=== PATIENT | female | born 1955 | race Caucasian/White ===

== ENCOUNTER 2023-09-25 14:24 | Outpatient (CLI) | payer MEDICARE, SELFPAY ==
[2023-09-25 14:52] LABS: Basophils Absolute Auto 0.1 K/mm3 (0.0-0.1); Basophils Percent Auto 1.1 % (0.2-1.2); Eosinophils Absolute Auto 0.1 K/mm3 (0-0.3); Eosinophils Percent Auto 0.7 % (0-4.4); Hematocrit 28.1 % (37.0-47.0); Hemoglobin 8.3 g/dL (12.0-15.0); Immature Granulocyte Absolute 0.03 K/mm3 (0.00-0.031); Immature Granulocyte Percent A 0.3 % (0-0.5); Lymphocytes Absolute Auto 1.27 K/mm3 (0.9-3.2); Lymphocytes Percent Auto 13.1 % (18.3-44.2); Mean Corpuscular HGB Conc 29.5 g/dl (32-36); Mean Corpuscular Volume 84.6 fl (80-100); Mean Platelet Volume 10.5 fl (7.4-10.4); Monocytes Absolute Auto 0.7 K/mm3 (0.1-0.6); Monocytes Percent Auto 6.7 % (2.6-8.5); Neutrophils Absolute Auto 7.6 K/mm3 (1.3-6.7); Neutrophils Percent Auto 78.1 % (45.5-73.1); Platelet Count Result 337 k/mm3 (150-375); Red Blood Count 3.32 M/mm3 (4.2-5.4); Red Cell Distribution Width 14.6 % (11.5-14.5); White Blood Count 9.7 K/mm3 (4.5-10.0)
[2023-09-25 15:00] LABS: Hypochromasia 1+ (NORMAL); Platelet Estimate Adequate (Adequate); Schistocytes None Seen (NORMAL)
[2023-09-25 16:56] LABS: Iron 57 ug/dL (37-170)
[2023-09-25 17:07] LABS: Alanine Aminotransferase 13 U/L (6-35); Albumin Level 4.4 g/dL (3.5-5.1); Alkaline Phosphatase 72 U/L (38-126); Anion Gap 13 mmol/L (8-16); Aspartate Amino Transferase 25 U/L (14-36); Bilirubin,Total 0.9 mg/dL (0.2-1.3); Blood Urea Nitrogen 12 mg/dL (7-17); Calcium 9.9 mg/dL (8.4-10.2); Carbon Dioxide 23 mmol/L (22-30); Chloride 101 mmol/L (98-107); Estimated Glomerular Filt Rate 49; Glucose 130 mg/dL (65-110); Sodium 137 mmol/L (137-145)
[2023-09-25 17:09] LABS: Percent Iron Saturation 14 % (20-50)
[2023-09-25 18:26] LABS: Folic Acid > 20.0 ng/mL (2.76->20)
[2023-09-28 18:45] LABS: Methylmalonic Acid 163 nmol/L (87-318)
[2023-09-30 13:48] LABS: Soluble Transferrin Receptor 3.59 mg/L (0.76-1.76)
== END 2023-09-25 14:25 | disposition home or self-care (01) ==
LOC: ANHLAB 14:26
PROVIDERS: PCP Internal Medicine Infectious Disease; Visit Provider Internal Medicine Hematology & Oncology
DX: D64.9 Anemia, unspecified (principal)
CPT/HCPCS: 36415; 80053; 82607; 82728; 82746; 83540; 83550; 83921; 84238; 85025

== ENCOUNTER 2023-11-01 07:00 | Outpatient (NON) | payer MEDICARE, SELFPAY | END 2023-11-01 07:01 | disposition home or self-care (01) | PROVIDERS: PCP Internal Medicine Infectious Disease; Visit Provider Internal Medicine Gastroenterology | DX: K21.9 Gastro-esophageal reflux disease without esophagitis (principal); D12.4 Benign neoplasm of descending colon; K31.89 Other diseases of stomach and duodenum | CPT/HCPCS: 88305 ==

== ENCOUNTER 2023-11-01 08:59 | Day surgery (SDC) | payer MEDICARE, SELFPAY ==
[2023-10-20 13:41] VITALS: BMI 24.3
--- NOTE | 2023-10-24 08:08 | SUR.PREOP ---
During pre-op interview regarding upcoming EGD/Colonoscopy Pt stated lab work from 09/25/23 showed HGB of 8.3 and ferritin of 7.2. Pt states is getting iron infusion this week and has chronic anemia. Pt states has been experiencing fatigue and SOB on exertion. Pt states was having heart palpitations and had a loop recorder recently taken out and was put on flecainide. On Eliquis for A-fib. TIA history with no episodes of TIA in last 5 years. Case reviewed with Dr. Jarquin (anesthesiologist) who states Pt okay to have procedure done at [facility]. Fax sent to Dr. Araiza's office for Eliquis hold clearance. Pt aware needs to hold Eliquis for [address] Robles's orders pending clearance from Dr. Araiza.
[2023-11-01 10:05] VITALS: BP 151/74; PULSE 88; RESP 20; TEMP 36.5; O2SAT 100
--- NOTE | 2023-11-01 10:11 | WPDHPUPDATE1 ---
History and Physical Update Update Date/Time: 11/01/23 10:11 History and Physical has been reviewed, including an updated exam of the patient. There are NO changes in the patient's condition. Risks, benefits, and alternatives have been discussed and questions answered. Patient agrees to proceed with procedure.
--- NOTE | 2023-11-01 10:31 | WPDANESEPPF ---
Anes - Initial Pre Proc Eval Procedure: Operation Date: 11/01/23 11:00 Proposed Procedures p Esophagogastroduodenoscopy - Howard Robles MD s Diagnostic Colonoscopy - Howard Robles MD Date/Time: 11/01/23 10:31 Surgeon: Howard Robles MD Pre Op Diagnosis: Iron deficiency anemia, dysphagia Patient Data Age: 68 Gender: F Height: 1.52 m Weight: 53.7 kg Last Vital Signs Temp 36.5 C 11/01/23 10:05 Pulse 88 11/01/23 10:05 Resp 20 11/01/23 10:05 BP 151/74 H 11/01/23 10:05 Pulse Ox 100 11/01/23 10:05 O2 Del Method Room Air 11/01/23 10:05 Allergies Allergy/AdvReac Type Severity Reaction Status Date / Time rofecoxib [From Vioxx] Allergy Intermediate rash Verified 11/01/23 10:03 Sulfa (Sulfonamide Allergy Intermediate Swelling Verified 11/01/23 10:03 Antibiotics) Home Medications Medication Instructions Recorded Confirmed Type apixaban 5 mg tablet (Eliquis) 5 mg PO BID 07/11/22 11/01/23 History flecainide 50 mg tablet 50 mg PO DAILY 07/11/22 11/01/23 History folic acid 1 mg tablet 1 mg PO DAILY 07/11/22 10/25/23 History losartan 25 mg tablet 25 mg PO DAILY 07/11/22 11/01/23 History meclizine 25 mg tablet 25 mg PO TID PRN dizziness 07/11/22 10/25/23 History metformin 500 mg tablet,extended 1,000 mg PO BID 07/11/22 10/25/23 History release 24hr (osmotic) metoprolol succinate 25 mg 25 mg PO DAILY 07/11/22 11/01/23 History tablet,extended release 24 hr omeprazole 20 mg capsule,delayed 20 mg PO DAILY 07/11/22 10/25/23 History release sitagliptin phosphate 100 mg 100 mg PO DAILY 07/11/22 10/25/23 History tablet (Januvia) ascorbate calcium (vitamin C) 500 500 mg PO DAILY 10/19/23 10/25/23 History mg tablet ferrous sulfate 134 mg (27 mg 134 mg PO DAILY 10/19/23 10/25/23 History iron) tablet omeprazole 20 mg capsule,delayed 20 mg PO DAILY 10/19/23 10/25/23 History release mecobalamin (vitamin B12) 1 tab-cap PO DIRECTED 10/24/23 10/25/23 History Patient hx anesthesia problems: none Family hx anesthesia problems: none Results Review: All pre-operative results and documents have been reviewed as part of the pre-operative evaluation. [facility] Past Medical History Medical History Afib Dysphagia GERD (gastroesophageal reflux disease) HTN (hypertension) Surgical History Surgical History H/O hand surgery H/O hysterectomy for benign disease Hx laparoscopic cholecystectomy Social History Social History Social History: never smoker Smoking status: Never smoker Alcohol intake: never Substance use: never Substance use type: does not use Lack of Transportation: No Lack of Food: Never True Current Housing: I Have Housing Concerned About Future Housing: No Difficulty Paying Gas/Electric Bills: No Difficulty Paying for Meds: No Currently Unemployed: No Education: Associate Degree Difficulty w/ Childcare or Family Care: No Living arrangements: with family Occupation/Education: retired Spiritual care concerns: No Anes - Eval Final PreProcedure Day of Procedure 11/01/23 10:31 Patient weight: normal Heart: regular rate and rhythm Lungs: clear to auscultation Airway: Mallampati scale class II Neurological: alert and oriented Last oral intake: >/= 8 hours ASA classification: III Emergent: no Anesthetic plan: proceed Anesthesia type and monitoring: general GIVS and standard monitoring Results Review: All pre-operative results and documents have been reviewed as part of the pre-operative evaluation. Informed Consent: The patient's anesthetic plan and its attendant risks and benefits were discussed with the patient/family/POA. Questions were solicited and answers provided to the satisfaction of the patient/family/POA.
[2023-11-01] MEDS: LACTATED RINGERS 1,000 ML 150 ML IV CONT (10:32)
[2023-11-01 10:34] LABS: Glucose Point of Care 156 mg/dl (65-105)
[2023-11-01 11:08] VITALS: BP 121/72; PULSE 78; RESP 16; O2SAT 96
[2023-11-01 11:18] VITALS: BP 140/72; PULSE 70; RESP 15; O2SAT 100
--- NOTE | 2023-11-01 11:19 | WPDANESPN ---
Anes - Prog Note Post-Op Date/Time: 11/01/23 11:19 Cardiovascular status: normal Respiratory status: normal Airway patency: baseline Mental status: baseline Post-Op hydration status: normal Vital Signs: Last Vital Signs Temp 36.5 C 11/01/23 10:05 Pulse 78 11/01/23 11:08 Resp 16 11/01/23 11:08 BP 121/72 11/01/23 11:08 Pulse Ox 96 11/01/23 11:08 O2 Del Method Room Air 11/01/23 11:08 Pain Score (VAS): 0/10 I/O: Intake & Output 10/31/23 11/01/23 11/01/23 23:59 07:59 15:59 Intake Total 400 Balance 400 11/01/23 10:25 POC Capillary Glucose 156 H Patient Feedback: Patient satisfied with anesthetic care.
[2023-11-01 11:28] VITALS: BP 134/54; PULSE 67; RESP 15; O2SAT 100
== END 2023-11-01 12:04 | disposition home or self-care (01) ==
PROVIDERS: PCP Internal Medicine Infectious Disease; Visit Provider Internal Medicine Gastroenterology
PROC: 0DJ08ZZ Inspection of Upper Intestinal Tract, Via Natural or Artificial Opening Endoscopic (ICD-10-PCS; CPT 43235; principal; 2023-11-01 11:00)
PROC: 0DJD8ZZ Inspection of Lower Intestinal Tract, Via Natural or Artificial Opening Endoscopic (ICD-10-PCS; CPT 45378; 2023-11-01 11:00)
DX: D50.9 Iron deficiency anemia, unspecified (principal); D12.4 Benign neoplasm of descending colon; K57.30 Diverticulosis of large intestine without perforation or abscess without bleeding; K64.8 Other hemorrhoids; Q39.4 Esophageal web; R13.19 Other dysphagia; K44.9 Diaphragmatic hernia without obstruction or gangrene
CPT/HCPCS: 45385; 43450; 43239

== ENCOUNTER 2024-03-15 10:52 | Outpatient (CLI) | payer MEDICARE, SELFPAY ==
[2024-03-15 11:34] LABS: Basophils Absolute Auto 0.1 K/mm3 (0.0-0.1); Eosinophils Absolute Auto 0.1 K/mm3 (0-0.3); Eosinophils Percent Auto 0.6 % (0-4.4); Hematocrit 31.5 % (37.0-47.0); Immature Granulocyte Absolute 0.06 K/mm3 (0.00-0.031); Immature Granulocyte Percent A 0.7 % (0-0.5); Lymphocytes Absolute Auto 1.17 K/mm3 (0.9-3.2); Lymphocytes Percent Auto 12.9 % (18.3-44.2); Mean Corpuscular HGB Conc 31.7 g/dl (32-36); Mean Corpuscular Volume 94.6 fl (80-100); Monocytes Absolute Auto 0.6 K/mm3 (0.1-0.6); Monocytes Percent Auto 6.5 % (2.6-8.5); Neutrophils Absolute Auto 7.1 K/mm3 (1.3-6.7); Neutrophils Percent Auto 78.3 % (45.5-73.1); Platelet Count Result 300 k/mm3 (150-375); Red Blood Count 3.33 M/mm3 (4.2-5.4); Red Cell Distribution Width 12.9 % (11.5-14.5); White Blood Count 9.1 K/mm3 (4.5-10.0)
[2024-03-15 15:58] LABS: Anion Gap 10 mmol/L (4-12); Blood Urea Nitrogen 15 mg/dL (7-17); Calcium 8.3 mg/dL (8.4-10.2); Carbon Dioxide 26 mmol/L (22-30); Chloride 104 mmol/L (98-107); Estimated Glomerular Filt Rate 45; Glucose 191 mg/dL (65-110); Potassium 4.4 mmol/L (3.4-5.0); Sodium 140 mmol/L (137-145)
[2024-03-15 16:31] LABS: Iron 95 ug/dL (37-170)
[2024-03-15 16:37] LABS: NT Pro B Type Natriuretic Pept 1630 pg/mL (19.9-100)
[2024-03-15 16:44] LABS: Percent Iron Saturation 39 % (20-50)
[2024-03-18 13:43] LABS: Vitamin D 1,25 (OH)2 Total 32 pg/mL (18-72); Vitamin D2 1,25 (OH)2 <8 pg/mL; Vitamin D3 1,25 (OH)2 32 pg/mL
== END 2024-03-15 10:53 | disposition home or self-care (01) ==
PROVIDERS: Internal Medicine Cardiovascular Disease; Psychiatry & Neurology Neurology; PCP Internal Medicine Infectious Disease; Visit Provider Internal Medicine Hematology & Oncology
DX: E55.9 Vitamin D deficiency, unspecified (principal); D64.9 Anemia, unspecified; Z13.6 Encounter for screening for cardiovascular disorders; I77.9 Disorder of arteries and arterioles, unspecified; I48.0 Paroxysmal atrial fibrillation; I10 Essential (primary) hypertension; R53.83 Other fatigue; R55 Syncope and collapse; I47.10 Supraventricular tachycardia, unspecified; Z95.818 Presence of other cardiac implants and grafts; G45.9 Transient cerebral ischemic attack, unspecified; E78.5 Hyperlipidemia, unspecified; R42 Dizziness and giddiness; E11.9 Type 2 diabetes mellitus without complications; R00.2 Palpitations
CPT/HCPCS: 36415; 80048; 82652; 82728; 83540; 83550; 83880; 85025

== ENCOUNTER 2024-04-24 10:38 | Outpatient (CLI) | payer MEDICARE, SELFPAY ==
--- NOTE | ~2024-04-24 | MR_ITS ---
EXAMINATION: MR brain/brain stem wo/w con DATE: 04/24/2024 11:41 INDICATION: Multiple sclerosis. Dizziness. Transient ischemic attack. TECHNIQUE: Magnetic resonance imaging (MRI) of the brain and brainstem was performed without and with 10 mL MultiHance intravenous contrast. COMPARISON: None. FINDINGS: There are scattered areas of nonspecific increased T2-weighted signal intensity in the cere bral white matter. The distribution includes periventricular and juxtacortical lesions. No infratento rial lesions. None of the lesions enhance. There is no intracranial hemorrhage or acute ischemic infa rct. The ventricles are normal in size. The orbits are normal. There is mucosal thickening in the eth moid sinuses. The mastoid air cells are normal. IMPRESSION: 1. Extensive nonspecific cerebral white matter disease, which likely represents chronic small vessel ischemic disease and/or multiple sclerosis. Reviewed, dictated and finalized at location A.
== END 2024-04-24 10:39 | disposition home or self-care (01) ==
PROVIDERS: PCP Internal Medicine Infectious Disease; Visit Provider Psychiatry & Neurology Neurology
DX: G35 Multiple sclerosis (principal); R90.82 White matter disease, unspecified
CPT/HCPCS: 70553; A9577

== ENCOUNTER 2024-10-04 10:45 | Outpatient (CLI) | payer MEDICARE, SELFPAY ==
[2024-10-04 11:13] LABS: Basophils Absolute Auto 0.1 K/mm3 (0.0-0.1); Basophils Percent Auto 1.1 % (0.2-1.2); Eosinophils Absolute Auto 0.1 K/mm3 (0-0.3); Eosinophils Percent Auto 0.8 % (0-4.4); Hematocrit 32.8 % (37.0-47.0); Hemoglobin 10.4 g/dL (12.0-15.0); Immature Granulocyte Absolute 0.05 K/mm3 (0.00-0.031); Immature Granulocyte Percent A 0.6 % (0-0.5); Lymphocytes Absolute Auto 1.46 K/mm3 (0.9-3.2); Lymphocytes Percent Auto 16.1 % (18.3-44.2); Mean Corpuscular HGB Conc 31.7 g/dl (32-36); Mean Corpuscular Hemoglobin 29.5 pg (26-34); Mean Corpuscular Volume 93.2 fl (80-100); Mean Platelet Volume 9.8 fl (7.4-10.4); Monocytes Absolute Auto 0.5 K/mm3 (0.1-0.6); Monocytes Percent Auto 5.7 % (2.6-8.5); Neutrophils Absolute Auto 6.9 K/mm3 (1.3-6.7); Neutrophils Percent Auto 75.7 % (45.5-73.1); Platelet Count Result 293 k/mm3 (150-375); Red Blood Count 3.52 M/mm3 (4.2-5.4); Red Cell Distribution Width 12.7 % (11.5-14.5); White Blood Count 9.1 K/mm3 (4.5-10.0)
[2024-10-04 12:40] LABS: Alanine Aminotransferase 14 U/L (6-35); Alkaline Phosphatase 92 U/L (38-126); Anion Gap 8 mmol/L (4-12); Aspartate Amino Transferase 21 U/L (14-36); Bilirubin,Total 0.8 mg/dL (0.2-1.3); Blood Urea Nitrogen 22 mg/dL (7-17); Calcium 9.7 mg/dL (8.4-10.2); Carbon Dioxide 27 mmol/L (22-30); Chloride 101 mmol/L (98-107); Estimated Glomerular Filt Rate 42; Glucose 134 mg/dL (65-110); Potassium 5.2 mmol/L (3.4-5.0); Sodium 136 mmol/L (137-145); Uric Acid 7.1 mg/dL (2.5-7.5)
[2024-10-04 12:56] LABS: MALB Creatinine Ratio 10.1 mg/g (0-30); Microalbumin Urine Random 13.7 mg/L (0-16.7)
[2024-10-04 12:58] LABS: Parathyroid Intact 19.9 pg/mL (14.5-75.2)
[2024-10-04 13:03] LABS: Vitamin D 25 Hydroxy 59.2 ng/mL
[2024-10-04 13:09] LABS: Add Urine Microscopic? YES; Appearance Urine Cloudy (Clear); Bacteria Urine 1+ /hpf; Bilirubin Urine Negative (Negative); Blood Urine Negative (Negative); Budding Yeast Urine Present /hpf; Color Urine Yellow (Yellow); Glucose Urine UA Negative (Negative); Ketones Urine Negative (Negative); Leukocyte Esterase Ur 2+ LEU/UL (Negative); Need Manual Microscopic Reviewed; Nitrate Urine Negative (Negative); Protein Urine Negative (Negative); RBC Urine 0-2 /hpf (0-2); Specific Grav Ur 1.017 (1.001-1.035); Squamous Epithelial Cell Urine Moderate /hpf (Few); Urobilinogen Urine 0.2 mg/dL (<2.0); WBC Urine 21-50 /hpf (0-3)
[2024-10-04 13:15] LABS: Hemoglobin A1C 7.2 % (<5.7)
[2024-10-04 13:18] LABS: Erythrocyte Sedimentation Rate 38 mm/hr (0-20)
--- OUTSIDE RECORDS SUMMARY | 2024-10-10 06:33 | XMS_ITS | Data Portability ---
Author Organization [facility] Address [address] [place] [address] Care Team Providers Care [employer] Techn[employer] Name Role Phone [facility] - NEUROLOGY Neurologist Assessment Encounter Date Assessment Date Assessment LastModified by Organization Details LastModified Time 03/25/2024 03/25/2024 She is not due for Prevnar 20 until 5 years after her last Pneumovax 23, which was administered on 02/28/2023 oajao Not available 03/25/2024 19:15:00 Plan of Treatment Reminders Order Date Submit Date Provider Last Modified By Organization Details Last Modified Time Details Appointments ANY 15 2024 11:00A Kenia Soni MD Not available Not available Not available Lab CBC 2022 023 [facility], [address] [place], [address], 02/06/2023 13:51:39 BMP, serum or plasma 2022 024 [facility], [address] [place], [address], 03/25/2024 14:36:13 HbA1c (hemogl obin A1c), blood 2022 023 [facility], [address] [place], [address], 03/15/2023 11:21:45 lipid panel, serum 2022 023 [facility], [address] [place], [address], 06/06/2023 11:39:01 vitamin D, 25-hydr oxy, total, serum 2022 023 [facility], [address] [place], [address], 05/26/2023 13:54:05 hemoglo bin + hematoc rit, blood 2022 023 [facility] ([facility]), [address] [place], [address], 02/28/2023 15:28:45 CBC 2022 024 [facility], [address] [place], [address], 12/25/2023 09:35:37 BMP, serum or plasma 2022 024 [facility], [address] [place], [address], 03/25/2024 14:36:19 HbA1c (hemogl obin A1c), blood 2022 024 [facility] ([facility]), [address] [place], [address], 03/03/2024 23:57:06 lipid panel, serum 2022 024 [facility] ([facility]), [address] [place], [address], 03/04/2024 15:11:26 BMP, serum or plasma 2023 024 [facility], [address] [place], [address], 04/09/2024 16:07:59 albumin /creati nine, mass ratio, urine 2023 024 [facility], [address] [place], [address], 08/06/2024 09:31:14 Referral diabeti c ophthal mology referra l 2022 023 [facility], [address], [place], [address], 08/23/2023 15:41:29 gastroe nterolo gist referra l - Iron deficie ncy anemia, Hb 836, Hct 28.3 01/27/20 23 2022 023 pelonraddillerenuka Fernandes MD, [address], [address], [place], [address], 04/05/2024 13:46:12 gastroe nterolo gist referra l - Chronic anemia 2022 023 OSMANI Fernandes MD, [address], [address], [place], [address], 10/22/2023 21:26:13 endocri nology, diabete s & metabol ism special ist referra l - Osteope livier with previou s fractur es and DM 2022 023 [place], [address], [place], [address], 07/25/2024 11:43:55 nephrol ogist referra l - Elevate d creatin ine 2023 024 OSMANI Araiza MD (Nephrology, [address], [address], [place], [address], 05/01/2024 15:40:16 Procedures None recorde d. Surgeries None recorde d. Imaging DEXA 2022 023 [facility] ([facility]), [address] [place], [address], 02/28/2023 10:46:15 MAMMO, screeni ng, bilater al 2022 023 [facility] ([facility]), [address] [place], [address], 08/21/2023 14:53:00 DEXA 2022 023 [facility] ([facility]), [address] [place], [address], 07/24/2023 13:50:59 US, kidney - Elevate d creatin ine 2023 024 [facility] ([facility]), [address] [place], [address], 04/08/2024 14:38:57 MAMMO, screeni ng, digital , bilater al 2023 024 [facility] (Mammography) , [address], [place], [address], 09/17/2024 15:24:00 Medication Orders azithro mycin 250 [address] [facility] #[id number], [address], [place], [address], 11/28/2022 12:07:21 benzona kate 100 mg capsule 2022 023 [facility]acy #[id number], [address], [place], [address], 02/28/2023 10:01:38 Advair Diskus 250 mcg-50 mcg/dos e powder for inhalat ion 2022 023 [facility]/Pharmacy #[id number], [address], [place], [address], 02/28/2023 10:29:15 albuter ol sulfate HFA 90 mcg/act uation aerosol inhaler 2022 023 [facility][id number] 37 [facility] #[id number], [address], [place], [address], 03/01/2023 23:39:49 ferrous sulfate 325 mg (65 mg iron) tablet 2022 023 oajao [id number], [address], [place], [address], 09/04/2023 12:23:46 citalop armani 10 mg tablet 2023 024 OSMANI [facility][id number], [address], [place], [address], 03/29/2024 20:09:07 Patient TargetsNo targets recorded. Patient Instructions Encounter Date Encounter Id Patient Instructions Last Modified By Organization Details Last Modified Time 11/28/2022 [id number] type 2 diabetes: care instructions oajao Not available 11/28/2022 10:41:34 Azithromycin Mayo thomason CXR if there is no improvement DEXA scan Ophthalmology Bivalent COVID 19 booster ER with SOB or chest pain Labs in Jan, 2023 Follow up in 3 months and PRN oajao Not available 11/28/2022 10:59:19 02/28/2023 [id number] learning about breast cancer screening oajao Not available 02/28/2023 10:39:18 type 2 diabetes: care instructions oajao Not available 02/28/2023 11:22:55 GI Labs Ophthalmology as previously referred DEXA [facility] in April, Follow up in 6 months and PRN oajao Not available 02/28/2023 11:23:46 A hard copy of h er 01/26/2023 lab results were discussed oajao Not available 02/28/2023 11:25:51 09/04/2023 [id number] influenza (flu) vaccine: care instructions oajao Not available 09/04/2023 13:17:00 FeSo4 BID GI Endocrinology Labs in December, Follow up in 5 months and PRN oajao Not available 09/04/2023 12:25:09 03/25/2024 [id number] Most recent lab results from [facility]/Carotid US (Scheduled) Labs US Citalopram Nephrology Follow up in 4 months and PRN oacaino Not available 03/25/2024 15:51:21 07/16/2024 [id number] influenza (flu) vaccine: care instructions oacaino Not available 07/16/2024 12:41:12 Labs MMG in August, Follow up in 5 months and PRN oacaino Not available 07/16/2024 12:41:37 Reason for Referral Diabetic Ophthalmology Refer ral for Type 2 diabetes mellitus without complication Referring Physician: Adam Soni, Internal Medicine, Encounter Date: 11/28/2022 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 Chronic anemia Iron deficiency anemia, Hb 836, Hct 28.3 01/26/2023 Iron deficiency anemia, Hb 836, Hct 28.3 01/26/2023 Referring Physician: Adam Soni Internal Medicine, Encounter Date: 02/28/2023 Endocrinology, Diabetes & Me tabolism Specialist Referral for Type 2 diabetes mellitus without complication Osteopenia, DM Osteopenia with previous fractures and DM Referring Physician: Adam Soni Internal Medicine, Encounter Date: 09/04/2023 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 Chronic anemia Chronic anemia Chronic anemia Referring Physician: Adam Soni Internal Medicine, Encounter Date: 09/04/2023 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) [address] [facility] [address], [place], [address], 11/01/2023 06:19:23 10/27/19 24 10/28/2023 MICRO SCOPI C EXAMI NATIO N RBC NONE SEEN /hpf 0-2 Not Available [facility] ([facility]) [address] [facility] [address], [place], [address], 11/01/2023 06:19:23 10/27/19 24 10/28/2023 MICRO SCOPI C EXAMI NATIO N epithelial cells (non renal) 0-10 /hpf 0-10 Not Available [facility] ([facility]) [address] [facility] [address], [place], [address], 11/01/2023 06:19:23 10/27/19 24 10/28/2023 MICRO SCOPI C EXAMI NATIO N casts NONE SEEN /lpf nonese en Not Available [facility] ([facility]) [address] [facility] [address], [place], [address], 11/01/2023 06:19:23 10/27/19 24 10/28/2023 MICRO SCOPI C EXAMI NATIO N bacteria MANY nonese en/few abnormal Not Available [facility] ([facility]) [address] [facility] [address], [place], [address], 11/01/2023 06:19:23 10/27/19 24 10/28/2023 UA WITH CULTU RE REFLE X specific gravity 1.019 1.005- 1.030 Not Available [facility] ([facility]) [address] [facility] [address], [place], [address], 11/01/2023 06:19:23 10/27/19 24 10/28/2023 UA WITH CULTU RE REFLE X pH 5.5 5.0-7. 5 Not Available [facility] ([facility]) [address] [facility] [address], [place], [address], 11/01/2023 06:19:23 10/27/19 24 10/28/2023 UA WITH CULTU RE REFLE X urine-color YELLOW yellow Not Available [facility] ([facility]) [address] [facility] [address], [place], [address], 11/01/2023 06:19:23 10/27/19 24 10/28/2023 UA WITH CULTU RE REFLE X appearance CLOUDY clear abnormal Not Available [facility] ([facility]) [address] [facility] [address], [place], [address], 11/01/2023 06:19:23 10/27/19 24 10/28/2023 UA WITH CULTU RE REFLE X WBC esterase 3+ negati ve abnormal Not Available [facility] ([facility]) [address] [facility] [address], [place], [address], 11/01/2023 06:19:23 10/27/19 24 10/28/2023 UA WITH CULTU RE REFLE X protein 1+ negati ve/tra ce abnormal Not Available [facility] ([facility]) [address] [facility], [place], [address], 11/01/2023 06:19:23 10/27/19 24 10/28/2023 UA WITH CULTU RE REFLE X glucose NEGATI VE negati ve Not Available [facility] ([facility]) [address] [facility] [address], [place], [address], 11/01/2023 06:19:23 10/27/19 24 10/28/2023 UA WITH CULTU RE REFLE X ketones NEGATI VE negati ve Not Available [facility] ([facility]) [address] [facility] [address], [place], [address], 11/01/2023 06:19:23 10/27/19 24 10/28/2023 UA WITH CULTU RE REFLE X occult blood TRACE negati ve abnormal Not Available [facility] ([facility]) [address] [facility] [address], [place], [address], 11/01/2023 06:19:23 10/27/19 24 10/28/2023 UA WITH CULTU RE REFLE X bilirubin NEGATI VE negati ve Not Available [facility] ([facility]) [address] [facility] [address], [place], [address], 11/01/2023 06:19:23 10/27/19 24 10/28/2023 UA WITH CULTU RE REFLE X urobilinogen ,semi-qn 0.2 mg/dL 0.2-1. 0 Not Available [facility] ([facility]) [address] [place], [address], 11/01/2023 06:19:23 10/27/19 24 10/28/2023 UA WITH CULTU RE REFLE X nitrite, urine NEGATI VE negati ve Not Available [facility] ([facility]) [address] [place], [address], 11/01/2023 06:19:23 10/27/19 24 10/28/2023 UA WITH CULTU RE REFLE X microscopic examination SEE BELOW: Micro scopi c was indic ated and was perfo rmed. Not Available [facility] ([facility]) [address] [place], [address], 11/01/2023 06:19:23 10/27/19 24 10/28/2023 UA WITH CULTU RE REFLE X urinalysis reflex COMMEN T This speci men has refle xed to a Urine Cultu re. Not Available [facility] ([facility]) [address] [place], [address], 11/01/2023 06:19:23 10/27/19 24 11/01/2023 URINE CULTU RE, ROUTI NE urine culture, routine FINAL REPORT abnormal Not Available [facility] ([facility]) [address] [place], [address], 11/01/2023 06:19:24 10/27/19 24 11/01/2023 URINE CULTU RE, ROUTI NE result 1 KLEBSI RIP PNEUMO NIAE abnormal Great er than 100,0 00 colon y formi ng units per mL Cefaz chacha <=4 ug/mL Cefaz chacha with an AMIE <=16 predi cts susce ptibi lity to the oral agent s cefac moira, cefdi dev, cefpo doxim e, cefpr ozil, cefur oxime , cepha lexin , and lorac arbef when used for thera py of uncom plica carly urina ry tract infec tions due to E. coli, Klebs iella pneum oniae , and Prote us mirab ilis. Not Available [facility] ([facility]) [address] [facility] [address], [place], [address], 11/01/2023 06:19:24 10/27/1911/01/2023 URINE CULTU RE, ROUTI NE antimicrobia l susceptibili ty COMMEN T S = Susce ptibl e; I = Inter media te; R = Resis tant P = Posit preston; N = Negat preston MICS are expre ssed in micro grams per mL Antib iotic RSLT# 1 RSLT# 2 RSLT# 3 RSLT# 4 Amoxi cilli n/Cla vulan ic Acid S Ampic illin R Cefep ya S Ceftr iaxon e S Cefur oxime S Cipro floxa john S Ertap enem S Genta micin S Imipe nem S Levof loxac in S Merop enem S Nitro furan toin R Piper acill in/Ta zobac brewer S Tetra cycli ne S Tobra mycin S Trime thopr im/Pritchett lfa S Not Available [facility] ([facility]) [address] [facility] [address], [place], [address], 11/01/2023 06:19:24 12/06/1912/02/2022 XR, chest , 2 view No observ ation record ed. [facility] [address] [place], [address], 02/28/2023 10:16:48 12/07/19 23 12/02/2022 XR, chest , 2 view No observ ation record ed. [facility] [address] [place], [address], 02/28/2023 10:16:48 07/24/20 23 07/24/2023 DEXA No observ ation record ed. [facility] ([facility]) [address] [place], [address], 09/04/2023 12:01:04 08/21/20 23 08/21/2023 MAMMO , scree kelly, bilat eral No observ ation record ed. [facility] [address] [place], [address], 09/04/2023 12:01:03 04/08/20 24 04/08/2024 US, kidne y No observ ation record ed. [facility] [address] [place], [address], 07/16/2024 12:25:52 04/09/20 24 04/09/2024 US, duple x, carot id arter y No observ ation record ed. [facility] [address], [place], [address], 07/16/2024 12:25:52 04/09/20 24 04/09/2024 trans -thor acic echoc ardio gram (TTE) (PROC ) No observ ation record ed. [facility] [address], [place], [address], 07/16/2024 12:25:52 04/24/20 24 04/24/2024 MRI, brain + brain stem, w/o contr ast No observ ation record ed. [facility] [address], [place], [address], 07/16/2024 12:25:52 Result Notes None recorded. Problems Name Problem SNOMED Code Status Onset Date Resolution Date Notes Provider Name and Address Organization Details Recorded Time Multinod thiago goiter 519300393 Active 2017 Not Available [facility] 3 09:58:59 Multiple sclerosi s 54278412 Completed 201806/07/2019 Removal Reason: The neurolog ist disagree s Adam Soni MD Attn: Accounting ,[address] [facility], [place], [address] , [place] - [place] 9 11:45:02 Pure hypercho lesterol emia 742240133 Active Not Available [facility] 3 09:58:59 Abnormal liver function 38637906 Active Not Available [facility] 3 09:59:00 Diabetes mellitus 94079525 Completed 10/23/2018 Adam Soni MD Attn: Accounting ,[address] [facility], [place], [address] , [place] 9 17:45:54 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 49143743 Active 2018 Not Available [facility] 3 09:59:00 Gastroes ophageal reflux disease 256937462 Active 2018 Not Available [facility] 3 09:58:59 Adenomat ous polyp of colon 806712438 Active 2019 Not Available [facility] 3 09:59:00 Thyroid nodule 821695614 Active 2019 Not Available [facility] 3 09:58:59 Osteopen ia 472948715 Active 2021 Not Available [facility] 3 09:58:59 Spinal stenosis of lumbar region 72753864 Active 2021 Not Available [facility] 3 09:58:59 History of anemia vitamin B12 deficien t 959839291 Active 2021 Not Available [facility] 3 09:58:59 Chronic anemia 381794620 Active 2021 Not Available [facility] 3 09:58:59 SARS-CoV -2 mRNA vaccine declined 2276346381 Active 2022 Not Available [facility] 3 09:58:59 Fracture of surgical neck of humerus 427329689 Active Adam Soni MD Attn: Accounting ,[address] [facility], [place], [address] , [place] [facility] 4 12:22:40 Anti-nuc lear factor detected 982542279 Active 2023 Adam Soni MD Attn: OLIVER ALVARADO , [place], [address] , [place] [facility] 4 12:24:14 Generali zed anxiety disorder 13986804 Active Not Available [facility] 3 09:58:59 Acute upper respirat ory infectio n 41393856 Active Not Available [facility] 3 09:59:00 Impacted cerumen 47370459 Active Not Available [facility] 3 09:58:59 Candidia sis of vagina 30189716 Active Not Available [facility] 3 09:59:00 Disorder of urinary tract 04159201 Active Not Available [facility] 3 09:59:00 Urinary bladder pain 82453965 Active Not Available [facility] 3 09:58:59 Type 2 diabetes mellitus without complica tion 503906164 Active Not Available [facility] 3 09:58:59 Asthma 752357118 Active Not Available [facility] 3 09:58:59 Uncontro lled type 2 diabetes mellitus 943858093 Active Not Available [facility] 3 09:59:00 Non-alco holic fatty liver 501307447 Active Not Available [facility] 3 09:58:59 Low back pain 756039178 Active Not Available [facility] 3 09:58:59 Dizzines s 847567224 Active Not Available [facility] 3 09:58:59 Hiatal hernia 43159288 Active Not Available [facility] 3 09:59:00 Anemia 317430227 Active Not Available [facility] 3 09:58:59 Depressi ve disorder 85940783 Active Not Available [facility] 3 09:58:59 Low blood pressure 25659091 Active Not Available [facility] 3 09:59:00 Hyperlip idemia 95465427 Active Not Available [facility] 3 09:59:00 Chronic cerebral ischemia 044922280 Active 2016 Not Available [facility] 3 09:58:59 Notes:Some problems listed i n Document: #[id number] could not be added to this patient's chart. Please review this document and add these problems to the patient's chart manually as needed. Problem Notes None recorded. Procedures Surgical History Date Name Laterality Status Provider Name and Address Organization Details Recorded Time 2023 Diabetic Foot Exam completed Adam Soni MD Attn: Fany galdamez,[address] [facility], [place], [address], [place] [facility] 4 19:09:01 2023 esophagogastroduodenoscopy completed Molly Wilkins MD Attn: Fany galdamez,[address] [facility], [place], [address], [place] [facility] 4 09:21:24 2023 colonoscopy completed Adam Soni MD Attn: Fany galdamez,[address] [facility], [place], [address], [place] [facility] 4 09:22:43 2014 colonoscopy completed Adam Soni MD Attn: Fany galdamez,[address] [facility], [place], [address], [place] [facility] 0 09:41:25 1984 Total hysterectomy completed Adam Soni MD Attn: Fany galdamez,[address] [facility], [place], [address], [place] [facility] 7 10:14:36 Arthroscopic Surgery completed Alfonsoi dimple Wiggins [place] [facility] 4 14:52:01 Appendectomy completed December R[place]A [place] [facility] 4 14:52:01 Cholecystectomy completed December [place] [facility] 4 14:52:01 Hysterectomy completed December [place]A [place] [facility] 4 14:52:01 Imaging Results Imaging Date Name Status LastModified by Organization Details LastModified Time 12/02/2022 XR, chest, 2 view completed [facility] [address] [place], [address], 02/28/2023 10:16:48 12/02/2022 XR, chest, 2 view completed [facility] [address] [place], [address], 02/28/2023 10:16:48 07/24/2023 DEXA completed [facility] ([facility]) [address] [place], [address], 09/04/2023 12:01:04 08/21/2023 MAMMO, screening, bilateral completed [facility] [address] [place], [address], 09/04/2023 12:01:03 04/08/2024 US, kidney completed [facility] [address] [place], [address], 07/16/2024 12:25:52 04/09/2024 US, duplex, carotid artery completed [facility] [address], [place], [address], 07/16/2024 12:25:52 04/09/2024 trans-thoracic echocardiogram (TTE) (PROC) completed [facility] [address], [place], [address], 07/16/2024 12:25:52 04/24/2024 MRI, brain + brain stem, w/o contrast completed [address], [address], 07/16/2024 12:25:52 Procedure Notes None recorded. Medical Equipment None Reported. Allergies Allergen ID Allergen Name Allergen Category Reaction Reaction Severity Criticality Documentation Date Start Date Code Code System Note Provider Name and Address Organization Details Recorded Time [id number] [id number] Substance with sulfonami de structure and antibacte rial mechanism of action (substanc e) medicatio n Not available Not available Not available 09/04/2014 92123 8003 SNOMED Other react ions and sever ities : 'Adve rse react ion to subst ance' . Not Available Not Available Not Available [id number] Vioxx medicatio n hives mild Not available 09/04/2014 39031 9 RxNorm Not Available Not Available Not Available [id number] 29b50 Jardiance medicatio n other mild Not available 04/07/2017 68092 59 RxNorm Thrus h Not Available Not Available Not Available Medications Name Sig Start Date Stop Date Status Note LastModified by Organization Details LastModified Time Prescript ion - Renewal 09/01 completed Script for refill on Clonazep am. Not Available Not Available Not Available Prescript ion - New active Not Available Not Available No t Available Prescript ion - Prior Authoriza tion Request 02/28 completed Not Available Not Available Not Available losartan 50 mg tablet TAKE 1 TABLET BY MOUTH EVERY DAY active Not Available Not Available No t Available amoxicill in 500 mg capsule 02/16 completed Not Available Not Available Not Available fluconazo le 100 mg tablet Two po daily for 7 days 06/07 completed Not Available Not Available Not Available nystatin 100,000 unit/mL oral suspensio n 01/22 completed Not Available Not Available Not Available atorvasta tin 20 mg tablet TAKE 1 TABLET BY MOUTH EVERY DAY active Not Available Not Available No t Available atorvasta tin 10 mg tablet TAKE 1 TABLET BY MOUTH EVERY DAY 06/22 completed 20 mg Not Available Not Available Not Available azithromy john 250 mg tablet TAKE 2 TABLETS BY MOUTH TODAY, THEN TAKE 1 TABLET DAILY FOR 4 DAYS 2022 active Changed to Augmenti n, possible interact ion with Flecaini de Not Available Not Available Not Available fluconazo le 150 mg tablet Take 150 mg every day by oral route as needed. 02/16 completed Not Available Not Available Not Available benzonata te 200 mg capsule 02/16 completed Not Available Not Available Not Available citalopra m 10 mg tablet TAKE 1 TABLET BY MOUTH EVERY DAY DIRECTED FOR MOOD DISORDER active Not Available Not Available No t Available cephalexi n 250 mg capsule TAKE 1 CAPSULE BY MOUTH THREE TIMES A DAY 02/28 completed Not Available Not Available Not Available hydrocodo ne 5 mg-acetam inophen 325 mg tablet TAKE 1 TABLET BY MOUTH EVERY 6 HOURS NEEDED FOR PAIN 03/25 completed Not Available Not Available Not Available fluconazo le 200 mg tablet 08/20 completed Not Available Not Available Not Available Medrol (Abelardo) 4 mg tablets in a dose pack Take 1 dose pk by oral route as directed . 03/18 completed Not Available Not Available Not Available prednison e 20 mg tablet TAKE 2 TABLETS BY MOUTH EVERY DAY DIRECTED FOR 5 DAYS 02/28 completed Not Available Not Available Not Available clonazepa m 0.5 mg tablet TAKE 1 TABLET BY MOUTH EVERY DAY FOR 15 DAYS 05/24 completed Not Available Not Available Not Available methylpre dnisolone 4 mg tablet 06/07 completed Not Available Not Available Not Available Debrox 6.5 % ear drops Instill 5 drops twice a day by otic route for 4 days. 01/20 completed Not Available Not Available Not Available clindamyc in HCl 150 mg capsule 01/20 completed Not Available Not Available Not Available promethaz ine 6.25 mg-codein e 10 mg/5 mL syrup 02/16 completed Not Available Not Available Not Available acetamino phen 300 mg-codein e 30 mg tablet HS PRN 03/18 completed Not Available Not Available Not Available ciproflox acin 250 mg tablet TAKE 1 TABLET BY MOUTH TWICE A DAY FOR 10 DAYS 07/16 completed Not Available Not Available Not Available aspirin 81 mg tablet,de layed release Take 1 tablet every day by oral route. 01/19 completed Not Available Not Available Not Available tramadol 50 mg tablet TAKE 1 TABLET BY MOUTH EVERY 6 HOURS NEEDED FOR PAIN 03/25 completed Not Available Not Available Not Available amoxicill in 500 mg tablet Take 2 tablets every 8 hours by oral route as directed for 7 days. 06/07 completed Not Available Not Available Not Available glimepiri de 2 mg tablet Take 1 tablet(s ) twice a day by oral route with meals for 90 days. 12/21 completed 2mg AM, 1 or 2 mg PM Not Available Not Available Not Available glimepiri de 1 mg tablet TAKE 1 TABLET BY MOUTH TWICE A DAY WITH MEALS active Not Available Not Available No t Available oxycodone -acetamin ophen 5 mg-325 mg tablet TAKE 1 TABLET BY MOUTH THREE TIMES A DAY NEEDED FOR PAIN 02/28 completed Not Available Not Available Not Available magnesium oxide 400 mg (241.3 mg magnesium ) tablet TAKE 1 TABLET BY MOUTH TWICE A DAY 11/28 completed Not Available Not Available Not Available meclizine 25 mg tablet TAKE 1 TABLET BY MOUTH THREE TIMES A DAY NEEDED 2023 active Not Available Not Available Not Avai lable benzonata te 100 mg capsule TAKE 2 CAPSULES BY MOUTH 3 TIMES A DAY NEEDED FOR 5 DAYS 02/28 completed Not Available Not Available Not Available cephalexi n 500 mg capsule TAKE 1 CAPSULE BY MOUTH EVERY 6 HOURS DIRECTED FOR 7 DAYS 03/25 completed Not Available Not Available Not Available ferrous sulfate 325 mg (65 mg iron) tablet TAKE 1 TABLET BY MOUTH TWICE A DAY DIRECTED FOR 90 DAYS 2023 active Not Available Not Available Not Avai lable metformin 1,000 mg tablet one po bid 01/05 completed Usually misses her evening dose Not Available Not Available Not Available Cipro 500 mg tablet Take 1 tablet every 12 hours by oral route for 3 days. 08/20 completed Not Available Not Available Not Available nitrofura ntoin macrocrys neetu 100 mg capsule TAKE 1 CAPSULE BY MOUTH EVERY 6 HOURS X5 DAYS DIRECTED 03/25 completed Not Available Not Available Not Available nystatin 100,000 unit/gram topical cream APPLY TO AFFECTED AREA TWICE A DAY 05/24 completed Not Available Not Available Not Available clotrimaz ole-betam ethasone 1 %-0.05 % topical cream APPLY TO AFFECTED AREA TWICE A DAY FOR 1 WEEK active Not Available Not Available No t Available flecainid e 50 mg tablet TAKE 1 TABLET BY MOUTH TWICE A DAY active Not Available Not Available No t Available losartan 25 mg tablet TAKE 1 TABLET BY MOUTH EVERY DAY 07/16 completed Not Available Not Available Not Available omeprazol e 20 mg capsule,d elayed release TAKE 1 CAPSULE BY MOUTH EVERY DAY 2023 active Not Available Not Available Not Avai lable folic acid 1 mg tablet TAKE 1 TABLET BY MOUTH EVERY DAY active Not Available Not Available No t Available Accu-Chek Compact Test strips active Not Available Not Available Not Available lisinopri l 5 mg tablet take one tablet by mouth daily 04/07 completed Not Available Not Available Not Available metoprolo l succinate ER 25 mg tablet,ex tended release 24 hr TAKE 1 TABLET BY MOUTH EVERY DAY active Not Available Not Available No t Available ergocalci ferol (vitamin D2) 1,250 mcg (50,000 unit) capsule TAKE 1 CAPSULE BY MOUTH ONE TIME PER WEEK 07/16 completed Not Available Not Available Not Available Cheratuss in AC 10 mg-100 mg/5 mL oral liquid Take 10 mL every 4 hours by oral route as directed . 04/07 completed Not Available Not Available Not Available ibuprofen 600 mg tablet 01/20 completed Not Available Not Available Not Available albuterol sulfate HFA 90 mcg/actua tion aerosol inhaler INHALE 2 PUFFS BY MOUTH INTO THE LUNGS EVERY 4 HOURS NEEDED FOR 30 DAYS active Not Available Not Available No t Available metformin ER 500 mg tablet,ex tended release 24 hr TAKE 2 TABLETS BY MOUTH TWICE A DAY active Not Available Not Available No t Available calcitrio l 0.25 mcg capsule TAKE 1 CAPSULE BY MOUTH EVERY DAY FOR 90 DAYS active Not Available Not Available No t Available ipratropi um bromide 21 mcg (0.03 %) nasal spray Bruno 2 sprays twice a day by intranas al route. 08/20 completed Not Available Not Available Not Available loratadin e 10 mg tablet Take 1 tablet every day by oral route as directed for 30 days. 08/21 completed Not Available Not Available Not Available amoxicill in 875 mg-potass ium clavulana te 125 mg tablet TAKE 1 TABLET BY MOUTH TWICE A DAY 02/28 completed Not Available Not Available Not Available escitalop armani 10 mg tablet 0.5 po daily 02/16 completed Not Available Not Available Not Available metformin ER 1,000 mg tablet,ex tended release 24hr (osmotic) 01/05 completed Not Available Not Available Not Available NyQuil 02/28 completed Not Available Not Available Not Available metformin ER 500 mg 24 hr tablet,ex tended release (gastric retention ) Two PO JONY BID 06/22 completed Not Available Not Available Not Available Januvia 100 mg tablet TAKE 1 TABLET BY MOUTH EVERY DAY 07/16 completed Not Available Not Available Not Available metformin ER 1,000 mg 24 hr tablet,ex tended release (gastric reten.) Take 1 tablet(s ) twice a day by oral route as directed . 2020 active Not Available Not Available Not Avai labsherri OneTouch Delica Lancets 33 gauge active Not Available Not Available Not Available Suprep Bowel Prep Kit 17.5 gram-3.13 gram-1.6 gram oral solution 01/20 completed Not Available Not Available Not Available ergocalci ferol (vitamin D2) 50 mcg (2,000 unit) tablet Take 1 tablet by oral route as directed . 07/16 completed Not Available Not Available Not Available Vascepa 1 gram capsule TAKE 2 CAPSULES TWICE A DAY BY ORAL ROUTE WITH MEALS FOR 90 DAYS. 01/19 completed Not Available Not Available Not Available Eliquis 5 mg tablet TAKE 1 TABLET BY MOUTH TWICE A DAY active Not Available Not Available No t Available Jardiance 10 mg tablet Take 1 tablet every day by oral route for 42 days. 02/16 completed Not Available Not Available Not Available Jardiance 25 mg tablet TAKE 1 TABLET BY MOUTH EVERY DAY active Not Available Not Available No t Available Accu-Chek Guide test strips USE DIRECTED TO CHECK BLOOD GLUCOSE LEVELS UP TO 4 TIMES DAILY BEFORE MEALS active Not Available Not Available No t Available Wixela Inhub 250 mcg-50 mcg/dose powder for inhalatio n INHALE 1 PUFF BY MOUTH TWICE A DAY DIRECTED active Not Available Not Available No t Available FreeStyle Megan 2 Sensor kit USE DIRECTED . CHANGE SENSOR EVERY 14 DAYS active Not Available Not Available No t Available FreeStyle Megan 2 [place] USE DIRECTED . active Not Available Not Available No t Available Vitals Date Recorded Body height Provider Name an d Address Organization Details Last Updated DateTime 11/28/2022 152.4 cm Una Bocanegra [place] - [facility] 023 10:27:07 Date Recorded Body mass index (BMI) Body weight Provider Name and Address Organization Details Last Updated DateTime 11/28/2022 23.8 kg/m2 11239.27 g Una Bocanegra [place] [facility] 11/28/2022 10:30:53 Date Recorded Heart rate Provider Name an d Address Organization Details Last Updated DateTime 11/28/2022 80 /min [place] [facility] 0[facility] 10:31:49 Date Recorded Oxygen saturation Oxygen saturation in Arterial blood by Pulse oximetry Provider Name and Address Organization Details Last Updated DateTime 11/28/2022 98 % 98 % Una SahraRENUKA n[facility] 11/28/2022 10:31:53 Date Recorded Respiratory rate Provider Name a nd Address Organization Details Last Updated DateTime 11/28/2022 14 /min [place] [facility] 023 10:31:55 Date Recorded Body height Provider Name an d Address Organization Details Last Updated DateTime 02/28/2023 152.4 cm Una Bocanegra [place] [facility] 023 10:01:15 Date Recorded Body mass index (BMI) Body weight Provider Name and Address Organization Details Last Updated DateTime 02/28/2023 23.7 kg/m2 42887.11 g Una Bocanegra [place] [facility] 02/28/2023 10:01:23 Date Recorded Oxygen saturation Oxygen saturation in Arterial blood by Pulse oximetry Provider Name and Address Organization Details Last Updated DateTime 02/28/2023 97 % 97 % [place] [facility] 02/28/2023 10:03:21 Date Recorded Heart rate Provider Name an d Address Organization Details Last Updated DateTime 02/28/2023 68 /min Una Sahra, [facility] 023 10:03:23 Date Recorded Respiratory rate Provider Name a nd Address Organization Details Last Updated DateTime 02/28/2023 16 /min Una [place] [facility] [facility] 023 10:03:24 Date Recorded Body height Provider Name an d Address Organization Details Last Updated DateTime 09/04/2023 152.4 cm Una Bocanegra [place] [facility] 023 11:26:28 Date Recorded Body mass index (BMI) Body weight Provider Name and Address Organization Details Last Updated DateTime 09/04/2023 24 kg/m2 20461.86 g Una Bocanegra [place] [facility] 09/04/2023 11:26:44 Date Recorded Heart rate Provider Name an d Address Organization Details Last Updated DateTime 09/04/2023 80 /min Una [place] [facility] 023 11:28:26 Date Recorded Oxygen saturation Oxygen saturation in Arterial blood by Pulse oximetry Provider Name and Address Organization Details Last Updated DateTime 09/04/2023 99 % 99 % [place] [facility] 09/04/2023 11:28:30 Date Recorded Body height Provider Name an d Address Organization Details Last Updated DateTime 03/25/2024 152.4 cm Una Bocanegra [place] [facility] 15:12:54 Date Recorded Body mass index (BMI) Body weight Provider Name and Address Organization Details Last Updated DateTime 03/25/2024 23.4 kg/m2 49110.01 g Una Bocanegra [place] [facility] 03/25/2024 15:14:45 Date Recorded Heart rate Provider Name an d Address Organization Details Last Updated DateTime 03/25/2024 76 /min Una Bocanegra [place] [facility] 024 15:17:26 Date Recorded Oxygen saturation Oxygen saturation in Arterial blood by Pulse oximetry Provider Name and Address Organization Details Last Updated DateTime 03/25/2024 99 % 99 % RENUKA [facility] 03/25/2024 15:17:29 Date Recorded Body temperature Provider Name a nd Address Organization Details Last Updated DateTime 03/25/2024 97.7 [degF] Una Bocanegra [place] [facility] 2023 15:18:10 Date Recorded Body height Provider Name an d Address Organization Details Last Updated DateTime 07/16/2024 152.4 cm Una Boc[place]egra [place] [facility] 11:38:38 Date Recorded Body mass index (BMI) Body weight Provider Name and Address Organization Details Last Updated DateTime 07/16/2024 22.5 kg/m2 52204.56 g Una Bocanegra [place] [facility] 07/16/2024 11:47:09 Date Recorded Heart rate Provider Name an d Address Organization Details Last Updated DateTime 07/16/2024 70 /min Una Bocanegra [place] [facility] 11:49:47 Date Recorded Oxygen saturation Oxygen saturation in Arterial blood by Pulse oximetry Provider Name and Address Organization Details Last Updated DateTime 07/16/2024 97 % 97 % Una Bocanegra [place] [facility] 07/16/2024 11:49:50 Date Recorded Respiratory rate Provider Name a nd Address Organization Details Last Updated DateTime 07/16/2024 14 /min Una Bocanegra [place] [facility] 11:49:56 Date Recorded Systolic blood pressure Diastolic blood pressure Provider Name and Address Organization Details Last Updated DateTime 11/28/2022 136 mm[Hg] 80 mm[Hg] Una Bocanegra [place] [facility] 11/28/2022 10:31:48 Date Recorded Systolic blood pressure Diastolic blood pressure Provider Name and Address Organization Details Last Updated DateTime 02/28/2023 130 mm[Hg] 70 mm[Hg] Unaher Sahra [place] [facility] 02/28/2023 10:03:19 Date Recorded Systolic blood pressure Diastolic blood pressure Provider Name and Address Organization Details Last Updated DateTime 09/04/2023 140 mm[Hg] 76 mm[Hg] Unaher Sahra [place] [facility] 09/04/2023 11:28:25 Date Recorded Systolic blood pressure Diastolic blood pressure Provider Name and Address Organization Details Last Updated DateTime 03/25/2024 124 mm[Hg] 70 mm[Hg] Una RENUKA Bocanegra [facility] 03/25/2024 15:17:19 Date Recorded Systolic blood pressure Diastolic blood pressure Provider Name and Address Organization Details Last Updated DateTime 07/16/2024 146 mm[Hg] 70 mm[Hg] Una Bocanegra [place] [facility] 07/16/2024 11:49:45 Social History Question Answer Notes LastModified by Organizat ion Details LastModified Time Tobacco Smoking Status Never Smoker December RENUKA Wiggins [facility] 09/04/2014 14:52:00 Do You Have An Advance Directive? No Information not available 01/22/2015 What Is Your Level Of Alcohol Consumption? Occasional Information not available 01/22/2015 What Is Your Level Of Caffeine Consumption? Heavy Information not available 01/22/2015 How Much Tobacco Do You Chew? None Information not available 01/22/2015 Are You Currently Employed? Yes Information not available 01/22/2015 What Type Of Diet Are You Following? DIABETIC Information not available 01/22/2015 Do You Or Have You Ever Used E-cigarettes Or Vape? 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 No Information not available 01/22/2015 Hard Of Hearing Or Deaf In One Or Both Ears? No Information not available 01/22/2015 Legally Blind In One Or Both Eyes? No Information not available 01/22/2015 Live Alone Or With Others? With Others Information not available 01/22/2015 What Was The Date Of Your Most Recent Tobacco Screening? 07/16/2024 Information not available 07/16/2024 How Many Children Do You Have? 2 Information not available 01/22/2015 Performs Monthly Self-breast Exam? Yes Information not available 01/22/2015 Seat Belts Used Routinely Yes Information not available 01/22/2015 Are You Sexually Active? Yes Information not available 01/22/2015 Smoke Alarm In Home Yes Information not available 01/22/2015 Are You Passively Exposed To Smoke? No Information not available 01/22/2015 Do You Or Have You Ever Used Smokeless Tobacco? Never Used Smokeless Tobacco Information not available 08/20/2020 How Much Tobacco Do You Smoke? No Information not available 01/22/2015 General Stress Level Medium Information not available 01/22/2015 Do You Use Sunscreen Routinely? No Information not available 01/22/2015 On What Date Was Tobacco Cessation Counseling Provided? 08/20/2020 oajao Information not available 08/20/2020 How Many Years Have You Smoked Tobacco? 0 Information not available 01/05/2017 Sex: Unknown Functional Status Question Answer Note LastModified by Organization D etails LastModified Time Are you able to care for yourself? Yes Information n ot available 01/22/2015 What is your exercise level? None Information not available 01/22/2015 Mental Status None recorded. Family History Relationship Description Onset Age of this Age Resolved Age Notes LastModified by Organization Details LastModified Time Mother Cerebrovascu lar accident asavala Not available 17:34:53 Mother Coronary arterioscler osis asavala Not available 2013 17:34:53 Mother Dementia asavala Not available 09/04/2014 17:34:53 Mother Diabetes mellitus asavala Not available 2013 17:34:53 Mother Heart disease asavala Not available 2013 17:34:53 Mother Hypertensive disorder asavala Not available 2013 17:34:53 Mother Hypercholest erolemia asavala Not available 2013 17:34:53 Mother Osteoporosis asavala Not availa ble 09/04/2014 17:34:53 Father Coronary arterioscler osis asavala Not available 2013 17:34:53 Father Diabetes mellitus asavala Not available 2013 17:34:53 Father Heart disease asavala Not available 2013 17:34:53 Father Hypertensive disorder asavala Not available 2013 17:34:53 Sister Diabetes mellitus asavala Not available 2013 17:34:53 Sister Heart disease asavala Not available 2013 17:34:53 Sister Hypertensive disorder asavala Not available 2013 17:34:53 Sister Hypercholest erolemia asavala Not available 2013 17:34:53 Brother Diabetes mellitus asavala Not available 2013 17:34:53 Brother Heart disease asavala Not available 2013 17:34:53 Brother Hypertensive disorder asavala Not available 2013 17:34:53 Brother Hypercholest erolemia asavala Not available 2013 17:34:53 Medical History Condition Response Coronary Artery Disease N Other N Atrial Fibrillation N High Blood Pressure N Thyroid Problems N Kidney or Bladder Problems N GI Problems Y Depression N COPD N Blood Clots N Skin Problems N Anemia N Heart Attack ([place]) N Anxiety Disorder Y Diabetes Y Muscle, Joint, or Bone Problems N Seizures/Epilepsy N Acid Reflux (GERD) Y Cancer N Stroke N Asthma Y Allergies Y High Cholesterol N Hepatitis N Liver Disease N Headaches N Osteoporosis N Heart Failure N Gynecological HistoryNo gynecological history recorded. Obstetrics History GPAL:G 0 P 0 0 0 0 Immunizations Vaccine Type Date Status Note Provider Nam e and Address Organization Details Recorded Time Influenza, split virus, quadrivalent, preservative 4 completed Not Available [facility] 08/25/2023 09:59:00 Influenza, split virus, quadrivalent, preservative 0 completed Not Available [facility] 08/25/2023 09:59:00 Influenza, split virus, quadrivalent, preservative 0 completed Not Available [facility] 08/25/2023 09:59:00 COVID-19, mRNA, LNP-S, PF, 30 mcg/0.3 mL dose 1 completed Not Available [facility] 08/25/2023 09:59:01 COVID-19, mRNA, LNP-S, PF, 30 mcg/0.3 mL dose 0 completed Not Available [facility] 08/25/2023 09:59:01 Pneumococcal conjugate PCV 13 0 completed Not Available [facility] 08/25/2023 09:59:01 COVID-19, mRNA, LNP-S, PF, 30 mcg/0.3 mL dose 1 completed Not Available [facility] 08/25/2023 09:59:01 COVID-19, mRNA, LNP-S, PF, 100 mcg/0.5mL dose or 50 mcg/0.25mL dose 1 completed Not Available [facility] 08/25/2023 09:59:01 COVID-19, mRNA, LNP-S, PF, 30 mcg/0.3 mL dose 1 completed Not Available [facility] 08/25/2023 09:59:01 Tdap 5 completed Not Available [facility] 08/25/2023 09:59:01 Influenza, high-dose, trivalent, PF 5 completed Not Available [facility] 08/25/2023 09:59:01 Tdap 5 completed Not Available [facility] 08/25/2023 09:59:01 influenza, intradermal, quadrivalent, preservative free 6 completed Not Available [facility] 08/25/2023 09:59:00 Influenza, high-dose, quadrivalent, PF 2 completed Adam Soni MD Attn: Accounting,[address] [facility], [place], [place], [address] [place] [address], [place] - [facility] 07/19/2022 08:15:18 pneumococcal polysaccharide PPV23 3 completed Adam Soni MD Attn: Accounting,[address] [place], [place], [address] [place] [address], [place] [facility] 02/28/2023 11:16:05 Influenza, high-dose, quadrivalent, PF 3 completed Adam Soni MD Attn: Accounting,[address] [place], [place], [address] [place] [address], [place] [facility] 09/04/2023 13:45:04 pneumococcal polysaccharide PPV23 4 completed Not Available [facility] 10/05/2019 02:33:01 Influenza, high-dose, trivalent, PF 4 completed Adam Soni MD Attn: Accounting,[address] [place], [address] [place] [address], [place] [facility] 07/16/2024 13:27:32 Influenza, split virus, quadrivalent, preservative 7 completed Not Available [facility] 08/25/2023 09:59:00 Past Encounters Encounter ID Performer Location Encounter Start Date Encounter Closed Date Diagnosis/Indication Diagnosis SNOMED-CT Code Diagnosis ICD10 Code Diagnosis Note [id number] Kathryn (Adult Med) [address] [place] [address] 09/04/2014 14:21:29 09/04/2014 15:43:48 Asthma [id number] Pneumovax today, she received the Influenza vaccine this season. 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 Previous imaging of the brain revealed a polyp. Had previously seen a Dr. Barnes about 5 years. 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 She only takes antivert. She is not keen on being referred back at tis time. Transient episode while sitting up in the office this afternoon, with rapid recovery, no loc, no cp or confusion. Apparently this is chronic and occurs about once a month. Hiatal hernia [id number] Anemia 165812444 Stopped FeSO4 about a month ago [id number] December RENUKA Wiggins (Adult Med) [address] [place] [id number] 10/23/2014 15:45:33 10/23/2014 16:27:10 Pure hypercholesterolemia 358156669 She was off Lipitor when the labs were done, hopefully there should be improvemen t when this is repeated Abnormal l iver function 61924002 Most likely from her fatty liver. Diabetes mellitus [id number] Labs in three months [id number] MD Kathryn Jackson (Adult Med) [address] [place] [id number] 01/22/2015 15:50:19 01/22/2015 16:36:19 Uncontrolled type 2 diabetes mellitus 063622821 Uncontroll ed on Metformin 1000 mg po bid and Januvia 100mg po daily. Her diet is better and she gets steroid injections in her back every 4- 6months. Her FBS is high. I think she can restart Amaryl 1mg po daily [id number] Aleyda Peralta (Adult Med) [address] [place] [id number] 05/21/2015 16:19:19 05/21/2015 17:24:20 Uncontrolled type 2 diabetes mellitus [id number] Uncontroll ed on Metformin 1000 mg po bid and Januvia 100mg po daily. Her diet is much better, as she recently discontinu ed her soda, she gets epidural steroid injections in her back every 4- 6months. She is back on the Amaryl which she takes with each big meal, her last HBA1C was 7.5 in December and I am sure there should be improvemen t when her labs are drawn in a few weeks Generalize d anxiety disorder 00284534 On Citalopram 5mg of Citalopram and intermitte nt Clonazepam . She is overwhelme d with her 's illness, her finances and her responsibi lities at home and at work. Although as I discussed with her, I think she may have unrealisti c expectatio ns. She should follow up with her counselor, Chito Waggoner. Acute uppe r respiratory infection [id number] Allergy vs URI, I do not see a need for antibiotic s unless her throat culture comes back positive. Her rapid strep was negative She cannot tolerate Pseudophed rine, she can try Atrovent nasal spray Impacted cerumen [id number] Screening mammography [id number] She has an order sheet from Dr. Maynard, her last Pap smear was in July 2014 [id number] Adam Soni MD [facility] (Adult Med) [address] [place] [id number] 08/20/2015 16:21:38 08/20/2015 17:36:36 Anemia 959875709 D64.9 Chronic, she has had EGD and a colonoscop y in the recent past, I wonder if a capsule study is in order. Previously on iron. Urinary bladder pain [id number] 98925 R39.89 She describes intermitte nt bladder pressure, she does not really have frequency of urination or dysuria. She also feels that this may be from her back, as she neds epidurals. She has just completed a course of Ciprofloxa john for a recent UTI with chills and a positive UA. Type 2 evie betes mellitus without complication [id number] E11.9 Not badly controlled with an HBA1C of 7, she may benefit from Aspirin 81mg po daily for [facility] protection . We however have to be cautious in view of her anemia. [id number] MD Kathryn Jackson (Adult Med) [address] [place] [id number] 01/21/2016 15:57:30 01/21/2016 17:11:57 Depressive disorder 97232594 F32.9 F41.0 There are new issues with her son and her , she needs therapy and I will highly recommend that she remains on 10 mg of Lexapro and PRN Klonopin. Uncontroll ed type 2 diabetes mellitus 492526453 E11.65 Uncontroll ed on Metformin 1000 mg po bid, Januvia 100mg po daily, Amaryl 1mg PRN. She really should take her Amaryl daily. Low blood pressure 66975 003 I95.9 Transient hypotensio n after her last epidural injection at [place]. Anemia 109703510 D64.9 Chronic, she has had EGD and a colonoscop y in the recent past, I wonder if a capsule study is in order. [id number] MD Kathryn Jackson (Adult Med) [address] [place] [address] [phone] 0 04/28/2016 16:42:23 04/28/2016 17:41:54 Uncontrolled type 2 diabetes mellitus 238709793 E11.65 Uncontroll ed (HBA1C increased from 7 to 8) on Metformin 1000 mg po daily (She cannot tolerate the second dose due to loose stools), Januvia 100mg po daily and Amaryl 1mg. I will increase her Amaryl to 2mg po daily, side effects were discussed. She unfortunat ada still drinks 2 cans of Coke a day. Hyperlipidemia 49930219 E78.5 Generalize d anxiety disorder 24557335 F41.1 She has chosen to discontinu e her intermitte nt Clonazepam . Medication monitoring 39 1207072 Z51.81 [id number] MD Kathryn Jackson (Adult Med) [address] [place] [address] [phone] 0 09/01/2016 16:15:10 09/01/2016 17:12:04 Uncontrolled type 2 diabetes mellitus 022595089 E11.65 Uncontroll ed (HBA1C has increased from 7 to 8) on Metformin 1000 mg po daily, Januvia 100mg po daily and Amaryl 2mg. To avoid polypharma cy, our options are to try extended release Metformin. If this does not result in a desirable Hba1c, we should look into Pioglitazo ne/Victoza and taking her off the PRITCHETT due to the danger of hypoglycem ia which she has experience d around lunch time. Janet marcanon 8662721 6 H61.21 Diabetes mellitus 482371 09 E11.9 Anxiety 15320907 F41.9 She really should try and avoid using the Clonazepam , exercise and other methods to reduce her anxiety were discussed. She however has multiple family/wor k issues at this time. Anemia 926968851 D64.9 Chronic, she has had EGD and a colonoscop y in the recent past, I still wonder if a capsule study is in order. [id number] MD Kathryn Jackson (Adult Med) [address] [place] [address] [phone] 0 01/05/2017 16:24:03 01/05/2017 17:19:14 Uncontrolled type 2 diabetes mellitus 082696290 E11.65 Uncontroll edStop Glimepirid e due to hypoglycem ic eventsCont inue Januvia and MetforminS tart Jardiance, SE were discussedC all with log book readingsBM P in ~ 2 weeks Dizziness 431158959 R42 Chronic intermitte nt dizziness with an occipital headache, no loc but with spells. Previous imaging of the brain revealed a polyp, she was previously seen by a Dr. Barnes (ENT). 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 Intermitte nt palpitations 959379287 R00.2 [id number] MD Kathryn Jackson (Adult Med) [address] [place] [address] [phone] 0 02/16/2017 16:26:05 02/16/2017 17:58:51 Asthma 991720316 J45.909 Bronchitis 65813220 J40 Cough 48242450 R05 I suspect that her CRYSTAL- may be playing a role, she appears unconvince d but I have suggested a switch to an ARB Uncontroll ed type 2 diabetes mellitus 689146380 E11.65 Uncontroll edIncrease Glimepirid e to 3mg Disorder o f lipid metabolism 433427706 E78.9 Gastroesop hageal reflux disease 596645421 K21.9 Lacunar infarction 65956 8000 G46.7 Discussed, I do not see a role for an MRA [id number] MD Kathryn Jackson (Adult Med) [address] [place] [address] [phone] 0 04/07/2017 09:25:32 04/07/2017 16:28:26 Iron deficiency anemia 16448562 D50.9 Unexplaine d, she has had a colonoscop y and was started on oral iron, she needs an EGD +/- capsule study. Uncontroll ed type 2 diabetes mellitus 244605464 E11.65 Uncontroll ed on Metformin and Glimepirid e 3mg, she also has been having symptomati c episodes of hypoglycem ia. She will need another agent, I have recommende d Victoza and I will recommend that she cuts her Amaryl down to 2mg. Chronic ce rebral ischemia 703815832 I67.82 Memory impairment 400666 006 R41.3 [id number] MD Kathryn Jackson (Adult Med) [address] [place] [address] [phone] 05/19/2017 09:25:38 05/19/2017 10:14:27 Thyroid nodule 420389098 E04.1 She had a CTA of the neck, I have asked for a copy of the report. Although this and her CTA of the brain were both normal, there was an incidental thyroid nodule noted. Anemia 228961524 D64.9 Chronic, she has had a EGD and a colonoscop y in the recent past, I still think a capsule study is in order. She may need to see a hematologi st although she is not keen. Uncontroll ed type 2 diabetes mellitus 106568606 E11.65 Uncontroll ed on Metformin and Glimepirid e 3mg AM, she would like to add Amaryl 1mg HS, I have no objections although I would have preferred an injectable at this point. [id number] MD Kathryn Jackson (Adult Med) [address] [place] [address] [phone] 08/21/2017 09:37:32 08/21/2017 10:32:04 Multinodular goiter 738020314 E04.2 Repeat US needed in 6-12 months Anemia 050089657 D64.9 Chronic, she has had a EGD and a colonoscop y in the recent past, I still think a capsule study is in order. She did not go back to GI and she should reconsider seeing the hematologi st as her SPEP was abnormal. Essential hypertension 84722773 I10 Disorder o f lipid metabolism 769912042 E78.9 Decrease Lipitor as she feels that it causes MSK pain and she holds it every now and then. Type 2 evie blackwood mellitus without complication 139353781 E11.9 I still drink the soda, but not as much No more sodaEye exam completed 08/18/2017 Asthma 207293022 J45.90 9 [id number] MD Kathryn Jackson (Adult Med) [address] [place] [address] [phone] 0 12/20/2017 09:22:33 12/20/2017 10:09:09 Uncontrolled type 2 diabetes mellitus 148158059 E11.65 Discussed with Mrs. Brittany De Leonaine d weight loss 668247782 R63.4 Generalize d anxiety disorder 89021920 F41.1 RF MARTINE NavarretePMP last RF 10/06/2016 Multiple sclerosis 16606 007 G35 [id number] MD Kathryn Jacskon (Adult Med) [address] [place] [address] [phone] 0 05/31/2018 12:46:51 05/31/2018 13:48:41 Liver function tests outside reference range 181990687 R94.5 Meds? Hypercalcemia 51187048 E 83.52 Uncontroll ed type 2 diabetes mellitus 062068401 E11.65 Urinary tr act infectious disease 08224389 N39.0 For PRN use Candidiasis of mouth 797 88207 B37.0 PRN use Generalize d anxiety disorder 90811959 F41.1 RF MARTINE NavarretePMChrystal last RF 12/23/2017 [id number] MD Kathryn Jackson (Adult Med) [address] [place] [address] [phone] 0 06/07/2019 10:18:58 06/07/2019 11:36:12 Degeneration of cervical intervertebral disc 94156617 M50.30 Screening for malignant neoplasm of breast 989881524 Z12.31 Asthma 117032625 J45.90 9 Degenerati ve joint disease of ankle AND/OR foot 53520947 M19.079 Chronic ce rebral ischemia 347839534 I67.82 Gastroesop hageal reflux disease 907511994 K21.9 Medication monitoring 39 5627021 Z51.81 Type 2 evie betes mellitus without complication 037868684 E11.9 [id number] MD Kathryn Jackson (Adult Med) [address] [place] [address] [phone] 0 03/18/2020 09:27:17 03/23/2020 15:25:49 Adenomatous polyp of colon 998762301 D12.6 09/09/2015 Q 5 years Thyroid nodule 712899075 E04.1 She had a CTA of the neck and a CT of the chest that both confirmed thyroid nodules.Th e US done 07/2017 confirms a MNG.Repeat US 02/13/2020 now suggests a moderately suspicious nodule, FNA vs repeat the US in 1 year. She will be seeing her endocrinol ogist on 03/19/2020. Administra tion of pneumococcal vaccine 60948945 Z23 Screening for malignant neoplasm of breast 363603493 Z12.31 Asthma 432084530 J45.90 9 Active or passive immunization 803106446 Z23 [id number] Adam Soni MD [facility] (Adult Med) [address] [place] [address] [phone] 0 08/20/2020 08:48:32 08/21/2020 08:28:22 Thyroid nodule 598130438 E04.1 She had a CTA of the neck and a CT of the chest that both confirmed thyroid nodules.Th e US done 07/2017 confirms a MNG.Repeat US 02/13/2020 now suggests a moderately suspicious nodule, FNA vs repeat the US in 1 year. She will be seeing her endocrinol ogist on 03/19/2020.T he US done 06/03/2020 is still abnormal and a FNA is still not recommende d. Immunization due 6427642 08 Z28.3 Pneumovax is due Uncontroll ed type 2 diabetes mellitus 420835948 E11.65 Recurrent urinary tract infection 606476277 N39.0 [id number] MD Kathryn Jackson (Adult Med) [address] [place] [address] [phone] 12/21/2020 09:24:56 12/22/2020 10:48:42 Type 2 diabetes mellitus without complication 429445260 E11.9 Neuropathy 058430484 G62 .9 Neurontin was discussed, she declined [id number] MD Kathryn Jackson (Adult Med) [address] [place] [address] [phone] 0 06/22/2021 09:25:00 06/23/2021 12:32:55 Screening mammography of bilateral breasts 9974348968 44656 Z12.31 Feeling stressed 8519852 06 Z73.3 Renewal of prescription 368548848 Z76.0 Needs infl uenza immunization 796119190 Z28.3 [id number] MD Kathryn Jackson (Adult Med) [address] [place] [address] 03101-041 0 01/19/2022 13:46:16 01/20/2022 07:04:04 Stricture of esophagus 40988047 K22.2 Screening for malignant neoplasm of colon 683042183 Z12.11 Osteopenia 373502570 M85 .80 Chronic low back pain 27 2296779 M54.50 Cervical radiculopathy 84758553 M54.12 Inactive tuberculosis 11 813296 Z22.7 CXR negativeAs ymptomatic She has declined treatmentP t education on latent TB Screening for malignant neoplasm of breast 429806408 Z12.31 Chronic anemia 837632104 D64.9 Chronic, she has had a EGD and a colonoscop y in the recent past.GI [id number] MD Kathryn Jackson (Adult Med) [address] [place] [address] [phone] 0 05/24/2022 15:09:28 05/25/2022 11:18:27 Chronic anemia 391319899 D64.9 Chronic, she has had an EGD in ? and a colonoscop y 08/2015 .GI as referredPr eviously referred to the hematologi st on 09/10/2017 Dizziness 328362817 R42 Worsening of her chronic intermitte nt dizziness with a headache, nausea, vomiting but no loc. Previous imaging of the brain revealed a polyp, she was previously seen by a Dr. Barnes (ENT). 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N eurology follow upENT follow up?MRI of the brain History of anemia vitamin B12 deficient 592553362 Z86.2 [id number] MD Kathryn Jackson (Adult Med) [address] [place] [address] [phone] 0 07/18/2022 15:31:47 07/19/2022 09:23:49 Administration of influenza vaccine 93692986 Z23 Dizziness 090041425 R42 Worsening of her chronic intermitte nt dizziness with a headache, nausea, vomiting but no LOC Previous imaging of the brain revealed a polyp, she was previously seen by a Dr. Barnes (ENT). 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 A repeat US has been recommende d and ordered. Type 2 evie betes mellitus without complication 526896978 E11.9 Chronic anemia 514458671 D64.9 Chronic, she has had an EGD in ? and a colonoscop y 08/2015 .GI as referred on 01/19/2022r eviously referred to the hematologi st on 09/10/2017 AddendumLa bs Medication monitoring 39 2220766 Z51.81 [id number] MD Kathryn Jackson (Adult Med) [address] [place] [address] [phone] 0 11/28/2022 10:23:49 11/29/2022 15:46:22 Persistent cough 390412069 R05.3 Body mass index 20-24 - normal 543279936 Z68.24 Type 2 evie betes mellitus without complication 113985590 E11.9 Medication monitoring 39 1983259 Z51.81 Postmenopausal state 764 32600 Z78.0 Immunization advised 310 706654 Z71.9 [id number] MD Kathryn Jackson (Adult Med) [address] [place], [place] [phone] 0 02/28/2023 09:54:31 03/01/2023 16:16:56 Administration of pneumococcal vaccine 36516115 Z23 Chronic anemia 035150723 D64.9 Labs 01/26/2023 Hb 8.6, Hct 28.3, Ferritin 8Labs 12/02/2022; CBC 1033, CMP (GLU 121)GI as previously referred on 01/19/2022 finesse is on Eliquis for her chronic AFIB OV 07/18/2022 Chronic, she has had an EGD in ? and a colonoscop y 08/2015 .GI as referred on 01/19/2022r eviously referred to the hematologi st on 09/10/2017 AddendumLa bs Asthma 568493558 J45.90 9 Body mass index 20-24 - normal 184131452 Z68.24 Caregiver role strain 12 9462239 Z73.3 SARS-CoV-2 mRNA vaccine declined 8716210174 Z28.21 Screening for malignant neoplasm of breast 199787657 Z12.31 Postmenopausal state 764 79195 Z78.0 Type 2 evie betes mellitus without complication 342485707 E11.9 HBA1C 7% History of atrial fibrillation 233824818 Z86.79 [id number] Adam Soni MD [facility] (Adult Med) [address] [place] [address] 0 09/04/2023 11:21:20 09/04/2023 12:36:19 Administration of influenza vaccine 01202699 Z23 Chronic anemia 269122189 D64.9 GI (Scheduled )She has declined iron infusionsI ncrease Iron to BIDLabs 06/18/2023 Hb 8, Hct 26Labs 05/26/2023 Hb 8, HCT 26 OV 02/28/2023L abs 01/26/2023 Hb 8.6, Hct 28.3, Ferritin 8Labs 12/02/2022; CBC 1033, CMP (GLU 121)GI as previously referred on 01/19/2022 finesse is on Eliquis for her chronic AFIB OV 07/18/2022 Chronic, she has had an EGD in ? and a colonoscop y 08/2015 .GI as referred on 01/19/2022r eviously referred to the hematologi st on 09/10/2017 AddendumLa bs Type 2 eive blackwood mellitus without complication 245703291 E11.9 HBA1C 6.6% (05/26/2023) , previously 7% Osteopenia 806792522 M85 .80 Discussed Medication monitoring 39 8015502 Z51.81 [id number] MD Kathryn Jackson (Adult Med) [address] [place] [address] [phone] 0 03/25/2024 14:33:46 03/26/2024 12:43:23 Anxiety 26991564 F41.9 She has failed Lexapro in the pastStart Citalopram , side effects were discussed in detail.I would not recommend a sedative in light of her elevated BNP. Serum crea tinine above reference range 188203550 R79.89 Chronic anemia 461141790 D64.9 Labs 03/15/2024 Hb 10, Hct 31StableS/ P EGD and colonoscop yFollowed by GI and hematology OV 09/04/2023 Se[address] the cardiologi st, Dr Araiza on 09/06/2023 , who also recommends iron infusions. Discussed with Ms Soto, she is now willing to be seen by Dr Nettles. OV 09/04/2023 GI (Scheduled )She has declined iron infusionsI ncrease Iron to BIDLabs 06/18/2023 Hb 8, Hct 26Labs 05/26/2023 Hb 8, HCT 26 OV 02/28/2023L abs 01/26/2023 Hb 8.6, Hct 28.3, Ferritin 8Labs 12/02/2022; CBC , CMP (GLU 121)GI as previously referred on 01/19/2022h e is on Eliquis for her chronic AFIB OV 07/18/2022 Chronic, she has had an EGD in ? and a colonoscop y 08/2015 .GI as referred on 01/19/2022r eviously referred to the hematologi st on 09/10/2017 AddendumLa bs [id number] MD Kathryn Jackson (Adult Med) [address] [place] [address] [phone] 0 07/16/2024 11:35:26 07/17/2024 11:02:23 Anti-nuclear factor detected 668580603 R76.8 No She declines further testing or a referral Diabetes mellitus 246608 09 E11.9 Screening mammography 24 779220 Z12.31 Administra tion of influenza vaccine 57930992 Z23 Health Concerns Section Related Observation LastModified by Organization Detai ls LastModified Time None Recorded Concern Status LastModified by Organization Details LastModified Time None Recorded Advance Directives Directive N: Payers Encounter Date Sequence Insurance Name Policy Number Policy Lopez Covered Member ID Lopez Member ID Guarantor Name 11/28/2022 1 [employer] (MEDICARE REPLACEMENT/A DVANTAGE - HMO) [id number] Suyapa Marquezk [id number] Suyapa Diak 02/28/2023 1 [employer] (MEDICARE REPLACEMENT/A DVANTAGE - HMO) [id number] Suyapa Diak [id number] Suyapa Diak 09/04/2023 1 [employer] (MEDICARE REPLACEMENT/A DVANTAGE - HMO) [id number] Suyapa Diak [id number] Suyapa Diak 03/25/2024 1 [employer] (MEDICARE REPLACEMENT/A DVANTAGE - HMO) [id number] Suyapa Diak [id number] Suyapa Diak 07/16/2024 1 [employer] (MEDICARE REPLACEMENT/A DVANTAGE - HMO) [id number] Suyapa Diak [id number] Suyapa Marquezk Notes Date Note Type Note Provider Name and Address Organization Details Recorded Time 3 text/html CoughReported bypatient.Quality:harsh Severity:worsening; severe Duration:constant Timing:worse Context:non-smoker Modifying Factors:OTC medication Associated Symptoms:no fever; no chills; no chest pain; no heartburn; no nausea; no vomiting; no edema; no agitation; no wheezing; no post nasal dripDiabetes F/UReported bypatient.Labs:last A1C result: 6.7 Still coughing Ms Soto returns, she has completed the course of steroids but she still has a cough with clear, thick sputum and coughing spasms. Adam Soni MD Attn: Accounting,[address] [place], [address], [place] [facility] 11/28/2022 13:33:05 3 text/html Diabetes F/UReported bypatient.Labs:last A1C result: 7 Context:normal range of home blood sugars (in the low 100s); seeing eye doctor regularly; checking feet regularly Associated Symptoms:no weight gain; no weight loss; no dizziness; no sweats; no headaches; no confusion; no increased thirst; no increased appetite; no increased urination; no blurred vision; no numbness of feet; no calluses on feet My check up time Ms Soto returns, she is overwhelmed taking care of her and son. In the interim, she had a severe URI in November and in the interim, she has followed up with the freezer machine operator, neurologist and customer advocate. Adam Soni MD Attn: Accounting,[address] [facility], [place], [address], [facility] 02/28/2023 11:26:06 3 text/html Diabetes F/UReported bypatient.Labs:last A1C result: 6.6 Context:taking aspirin daily; not missing doses of medications; no side effects from medications Associated Symptoms:no weight gain; no weight loss; no dizziness; no sweats; no headaches; no confusion; no increased thirst; no increased appetite; no increased urination; no blurred vision; no numbness of feet; no calluses on feetMedicare Annual Wellness VisitReported bypatient.Diet and Nutrition:healthy diet Fracture Risk:no recent explained fracture; no sudden unexplained fractures; no previous musculoskeletal injuries;history of fractures Physical Activity:discussed weightbearing activities; discussed exercise habits Depression Risk:never feels sad, empty, or tearful; no loss of interest in activities; no significant changes in weight; no sleep disturbances or insomnia; no agitation; no loss of energy; no feelings of worthlessness or guilt; no thoughts of suicide; no history of depression; no history of mood disorders Orientation:no disorientation to time; no disorientation to date; no disorientation to place Concentration and Memory:no decreased concentrating ability; no memory lapses or loss; does not forget words Speech/Motor difficulties:no speech difficulties; no difficulty expressing formulated concepts; no difficulty with fine manipulative tasks; no difficulty writing/copying; no slowed reaction time; does not knock things over when trying to pick them up Hearing:no loss of hearing Vision:no vision problems Activities of Daily Living:able to bathe with limited or no assistance; able to contol urination and bowels; able to dress with limited or no assistance; able to feed self with limited or no assistance; able to get out of chair or bed with limited or no assistance; able to groom with limited or no assistance; able to toilet with limited or no assistance Instrumental Activities of Daily Living:able to do house work with limited or no assistance; able to grocery shop with limited or no assistance; able to manage medications with limited or no assistance; able to manage money with limited or no assistance; able to prepare meals with limited or no assistance; able to use the phone with limited or no assistance Falls Risk Assessment:no frequent falls while walking; no fall since last visit; no dizziness/vertigo; fall(s) in the past year 1 Home Safety:no unsafe janusz hazzards; no unsafe stairs; no unsafe gas appliances; working smoke/CO detectors; wears protective head gear for biking/high velocity; use of seatbelts; practicing 'safer sex'; no vision or hearing loss while driving; no fire arms; has hand bars in the bathroom/shower; good lighting in the home The colonoscopy and endoscopy, I had to cancel it Do you know of another customer advocate since Dr Flores left? Ms Soto is coping, but she has her hand full as she has to take care for her and her son. Adam Soni MD Attn: Accounting,[address] [place], [address], [place] [facility] 09/04/2023 13:48:06 4 text/html Anxiety/DepressionReporte d bypatient.Quality:symptom s worse in the evening;symptoms worse during the day Severity:denies suicidal ideations; able to maintain relationships; does not interfere with activities of daily living Duration:symptoms lasting over 2 weeks Onset/Timing:still present Context:major life stressors;family problems Associated Symptoms:denies homicidal ideations; no significant weight gain; no significant weight loss; no visual/auditory hallucinations; no delusions; no shortness of breath; mood good; no crying spells; no panic; no isolation; appetite good; energy good; no apathy; maintaining functionality;anxiety;sle ep disturbancesDiabetes F/UReported bypatient.Labs:last A1C result: 6.7 Context:taking aspirin daily; not missing doses of medications; no side effects from medications Associated Symptoms:no weight gain; no weight loss; no dizziness; no sweats; no headaches; no confusion; no increased thirst; no increased appetite; no increased urination; no blurred vision; no numbness of feet; no calluses on feetMedicare Annual Wellness VisitReported bypatient.Diet and Nutrition:healthy diet; discussed vitamin and supplement use Fracture Risk:no recent explained fracture; no sudden unexplained fractures; no previous musculoskeletal injuries;history of fractures Physical Activity:exercises on a regular basis;decreased physical activity Depression Risk:no loss of interest in activities; no significant changes in weight; no sleep disturbances or insomnia; no agitation; no feelings of worthlessness or guilt; no thoughts of suicide; no history of depression;feels sad, empty, or tearful;loss of energy;history of mood disorders Orientation:no disorientation to time; no disorientation to date; no disorientation to place Concentration and Memory:no decreased concentrating ability; no memory lapses or loss; does not forget words Speech/Motor difficulties:no speech difficulties; no difficulty expressing formulated concepts; no difficulty with fine manipulative tasks; no difficulty writing/copying; no slowed reaction time; does not knock things over when trying to pick them up Hearing:no loss of hearing Vision:no vision problems Activities of Daily Living:able to bathe with limited or no assistance; able to contol urination and bowels; able to dress with limited or no assistance; able to feed self with limited or no assistance; able to get out of chair or bed with limited or no assistance; able to groom with limited or no assistance; able to toilet with limited or no assistance Instrumental Activities of Daily Living:able to do house work with limited or no assistance; able to grocery shop with limited or no assistance; able to manage medications with limited or no assistance; able to manage money with limited or no assistance; able to prepare meals with limited or no assistance; able to use the phone with limited or no assistance Falls Risk Assessment:fall(s) in the past year Yes; fall(s) since last visit4 Home Safety:no unsafe janusz hazzards; no unsafe stairs; no unsafe gas appliances; working smoke/CO detectors; wears protective head gear for biking/high velocity; use of seatbelts; no vision or hearing loss while driving; no fire arms; has hand bars in the bathroom/shower; good lighting in the home He felt that it could be renal If I could go ...Celexa, to keep my mood up Taking care of the , taking care of the household Ms Brittany alexander, she is overwhelmed and anxious, mostly due to her role providing care for her . She had tried Lexapro in the past and did not like it, a family member had recommended Celexa. She would also like a mild sedative. The [facility] nurse discussed Prevnar 20 with her and she was seen by her twister in today who apparently felt that her elevated Creatinine of 1.20 on 03/15/2024 may explain some of her pro-BNP elevation. Since her last visit, she has also followed up with cardiology, hematology and GI and she has had an EGD and colonoscopy. Adam Soni MD Attn: Accounting, [place], [address], [facility] 03/25/2024 19:15:26 4 text/html Diabetes F/UReported bypatient.Labs:last A1C result: 6.5% Context:taking aspirin daily; not missing doses of medications; no side effects from medications Associated Symptoms:no weight gain; no dizziness; no sweats; no headaches; no confusion; no increased thirst; no increased appetite; no increased urination; no blurred vision; no numbness of feet; no calluses on feet;weight loss (4 lbs) Just a check up Bryanna thought I had some autoimmune disease Ms Brittany alexander, she has been following up with her freezer machine operator, director report and twister in. She had a positive ROXANNA of 1:160, Nuclear pattern ordered by her director report. She remembers a concern about MS or an autoimmune process about 10 years ago after a LP done by her neurologist, Dr Gould. At that time she was seen by her seen by the Rheumatology team at [place] and she was not felt to have an autoimmune disease. Adam Soni MD Attn: Accounting, [place], [address], [facility] 07/16/2024 13:32:36 OBGyn Episode No OBEpisode recorded.
== END 2024-10-04 10:46 | disposition home or self-care (01) ==
LOC: ANHLAB 10:46
PROVIDERS: PCP Internal Medicine Infectious Disease; Visit Provider Specialist
DX: I12.9 Hypertensive chronic kidney disease with stage 1 through stage 4 chronic kidney disease, or unspecified chronic kidney disease (principal); N18.9 Chronic kidney disease, unspecified; E55.9 Vitamin D deficiency, unspecified; R35.0 Frequency of micturition; E78.41 Elevated Lipoprotein(a); E21.3 Hyperparathyroidism, unspecified; R94.6 Abnormal results of thyroid function studies
CPT/HCPCS: 36415; 80053; 81001; 82043; 82306; 83036; 83970; 84443; 84550; 85025; 85652; 87086

== ENCOUNTER 2024-11-21 09:13 | Outpatient (CLI) | payer MEDICARE, SELFPAY ==
--- OUTSIDE RECORDS SUMMARY | 2024-11-21 10:01 | XMS_ITS | Clinical Summary ---
Author Organization [facility] Address [address] [facility] [place] [address] Care Team Providers Care Swat Team Member Name Role Phone Adam Soni MD Primary Care Provider Source Comments [facility],non-owned Affiliates and Associated Physician Practices is amultiple site organization consisting of ambulatory clinics and hospital sitesin [place], [place], [place] and [place]. This disclosure is being madepursuant to the Care Everywhere program and may not contain all information available regarding this patient. Last updated 18.[facility] Allergies Active Allergy Reactions Criticality Noted Date Comments Empagliflozin Other Low 05/10/2023 Rofecoxib Rash High 01/24/2017 hives Other reaction(s): hives hives Other reaction(s): hives Sulfa Drugs Swelling High 04/13/2023 Other reaction(s): respiratory distress Sulfacetamide Swelling High 01/24/2017 Sulfa allergy Medications * Be aware that medications may not be up to date on this document. Alwaysverify current medications with the patient. Medication Sig Dispensed Refills Start Date End Date Status Eliquis 5 MG tablet Take 1 (one) tablet by mouth 2 times daily 03/29/2023 Active flecainide (Tambocor) 50 MG tablet Take 1 (one) tablet by mouth 2 times daily 02/26/2023 Active folic acid (Folvite) 1 MG tablet Take 1 (one) tablet by mouth once daily 10/25/2021 Active Januvia 100 MG tablet Take 1 (one) tablet by mouth every morning 03/30/2023 Active losartan (Cozaar) 25 MG tablet Take 1 (one) tablet by mouth once daily 11/18/2022 Active metFORMIN ER 24hr (Glucophage XR) 500 MG tablet Take 1 (one) tablet by mouth 2 times daily with morning and evening meal 03/29/2023 Active metoprolol succinate XL 24hr (Toprol XL) 25 MG tablet Take 1 (one) tablet by mouth once daily 02/26/2023 Active omeprazole (PriLOSEC) 20 MG capsule Take 1 (one) capsule by mouth once daily 12/15/2022 Active meclizine (Antivert) 25 MG tablet Take 1 (one) tablet by mouth 3 times daily as needed Active albuterol HFA (Proventil; Ventolin; Proair) 108 (90 Base) MCG/ACT inhaler Inhale 2 (two) puffs by mouth every 4 hours as needed for Shortness of Breath, Wheezing or Cough 02/28/2023 Active atorvastatin (Lipitor) 20 MG tablet Take 1 (one) tablet by mouth once daily 03/04/2023 Active clotrimazole-betameth asone (Lotrisone) 1-0.05 % cream Apply to affected area 2 times daily 03/29/2023 Active Wixela Inhub 250-50 MCG/ACT inhaler Inhale 1 (one) puff by mouth 2 times daily 02/28/2023 Active ferrous sulfate 325 (65 FE) MG tablet Take 1 (one) tablet by mouth once daily as directed. 10/06/2022 Active glimepiride (Amaryl) 1 MG tablet Take 1 (one) tablet by mouth 2 times daily with morning and evening meal 05/22/2022 Active HYDROcodone-acetamino phen ([place]) 5-325 MG tablet Take 1 (one) tablet by mouth every 6 hours as needed for Pain 09/05/2023 Active vitamin D, ergocalciferol, (Drisdol) 1.25 MG (45270 UT) capsule Take 1 (one) capsule by mouth every 7 days 04/08/2024 Active Active Problems Problem Noted Date Diagnosed Date Encounter for screening for cardiovascular disor ders 03/05/2024 Carotid arterial disease 09/05/2023 Bladder pain 05/10/2023 05/10/2023 Abnormal liver function 05/10/2023 05/10/20 Asthma 05/10/2023 05/10/2023 Candidiasis of vagina 05/10/2023 05/10/2023 Depressive disorder 05/10/2023 05/10/2023 Disorder of urinary tract 05/10/20232022 Family history of coronary artery disease 202205/10/2023 Generalized anxiety disorder 05/10/2023 Family history of stroke 05/10/2023 023 Hiatal hernia 05/10/2023 05/10/2023 Low back pain 05/10/2023 05/10/2023 Low blood pressure 05/10/2023 05/10/2023 Nonalcoholic fatty liver 05/10/2023 023 Pure hypercholesterolemia 05/10/20232022 Type 2 diabetes mellitus without complication 05/10/2023 Uncontrolled type 2 diabetes mellitus 05/10/2023 05/10/2023 Severe acute respiratory syn drome coronavirus 2 (SARS-CoV-2) mRNA vaccination declined 02/28/2023 05/10/2023 Fatigue 11/08/2022 05/10/2023 Chronic anemia 07/18/2022 05/10/2023 History of anemia due to vitamin B12 deficiency 05/24/2022 05/10/2023 Spinal stenosis of lumbar region 01/26/2022 05/10/2023 Osteopenia 01/19/2022 05/10/2023 Atrial fibrillation 10/15/2021 05/10/2023 Paroxysmal atrial fibrillation 10/15/2021 Syncope 10/27/2020 05/10/2023 Supraventricular tachycardia 09/25/2020 Adenomatous polyp of colon 03/18/202005/10 Thyroid nodule 03/18/2020 05/10/2023 Presence of other cardiac implants and grafts 05/10/2023 Gastroesophageal reflux disease 06/07/2019 05/10/2023 Osteoarthritis of ankle or foot 06/07/2019 05/10/2023 Transient ischemic attack 04/23/20192022 Multiple sclerosis 10/22/2018 05/10/2023 Overview (05/10/2023): Removal Reason: The neurologist disagrees Multinodular goiter 01/25/2018 05/10/2023 Chronic cerebral ischemia 04/07/20172022 Diabetes mellitus 01/24/2017 05/10/2023 Anemia 01/24/2017 05/10/2023 Dizziness 01/24/2017 05/10/2023 Hyperlipidemia 01/24/2017 05/10/2023 Primary hypertension 01/24/2017 05/10/2023 Palpitations 01/24/2017 05/10/2023 Resolved Problems Problem Noted Date Diagnosed Date Resolved Date Acute upper respiratory infection 05/10/2023 023 05/24/2023 Impacted cerumen 05/10/2023 05/10/2023 05/24/2023 Immunizations Name Administration Dates Next Due Covid Moderna primary monova lent 12+ yr 0.5mL 10/04/2020 Covid Pfizer primary monoval ent 12+ yr 0.3mL Purple cap 07/08/2021,06/24/2021 FLU VACCINE QUAD IIV4 PF ID 06/21/2016 FLU VACCINE QUAD IIV4 SPLIT 0.25 ML IM 07/07/2020,09/18/2019,06/19/2017,2013 INFLUENZA VACCINE 09/04/2023,07/18/2022,07/18/20 22 INFLUENZA VACCINE, HIGH-DOSE , QUADR. (FLUZONE HIGH-DOSE QUADRIVALENT; 65Y+), 0.7 ML (HD-IIV4) 07/19/2015 PNEUMOCOCCAL PPSV23 02/28/2023,09/04/2014 Pneumococcal Pcv13 Conj 03/18/2020 TDAP (7yrs+) 06/17/2015,09/18/2004 Social History Tobacco Use Types Packs/Day Years Used Date Smoking Tobacco: Never Smokeless Tobacco: Never Tobacco Cessation:Counseling Given: Not Answered Alcohol Use Standard Drinks/Week Comments Never 0 (1 standard drink = 0.6 oz pur e alcohol) Sex and Gender Information Value Date Recorded Sex Assigned at Not on file Gender Identity Not on file Sexual Orientation Not on file Last Filed Vital Signs Vital Sign Reading Time Taken Comments Blood Pressure - - Pulse - - Temperature - - Respiratory Rate - - Oxygen Saturation - - Inhaled Oxygen Concentration - - Weight 55.8 kg (123 lb) 04/12/2023 10:31 AM CDT Height 152.4 cm (5') 04/12/2023 10:31 AM CDT Body Mass Index 24.02 04/12/2023 10:31 AM CDT Plan of Treatment Upcoming Encounters Date Type Department Care Team (Late st Contact Info) Description 04/09/2025 10:30 AM CDT Office Visit [facility] - Orthopedics [address] [place] [address], [place] [address] Damien Villalta MD [address] [place] [address] OF [place]THOPEDIC [place] [address] Health Maintenance Due Date Last Done Comments BONE DENSITY TESTING 1955 COLOGUARD (AGES 45-75) - COLON CA SCREENING 1955 COLON MONITORING 1955 COLONOSCOPY - COLON CA SCREENING 1955 CT COLONOGRAPHY - COLON CA SCREENING 1955 Colorectal Cancer Screening 1955 FIT - COLON CA SCREENING 1955 FLEX SIG - COLON CA SCREENING 1955 MAMMOGRAM 1955 HEPATITIS C SCREENING 06/24/1972 DIABETES-SERUM CREATININE 1972 ZOSTER VACCINE (1 of 2) 2004 Respiratory Syncytial Virus (RSV) Vaccine Pt: or over 60 yrs (1 - Risk 60-74 years 1-dose series) 2014 DIABETES RETINOPATHY SCREENING 05/10/2023 DIABETES-FOOT EXAM WITH MONOFILAMENT 05/10/2023 DIABETES-HGB A1C 05/10/2023 COVID-19 VACCINE ( season) 2024 07/08/2021, 06/24/2021, 10/04/2020, Additional history exists INFLUENZA VACCINE (#1) 2024 , 07/18/2022, 07/18/2022, Additional history exists DEPRESSION SCREENING 09/18/2024 DIABETES - URINE PROTEIN SCREENING 09/18/2024 MEDICARE AWV CALENDAR YEAR 2024 DTAP/TDAP/TD VACCINES (3 - Td or Tdap) 06/17/2025 06/17/2015, 09/18/2004 PNEUMOCOCCAL VACCINE 50+ Completed 023, 03/18/2020, 09/04/2014 HEPATITIS B VACCINE Aged Out No longe r eligible based on patient's age to complete this topic HIB VACCINE Aged Out No longer eligi ble based on patient's age to complete this topic HPV VACCINE Aged Out No longer eligi ble based on patient's age to complete this topic MENINGOCOCCAL (Group B) VACCINE Aged Out No longer eligible based on patient's age to complete this topic MENINGOCOCCAL VACCINE Aged Out No erick zahraa eligible based on patient's age to complete this topic Care Teams Swat Team Member Relationship Specialty Start Date End Date Adam Soni MD [address] [place] [phone] PCP - General Internal Medicine 04/12/23
--- OUTSIDE RECORDS SUMMARY | 2024-11-21 10:01 | XMS_ITS ---
Author Organization [facility] Address [address] [facility] [address] [facility] [address] [place] [address] Care Team Providers Care Icu Nurse Name Role Phone Navneet Araiza Unavailable [phone] MEDICATIONS Medication SIG (Take, Route, Frequency, Duration) Notes Start Date End Date Status Cefuroxime Axetil 500 MG 1 tablet Orally every 12 hrs for 5 day(s) 08/02/2024 08/07/2024 Active SOCIAL HISTORY Sex Assigned At : Social History Observation Description Sex Assigned At Female Encounters Encounter Location Date Provider Diagnosis [place] [facility] [address] [facility] [address] [place] [address] 08/02/2024 Navneet Araiza PLAN OF TREATMENT Medication Medication Name Sig Start Date Stop Date Notes Cefuroxime Axetil 500 MG 1 tablet Orally every 12 hrs for 5 day(s) 08/02/2024 08/07/2024 Next Appt Details Provider Name:Navneet Araiza , 11/27/2024 02:00:00 PM, [address] [facility] [address], [place], [address], Progress Notes * Suyapa SOTODOB:1955 ([age] yo F)Acc No.[id number]:08/02/2024 Patient: Suyapa SOTO :1955 Age:69 Y Sex:Female Address:[address] [place] [address] * Refills Start Cefuroxime Axetil Tablet, 500 MG, Orally, 10, 1 tablet, every 12 hrs, 5 day(s) * * Date:
--- OUTSIDE RECORDS SUMMARY | 2024-11-21 10:01 | XMS_ITS | Encounter Summary ---
Author Organization [facility] Address [address] [place] [address] Care Team Providers Care Manager Business Name Role Phone Adam Soni MD Primary Care Provider [phone] Encounter Details Date Type Department Care Team (Late st Contact Info) Description 08/01/2000 Outpatient Historical [place] [address] [facility] [address] [place] [address] Sensorineural hearing loss, bilateral (Primary Dx) Social History Tobacco Use Types Packs/Day Years Used Date Smoking Tobacco: Never Assessed Comments Unknown Sex and Gender Information Value Date Recorded Sex Assigned at Not on file Legal Sex 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 Gender Identity Not on file Sexual Orientation Not on file documented as of this encounter Plan of Treatment Upcoming Encounters Date Type Department Care Team (Late st Contact Info) Description 05/14/2025 11:00 AM CDT Office Visit [facility] Oncology and Hematology - [place] [address] [facility] [address] [place] [address] Jordi Elizondo MD [address] [facility] [address] [place] [address] documented as of this encounter Visit Diagnoses Diagnosis Sensorineural hearing loss, bilateral- Primary documented in this encounter Care Teams Manager Business Relationship Specialty [place] [address] [place] [phone] PCP - General Internal Medicine 09/25/23 documented as of this encounter
--- OUTSIDE RECORDS SUMMARY | 2024-11-21 10:02 | XMS_ITS | Patient Health Record ---
Author Organization [facility] Address [address] [place] [address] Care Team Providers Care Plate Former Name Role Phone Navneet Araiza Unavailable [phone] REASON FOR REFERRAL No Information MEDICATIONS Medication SIG (Take, Route, Frequency, Duration) Notes Start Date End Date Status Losartan Potassium 50 MG 1 tablet Orally Once a day for 90 05/22/2024 Active Vitamin D (Ergocalciferol) 87858 UNIT 1 capsule Orally once a week for 90 days 05/22/2024 02/16/2025 Active Calcitriol 0.25 MCG 1 capsule Orally Onc e a day for 90 day(s) 05/22/2024 02/16/2025 Active SOCIAL HISTORY Sex Assigned At : Social History Observation Description Sex Assigned At Female PROBLEMS Problem Type ICD Code Onset Dates Problem Status W/U Status Risk SNOMED Code Notes Problem Type 2 diabetes mellitus with hyperglycemia (E11.65) Active confirmed Hyperglycemia d ue to type 2 diabetes mellitus (450787323588748) Problem Vitamin D deficiency, unspecified (E55.9) Active confirmed Vitamin D deficiency (52611556) Problem Essential hypertension (I10) Active confirmed Essential hypertension (15416242) Problem Gastro-esophagea l reflux disease with esophagitis, without bleeding (K21.00) Active confirmed Gastroesophagea l reflux disease with esophagitis (disorder) (529463591) Problem Chronic kidney disease, stage 3 unspecified (N18.30) Active confirmed Chronic kidney disease stage 3 (disorder) (644476608) Encounters Encounter Location Date Provider Diagnosis [place] [facility] [address] [place] [address] 04/26/2024 Navneet Araiza Chronic kidney disease, stage 3 unspecified N18.30 ; Essential hypertension I10 ; Type 2 diabetes mellitus with hyperglycemia E11.65 and Gastro-esophageal reflux disease with esophagitis, without bleeding K21.00 [place] [facility] [address] [place] [address] 05/22/2024 Navneet Araiza Chronic kidney disease, stage 3 unspecified N18.30 ; Essential hypertension I10 ; Type 2 diabetes mellitus with hyperglycemia E11.65 and Gastro-esophageal reflux disease with esophagitis, without bleeding K21.00 [place] [facility] [address] [address] 07/31/2024 Navneet Araiza Chronic kidney disease, stage 3 unspecified N18.30 ; Essential hypertension I10 ; Type 2 diabetes mellitus with hyperglycemia E11.65 and Gastro-esophageal reflux disease with esophagitis, without bleeding K21.00 [place] [address] [place] [address] 10/09/2024 Navneet Araiza Chronic kidney disease, stage 3 unspecified N18.30 ; Type 2 diabetes mellitus with hyperglycemia E11.65 ; Vitamin D deficiency, unspecified E55.9 ; Glycosuria R81 and Proteinuria, unspecified R80.9 [place] [facility] [address] [place] [address] 08/01/2024 Navneet Araiza [place] [facility] [address] [place] [address] 08/02/2024 Navneet Araiza [facility] [address] [place] [address] 05/22/2024 Navneet Araiza [place] [facility] [address] [place] [address] 08/01/2024 Navneet Araiza ASSESSMENTS Encounter Date Diagnosis Assessment Notes Treatment Notes Treatment Clinical Notes Section Notes 04/26/2024 Essential hypertension (ICD-10 - I10) 04/26/2024 Chronic kidney disease, stage 3 unspecified (ICD-10 - N18.30) 05/22/2024 Essential hypertension (ICD-10 - I10) 05/22/2024 Chronic kidney disease, stage 3 unspecified (ICD-10 - N18.30) 07/31/2024 Chronic kidney disease, stage 3 unspecified (ICD-10 - N18.30) 10/09/2024 Type 2 diabetes mellitus with hyperglycemia (ICD-10 - E11.65) 10/09/2024 Chronic kidney disease, stage 3 unspecified (ICD-10 - N18.30) 10/09/2024 Vitamin D deficiency, unspecified (ICD-10 - E55.9) 07/31/2024 Essential hypertension (ICD-10 - I10) 04/26/2024 Type 2 diabetes mellitus with hyperglycemia (ICD-10 - E11.65) 05/22/2024 Type 2 diabetes mellitus with hyperglycemia (ICD-10 - E11.65) 04/26/2024 Gastro-esophageal reflux disease with esophagitis, without bleeding (ICD-10 - K21.00) 07/31/2024 Type 2 diabetes mellitus with hyperglycemia (ICD-10 - E11.65) 05/22/2024 Gastro-esophageal reflux disease with esophagitis, without bleeding (ICD-10 - K21.00) 10/09/2024 Glycosuria (ICD-10 - R81) 07/31/2024 Gastro-esophageal reflux disease with esophagitis, without bleeding (ICD-10 - K21.00) 10/09/2024 Proteinuria, unspecified (ICD-10 - R80.9) PLAN OF TREATMENT Next Appt Details Provider Name:Navneet Araiza , 11/27/2024 02:00:00 PM, [address], [facility] [address], [address],
--- OUTSIDE RECORDS SUMMARY | 2024-11-21 10:02 | XMS_ITS ---
Author Organization [facility] Address [address] [facility] [address] [facility] [address] [place] [address] Care Team Providers Care Database Admin Name Role Phone Jose G Navneet Unavailable [phone] MEDICATIONS Medication SIG (Take, Route, Fr equency, Duration) Notes Start Date End Date Status Cipro 500 MG 1 tablet Orally ever y 12 hrs for 10 days 08/01/2024 08/11/2024 Active SOCIAL HISTORY Sex Assigned At : Social History Observation Description Sex Assigned At Female Encounters Encounter Location Date Provider Diagnosis [place] [facility] [address] [facility] 15 [place] [address] 08/01/2024 Navneet Araiza PLAN OF TREATMENT Medication Medication Name Sig Start Date Stop Date Notes Cipro 500 MG 1 tablet Orally every 12 hrs for 10 days 07/1908/11/2024 Next Appt Details Provider Name:Navneet Araiza , 11/27/2024 02:00:00 PM, [address] [facility], [facility] 15, [place], [address], Progress Notes * Suyapa BARAJASDOB:1955 ([age] yo F)Acc No.[id number]:08/01/2024 Patient: Suyapa BARAJAS :1955 Age:69 Y Sex:Female Address:[address] [place] [address] * Refills Start Cipro Tablet, 500 MG, Orally, 20, 1 tablet, every 12 hrs, 10 days * true * Date:
--- OUTSIDE RECORDS SUMMARY | 2024-11-21 10:02 | XMS_ITS | Referral Summary ---
Author Organization [facility] Address [address] [facility] [place] [address] Care Team Providers Care Dive Master Name Role Phone Adam Soni MD Primary Care Provider Source Comments [facility],non-owned Affiliates and Associated Physician Practices is amultiple site organization consisting of ambulatory clinics and hospital sitesin [place], [place], [place] and [place]. This disclosure is being madepursuant to the Care Everywhere program and may not contain all information available regarding this patient. Last updated 18.[facility] Allergies Active Allergy Reactions Criticality Noted Date [...] and evening meal 05/22/2022 Active HYDROcodone-acetamino phen ([place]) 5-325 MG tablet Take 1 (one) tablet by mouth every 6 hours as needed for Pain 09/05/2023 Active vitamin D, ergocalciferol, (Drisdol) 1.25 MG (16889 UT) capsule Take 1 (one) capsule by [...] Office Visit [facility] - Orthopedics [address] [place] [address], [place] [address] Damien Villalta MD [address] [address] [place] [address] Care Teams Dive Master Relationship Specialty Start Date End Date Adam Soni MD [address] [place], [place] [id number] PCP - General Internal Medicine 04/12/23
--- OUTSIDE RECORDS SUMMARY | 2024-11-21 10:02 | XMS_ITS ---
Author Organization [facility] Address [address] [place] [address] Care Team Providers Care Maintenance Worker House Trailer Name Role Phone Navneet Araiza Unavailable [phone] MEDICATIONS Medication SIG (Take, Route, Frequency, Duration) Notes Start Date End Date Status Losartan Potassium 50 MG 1 tablet Orally Once a day for 90 05/22/2024 Active Vitamin D (Ergocalciferol) 90137 UNIT 1 capsule Orally once a week for 90 days 05/22/2024 02/16/2025 Active Calcitriol 0.25 MCG 1 capsule Orally Onc e a day for 90 day(s) 05/22/2024 02/16/2025 Active SOCIAL HISTORY Sex Assigned At : Social History Observation Description Sex Assigned At Female PROBLEMS Problem Type ICD Code Onset Dates Problem Status W/U Status Risk SNOMED Code Notes Problem Vitamin D deficiency, unspecified (E55.9) Active confirmed Vitamin D deficiency (11695319) Encounters Encounter Location Date Provider Diagnosis [place] [facility] [address] [facility] 15 [place] [address] 10/09/2024 Navneet Araiza Chronic kidney disease, stage 3 unspecified N18.30 ; Type 2 diabetes mellitus with hyperglycemia E11.65 ; Vitamin D deficiency, unspecified E55.9 ; Glycosuria R81 and Proteinuria, unspecified R80.9 ASSESSMENTS Encounter Date Diagnosis Assessment Notes Treatment Notes Treatment Clinical Notes Section Notes 10/09/2024 Chronic kidney disease, stage 3 unspecified (ICD-10 - N18.30) 10/09/2024 Type 2 diabetes mellitus with hyperglycemia (ICD-10 - E11.65) 10/09/2024 Vitamin D deficiency, unspecified (ICD-10 - E55.9) 10/09/2024 Glycosuria (ICD-10 - R81) 10/09/2024 Proteinuria, unspecified (ICD-10 - R80.9) PLAN OF TREATMENT Next Appt Details Provider Name:Navneet Araiza 11/27/2024 02:00:00 PM, [address] [facility], [facility] [address], [place], [address], Progress Notes * Suyapa SOTODOB:1955 (6 0 yo F)Acc No.[id number]:10/09/2024 Progress Notes Patient: Suyapa SOTO Provider: MD SCOUT, Zaira.Juanita.C.P, F.A.S.N. :1955 Age:69 Y Sex:Female Date:10/09/2024 Address:[address] [place] [address] Subjective: * Chief Complaints: * * Medical History: * Medications: Taking Losartan Potassium 50 MG Tablet 1 tablet Orally Once a day , Taking Vitamin D (Ergocalciferol) 03448 UNIT Capsule 1 capsule Orally once a week , stop date 02/16/2025, Taking Calcitriol 0.25 MCG Capsule 1 capsule Orally Once a day , stop date 02/16/2025 Objective: Assessment: * Assessment: 1. Chronic kidney disease, stage 3 unspecified - N18.30 (Primary) 2. Type 2 diabetes mellitus with hyperglycemia - E11.65 3. Vitamin D deficiency, unspecified - E55.9 4. Glycosuria - R81 5. Proteinuria, unspecified - R80.9 Plan: * Treatment: * Billing Information: * Visit Code: 98237 Office Visit, Est Pt., Level 4. * Procedure Codes: * TH INSPECTOR Sign off status: Pending * Provider: MD SCOUT, Zaira.Juanita.C.P, F.A.S.N. Date: 10/09/2024
--- OUTSIDE RECORDS SUMMARY | 2024-11-21 10:02 | XMS_ITS | Patient Health Summary ---
Author Organization [facility] Address [address] [place] [address] Care Team Providers Care Box Sorter Name Role Phone Adam Soni MD Primary Care Provider Note from [facility],non-owned Affiliates and Associated Physician Practices is amultiple site organization consisting of ambulatory clinics and hospital sitesin [place], [place], [place] and [place]. This disclosure is being madepursuant to the Care Everywhere program and may not contain all information available regarding this patient. Last updated 18.[facility] Allergies * Empagliflozin(Other) -Low Criticality * Rofecoxib(Rash) -High Criticality * Sulfa Drugs(Swelling) -High Criticality * Sulfacetamide(Swelling) -High Criticality Medications * Be aware that medications may not be up to date on this document. Alwaysverify current medications with the patient. * Eliquis 5 MG tablet(Started 03/29/2023) Take 1 (one) tablet by mouth 2 times daily * flecainide (Tambocor) 50 MG tablet(Started 02/26/2023) Take 1 (one) tablet by mouth 2 times daily * folic acid (Folvite) 1 MG tablet(Started 10/25/2021) Take 1 (one) tablet by mouth once daily * Januvia 100 MG tablet(Started 03/30/2023) Take 1 (one) tablet by mouth every morning * losartan (Cozaar) 25 MG tablet(Started 11/18/2022) Take 1 (one) tablet by mouth once daily * metFORMIN ER 24hr (Glucophage XR) 500 MG tablet(Started 03/29/2023) Take 1 (one) tablet by mouth 2 times daily with morning and evening meal * metoprolol succinate XL 24hr (Toprol XL) 25 MG tablet(Started 02/26/2023) Take 1 (one) tablet by mouth once daily * omeprazole (PriLOSEC) 20 MG capsule(Started 12/15/2022) Take 1 (one) capsule by mouth once daily * meclizine (Antivert) 25 MG tablet Take 1 (one) tablet by mouth 3 times daily as needed * albuterol HFA (Proventil; Ventolin; Proair) 108 (90 Base) MCG/ACT inhaler (Started 02/28/2023) Inhale 2 (two) puffs by mouth every 4 hours as needed for Shortness of Breath, Wheezing or Cough * atorvastatin (Lipitor) 20 MG tablet(Started 03/04/2023) Take 1 (one) tablet by mouth once daily * clotrimazole-betamethasone (Lotrisone) 1-0.05 % cream(Started 03/29/2023) Apply to affected area 2 times daily * Wixela Inhub 250-50 MCG/ACT inhaler(Started 02/28/2023) Inhale 1 (one) puff by mouth 2 times daily * ferrous sulfate 325 (65 FE) MG tablet(Started 10/06/2022) Take 1 (one) tablet by mouth once daily as directed. * glimepiride (Amaryl) 1 MG tablet(Started 05/22/2022) Take 1 (one) tablet by mouth 2 times daily with morning and evening meal * HYDROcodone-acetaminophen (Triplett) 5-325 MG tablet(Started 09/05/2023) Take 1 (one) tablet by mouth every 6 hours as needed for Pain * vitamin D, ergocalciferol, (Drisdol) 1.25 MG (69315 UT) capsule(Started 04/08/2024) Take 1 (one) capsule by mouth every 7 days Active Problems Problem Noted Date Diagnosed Date [...] ischemic attack 04/23/20192022 Multiple sclerosis 10/22/2018 05/10/2023 Multinodular goiter 01/25/2018 05/10/2023 Chronic cerebral ischemia 04/07/20172022 Diabetes mellitus 01/24/2017 05/10/2023 Anemia 01/24/2017 05/10/2023 Dizziness 01/24/2017 05/10/2023 Hyperlipidemia 01/24/2017 05/10/2023 Primary hypertension 01/24/2017 05/10/2023 Palpitations 01/24/2017 05/10/2023 Resolved Problems Problem Noted Date Diagnosed Date Resolved Date Acute upper respiratory infection 05/10/2023 023 05/24/2023 Impacted cerumen 05/10/2023 05/10/2023 05/24/2023 Immunizations * Covid Moderna primary monovalent 12+ yr 0.5mL(Given 10/04/2020) * Covid Pfizer primary monovalent 12+ yr 0.3mL Purple cap(Given 07/08/2021, 06/24/2021) * FLU VACCINE QUAD IIV4 PF ID(Given 06/21/2016) * FLU VACCINE QUAD IIV4 SPLIT 0.25 ML IM(Given 07/07/2020, 09/18/2019, 06/19/2017, 06/18/2014) * INFLUENZA VACCINE(Given 09/04/2023, 07/18/2022, 07/18/2022) * INFLUENZA VACCINE, HIGH-DOSE, QUADR. (FLUZONE HIGH-DOSE QUADRIVALENT; 65Y+), 0.7 ML (HD-IIV4)(Given 07/19/2015) * PNEUMOCOCCAL PPSV23(Given 02/28/2023, 09/04/2014) * Pneumococcal Pcv13 Conj(Given 03/18/2020) * TDAP (7yrs+)(Given 06/17/2015, 09/18/2004) Social History Tobacco Use Types Packs/Day Years [...] Mass Index 24.02 04/12/2023 10:31 AM CDT Procedures * XR SHOULDER RIGHT 2VW OR MORE(Performed 09/20/2023) Performed for Closed fracture of proximal end of right humerus with routine healing, unspecified fracture morphology, subsequent encounter * XR SHOULDER RIGHT 2VW OR MORE(Performed 07/19/2023) Performed for Closed fracture of proximal end of right humerus with routine healing, unspecified fracture morphology, subsequent encounter * XR SHOULDER RIGHT 2VW OR MORE(Performed 06/07/2023) Performed for Closed fracture of proximal end of right humerus with routine healing, unspecified fracture morphology, subsequent encounter * XR SHOULDER RIGHT 2VW OR MORE(Performed 05/10/2023) Performed for Closed fracture of proximal end of right humerus with routine healing, unspecified fracture morphology, subsequent encounter Results * XR SHOULDER RIGHT 2VW OR MORE (09/20/2023 12:15 PM DRAPERY EXAMINER) Only the most recent of4 resultswithin the time period is included. Anatomical Region Laterality Modality Upper Extremity Radiographic Michell ging 09/20/2023 12:2 3 PM DRAPERY EXAMINER Impressions 09/20/2023 12:24 PM DRAPERY EXAMINER IMPRESSION: Humeral head and neck fracture, unchanged in alignment and healing. > Interpreting Provider: Alexander Elena MD on 09/20/2023 12:24 PM Narrative 09/20/2023 12:24 PM DRAPERY EXAMINER PROCEDURE: XR SHOULDER RIGHT 2VW OR MORE DATE/TIME OF EXAM: 09/20/2023 12:15 PM CLINICAL INFORMATION: None relevant/not provided if blank. Indication: S42.201D: Closed fracture of proximal end of right humerus with routine healing, unspecified fracture morphology, subsequent encounter Additional History: COMPARISON: 07/19/2023. FINDINGS: A humeral head and neck fracture is unchanged in alignment and healing with progression of callus. There is moderate acromioclavicular and glenohumeral osteoarthritis. Procedure Note Alexander Elena MD - 09/20/2023 PROCEDURE: XR SHOULDER RIGHT 2VW OR MORE DATE/TIME OF EXAM: 09/20/2023 12:15 PM CLINICAL INFORMATION: None relevant/not provided if blank. Indication: S42.201D: Closed fracture of proximal end of right humeruswith routine healing, unspecified fracture morphology, subsequent encounter Additional History: COMPARISON: 07/19/2023. FINDINGS: A humeral head and neck fracture is unchanged in alignment and healingwith progression of callus. There is moderate acromioclavicular andglenohumeral osteoarthritis. IMPRESSION: Humeral head and neck fracture, unchanged in alignment and healing. > Interpreting Provider: Alexander Elena MD on 09/20/2023 12:24 PM Damien Villalta MD DIAGNOSTIC IMAGING O [facility] Care Teams Box Sorter Relationship Specialty Start Date End Date Adam Soni MD [address], [place] [phone] PCP - General Internal Medicine 04/12/23
--- OUTSIDE RECORDS SUMMARY | 2024-11-21 10:02 | XMS_ITS | Clinical Summary ---
Author Organization [facility] Address [address] [place] [address] Care Team Providers Care Snow Removal Supervisor Name Role Phone Adam Soni MD Primary Care Provider [phone] Allergies Active Allergy Reactions Criticality Noted Date Comments Empagliflozin Other (See Comments) Low 05/10/2023 Rofecoxib Rash High 01/24/2017 hives Other reaction(s): hives Sulfacetamide Swelling High 01/24/2017 Sulfa allergy Medications apixaban (Eliquis) 5 mg tablet Take 5 mg by mouth 2 times daily. 03/29/2023 Active ferrous sulfate 325 mg (65 mg iron) tablet Take 325 mg by mouth daily. 10/06/2022 Active flecainide (TAMBOCOR) 50 mg Tablet Take 50 mg by mouth 2 times daily. 02/26/2023 Active folic acid (FOLVITE) 1 mg tablet Take 1 mg by mouth daily. 10/25/2021 Active losartan (COZAAR) 25 mg tablet Take 50 mg by mouth daily. 11/18/2022 Active metFORMIN (GLUCOPHAGE XR) 500 mg Extended Release 24 hour tablet Take 500 mg by mouth. 03/29/2023 Active metoprolol succinate (TOPROL XL) 25 mg Extended Release 24 hour tablet Take 25 mg by mouth daily. 02/26/2023 Active omeprazole (PriLOSEC) 20 mg Capsule, Delayed Release(E.C.) Take 20 mg by mouth daily. 12/15/2022 Active SITagliptin phosphate (Januvia) 100 mg Tablet Take 100 mg by mouth. 03/30/2023 Active Jardiance 25 mg tablet Take 1 Tablet by mouth daily. 06/17/2024 Active meclizine (ANTIVERT) 25 mg tablet Take 25 mg by mouth 3 times daily as needed. Active ascorbic acid (VITAMIN C) 500 mg Tablet, Chewable Take 500 mg by mouth. Active calcitRIOL (ROCALTROL) 0.25 mcg capsule Take 0.25 mcg by mouth daily. 05/22/2024 Active amoxicillin-clav ulanate (AUGMENTIN) 875-125 mg tablet Take 1 Tablet by mouth 2 times daily. 11/04/2024 Active Active Problems No known active problems Encounters Date Type Department Care Team Description 11/20/2024 External Device Data ST[facility] ABSTRACTION Provider, Abstract 11/13/2024 11:00 AM MANAGER TALENT ACQUISITION Office Visit [facility] Oncology and Hematology - [place] [address] [place] [address] Jordi Elizondo MD Chronic anemia (Primary Dx) 11/12/2024 Orders Only [facility] Oncology and Hematology - [place] [address] [place] [address] Jordi Elizondo MD 11/12/2024 Abstract [facility] Oncology and Hematology - [place] [address] [place] [address] Jordi Elizondo MD 11/05/2024 External Device Data ST[facility] ABSTRACTION Provider, Abstract 10/09/2024 External Device Data ST[facility] ABSTRACTION Provider, Abstract 10/09/2024 External Device Data ST[facility] ABSTRACTION Provider, Abstract from Last 3 Months Family History Medical History Relation Name Comments Cancer Father Cancer Mother Relation Name Status Comments Brother Daughter Alive Father Mother Sister Son Alive Social History Tobacco Use Types Packs/Day Years Used Date Smoking Tobacco: Never Smokeless Tobacco: Never Tobacco Cessation:Counseling Given: Not Answered Alcohol Use Standard Drinks/Week Comments Never 0 (1 standard drink = 0.6 oz pur e alcohol) Comments Unknown Sex and Gender Information Value Date Recorded Sex Assigned at Not on file Legal Sex 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 MANAGER TALENT ACQUISITION Gender Identity Not on file Sexual Orientation Not on file Last Filed Vital Signs Vital Sign Reading Time Taken Comments Blood Pressure 130/65 11/13/2024 10:45 AM MANAGER TALENT ACQUISITION Pulse 65 11/13/2024 10:45 AM MANAGER TALENT ACQUISITION Temperature 35.9 C (96.7 F) 11/13/2024 10:45 AM MANAGER TALENT ACQUISITION Respiratory Rate 15 11/13/2024 10:4 5 AM MANAGER TALENT ACQUISITION Oxygen Saturation 90% 11/13/2024 10: 45 AM MANAGER TALENT ACQUISITION Inhaled Oxygen Concentration - - Weight 51.2 kg (112 lb 12.8 oz) 025 10:45 AM MANAGER TALENT ACQUISITION Height 152.4 cm (5') 09/25/2023 1:26 PM MANAGER TALENT ACQUISITION Body Mass Index 22.03 09/25/2023 1:26 PM MANAGER TALENT ACQUISITION Plan of Treatment Upcoming Encounters Date Type Department Care Team (Late st Contact Info) Description 05/14/2025 11:00 AM CDT Office Visit [facility] Oncology and Hematology - [place] [address] [facility] [address] [place] [address] Jordi Elizondo MD [address] [facility] [address] [place] [address] Health Maintenance Due Date Last Done Comments DIABETES ANNUAL FOOT EXAM 1972 DIABETES ANNUAL RETINAL EXAM 1972 DIABETES HBA1C Q 6 MONTHS 1972 DIABETES MICROALBUMIN ANNUAL SCREEN 1972 LDL CHOLESTEROL ANNUAL 1972 BREAST CANCER SCREENING 1994 FIT-DNA Q 3 years 1999 FIT/FOBT Q 1 year 1999 Flex Sig/CT Colonography Q 5 years 1999 ZOSTER VACCINE (1 of 2) 2004 RSV VACCINE (60+ or ) (1 - Risk 60-74 years 1-dose series) 2014 OSTEOPOROSIS SCREENING 2019 INFLUENZA VACCINE (#1) 2024 3, 07/18/2022, 07/07/2020, Additional history exists COVID-19 Vaccine ( - 2023-2 5 season) 2024 07/08/2021, 06/24/2021, 10/04/2020, Additional history exists [place] Preventative Visit/Annual Wellness Visit 09/18/2024 DTAP/TDAP/TD VACCINES (3 - T d or Tdap) 06/17/2025 06/17/2015, 09/18/2004 COLORECTAL SCREENING 10/31/2033 10/31/2023, 09/08/20 15 Colorectal Cancer Screening 10/31/2033 PNEUMOCOCCAL VACCINE 50+ YEARS Completed 0 02/28/2023, 03/18/2020, 09/04/2014 Procedures Procedure Name Priority Date/Time Associated Diagnosis Comments BASIC METABOLIC PANEL Routine 11/08/2024 4:17 PM MANAGER TALENT ACQUISITION from Last 3 Months Results * BASIC METABOLIC PANEL (11/08/2024 4:17 PM MANAGER TALENT ACQUISITION) Blood us Jordi Elizondo MD CHEMISTRY ORDERABLES Final Resu lt from Last 3 Months Insurance [facility] [place] [id number] Care Teams Snow Removal Supervisor Relationship Specialty Start Date End Date Adam Soni MD [address] [place] [phone] PCP - General Internal Medicine 09/25/23
--- OUTSIDE RECORDS SUMMARY | 2024-11-21 10:02 | XMS_ITS | Encounter Summary ---
Author Organization [facility] Address [address] [place] [address] Care Team Providers Care Journeyman Plumber Name Role Phone Adam Soni MD Primary Care Provider [phone] Encounter Details Date Type Department Care Team (Late st Contact Info) Description 11/20/2024 External Device Data [facility] ABSTRACTION Provider, Abstract NO ADDRESS ON FILE Social History Tobacco Use Types Packs/Day Years Used Date Smoking Tobacco: Never Smokeless Tobacco: Never Alcohol Use Standard Drinks/Week Comments Never 0 (1 standard drink = 0.6 oz pur e alcohol) Comments Unknown Sex and Gender Information Value Date Recorded Sex Assigned at Not on file Legal Sex 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 AVIATION METALSMITH Gender Identity Not on file Sexual Orientation Not on file documented as of this encounter Plan of Treatment Upcoming Encounters Date Type Department Care Team (Late st Contact Info) Description 05/14/2025 11:00 AM CDT Office Visit [facility] Oncology and Hematology - [place] [address] [facility] [address] [place] [address] Jordi Elizondo MD [address] [facility] [address] [facility] [address] [place] [address] documented as of this encounter Visit Diagnoses Not on filedocumented in this encounter Care Teams Journeyman Plumber Relationship Specialty [place] [address] [place] [phone] PCP - General Internal Medicine 09/25/23 documented as of this encounter
--- OUTSIDE RECORDS SUMMARY | 2024-11-21 10:02 | XMS_ITS | Data Portability ---
Author Organization [facility] Address [address] [place] [address] Care Team Providers Care Medical Collections Representative Name Role Phone [facility] - NEUROLOGY Neurologist Assessment Encounter Date Assessment [...] Not available Not available Not available Lab albumin /creati nine, mass ratio, urine 2023 024 [facility], [address] [place], [address], 08/06/2024 09:31:14 BMP, serum or plasma [facility] [address] [place], [address], 04/09/2024 16:07:59 CBC 2022 024 [facility], [address] [place], [address], 12/25/2023 09:35:37 BMP, serum or plasma 2022 024 [facility], [address] [place], [address], 03/25/2024 14:36:19 HbA1c (hemogl obin A1c), blood 2022 024 [facility] ([facility]), [address] [place], [address], 03/03/2024 23:57:06 lipid panel, serum 2022 024 [facility] ([facility]), [address] [place], [address], 03/04/2024 15:11:26 hemoglo bin + hematoc rit, blood 2022 023 [facility] ([facility]), [address] [place], [address], 02/28/2023 15:28:45 CBC 2022 023 [facility], [address] [place], [address], 02/06/2023 13:51:39 BMP, serum or plasma 2022 024 [facility], [address] [place], [address], 03/25/2024 14:36:13 HbA1c (hemogl obin A1c), blood 2022 023 [facility], [address] [place], [address], 03/15/2023 11:21:45 lipid panel, serum [facility]23 [facility] [address] [place], [address], 06/06/2023 11:39:01 vitamin D, 25-hydr oxy, total, serum 2022 023 [facility], [address], [place], [address], 05/26/2023 13:54:05 Referral nephrol ogist referra l - Elevate d creatin ine 2023 024 OSMANI Araiza MD (Nephrology, [address], [address], [place], [address], 05/01/2024 15:40:16 gastroe nterolo gist referra l - Chronic anemia 2022 023 OSMANI Fernandes MD, [address], [address], [place], [address], 10/22/2023 21:26:13 endocri nology, diabete s & metabol ism special ist referra l - Osteope livier with previou s fractur es and DM 2022 023 [place], [address], [place], [address], 07/25/2024 11:43:55 gastroe nterolo gist referra l - Iron deficie ncy anemia, Hb 836, Hct 28.3 01/27/20 23 2022 023 cbradhelen Fernandes MD, [address], [address], [place], [address], 04/05/2024 13:46:12 diabeti c ophthal mology referra l 2022 023 [facility], [address], [place], [address], 08/23/2023 15:41:29 Procedures None recorde d. Surgeries None recorde d. Imaging MAMMO, screeni ng, digital , bilater al 2023 024 [facility] (Mammography) , [address], [place], [address], 10/30/2024 16:19:31 US, kidney - Elevate d creatin ine 2023 024 [facility] ([facility]), [address] [place], [address], 04/08/2024 14:38:57 MAMMO, screeni ng, bilater al 2022 023 [facility] ([facility]), [address] [place], [address], 08/21/2023 14:53:00 DEXA 2022 023 [facility] ([facility]), [address] [place], [address], 07/24/2023 13:50:59 DEXA 2022 023 [facility] ([facility] Sched[facility]), [address] [place], [address], 02/28/2023 10:46:15 Medication Orders citalop armani 10 mg tablet 2023 024 [facility]armacy #[id number], [address], [place], [address], 03/29/2024 20:09:07 ferrous sulfate 325 mg (65 mg iron) tablet 2022 023 oagurjit [facility]/Pharmacy #[id number], [address] [place], [address], 09/04/2023 12:23:46 Advair Diskus 250 mcg-50 mcg/dos e powder for inhalat ion 2022 023 [facility]/Pharmacy #[id number], [address], [place], [address], 02/28/2023 10:29:15 albuter ol sulfate HFA 90 mcg/act uation aerosol inhaler 2022 023 [facility], [id number] [facility] #[id number], [address], [place], [address], 03/01/2023 23:39:49 azithro mycin 250 mg tablet 2022 023 oajao [facility] #[id number], [address], [place], [address], 11/28/2022 12:07:21 benzona kate 100 mg capsule 2022 023 hdoverma [id number], [address], [place], [address], 02/28/2023 10:01:38 Patient TargetsNo targets recorded. Patient Instructions Encounter Date Encounter Id Patient Instructions Last Modified By Organization Details Last Modified Time 11/28/2022 [id number] type 2 diabetes: care instructions oajao Not available 11/28/2022 10:41:34 Azithromycin Virgilioon katelin CXR if there is no improvement DEXA scan Ophthalmology Bivalent COVID 19 booster ER with SOB or chest pain Labs in Jan, 2023 Follow up in 3 months and PRN oajao Not available 11/28/2022 10:59:19 02/28/2023 [id number] learning about breast cancer screening oajao Not available 02/28/2023 10:39:18 type 2 diabetes: care instructions oajao Not available 02/28/2023 11:22:55 GI Labs Ophthalmology as previously referred DEXA [facility] in April, Follow up in 6 months and PRN oajao Not available 02/28/2023 11:23:46 A hard copy of h er 01/26/2023 lab results were discussed oajao Not available 02/28/2023 11:25:51 09/04/2023 [id number] influenza (flu) vaccine: care instructions oajao Not available 09/04/2023 13:17:00 FeSo4 BID GI Endocrinology Labs in December, Follow up in 5 months and PRN oajao Not available 09/04/2023 12:25:09 03/25/2024 [id number] Most recent lab results from TTE/Carotid US (Scheduled) Labs US Citalopram Nephrology Follow up in 4 months and PRN oacaino Not available 03/25/2024 15:51:21 07/16/2024 [id number] influenza (flu) vaccine: care instructions oacaino Not available 07/16/2024 12:41:12 Labs MMG in August, Follow up in 5 months and PRN oacaino Not available 07/16/2024 12:41:37 Reason for Referral Diabetic Ophthalmology Refer ral for Type 2 diabetes mellitus without complication Referring Physician: Adam Soni, Internal Medicine, Encounter Date: 11/28/2022 Butadiene Converter Helper Referral for Chronic anemia Iron deficiency anemia, Hb 836, Hct 28.3 01/26/2023 Iron deficiency anemia, Hb 836, Hct 28.3 01/26/2023 Referring Physician: Adam Soni Internal Medicine, Encounter Date: 02/28/2023 Endocrinology, Diabetes & Me tabolism Specialist Referral for Type 2 diabetes mellitus without complication Osteopenia, DM Osteopenia with previous fractures and DM Referring Physician: Adam Soni Internal Medicine, Encounter Date: 09/04/2023 Butadiene Converter Helper Referral for Chronic anemia Chronic anemia Chronic anemia Referring Physician: Adam Soni Internal Medicine, Encounter Date: 09/04/2023 Tier In Referral for Se rum creatinine above reference range Elevated creatinine Elevated creatinine Referring Physician: Adam Soni Internal Medicine, Encounter Date: 03/25/2024 Results Created Date Observation Date Name Description Value Unit Range Abnormal Flag Note LastModifiedBy Organization Detail LastModifiedTime 10/27/19 24 10/28/2023 MICRO SCOPI C EXAMI NATIO N WBC >30 /hpf 0-5 abnormal Not Available [facility] ([facility]) [address] [facility], [place], [address], 11/01/2023 06:19:23 10/27/19 24 10/28/2023 MICRO SCOPI C EXAMI NATIO N RBC NONE SEEN /hpf 0-2 Not Available [facility] ([facility]) [address] [facility], [place], [address], 11/01/2023 06:19:23 10/27/19 24 10/28/2023 MICRO SCOPI C EXAMI NATIO N epithelial cells (non renal) 0-10 /hpf 0-10 Not Available [facility] ([facility]) [address] [facility], [place], [address], 11/01/2023 06:19:23 10/27/19 24 10/28/2023 MICRO SCOPI C EXAMI NATIO N casts NONE SEEN /lpf nonese en Not Available [facility] ([facility]) [address] [facility], [place], [address], 11/01/2023 06:19:23 10/27/19 24 10/28/2023 MICRO SCOPI C EXAMI NATIO N bacteria MANY nonese en/few abnormal Not Available [facility] ([facility]) [address] [facility], [place], [address], 11/01/2023 06:19:23 10/27/19 24 10/28/2023 UA WITH CULTU RE REFLE X specific gravity 1.019 1.005- 1.030 Not Available [facility] ([facility]) [address] [facility], [place], [address], 11/01/2023 06:19:23 10/27/19 24 10/28/2023 UA WITH CULTU RE REFLE X pH 5.5 5.0-7. 5 Not Available [facility] ([facility]) [address] [facility], [place], [address], 11/01/2023 06:19:23 10/27/19 24 10/28/2023 UA WITH CULTU RE REFLE X urine-color YELLOW yellow Not Available [facility] ([facility]) [address] [facility], [place], [address], 11/01/2023 06:19:23 10/27/19 24 10/28/2023 UA WITH CULTU RE REFLE X appearance CLOUDY clear abnormal Not Available [facility] ([facility]) [address] [facility], [place], [address], 11/01/2023 06:19:23 10/27/19 24 10/28/2023 UA WITH CULTU RE REFLE X WBC esterase 3+ negati ve abnormal Not Available [facility] ([facility]) [address] [facility], [place], [address], 11/01/2023 06:19:23 10/27/19 24 10/28/2023 UA WITH CULTU RE REFLE X protein 1+ negati ve/tra ce abnormal Not Available [facility] ([facility]) [address] [facility], [place], [address], 11/01/2023 06:19:23 10/27/19 24 10/28/2023 UA WITH CULTU RE REFLE X glucose NEGATI VE negati ve Not Available [facility] ([facility]) [address] [facility], [place], [address], 11/01/2023 06:19:23 10/27/19 24 10/28/2023 UA WITH CULTU RE REFLE X ketones NEGATI VE negati ve Not Available [facility] ([facility]) [address] [facility], [place], [address], 11/01/2023 06:19:23 10/27/19 24 10/28/2023 UA WITH CULTU RE REFLE X occult blood TRACE negati ve abnormal Not Available [facility] ([facility]) [address] [facility], [place], [address], 11/01/2023 06:19:23 10/27/19 24 10/28/2023 UA WITH CULTU RE REFLE X bilirubin NEGATI VE negati ve Not Available [facility] ([facility]) [address] [place], [address], 11/01/2023 06:19:23 10/27/19 24 10/28/2023 UA WITH CULTU RE REFLE X urobilinogen ,semi-qn 0.2 mg/dL 0.2-1. 0 Not Available [facility] ([facility]) [address] [place], [address], 11/01/2023 06:19:23 10/27/19 24 10/28/2023 UA WITH CULTU RE REFLE X nitrite, urine NEGATI VE negati ve Not Available [facility] ([facility]) [address] [place], [address], 11/01/2023 06:19:23 10/27/19 24 10/28/2023 UA WITH CULTU RE REFLE X microscopic examination SEE BELOW: Micro scopi c was indic ated and was perfo rmed. Not Available [facility] ([facility]) [address] [facility], [place], [address], 11/01/2023 06:19:23 10/27/19 24 10/28/2023 UA WITH CULTU RE REFLE X urinalysis reflex COMMEN T This speci men has refle xed to a Urine Cultu re. Not Available [facility] ([facility]) [address] [facility], [place], [address], 11/01/2023 06:19:23 10/27/19 24 11/01/2023 URINE CULTU RE, ROUTI NE urine culture, routine FINAL REPORT abnormal Not Available [facility] ([facility]) [address] [facility], [place], [address], 11/01/2023 06:19:24 10/27/19 24 11/01/2023 URINE CULTU RE, ROUTI NE result 1 KLEBSI RIP PNEUMO NIAE abnormal Great er than 100,0 00 colon y formi ng units per mL Cefaz chacha <=4 ug/mL Cefaz chacha with an AMEI <=16 predi cts susce ptibi lity to the oral agent s cefac moira, cefdi dev, cefpo doxim e, cefpr ozil, cefur oxime , cepha lexin , and lorac arbef when used for thera py of uncom plica carly urina ry tract infec tions due to E. coli, Klebs iella pneum oniae , and Prote us mirab ilis. Not Available [facility] ([facility]) [address] [facility], [place], [address], 11/01/2023 06:19:24 10/27/19 24 11/01/2023 URINE CULTU RE, ROUTI NE antimicrobia l [...] thopr im/Pritchett lfa S Not Available [facility] ([facility]) [address] [facility], [place], [address], 11/01/2023 06:19:24 12/06/1912/02/2022 XR, chest , 2 view No observ ation record ed. [facility] [address] [place], [address], 02/28/2023 10:16:48 12/07/19 23 12/02/2022 XR, chest , 2 view No observ ation record ed. [facility] [address] [place], [address], 02/28/2023 10:16:48 07/24/20 23 07/24/2023 DEXA No observ ation record ed. [facility] ([facility]) [address] [place], [address], 09/04/2023 12:01:04 08/21/20 23 08/21/2023 MAMMO , scree kelly, bilat eral No observ ation record ed. [facility] [address] [place], [address], 09/04/2023 12:01:03 04/08/20 24 04/08/2024 US, kidne y No observ ation record ed. [facility] [address] [place], [address], 07/16/2024 12:25:52 04/09/20 24 04/09/2024 US, duple x, carot id arter y No observ ation record ed. [facility] [address], [place], [address], 07/16/2024 12:25:52 04/09/20 24 04/09/2024 trans -thor acic echoc ardio gram (TTE) (PROC ) No observ ation record ed. [facility] [address], [place], [address], 07/16/2024 12:25:52 04/24/20 24 04/24/2024 MRI, brain + brain stem, w/o contr ast No observ ation record ed. [facility] [address], [place], [address], 07/16/2024 12:25:52 Result Notes None recorded. Problems Name Problem SNOMED Code Status Onset Date Resolution Date Notes Provider Name and Address Organization Details Recorded Time Multinod ular goiter 028892392 Active 2017 Not Available [facility] 3 09:58:59 Multiple sclerosi s 61777147 Completed 201806/07/2019 Removal Reason: The neurolog ist disagree s Adam Soni MD Attn: Accounting ,[address] [facility], [place], [address] , [place] 9 11:45:02 Pure hypercho lesterol emia 019663401 Active Not Available [facility] 3 09:58:59 Abnormal liver function 16638513 Active Not Available [facility] 3 09:59:00 Diabetes mellitus 95011563 Completed 10/23/2018 Adam Soni MD Attn: Accounting ,[address] [facility], [place], [address] , [place] 9 17:45:54 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 14827307 Active 2018 Not Available [facility] 3 09:59:00 Gastroes ophageal reflux disease 416782759 Active 2018 Not Available [facility] 3 09:58:59 Adenomat ous polyp of colon 996960515 Active 2019 Not Available [facility] 3 09:59:00 Thyroid nodule 258555805 Active 2019 Not Available [facility] 3 09:58:59 Osteopen ia 928706873 Active 2021 Not Available [facility] 3 09:58:59 Spinal stenosis of lumbar region 96624197 Active 2021 Not Available [facility] 3 09:58:59 History of anemia vitamin B12 deficien t 776495847 Active 2021 Not Available [facility] 3 09:58:59 Chronic anemia 966508116 Active 2021 Not Available [facility] 3 09:58:59 SARS-CoV -2 mRNA vaccine declined 4058589252 Active 2022 Not Available [facility] 3 09:58:59 Fracture of surgical neck of humerus 644357609 Active Adam Soni MD Attn: Accounting ,[address] [facility], [place], [address] , [place] [facility] 4 12:22:40 Anti-nuc lear factor detected 951405901 Active 2023 Adam Soni MD Attn: [facility], [place], [address] , [place] [facility] 4 12:24:14 Generali zed anxiety disorder 71682622 Active Not Available [facility] 3 09:58:59 Acute upper respirat ory infectio n 00536221 Active Not Available [facility] 3 09:59:00 Impacted cerumen 64460101 Active Not Available [facility] 3 09:58:59 Candidia sis of vagina 42109357 Active Not Available [facility] 3 09:59:00 Disorder of urinary tract 82570623 Active Not Available [facility] 3 09:59:00 Urinary bladder pain 57584095 Active Not Available [facility] 3 09:58:59 Type 2 diabetes mellitus without complica tion 793491612 Active Not Available [facility] 3 09:58:59 Asthma 099337108 Active Not Available [facility] 3 09:58:59 Uncontro lled type 2 diabetes mellitus 602908739 Active Not Available [facility] 3 09:59:00 Non-alco holic fatty liver 730522437 Active Not Available [facility] 3 09:58:59 Low back pain 888399195 Active Not Available [facility] 3 09:58:59 Dizzines s 415275734 Active Not Available [facility] 3 09:58:59 Hiatal hernia 57429387 Active Not Available [facility] 3 09:59:00 Anemia 797011971 Active Not Available [facility] 3 09:58:59 Depressi ve disorder 14230799 Active Not Available [facility] 3 09:58:59 Low blood pressure 90776416 Active Not Available [facility] 3 09:59:00 Hyperlip idemia 26092445 Active Not Available [facility] 3 09:59:00 Chronic cerebral ischemia 563638063 Active 2016 Not Available [facility] 3 09:58:59 Notes:Some problems listed i n Document: #[id number] could not be added to this patient's chart. Please review this document and add these problems to the patient's chart manually as needed. Problem Notes None recorded. Procedures Surgical History Date Name Laterality Status Provider Name and Address Organization Details Recorded Time 2023 Diabetic Foot Exam completed Adam Soni MD Attn: Fany galdamez,[address] [facility], [place], [address], [place] [facility] 4 19:09:01 2023 esophagogastroduodenoscopy completed Molly Wilkins MD Attn: Fany galdamez,[address] [facility], [place], [address], [place] [facility] 4 09:21:24 2023 colonoscopy completed Adam Soni MD Attn: Fany galdamez,[address] [facility], [place], [address], [place] [facility] 4 09:22:43 2014 colonoscopy completed Adam Soni MD Attn: Fany galdamez,[address] [facility], [place], [address], [place] [facility] 0 09:41:25 1984 Total hysterectomy completed Adam Soni MD Attn: Fany galdamez,[address] [facility], [place], [address], [place] [facility] 7 10:14:36 Arthroscopic Surgery completed Alfonsoi dimple [place] [facility] 4 14:52:01 Appendectomy completed December [place] [facility] 4 14:52:01 Cholecystectomy completed December [place] [facility] 4 14:52:01 Hysterectomy completed December [place] [facility] 4 14:52:01 Imaging Results Imaging Date Name Status LastModified by Organization Details LastModified Time 12/02/2022 XR, chest, 2 view completed [facility] [address] [place], [address], 02/28/2023 10:16:48 12/02/2022 XR, chest, 2 view completed [facility] [address] [place], [address], 02/28/2023 10:16:48 07/24/2023 DEXA completed [facility] ([facility]) [address] [place], [address], 09/04/2023 12:01:04 08/21/2023 MAMMO, screening, bilateral completed [facility] [address] [place], [address], 09/04/2023 12:01:03 04/08/2024 US, kidney completed [facility] [address] [place], [address], 07/16/2024 12:25:52 04/09/2024 US, duplex, carotid artery completed [facility] [address], [place], [address], 07/16/2024 12:25:52 04/09/2024 trans-thoracic echocardiogram (TTE) (PROC) completed [facility] [address], [place], [address], 07/16/2024 12:25:52 04/24/2024 MRI, brain + brain stem, w/o contrast completed [place] [address], [address], 07/16/2024 12:25:52 Procedure Notes None recorded. Medical Equipment None Reported. Allergies Allergen ID Allergen Name Allergen Category Reaction Reaction Severity Criticality Documentation Date Start Date Code Code System Note Provider Name and Address Organization Details Recorded Time 65526 Substance with sulfonami de structure and antibacte rial mechanism of action (substanc e) medicatio n Not available Not available Not available 09/04/2014 43680 8003 SNOMED Other react ions and sever ities : 'Adve rse react ion to subst ance' . Not Available Not Available Not Available 80339 Vioxx medicatio n hives mild Not available 09/04/2014 91549 9 RxNorm Not Available Not Available Not Available 23464 Jardiance medicatio n other mild Not available 04/07/2017 31860 59 RxNorm Thrus h Not Available Not [...] Not Available fluconazo le 150 mg tablet TAKE 1 TABLET BY MOUTH ONCE FOR 1 DOSE active Not Available Not Available No t Available benzonata te 200 mg capsule 02/16 [...] Available Not Available Not Available ciproflox acin 500 mg tablet TAKE 1 TABLET BY MOUTH EVERY 12 HOURS FOR 10 DAYS active Not Available Not Available No t Available aspirin 81 mg tablet,de layed release [...] BY MOUTH THREE TIMES A DAY NEEDED active Not Available Not Available No t Available benzonata te 100 mg capsule TAKE 2 [...] TABLET BY MOUTH TWICE A DAY DIRECTED active Not Available Not Available No t Available metformin 1,000 mg tablet one po bid 01/05 completed Usually misses her evening dose Not Available Not Available Not Available nitrofura ntoin macrocrys neetu 100 mg capsule TAKE 1 CAPSULE BY MOUTH EVERY 6 HOURS X5 DAYS DIRECTED 03/25 completed Not Available Not Available Not Available nystatin 100,000 unit/gram topical cream APPLY TO AFFECTED AREA TWICE A DAY 05/24 completed Not Available Not Available Not Available clotrimaz ole-betam ethasone 1 %-0.05 % topical cream APPLY 1 APPLICAT ION ONTO THE AFFECTED AREA(S) ON THE SKIN TWICE DAILY X2 WEEKS active Not Available Not Available No t Available flecainid e 50 mg tablet TAKE 1 TABLET BY MOUTH TWICE A DAY active Not Available Not Available No t Available losartan 25 mg tablet TAKE 1 TABLET BY MOUTH EVERY DAY 07/16 completed Not Available Not Available Not Available omeprazol e 20 mg capsule,d elayed release TAKE 1 CAPSULE BY MOUTH EVERY DAY active Not Available Not Available No t Available folic acid 1 mg tablet TAKE 1 [...] unit) capsule TAKE 1 CAPSULE BY MOUTH ONCE A WEEK FOR 90 DAYS active Not Available Not Available No t Available Cheratuss in AC 10 mg-100 mg/5 [...] tended release 24 hr TAKE 2 TABLETS TWICE A DAY BY ORAL ROUTE DIRECTED FOR 90 DAYS, FOR DIABETES active Not Available Not Available No t Available calcitrio l 0.25 mcg capsule TAKE 1 CAPSULE BY MOUTH EVERY DAY FOR 90 DAYS active Not Available Not Available No t Available ipratropi um bromide 21 mcg (0.03 %) nasal spray Capac 2 sprays twice a day by intranas al route. 08/20 completed Not Available Not Available Not Available loratadin e 10 mg tablet Take 1 tablet every day by oral route as directed for 30 days. 08/21 completed Not Available Not Available Not Available amoxicill in 875 mg-potass ium clavulana te 125 mg tablet TAKE 1 TABLET BY MOUTH TWICE A DAY UNTIL FINISHED active Not Available Not Available No t Available escitalop armani 10 mg tablet 0.5 [...] 2020 active Not Available Not Available Not Remberto Shultzuch Delica Lancets 33 gauge active Not Available [...] Available No t Available FreeStyle Megan 2 Ruffin USE DIRECTED . active Not Available Not Available No t Available Vitals Date Recorded Body height Body mass index (BMI) Body weight Heart rate Oxygen saturation Oxygen saturation in Arterial blood by Pulse oximetry Respiratory rate Systolic blood pressure Diastolic blood pressure Provider Name and Address Organization Details Last Updated DateTime 3 152.4 cm 23.8 kg/m2 29960.2 7 g 80 /min 98 % 98 % 14 /min 136 mm[Hg] 80 mm[Hg] Una Boc[place]eg[place] [facility] 3 10:31:48 Date Recorded Body height Body mass index (BMI) Body weight Oxygen saturation Oxygen saturation in Arterial blood by Pulse oximetry Heart rate Respiratory rate Systolic blood pressure Diastolic blood pressure Provider Name and Address Organization Details Last Updated DateTime 3 152.4 cm 23.7 kg/m2 33340.1 1 g 97 % 97 % 68 /min 16 /min 130 mm[Hg] 70 mm[Hg] Una Bocanegra [place] [facility] 3 10:03:19 Date Recorded Body height Body mass index (BMI) Body weight Heart rate Oxygen saturation Oxygen saturation in Arterial blood by Pulse oximetry Systolic blood pressure Diastolic blood pressure Provider Name and Address Organization Details Last Updated DateTime 3 152.4 cm 24 kg/m2 78790.8 6 g 80 /min 99 % 99 % 140 mm[Hg] 76 mm[Hg] Una Bocanegra [place] [facility] [facility]ALTHCARE 3 11:28:25 Date Recorded Body height Body mass index (BMI) Body weight Heart rate Oxygen saturation Oxygen saturation in Arterial blood by Pulse oximetry Body temperature Systolic blood pressure Diastolic blood pressure Provider Name and Address Organization Details Last Updated DateTime 4 152.4 cm 23.4 kg/m2 81222.0 1 g 76 /min 99 % 99 % 97.7 [degF] 124 mm[Hg] 70 mm[Hg] Una Bocanegra [facility] 4 15:17:19 Date Recorded Body height Body mass index (BMI) Body weight Heart rate Oxygen saturation Oxygen saturation in Arterial blood by Pulse oximetry Respiratory rate Systolic blood pressure Diastolic blood pressure Provider Name and Address Organization Details Last Updated DateTime 4 152.4 cm 22.5 kg/m2 38368.5 6 g 70 /min 97 % 97 % 14 /min 146 mm[Hg] 70 mm[Hg] Una Bocanegra [facility] 4 11:49:45 Social History Question Answer Notes LastModified by Organizat ion Details LastModified Time Tobacco Smoking Status Never Smoker December CHANDLER Wiggins [facility] 09/04/2014 14:52:00 Do You Have An Advance [...] Response Coronary Artery Disease N Other N High Blood Pressure N Atrial Fibrillation N Kidney or Bladder Problems N Thyroid Problems N GI Problems Y Depression N COPD N Blood Clots N Skin Problems N Anemia N Heart Attack (OR) N Anxiety Disorder Y Diabetes Y Muscle, Joint, or Bone Problems N Seizures/Epilepsy N Acid Reflux (GERD) Y Cancer N Stroke N Asthma Y Allergies Y High Cholesterol N Hepatitis N Liver Disease N Headaches N Heart Failure N Osteoporosis N Gynecological HistoryNo gynecological history recorded. Obstetrics History GPAL:G 0 P 0 0 0 0 Immunizations Vaccine Type Date Status Note Provider Nam e and Address Organization Details Recorded Time Influenza, split virus, quadrivalent, preservative 4 completed Not Available [facility] 08/25/2023 09:59:00 Influenza, split virus, quadrivalent, preservative 0 completed Not Available [facility] 08/25/2023 09:59:00 Influenza, split virus, quadrivalent, preservative 0 completed Not Available [facility] 08/25/2023 09:59:00 COVID-19, mRNA, LNP-S, PF, 30 mcg/0.3 mL dose 1 completed Not Available [facility] 08/25/2023 09:59:01 COVID-19, mRNA, LNP-S, PF, 30 mcg/0.3 mL dose 0 completed Not Available [facility] 08/25/2023 09:59:01 Pneumococcal conjugate PCV 13 0 completed Not Available [facility] 08/25/2023 09:59:01 COVID-19, mRNA, LNP-S, PF, 30 mcg/0.3 mL dose 1 completed Not Available [facility] 08/25/2023 09:59:01 COVID-19, mRNA, LNP-S, PF, 100 mcg/0.5mL dose or 50 mcg/0.25mL dose 1 completed Not Available [facility] 08/25/2023 09:59:01 COVID-19, mRNA, LNP-S, PF, 30 mcg/0.3 mL dose 1 completed Not Available [facility] 08/25/2023 09:59:01 Tdap 5 completed Not Available [facility] 08/25/2023 09:59:01 Influenza, high-dose, trivalent, PF 5 completed Not Available [facility] 08/25/2023 09:59:01 Tdap 5 completed Not Available [facility] 08/25/2023 09:59:01 influenza, intradermal, quadrivalent, preservative free 6 completed Not Available [facility] 08/25/2023 09:59:00 Influenza, high-dose, quadrivalent, PF 2 completed Adam Soni MD Attn: Accounting[address] [facility], [place], [address], [place] [facility] 07/19/2022 08:15:18 pneumococcal polysaccharide PPV23 3 completed Adam Soni MD Attn: Accounting[address] [facility], [place], [address], [place] [facility] 02/28/2023 11:16:05 Influenza, high-dose, quadrivalent, PF 3 completed Adam Soni MD Attn: Accounting[address] [facility], [place], [place], [address] [place] [address], [place] [facility] 09/04/2023 13:45:04 pneumococcal polysaccharide PPV23 4 completed Not Available [facility] 10/05/2019 02:33:01 Influenza, high-dose, trivalent, PF 4 completed Adam Soni MD Attn: Accounting[address] [facility], [place], [address], [place] [facility] 07/16/2024 13:27:32 Influenza, split virus, quadrivalent, preservative 7 completed Not Available [facility] 08/25/2023 09:59:00 Past Encounters Encounter ID Performer Location Encounter Start Date Encounter Closed Date Diagnosis/Indication Diagnosis SNOMED-CT Code Diagnosis ICD10 Code Diagnosis Note [id number] Kathryn (Adult Med) [address] [place] [address] 09/04/2014 14:21:29 09/04/2014 15:43:48 Asthma [id number] Pneumovax today, she received the Influenza vaccine this season. 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 Hiatal hernia 05816534 Anemia 742458759 Stopped FeSO4 about a month ago [id number] CHANDLER Wiggins (Adult Med) [address] [place] [phone] 10/23/2014 15:45:33 10/23/2014 16:27:10 Pure hypercholesterolemia 302277415 She was off Lipitor when the labs were done, hopefully there should be improvemen t when this is repeated Abnormal l iver function 39065867 Most likely from her fatty liver. Diabetes mellitus 76010229 Labs in three months [id number] MD Kathryn Jackson (Adult Med) [address] [place] [phone] 01/22/2015 15:50:19 01/22/2015 16:36:19 Uncontrolled type 2 diabetes mellitus 835515031 Uncontroll ed on Metformin 1000 mg po bid and Januvia 100mg po daily. Her diet is better and she gets steroid injections in her back every 4- 6months. Her FBS is high. I think she can restart Amaryl 1mg po daily [id number] Aleyda Peralta (Adult Med) [address] [place] [address] [id number] 0 05/21/2015 16:19:19 05/21/2015 17:24:20 Uncontrolled type 2 diabetes mellitus 713477630 Uncontroll ed on Metformin 1000 mg po [...] a few weeks Generalize d anxiety disorder 62151557 On Citalopram 5mg of Citalopram and intermitte nt Clonazepam . She is overwhelme d with her 's illness, her finances and her responsibi lities at home and at work. Although as I discussed with her, I think she may have unrealisti c expectatio ns. She should follow up with her counselor, Chito Waggoner. Acute uppe r respiratory infection 45661197 Allergy vs URI, I do not see a need for antibiotic s unless her throat culture comes back positive. Her rapid strep was negative She cannot tolerate Pseudophed rine, she can try Atrovent nasal spray Impacted cerumen 64991670 Screening mammography 39593551 She has an order sheet from Dr. Maynard, her last Pap smear was in July 2014 [id number] MD Kathryn Jackson (Adult Med) [address] [place] [phone] 0 08/20/2015 16:21:38 08/20/2015 17:36:36 Anemia 368449965 D64.9 Chronic, she has had EGD and a colonoscop y in the recent past, I wonder if a capsule study is in order. Previously on iron. Urinary bladder pain 158 94000 R39.89 She describes intermitte nt bladder pressure, she does not really have frequency of urination or dysuria. She also feels that this may be from her back, as she neds epidurals. She has just completed a course of Ciprofloxa john for a recent UTI with chills and a positive UA. Type 2 evie betes mellitus without complication 721912072 E11.9 Not badly controlled with an HBA1C of 7, she may benefit from Aspirin 81mg po daily for [facility] protection . We however have to be cautious in view of her anemia. [id number] MD Kathryn Jackson (Adult Med) [address] [place] [address] [phone] 0 01/21/2016 15:57:30 01/21/2016 17:11:57 Depressive disorder 62445702 F32.9 F41.0 There are new issues with her son and her , she needs therapy and I will highly recommend that she remains on 10 mg of Lexapro and PRN Klonopin. Uncontroll ed type 2 diabetes mellitus 750087581 E11.65 Uncontroll ed on Metformin 1000 mg po bid, Januvia 100mg po daily, Amaryl 1mg PRN. She really should take her Amaryl daily. Low blood pressure 35207 003 I95.9 Transient hypotensio n after her last epidural injection at [facility]. Anemia 956779253 D64.9 Chronic, she has had EGD and a colonoscop y in the recent past, I wonder if a capsule study is in order. [id number] MD Kathryn Jackson (Adult Med) [address] [place] [address] [phone] 0 04/28/2016 16:42:23 04/28/2016 17:41:54 Uncontrolled type 2 diabetes mellitus 393598487 E11.65 Uncontroll ed (HBA1C increased from 7 to 8) on Metformin 1000 mg po daily (She cannot tolerate the second dose due to loose stools), Januvia 100mg po daily and Amaryl 1mg. I will increase her Amaryl to 2mg po daily, side effects were discussed. She unfortunat ada still drinks 2 cans of Coke a day. Hyperlipidemia 62418104 E78.5 Generalize d anxiety disorder 45912271 F41.1 She has chosen to discontinu e her intermitte nt Clonazepam . Medication monitoring 39 3993645 Z51.81 [id number] MD Kathryn Jackson (Adult Med) [address] [place] [address] 88960-139 0 09/01/2016 16:15:10 09/01/2016 17:12:04 Uncontrolled type 2 diabetes mellitus 891010730 E11.65 Uncontroll ed (HBA1C has increased from [...] she has experience d around lunch time. Impacted cerumen 8384051 6 H61.21 Diabetes mellitus 376200 09 E11.9 Anxiety 90634078 F41.9 She really should try and avoid using the Clonazepam , exercise and other methods to reduce her anxiety were discussed. She however has multiple family/wor k issues at this time. Anemia 594251557 D64.9 Chronic, she has had EGD and a colonoscop y in the recent past, I still wonder if a capsule study is in order. [id number] MD Kathryn Jackson (Adult Med) [address] [place] [address] [phone] 0 01/05/2017 16:24:03 01/05/2017 17:19:14 Uncontrolled type 2 diabetes mellitus 461279291 E11.65 Uncontroll edStop Glimepirid e due to hypoglycem ic eventsCont inue Januvia and MetforminS tart Jardiance, SE were discussedC all with log book readingsBM P in ~ 2 weeks Dizziness 988192620 R42 Chronic intermitte nt dizziness with an occipital headache, no loc but with spells. Previous imaging of the brain revealed a polyp, she was previously seen by a Dr. Barnes (ENT). 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 Intermitte nt palpitations 186909135 R00.2 [id number] MD Kathryn Jackson (Adult Med) [address] [place] [phone] 0 02/16/2017 16:26:05 02/16/2017 17:58:51 Asthma 839695920 J45.909 Bronchitis 94489384 J40 Cough 21710632 R05 I suspect that her CRYSTAL- may be playing a role, she appears unconvince d but I have suggested a switch to an ARB Uncontroll ed type 2 diabetes mellitus 982189276 E11.65 Uncontroll edIncrease Glimepirid e to 3mg Disorder o f lipid metabolism 036089850 E78.9 Gastroesop hageal reflux disease 990133359 K21.9 Lacunar infarction 93344 8000 G46.7 Discussed, I do not see a role for an MRA [id number] MD Kathryn Jackson (Adult Med) [address] [place] [address] [phone] 0 04/07/2017 09:25:32 04/07/2017 16:28:26 Iron deficiency anemia 27201609 D50.9 Unexplaine d, she has had a colonoscop y and was started on oral iron, she needs an EGD +/- capsule study. Uncontroll ed type 2 diabetes mellitus 988322334 E11.65 Uncontroll ed on Metformin and Glimepirid e 3mg, she also has been having symptomati c episodes of hypoglycem ia. She will need another agent, I have recommende d Victoza and I will recommend that she cuts her Amaryl down to 2mg. Chronic ce rebral ischemia 485734906 I67.82 Memory impairment 717858 006 R41.3 [id number] MD Kathryn Jackson (Adult Med) [address] [place] [address] [phone] 0 05/19/2017 09:25:38 05/19/2017 10:14:27 Thyroid nodule 973401530 E04.1 She had a CTA of the neck, I have asked for a copy of the report. Although this and her CTA of the brain were both normal, there was an incidental thyroid nodule noted. Anemia 986199339 D64.9 Chronic, she has had a EGD and a colonoscop y in the recent past, I still think a capsule study is in order. She may need to see a hematologi st although she is not keen. Uncontroll ed type 2 diabetes mellitus 686805052 E11.65 Uncontroll ed on Metformin and Glimepirid e 3mg AM, she would like to add Amaryl 1mg HS, I have no objections although I would have preferred an injectable at this point. [id number] MD Kathryn Jackson (Adult Med) [address] [place] [address] [phone] 0 08/21/2017 09:37:32 08/21/2017 10:32:04 Multinodular goiter 951164340 E04.2 Repeat US needed in 6-12 months Anemia 176706375 D64.9 Chronic, she has had a EGD and a colonoscop y in the recent past, I still think a capsule study is in order. She did not go back to GI and she should reconsider seeing the hematologi st as her SPEP was abnormal. Essential hypertension 85770354 I10 Disorder o f lipid metabolism 736859119 E78.9 Decrease Lipitor as she feels that it causes MSK pain and she holds it every now and then. Type 2 evie betes mellitus without complication 034097041 E11.9 I still drink the soda, but not as much No more sodaEye exam completed 08/18/2017 Asthma 834407844 J45.90 [id number] MD Kathryn Jackson (Adult Med) [address] [place] [address] [phone] 0 12/20/2017 09:22:33 12/20/2017 10:09:09 Uncontrolled type 2 diabetes mellitus 489427333 E11.65 Discussed with Mrs. Brittany De Leonaine d weight loss 642777244 R63.4 Generalize d anxiety disorder 84142113 F41.1 RF ARASH Navarrete last RF 10/06/2016 Multiple sclerosis 63862 007 G35 [id number] MD Kathryn Jackson (Adult Med) [address] [place] [address] [phone] 0 05/31/2018 12:46:51 05/31/2018 13:48:41 Liver function tests outside reference range 651798861 R94.5 Meds? Hypercalcemia 88332063 E 83.52 Uncontroll ed type 2 diabetes mellitus 028034476 E11.65 Urinary tr act infectious disease 09974815 N39.0 For PRN use Candidiasis of mouth 797 98166 B37.0 PRN use Generalize d anxiety disorder 88879125 F41.1 RF ARASH Navarrete last RF 12/23/2017 [id number] MD Kathryn Jackson (Adult Med) [address] [place] [address] 88650-261 0 06/07/2019 10:18:58 06/07/2019 11:36:12 Degeneration of cervical intervertebral disc 32562336 M50.30 Screening for malignant neoplasm of breast 241881056 Z12.31 Asthma 957258991 J45.90 9 Degenerati ve joint disease of ankle AND/OR foot 36699208 M19.079 Chronic ce rebral ischemia 556530180 I67.82 Gastroesop hageal reflux disease 205010746 K21.9 Medication monitoring 39 8727699 Z51.81 Type 2 evie betes mellitus without complication 273297820 E11.9 [id number] MD Kathryn Jackson (Adult Med) [address] [place] [address] [phone] 0 03/18/2020 09:27:17 03/23/2020 15:25:49 Adenomatous polyp of colon 770946082 D12.6 09/09/2015 Q 5 years Thyroid nodule 958466185 E04.1 She had a CTA of the neck and a CT of the chest that both confirmed thyroid nodules.Th e US done 07/2017 confirms a MNG.Repeat US 02/13/2020 now suggests a moderately suspicious nodule, FNA vs repeat the US in 1 year. She will be seeing her endocrinol ogist on 03/19/2020. Administra tion of pneumococcal vaccine 70868424 Z23 Screening for malignant neoplasm of breast 674935688 Z12.31 Asthma 445966511 J45.90 9 Active or passive immunization 760586539 Z23 [id number] MD Kathryn Jackson (Adult Med) [address] [place] [address] 73472-798 0 08/20/2020 08:48:32 08/21/2020 08:28:22 Thyroid nodule 077975187 E04.1 She had a CTA of the neck and a CT of the chest that both confirmed thyroid nodules. e US done 07/2017 confirms a MNG.Repeat US 02/13/2020 now suggests a moderately suspicious nodule, FNA vs repeat the US in 1 year. She will be seeing her endocrinol ogist on 03/19/2020.T he US done 06/03/2020 is still abnormal and a FNA is still not recommende d. Immunization due 6549499 08 Z28.3 Pneumovax is due Uncontroll ed type 2 diabetes mellitus 888609203 E11.65 Recurrent urinary tract infection 863131213 N39.0 [id number] MD Kathryn aJckson (Adult Med) [address] [place] [address] [phone] 0 12/21/2020 09:24:56 12/22/2020 10:48:42 Type 2 diabetes mellitus without complication 544588195 E11.9 Neuropathy 434126650 G62 .9 Neurontin was discussed, she declined [id number] MD Kathryn Jackson (Adult Med) [address] [place] [address] [phone] 0 06/22/2021 09:25:00 06/23/2021 12:32:55 Screening mammography of bilateral breasts 1201589786 40134 Z12.31 Feeling stressed 4229630 06 Z73.3 Renewal of prescription 041824023 Z76.0 Needs infl uenza immunization 307071094 Z28.3 [id number] Adam Soni MD [facility] (Adult Med) [address] [place] [address] 78495-070 0 01/19/2022 13:46:16 01/20/2022 07:04:04 Stricture of esophagus 21700889 K22.2 Screening for malignant neoplasm of colon 918888015 Z12.11 Osteopenia 859513140 M85 .80 Chronic low back pain 27 8887919 M54.50 Cervical radiculopathy 13857086 M54.12 Inactive tuberculosis 11 455062 Z22.7 CXR negativeAs ymptomatic She has declined treatmentP t education on latent TB Screening for malignant neoplasm of breast 076212340 Z12.31 Chronic anemia 552294080 D64.9 Chronic, she has had a EGD and a colonoscop y in the recent past.GI [id number] Adam Soni MD [facility] (Adult Med) [address] [place] [address] [phone] 0 05/24/2022 15:09:28 05/25/2022 11:18:27 Chronic anemia 245491407 D64.9 Chronic, she has had an EGD in ? and a colonoscop y 08/2015 .GI as referredPr eviously referred to the hematologi st on 09/10/2017 Dizziness 118594317 R42 Worsening of her chronic intermitte nt [...] brain History of anemia vitamin B12 deficient 707096953 Z86.2 [id number] MD Kathryn Jackson (Adult Med) [address] [place] [address] [phone] 0 07/18/2022 15:31:47 07/19/2022 09:23:49 Administration of influenza vaccine 21808372 Z23 Dizziness 680064228 R42 Worsening of her chronic intermitte nt [...] disease.Re peat carotid US Immunization advised 310 459649 Z71.9 Mammography abnormal 168 509791 R92.8 New 5 mm nodule RUO on the MMG done on 07/01/2022 , the repeat US suggests a hematoma. A repeat US has been recommende d and ordered. Type 2 evie betes mellitus without complication 896905121 E11.9 Chronic anemia 874216040 D64.9 Chronic, she has had an EGD in ? and a colonoscop y 08/2015 .GI as referred on 01/19/2022r eviously referred to the hematologi st on 09/10/2017 AddendumLa Medication monitoring 39 8637736 Z51.81 [id number] MD Kathryn Jackson (Adult Med) [address] [place] [address] [phone] 0 11/28/2022 10:23:49 11/29/2022 15:46:22 Persistent cough 585441848 R05.3 Body mass index 20-24 - normal 052506784 Z68.24 Type 2 evie betes mellitus without complication 194747904 E11.9 Medication monitoring 39 6549709 Z51.81 Postmenopausal state 764 56178 Z78.0 Immunization advised 310 020719 Z71.9 [id number] MD Kathryn Jackson (Adult Med) [address] [place] [address] [phone] 0 02/28/2023 09:54:31 03/01/2023 16:16:56 Administration of pneumococcal vaccine 50791001 Z23 Chronic anemia 300092961 D64.9 Labs 01/26/2023 Hb 8.6, Hct 28.3, Ferritin 8Labs 12/02/2022; CBC 10, CMP (GLU 121)GI as previously referred on 01/19/2022 finesse is on Eliquis for her chronic AFIB OV 07/18/2022 Chronic, she has had an EGD in ? and a colonoscop y 08/2015 .GI as referred on 01/19/2022r eviously referred to the hematologi st on 09/10/2017 AddendumLa bs Asthma 364689622 J45.90 9 Body mass index 20-24 - normal 694190017 Z68.24 Caregiver role strain 12 5886429 Z73.3 SARS-CoV-2 mRNA vaccine declined 8088234038 Z28.21 Screening for malignant neoplasm of breast 090994245 Z12.31 Postmenopausal state 764 24920 Z78.0 Type 2 evie betes mellitus without complication 712029466 E11.9 HBA1C 7% History of atrial fibrillation 770145573 Z86.79 [id number] Adam Soni MD [facility] (Adult Med) [address] [place] [address] [phone] 0 09/04/2023 11:21:20 09/04/2023 12:36:19 Administration of influenza vaccine 99530395 Z23 Chronic anemia 321026170 D64.9 GI (Scheduled )She has declined iron [...] colonoscop y 08/2015 .GI as referred on 01/19/2022 eviously referred to the hematologi st on 09/10/2017 AddendumLa bs Type 2 evie betes mellitus without complication 020473689 E11.9 HBA1C 6.6% (05/26/2023) , previously 7% Osteopenia 209814717 M85 .80 Discussed Medication monitoring 39 2939747 Z51.81 [id number] MD Kathryn Jackson (Adult Med) [address] [place] [address] [phone] 0 03/25/2024 14:33:46 03/26/2024 12:43:23 Anxiety 93373020 F41.9 She has failed Lexapro in the pastStart Citalopram , side effects were discussed in detail.I would not recommend a sedative in light of her elevated BNP. Serum crea tinine above reference range 034860781 R79.89 Chronic anemia 512002292 D64.9 Labs 03/15/2024 Hb 10, Hct 31StableS/ [...] the hematologi st on 09/10/2017 AddendumLa bs [id number] MD Kathryn Jackson (Adult Med) [address] [place] [address] [phone] 0 07/16/2024 11:35:26 07/17/2024 11:02:23 Anti-nuclear factor detected 948423589 R76.8 No She declines further testing or a referral Diabetes mellitus 341690 09 E11.9 Screening mammography 24 621896 Z12.31 Administra tion of influenza vaccine 48828951 Z23 Health Concerns Section Related Observation LastModified by Organization Detai ls LastModified Time None Recorded Concern Status LastModified by Organization Details LastModified Time None Recorded Advance Directives Directive N: Payers Encounter Date Sequence Insurance Name Policy Number Policy Lopez Covered Member ID Lopez Member ID Guarantor Name 11/28/2022 1 [employer] (MEDICARE REPLACEMENT/A DVANTAGE - HMO) [id number] Suyapa Diak [id number] Suyapa Diak 02/28/2023 1 [employer] (MEDICARE REPLACEMENT/A DVANTAGE - HMO) [id number] Suyapa Diak [id number] Suyapa Diak 09/04/2023 1 [employer] (MEDICARE REPLACEMENT/A DVANTAGE - HMO) [id number] Suyapa Diak [id number] Suyapa Diak 03/25/2024 1 [employer] (MEDICARE REPLACEMENT/A DVANTAGE - HMO) [id number] Suyapa Diak [id number] Suyapa Diak 07/16/2024 1 [employer] (MEDICARE REPLACEMENT/A DVANTAGE - HMO) [id number] Suyapa Diak [id number] Suyapa Diak Notes Date Note Type Note Provider Name [...] spasms. Adam Soni MD Attn: Accounting,[address] [place], [address], [facility] 11/28/2022 13:33:05 3 text/html Diabetes F/UReported bypatient.Labs:last [...] interim, she has followed up with the wheelchair van driver, neurologist and associate attorney. Aadm Soni MD Attn: Accounting,[address] [place], [address], [facility] 02/28/2023 11:26:06 3 text/html Diabetes F/UReported bypatient.Labs:last [...] cancel it Do you know of another associate attorney since Dr Flores left? Ms Soto is coping, but she has her hand full as she has to take care for her and her son. Adam Soni MD Attn: Accounting[address] [place], [address], [facility] 09/04/2023 13:48:06 4 text/html Anxiety/DepressionReporte d bypatient.Quality:symptom [...] would also like a mild sedative. The [facility] nurse discussed Prevnar 20 with her and she was seen by her grinding wheel dresser today who apparently felt that her elevated Creatinine of 1.20 on 03/15/2024 may explain some of her pro-BNP elevation. Since her last visit, she has also followed up with cardiology, hematology and GI and she has had an EGD and colonoscopy. Adma Soni MD Attn: Accounting, [place], [address], [facility] 03/25/2024 19:15:26 4 text/html Diabetes F/UReported bypatient.Labs:last [...] she has been following up with her wheelchair van driver, indirect sales exec and grinding wheel dresser. She had a positive ROXANNA of 1:160, Nuclear pattern ordered by her indirect sales exec. She remembers a concern about MS or an autoimmune process about 10 years ago after a LP done by her neurologist, Dr Gould. At that time she was seen by her seen by the Rheumatology team at [facility] and she was not felt to have an autoimmune disease. Adam Soni MD Attn: Accounting, [place], [address], [facility] 07/16/2024 13:32:36 OBGyn Episode No OBEpisode recorded.
[2024-11-21 10:03] LABS: Basophils Absolute Auto 0.1 K/mm3 (0.0-0.1); Eosinophils Absolute Auto 0.1 K/mm3 (0-0.3); Eosinophils Percent Auto 1.2 % (0-4.4); Hemoglobin 9.8 g/dL (12.0-15.0); Immature Granulocyte Absolute 0.06 K/mm3 (0.00-0.031); Immature Granulocyte Percent A 0.7 % (0-0.5); Lymphocytes Absolute Auto 1.49 K/mm3 (0.9-3.2); Lymphocytes Percent Auto 17.7 % (18.3-44.2); Mean Corpuscular HGB Conc 31.6 g/dl (32-36); Mean Corpuscular Hemoglobin 29.3 pg (26-34); Mean Corpuscular Volume 92.5 fl (80-100); Mean Platelet Volume 10.1 fl (7.4-10.4); Monocytes Absolute Auto 0.6 K/mm3 (0.1-0.6); Monocytes Percent Auto 6.7 % (2.6-8.5); Neutrophils Absolute Auto 6.1 K/mm3 (1.3-6.7); Neutrophils Percent Auto 72.7 % (45.5-73.1); Platelet Count Result 233 k/mm3 (150-375); Red Blood Count 3.35 M/mm3 (4.2-5.4); Red Cell Distribution Width 13.2 % (11.5-14.5); White Blood Count 8.4 K/mm3 (4.5-10.0)
--- OUTSIDE RECORDS SUMMARY | 2024-11-21 10:03 | XMS_ITS | CONTINUITY OF CARE DOCUMENT ---
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 Name Role Phone Jose G MOSNALVE, Gilles Unavailable [phone] ADY AGUILAR MD Unavailable ADY AGUILAR MD Unavailable PROBLEMS Condition Status Date Provider Notes CKD stage 3 active Scooby Veloz Mitral regurgitation, moderate active Scooby Vivaszai Palpitations active Gilles Araiza MD Diabetes mellitus active Gilles Araiza MD HTN essential--echo ef nl, m od MR, 03/2024 active Scooby Veloz Dizziness active Gilles Araiza MD Hyperlipidemia active Gilles Araiza MD Anemia active Gilles Araiza MD TIA active Scooby Rondoni Atrial fibrillation completed - Gilles Araiza MD Presence of implantable loop recorder--LILLIANA reached, explanted active Scooby Rondoni SVT active Cabrera Moise Syncope active Ko Merino Atrial fib paroxysmal - on eliquis active Scooby Veloz Fatigue active Gilles Araiza MD Carotid arterial disease--carotids <50% bilat, 03/2024 active Scooby Veloz Family History of CVA or Stroke: completed - T chery Araiza MD Family History Coronary Hear t Disease male < 55: completed - Gilles Araiza MD ENCOUNTERS Date Type Provider Location Encounter Diag nosis - In-person encounter Office Visit Gilles Araiza MD [place] - In-person encounter Office Visit Gilles Araiza MD [facility] Atrial fib paroxysmal - on eliquis - In-person encounter Office Visit Gilles Araiza MD [facility] AnemiaCarotid arterial disease--carotids <50% bilat, 03/2024 - In-person encounter Office Visit Gilles Araiza MD [facility] - In-person encounter Office Visit Parth Gallagher MD [facility] - In-person encounter Office Visit Parth Gallagher MD [facility] Presence of implantable loop recorder--LILLIANA reached, explanted - In-person encounter Office Visit Gilles Araiza MD [facility] Presence of implantable loop recorder--LILLIANA reached, explantedFatigue - In-person encounter Office Visit Gilles Araiza MD [place] - In-person encounter Office Visit Gilles Araiza MD [facility] - In-person encounter Office Visit Gilles Araiza MD [facility] - In-person encounter Office Visit Gilles Araiza MD [facility] - In-person encounter Office Visit Gilles Araiza MD [facility] Syncope - In-person encounter Office Visit Parth Gallagher MD [facility] SVT - In-person encounter Office Visit Gilles Araiza MD [facility] - In-person encounter Office Visit Gilles Araiza MD [facility] Atrial fibrillation - In-person encounter Office Visit Gilles Araiza MD [facility] Family History Coronary Heart Disease male < 55:Family History of CVA or Stroke: - In-person encounter Office Visit Parth Gallagher MD [facility] - In-person encounter Office Visit Parth Gallagher MD [facility] - In-person encounter Office Visit Parth Gallagher MD [facility] Presence of implantable loop recorder--LILLIANA reached, explanted - In-person encounter Office Visit Parth Gallagher MD [facility] - In-person encounter Office Visit Gilles Araiza MD [facility] TIA - In-person encounter Office Visit Gilles Araiza MD [facility] PalpitationsDiabetes mellitusHTN essential--echo ef nl, mod MR, 4DizzinessHyperlipid emiaAnemia VITAL SIGNS Date Observation Value Provider Body Mass Index (Ratio) 22.65 kg/m2 Carmine Araiza MD blood pressure, diastolic 77 mm[Hg] Debbie Moffett blood pressure, systolic 158 mm[Hg] Nika Moffett oxygen saturation, oximetry 98 % Adrianne Moffett pulse rate 68 /min Adrianne Moffett respiratory rate E&M 12 /min Adrianne Moffett weight E&M 116 [lb_av] Adrianne Moffett height E&M 60 [in_i] Adrianne Moffett blood pressure, cuff size regular Debbie Moffett Body Mass Index (Ratio) 23.20 kg/m2 Carmine Araiza MD pulse rate 75 /min Raquel [place] blood pressure, cuff size regular Ta yair [place] blood pressure, diastolic 84 mm[Hg] Ta pradeepha [place] blood pressure, systolic 120 mm[Hg] Tab magdi [place] oxygen saturation, oximetry 99 % Raquel [place] weight E&M 118.8 [lb_av] Raquel [place] height E&M 60 [in_i] Raquel [place] respiratory rate E&M 12 /min Raquel [place] Body Mass Index (Ratio) 24.02 kg/m2 Carmine Araiza MD blood pressure, cuff size regular Adrien [facility] blood pressure, diastolic 89 mm[Hg] Adrien [facility] blood pressure, systolic 153 mm[Hg] [facility], oxim[facility] 100 % [facility] respiratory rate E&M 16 /min Sandra Weems [facility] pulse rate 77 /min [facility] weight E&M 123 [lb_av] [facility] height E&M 60 [in_i] [facility] Body Mass Index (Ratio) 23.75 kg/m2 Carmine Araiza MD blood pressure, diastolic 85 mm[Hg] [facility] blood pressure, systolic 151 mm[Hg] [facility] oxygen saturation, oximetry 100 % [facility] pulse rate 72 /min [facility] weight E&M 121.6 [lb_av] [facility] blood pressure, cuff size regular [facility] height E&M 60 [in_i] Reena Fay Body Mass Index (Ratio) 24.61 kg/m2 Carmine Araiza MD blood pressure, diastolic 107 mm[Hg] Julissa Krueger blood pressure, systolic 170 mm[Hg] Denise Beckogsay blood pressure, diastolic 107 mm[Hg] [facility] [place] blood pressure, systolic 170 mm[Hg] Boris smith [place] oxygen saturation, oximetry 100 % Kristyn [place] pulse rate 80 /min Kristyn [facility] weight E&M 126 [lb_av] Kristyn [facility] respiratory rate E&M 16 /min Ortiz aviles [place] blood pressure, cuff size large [facility] [place] height E&M 60 [in_i] Kristyn [facility] Body Mass Index (Ratio) 24.80 kg/m2 Carmine Araiza MD blood pressure, diastolic 76 mm[Hg] Ke rri Leightonuenenfeld blood pressure, systolic 141 mm[Hg] Ker ri Reubennenfmichele blood pressure, cuff size regular [facility] saturation, oximetry 99 % Areli Batool respiratory rate E&M 14 /min Areli [facility] pulse rate 71 /min Areli Leo [facility] weight E&M 127 [lb_av] Areli Leo [facility] height E&M 60 [in_i] Areli Leightonuenenfe [facility] blood pressure, diastolic, supine 70 mm[H g] Gilles Araiza MD Body Mass Index (Ratio) 25.00 kg/m2 Carimne Araiza MD blood pressure, systolic, supine E&M 112 mm[Hg] Gilles Araiza MD pulse rate, standing 78 /min Gilles Araiza MD oxygen saturation, oximetry 96 % Gilles Araiza MD weight E&M 128 [lb_av] Gilles Araiza MD height E&M 60 [in_i] Gilles Araiza MD respiratory rate E&M 18 /min Yesy Si ms blood pressure, diastolic 75 mm[Hg] Sa ra Nuno blood pressure, systolic 116 mm[Hg] Hemal a Nuno oxygen saturation, oximetry 97 % Yesy Nuno pulse rate 79 /min Yesy Nuno blood pressure, cuff size regular Sa ra Nuno height E&M 60 [in_i] Yesy Nuno Body Mass Index (Ratio) 24.80 kg/m2 Carmine Araiza MD blood pressure, cuff size regular Cy shorty Rodriguez blood pressure, diastolic 70 mm[Hg] Cy shorty Rodriguez blood pressure, systolic 128 mm[Hg] Caroline isiah Rodriguez pulse rate 75 /min Loraisiah Padilla l oxygen saturation, oximetry 98 % Lora Rodriguez respiratory rate E&M 16 /min Lora Rodriguez weight E&M 127 [lb_av] Lora Randy l height E&M 60 [in_i] Lora Campbel l Body Mass Index (Ratio) 24.80 kg/m2 Carmine Araiza MD respiratory rate E&M 16 /min Areli stout blood pressure, cuff size regular Ke rri Batool blood pressure, diastolic 80 mm[Hg] Ke rri Gruenenfeldramírez blood pressure, systolic 142 mm[Hg] Valentin Renae weight E&M 127 [lb_av] Areli Leo lder height E&M 60 [in_i] Areli Reubennezo lder Body Mass Index (Ratio) 24.61 kg/m2 Taew on Moise blood pressure, cuff size regular Ke rri Gruenenfelder blood pressure, diastolic 80 mm[Hg] Ke rri Gruenenfelder blood pressure, systolic 122 mm[Hg] Valentin ri Reubennenfelder oxygen saturation, oximetry 98 % Areli Grkathynenfelder respiratory rate E&M 16 /min Areli G ruenenfelder pulse rate 72 /min Areli Grkathynenfe lder weight E&M 126 [lb_av] Areli Gruenenfe lder height E&M 60 [in_i] Areli Reubennenfe lder Body Mass Index (Ratio) 25.00 kg/m2 Carmine Araiza MD blood pressure, diastolic 80 mm[Hg] Stephane shashi 'Manuel blood pressure, systolic 134 mm[Hg] Elizabeth mijares Manuel oxygen saturation, oximetry 97 % [facility]'Manuel respiratory rate E&M 16 /min [facility] O'Manuel pulse rate 71 /min [facility] weight E&M 128 [lb_av] [facility]uel height E&M 60 [in_i] [facility]'Manuel Body Mass Index (Ratio) 25.00 kg/m2 Carmine Araiza MD blood pressure, diastolic 67 mm[Hg] Cy shorty Rodriguez blood pressure, systolic 134 mm[Hg] Caroline isiah Rodriguez blood pressure, cuff size regular Cy shorty Rodriguez oxygen saturation, oximetry 96 % Lora Rodriguez respiratory rate E&M 16 /min Lora Rodriguez weight E&M 128 [lb_av] Lora Randy l height E&M 60 [in_i] Tonsha Womack temperature site temporal Mery Tank sley temperature E&M 97.1 [degF] Mery Tanks jaun Body Mass Index (Ratio) 25.19 kg/m2 Carmine Araiza MD respiratory rate E&M 16 /min [facility] blood pressure, diastolic 82 mm[Hg] [facility], systolic 157 mm[Hg] Jayce mijares Womack pulse rate 63 /min [facility] oxygen saturation, oximetry 94 % [facility] weight E&M 129 [lb_av] [facility] height E&M 60 [in_i] [facility] Body Mass Index (Ratio) 24.92 kg/m2 Cosme Bang blood pressure, diastolic 69 mm[Hg] Stephane Olvera blood pressure, systolic 146 mm[Hg] Elizabeth Loweenson oxygen saturation, oximetry 96 % Surya Olvera respiratory rate E&M 18 /min Aj Olvera pulse rate 81 /min Surya aktz weight E&M 127.6 [lb_av] Surya ryanon height E&M 60 [in_i] Surya Garcia giannajayesh Body Mass Index (Ratio) 24.80 kg/m2 Cosme Bang pulse rate 87 /min Lora Randy l oxygen saturation, oximetry 99 % Lora Rodriguez respiratory rate E&M 16 /min Loraisiah Rodriguez blood pressure, cuff size regular Cy shorty Rodriguez blood pressure, diastolic 80 mm[Hg] Cy nthia Michael blood pressure, systolic 136 mm[Hg] Caroline isiah Rodriguez weight E&M 127 [lb_av] Lora Jose Luisbel l height E&M 60 [in_i] Lora Campbel l Body Mass Index (Ratio) 24.41 kg/m2 Jord en Merritt blood pressure, cuff size regular Cy shorty Rodriguez blood pressure, diastolic 80 mm[Hg] Cy shorty Rodriguez blood pressure, systolic 140 mm[Hg] Caroline isiah Rodriguez oxygen saturation, oximetry 100 % Lora Rodriguez respiratory rate E&M 16 /min Lora Rodriguez pulse rate 84 /min Lora musa weight E&M 125 [lb_av] Lora Padilla l height E&M 60 [in_i] Lora musa Body Mass Index (Ratio) 24.80 kg/m2 Damion Bess blood pressure, resting Yes Chandan fitzgerald Janes blood pressure, diastolic 80 mm[Hg] Ramírez gamboa Janes blood pressure, systolic 140 mm[Hg] Lilliana efe Marrero oxygen saturation, oximetry 98 % Maria Del Carmen StephensonShilpiFranklin pulse rate 87 /min Maria Del Carmen StephensonShilpi [place] weight E&M 127 [lb_av] Maria Del Carmen StephensonShilpi [place] height E&M 60 [in_i] Maria Del Carmen Nava [place] Body Mass Index (Ratio) 24.41 kg/m2 Carmine Araiza MD blood pressure, diastolic 80 mm[Hg] Gerald Shi blood pressure, systolic 138 mm[Hg] Ratna Lambam oxygen saturation, oximetry 98 % Pierre Shi respiratory rate E&M 16 /min [place] Shi pulse rate 97 /min Pierre Shi weight E&M 125 [lb_av] Pierre Shi height E&M 60 [in_i] Pierre Shi Body Mass Index (Ratio) 26.95 kg/m2 Carmine Araiza MD blood pressure, diastolic 80 mm[Hg] Beck Christine blood pressure, systolic 126 mm[Hg] Dac ia Emmett oxygen saturation, oximetry 98 % Aura Emmett respiratory rate E&M 16 /min Aura V oss pulse rate 90 /min Aura Emmett weight E&M 138 [lb_av] Aura Emmett height E&M 60 [in_i] Aura Emmett ALLERGIES Allergy Name Onset Date Reaction Criticality Status SULFA High Criticality active VIOXX High Criticality active HISTORY OF MEDICATION USE Medication Status Instructions Dates Provider Indications Com ments atorvastatin 20 mg tablet active Take 1 tablet by mouth once a day Areli Renae calcitriol 0.25 mcg capsule active Scooby Vivaszamagdalena metformin (Glucophage XR) 500 mg tablet extended release 24 hr active Scooby Vivaszai losartan 50 mg tablet active TAKE 1 TABLET BY MOUTH EVERY DAY Adrianne Moffett Jardiance 25 mg tablet active TAKE 1 TABLET BY MOUTH EVERY DAY Scooby Ahmedzai cephalexin 500 mg capsule completed - Scooby Mancusomedzai hydrocodone-aceta minophen 5-325 mg tablet active Scooby Mancusomedzai cephalexin 250 mg capsule completed Take 1 capsule by mouth three times a day - Scooby Ahmedzai cephalexin 250 mg capsule completed - Parth Gallagher MD Percocet 5-325 mg tablet completed Take 1 tablet by mouth three times a day as needed for pain - Scooby Ahmedzai Eliquis 5 mg tablet active TAKE 1 TABLET BY MOUTH TWICE A DAY Carmen Montano Eliquis 5 mg tablet completed Take one tablet BID - Hannah Hernadez metoprolol succinate 25 mg tablet extended release 24 hr active TAKE 1 TABLET BY MOUTH EVERY DAY Scooby Mancusomedzai folic acid 1 mg tablet active TAKE 1 TABLET BY MOUTH EVERY DAY Ginny Shah Eliquis 5 mg tablet completed TAKE 1 TABLET BY MOUTH TWICE A DAY - Wayne Ace RN magnesium oxide 400 mg (241.3 mg magnesium) tablet completed 1 tablet twice a day - Scooby Veloz flecainide 50 mg tablet active Take 1 tablet by mouth twice a day Parth Gallagher MD metoprolol succinate 25 mg tablet extended release 24 hr completed Take 1 tablet by mouth once a day - Scooby Veloz PERCOCET 5-325 MG ORAL TABLET completed Take one tablet every 8 hours as needed for pain - Surya Olvera KEFLEX 500 MG ORAL CAPSULE completed Take one capsule 3 times daily for 10 days - Surya Olvera aspirin 81 mg tablet,delayed release (/EC) completed Take 1 tablet once a day - Gilles Araiza MD meclizine 25 mg tablet active Take 1 tablet as needed Gilles Araiza MD folic acid 1 mg tablet completed Take 1 tablet by mouth once a day - Surya Olvera ferrous sulfate 325 mg (65 mg iron) tablet active 1 tablet twice a day Scooby Veloz ergocalciferol (vitamin D2) 50 mcg (2,000 unit) tablet completed Take 1 tablet once a day - Scooby Veloz LISINOPRIL 5 MG ORAL TABLET completed TAKE ONE TABLET DAILY - Pierre Shi atorvastatin 20 mg tablet completed 1 tablet once a day - Areli Renae NEXIUM 40 MG ORAL CAPSULE DELAYED RELEASE completed TAKE ONE TABLET DAILY - Pierre Shi Amaryl 2 mg tablet active sliding scale per sugars Areli Renae Januvia 100 mg tablet completed Take 1 tablet once a day - Scooby Veloz GLUCOPHAGE 1000 MG ORAL TABLET completed Take 1 tablet twice a day - Scooby Veloz SOCIAL HISTORY Date Observation Value Provider alcohol use no Scooby Veloz smoking status Never smoker Scooby Veloz alcohol use no Scooby Veloz smoking status Never smoker Scooby Veloz alcohol use no Scooby Veloz smoking status Never smoker Scooby Veloz social history E&M S moking History: Chrystal paz has never smoked. [facility] Mihaela Banner social history reviewed E&M revi ewed - no changes required [facility] E&M S moking History: Chrystal paz has never smoked. [facility] smoking status Never smoker [facility] social history reviewed E&M revi ewed - no changes required [facility] E&M Smoking Histo ry: Chrystal paz has never smoked. Scooby Veloz social history reviewed E&M revi ewed - no changes required Scooby Veloz social history E&M S moking History: Chrystal paz has never smoked. Scooby Rondonmagdalena smoking status Never smoker Kristyn adams social history reviewed E&M revi ewed - no changes required Scooby Veloz social history E&M S moking History: Chrystal paz has never smoked. Scooby Veloz smoking status Never smoker Areli martinez social history reviewed E&M revi ewed - no changes required Gilles Araiza MD social history reviewed E&M revi ewed - no changes required Gilles Araiza MD social history reviewed E&M revi ewed - no changes required Gilles Araiza MD social history E&M S moking History: Chrystal paz has never smoked. Alisa Osorio social history reviewed E&M revi ewed - no changes required Alisa Jo smoking status Never smoker Lora Adrian he social history E&M S moking History: Chrystal paz has never smoked. Ko Merino social history reviewed E&M revi ewed - no changes required Ko Merino smoking status Never smoker Areli martinez social history E&M S moking History: Chrystal paz has never smoked. Cabrera Phipps social history reviewed E&M revi ewed - no changes required Cabrera Phipps smoking status Never smoker Areli martinez social history E&M S moking History: Chrystal paz has never smoked. Ko Merino social history reviewed E&M revi ewed - no changes required Ko Merino smoking status Never smoker Daisy Oliver social history E&M S moking History: Chrystal paz has never smoked. Gilles Araiza MD social history reviewed E&M revi ewed - no changes required Gilles Araiza MD smoking status Never smoker Lora Adrian he social history E&M S moking History: Chrystal paz has never smoked. Gilles Araiza MD social history reviewed E&M revi ewed - no changes required Gilles Araiza MD smoking status Never smoker Arnoldo Womack social history reviewed E&M revi ewed - no changes required Juliano Bang smoking status Never smoker Surya Marcelo social history reviewed E&M revi ewed - no changes required Juliano Merritt smoking status Never smoker Lora Adrian he social history reviewed E&M revi ewed - no changes required Juliano Bang smoking status Never smoker Tom ferrera social history E&M S moking History: Chrystal paz has never smoked. Tom Bess number of grandchildren Parth Bess social history reviewed E&M revi ewed - no changes required Maria Del Carmen Marrero social history reviewed E&M revi ewed - no changes required Gilles Araiza MD social history E&M S moking History: Chrystal paz has never smoked. Gilles Araiza MD number of grandchildren Gilles Shi smoking status Never smoker [place] Laverne weems alcohol use no Aura Emmett smoking status Never smoker Aura Christine FAMILY HISTORY Family Member Condition Father PR male <55 Mother Family History of CV A or Stroke: Father Family History Coron ann Heart Disease male < 55: INSURANCE PROVIDERS Payer name Policy type / Coverage type [place] [employer] party ID AARP [facility] ADVANTAGE PLAN 2 (HMO-POS) Medicare [id number] ADVANCE DIRECTIVES Name Date DISCUSSED - NO DECISION MADE TREATMENT PLAN Date Name Performer [id number],C, H er updated medication list for this problem includes: Amaryl 2 Mg Tablet (Glimepiride) ..... Sliding scale per sugars Losartan 25 Mg Tablet (Losartan) ..... Take 1 once a day Januvia 100 Mg Tablet (Sitagliptin) ..... Take 1 tablet once a day Parth Gallagher MD [id number],C, Parth sue MD [id number],C, Parth sue MD [id number],SScooby i [id number],SScooby i [id number],SScooby i [id number],BScooby i [id number],S, Scooby Ahmedza i [id number],S, Scooby Ahmedza i [id number],S, Scooby Ahmedza i [id number],S, Scooby Ahmedza i [id number],S, Scooby Ahmedza i [id number],S, Scooby Ahmedza i [id number],S, Scooby Ahmedza i [id number],S, Scooby Ahmedza i [id number],S, Scooby Ahmedza i [id number],S, Scooby medza i [id number],S, Scooby medza i [id number],S, Scooby Ahmedza i [id number],S, Scooby Ahmedza i [id number],S, Scooby Ahmedza i [id number],B, Scooby Ahmedza i [id number],S, Scooby Ahmedza i [id number],S, Scooby Ahmedza i [id number],S, Scooby Ahmedza i [id number],S, Eleanor Allen [id number],S, Eleanor Allen [id number],S, Eleanor Allen [id number],S, Eleanor Allen [id number],S, Gilles Araiza MD [id number],B, Gilles Araiza MD [id number],B, Gilles Araiza MD [id number],B, Gilles Araiza MD [id number],B, Gilles Araiza MD [id number],B, Gilles Araiza MD Cardiology:This visi t has been a part of the consistent, comprehensive, and ongoing management of the chronic medical condition(s) listed above for the patient. Her updated medication list for this problem includes: Losartan 50 Mg Tablet (Losartan) ..... Take 1 tablet by mouth every day Metoprolol Succinate 25 Mg Tablet Extended Release 24 Hr (Metoprolol succinate) ..... Take 1 tablet by mouth every day BP today: 158/77 P rior BP: 120/84 (03/05/2024) Orders: R PM (remote patient monitoring) ([id number]) Gilles Araiza MD Cardiology: H er updated medication list for this problem includes: Flecainide 50 Mg Tablet (Flecainide) ..... Take 1 tablet by mouth twice a day Metoprolol Succinate 25 Mg Tablet Extended Release 24 Hr (Metoprolol succinate) ..... Take 1 tablet by mouth every day Scooby Veloz Cardiology: H er updated medication list for this problem includes: Metformin (glucophage Xr) 500 Mg Tablet Extended Release 24 Hr (Metformin (glucophage xr)) Losartan 50 Mg Tablet (Losartan) ..... Take 1 tablet by mouth every day Jardiance 25 Mg Tablet (Empagliflozin) ..... Take 1 tablet by mouth every day Amaryl 2 Mg Tablet (Glimepiride) ..... Sliding scale per sugars Scooby Veloz Cardiology: H er updated medication list for this problem includes: Atorvastatin 20 Mg Tablet (Atorvastatin) ..... 1 tablet once a day Scooby Veloz Cardiology Scooby Veloz Cardiology: H er updated medication list for this problem includes: Losartan 50 Mg Tablet (Losartan) ..... Take 1 tablet by mouth every day Metoprolol Succinate 25 Mg Tablet Extended Release 24 Hr (Metoprolol succinate) ..... Take 1 tablet by mouth every day BP today: 158/77 P rior BP: 120/84 (03/05/2024) Orders: R PM (remote patient monitoring) ([id number]) [facility] H er updated medication list for this problem includes: Flecainide 50 Mg Tablet (Flecainide) ..... Take 1 tablet by mouth twice a day Metoprolol Succinate 25 Mg Tablet Extended Release 24 Hr (Metoprolol succinate) ..... Take 1 tablet by mouth every day [facility] Telehealth [facility] Telehealth: H er updated medication list for this problem includes: Metoprolol Succinate 25 Mg Tablet Extended Release 24 Hr (Metoprolol succinate) ..... Take 1 tablet by mouth every day Losartan 25 Mg Tablet (Losartan) ..... Take 1 once a day [facility] Telehealth [facility] Telehealth [facility] Telehealth [facility] Telehealth: H er updated medication list for this problem includes: Flecainide 50 Mg Tablet (Flecainide) ..... Take 1 tablet by mouth twice a day Metoprolol Succinate 25 Mg Tablet Extended Release 24 Hr (Metoprolol succinate) ..... Take 1 tablet by mouth every day [facility] Telehealth: T he following medications were removed from the medication list: Januvia 100 Mg Tablet (Sitagliptin phosphate) ..... Take 1 tablet once a day Her updated medication list for this problem includes: Jardiance 25 Mg Tablet (Empagliflozin) ..... Take 1 tablet by mouth every day Amaryl 2 Mg Tablet (Glimepiride) ..... Sliding scale per sugars Losartan 25 Mg Tablet (Losartan) ..... Take 1 once a day Scooby Ahmedzai Telehealth [facility]: O rders: P ROBNP, N TERMINAL ([id number]) C arotid Duplex Bilateral ([id number]) [facility]: O rders: C omplete Echo ([id number]) P ROBNP, N TERMINAL ([id number]) [facility]: H er updated medication list for this problem includes: Amaryl 2 Mg Tablet (Glimepiride) ..... Sliding scale per sugars Losartan 25 Mg Tablet (Losartan) ..... Take 1 once a day Januvia 100 Mg Tablet (Sitagliptin) ..... Take 1 tablet once a day Orders: P ROBNP, N TERMINAL ([id number]) [facility]: O rders: P ROBNP, N TERMINAL ([id number]) [facility] O rders: C omplete Echo ([id number]) P ROBNP, N TERMINAL ([id number]) [facility]: O rders: C omplete Echo ([id number]) P ROBNP, N TERMINAL ([id number]) [facility] Elect[facility]iology: H er updated medication list for this problem includes: Amaryl 2 Mg Tablet (Glimepiride) ..... Sliding scale per sugars Losartan 25 Mg Tablet (Losartan) ..... Take 1 once a day Januvia 100 Mg Tablet (Sitagliptin) ..... Take 1 tablet once a day Parth Gallagher MD Electrophysiology Parth lewis MD Electrophysiology Parth lewis MD Electrophysiology [facility] follow up Gilles martinez MD Cardiology follow up Gilles martinez MD Cardiology follow up Gilles martinez MD Cardiology follow up Gilles martinez MD Cardiology follow up Gilles martinez MD Cardiology follow up Gilles martinez MD Cardiology Follow up [place] [facility] Follow up [place] Follow up [place] [facility] Follow up [place] [facility] Follow up [place] [facility] Follow up [place] Electrophysiology Fo llow up:no significant recording on EKG or ILR. . does note occasional palpitations. plan to add magnesium 400mg bid. H er updated medication list for this problem includes: Aspirin Adult Low Dose 81 Mg Oral Tablet Delayed Release (Aspirin) ..... Take 1 tab once daily Flecainide Acetate 50 Mg Oral Tablet (Flecainide acetate) ..... One tablet twoce daily Metoprolol Succ Er 25 Mg Tab (Metoprolol succinate) ..... Take 1 tablet by mouth every day [facility] Electrophysiology Fo llow up:s/p ILR 06/2019. H er updated medication list for this problem includes: Aspirin Adult Low Dose 81 Mg Oral Tablet Delayed Release (Aspirin) ..... Take 1 tab once daily [facility] Electrophysiology Fo llow up:per PCP H er updated medication list for this problem includes: Aspirin Adult Low Dose 81 Mg Oral Tablet Delayed Release (Aspirin) ..... Take 1 tab once daily Losartan Potassium 25 Mg Oral Tablet (Losartan potassium) ..... Take one pill a day Amaryl 2 Mg Oral Tablet (Glimepiride) ..... Sliding scale per sugars Januvia 100 Mg Oral Tablet (Sitagliptin phosphate) ..... Take one tablet daily Glucophage 1000 Mg Oral Tablet (Metformin hcl) ..... [facility] one tablet twice [facility] Fo llow up: B P today: 122/80 P rior BP: 134/80 (05/06/2020) Her updated medication list for this problem includes: Aspirin Adult Low Dose 81 Mg Oral Tablet Delayed Release (Aspirin) ..... Take 1 tab once daily Metoprolol Succ Er 25 Mg Tab (Metoprolol succinate) ..... Take 1 tablet by mouth every day Losartan Potassium 25 Mg Oral Tablet (Losartan potassium) ..... Take one pill a day [facility] Electrophysiology Fo llow up: H er updated medication list for this problem includes: Lipitor 10 Mg Oral Tablet (Atorvastatin calcium) ..... Take 1 tab once daily last LDL 62. Goal is to keep <70. [facility] Card[facility] [place] [place] [facility] Gilles Araiza MD Cardiology Gilles Araiza MD Cardiology Gilles Araiza MD Cardiology Gilles Araiza MD Cardiology Gilles rAaiza MD Cardiology Gilles Araiza MD Cardiology Gilles Araiza MD Cardiology Gilles Araiza MD Cardiology Gilles Araiza MD Cardiology Gilles Araiza MD Cardiology Gilles Araiza MD Electrophysiology:La st ILR check shows: 35 HVR episodes reported, (longest duration 1 min 20 sec ? fastest mean ventricular rate 187 bpm) S VT. T here is no indication for ablation at this time. W ill start pt on flecainide 50mg one tablet twice daily Her updated medication list for this problem includes: Metoprolol Succinate Er 25 Mg Oral Tablet Extended Release 24 Hour (Metoprolol succinate) ..... One tab. daily Aspirin Adult Low Dose 81 Mg Oral Tablet Delayed Release (Aspirin) ..... Take 1 tab once daily Juliano Bang Electrophysiology: B P today: 146/69 P rior BP: 136/80 (08/02/2019) Juliano Merritt Electrophysiology [facility] Electrophysiology: H er updated medication list for this problem includes: Metoprolol Succinate Er 25 Mg Oral Tablet Extended Release 24 Hour (Metoprolol succinate) ..... One tab. daily Aspirin Adult Low Dose 81 Mg Oral Tablet Delayed Release (Aspirin) ..... Take 1 tab once daily Juliano Bang Electrophysiology ho spital follow up:If she has any longer episodes of afib may consider putting her on anticoargulation agent. Juliano Merritt Electrophysiology ho spital follow up:normal device function w ell healing scar L ast device check shows: 3 HVR episodes reported, (longest duration 36 sec ? max mean ventricular rate 186 bpm), SVT vs S inus Tach. Juliano Merritt Electrophysiology ho spital followup :Normal device function. Well healing scar. Juliano Bang Electrophysiology:Pt does not want to take medication if she does not need to, but has multutiple risk factors for CVA including prior TIA. I recommend to proceed with ILR implant. I f Afib is documented on ILR I recommend antiarrhythmic medication treatment and roasterman anticoagulation. Tom Bess Electrophysiology:Hx of. Lul[facility] Bess Cardiology Gilles Araiza MD Cardiology Gilles Araiza MD Cardiology Gilles Araiza MD Cardiology Gilles Araiza MD Cardiology Gilles Araiza MD Cardiology NEW PT Gilles Wilson Cardiology NEW PT Gilles Wilson Cardiology NEW PT Gilles Wilson Cardiology NEW PT Gilles Wilson Cardiology NEW PT Gilles Wilson Date Name RPM (remote patient monitoring) Carotid Duplex Bilat eral PROBNP, N TERMINAL Complete Echo Stress Regadenoson Loop Rec Implant - S LHV Complete Echo Mobile Cardiac Tele HISTORY OF PROCEDURES Procedure Date Procedure Name Provider Procedure Notes S tatus Complex e/m visit add on Gilles Araiza MD completed Complex e/m visit add on Gilles Araiza MD completed EKG Gilles Araiza MD completed EKG Gilles Araiza MD completed EKG Gilles Araiza MD completed EKG Parth delarosa MD completed Regadenoson, 4 units Gilles Araiza MD completed Cardiolite, 2 units Gilles Araiza MD completed SPECT Images Gilles Araiza MD complet ed Stress EKG Gilles Araiza MD completed EKG Parth delarosa MD completed EKG Parth delarosa MD completed EKG Parth delarosa MD completed Schedule Followup Parth lewis MD f/u in 1 month completed EKG Parth delarosa MD completed Event Monitor Gilles Araiza MD comple carly EKG Gilles Araiza MD completed ZIO Holter Hookup Gilles Araiza MD co mpleted SNOMED-CT: [id number] Physical Exam, Performed: Pulse Exam of Foot Gilles Araiza MD completed EKG Gilles Araiza MD completed SNOMED-CT: [id number] Current Medications Documented Gilles Araiza MD completed
[2024-11-21 12:08] LABS: Add Urine Microscopic? YES; Appearance Urine Cloudy (Clear); Bacteria Urine None Seen /hpf; Bilirubin Urine Negative (Negative); Blood Urine Trace (Negative); Budding Yeast Urine Present /hpf; Color Urine Yellow (Yellow); Glucose Urine UA 3+ mg/dL (Negative); Ketones Urine Negative (Negative); Leukocyte Esterase Ur 2+ LEU/UL (Negative); Need Manual Microscopic Reviewed; Nitrate Urine Negative (Negative); Non Pathogenic Casts 0-2; Protein Urine Negative (Negative); RBC Urine 0-2 /hpf (0-2); Specific Grav Ur 1.017 (1.001-1.035); Squamous Epithelial Cell Urine Occasional /hpf (Few); Urobilinogen Urine 0.2 mg/dL (<2.0); WBC Clumps Urine Present /HPF; WBC Urine >100 /hpf (0-3)
[2024-11-21 12:24] LABS: Parathyroid Intact 20.8 pg/mL (14.5-75.2)
[2024-11-21 12:30] LABS: Vitamin D 25 Hydroxy 74.8 ng/mL
[2024-11-21 12:36] LABS: Alanine Aminotransferase 12 U/L (6-35); Alkaline Phosphatase 70 U/L (38-126); Anion Gap 13 mmol/L (4-12); Aspartate Amino Transferase 18 U/L (14-36); Bilirubin,Total 0.8 mg/dL (0.2-1.3); Blood Urea Nitrogen 23 mg/dL (7-17); Calcium 9.6 mg/dL (8.4-10.2); Carbon Dioxide 23 mmol/L (22-30); Chloride 102 mmol/L (98-107); Estimated Glomerular Filt Rate 46; Glucose 121 mg/dL (65-110); Potassium 4.8 mmol/L (3.4-5.0); Sodium 138 mmol/L (137-145); Uric Acid 6.2 mg/dL (2.5-7.5)
[2024-11-21 12:38] LABS: Erythrocyte Sedimentation Rate 38 mm/hr (0-20)
[2024-11-21 12:43] LABS: Thyroid Stimulating Hormone 0.864 uIU/mL (0.465-4.680)
[2024-11-21 12:47] LABS: Creatinine Urine 65.3 mg/dL
[2024-11-21 12:51] LABS: MALB Creatinine Ratio 100.2 mg/g (0-30); Microalbumin Urine Random 65.4 mg/L (0-16.7)
[2024-11-21 15:30] LABS: Hemoglobin A1C 7.1 % (<5.7)
== END 2024-11-21 09:14 | disposition home or self-care (01) ==
PROVIDERS: PCP Internal Medicine Infectious Disease; Visit Provider Specialist
DX: I12.9 Hypertensive chronic kidney disease with stage 1 through stage 4 chronic kidney disease, or unspecified chronic kidney disease (principal); N18.30 Chronic kidney disease, stage 3 unspecified; E55.9 Vitamin D deficiency, unspecified; N39.0 Urinary tract infection, site not specified; R73.09 Other abnormal glucose; E21.3 Hyperparathyroidism, unspecified; R94.6 Abnormal results of thyroid function studies
CPT/HCPCS: 36415; 80053; 81001; 82043; 82306; 83036; 83970; 84443; 84550; 85025; 85652; 87086

== ENCOUNTER 2024-12-27 12:52 | Outpatient (CLI) | payer MEDICARE, SELFPAY ==
--- NOTE | ~2024-12-27 | CT_ITS ---
Clinical Indication: Abnormal weight loss CT Scan of the Chest, Abdomen, and Pelvis without Contrast: Technique: Contiguous sections were acquired throughout the chest, abdomen, and pelvis without intrav enous contrast administration. Dose reduction technique was used on this scan by utilizing automated exposure control and iterative reconstruction technique. The dose-length product (DLP) was 280.29 mGy -cm. Findings: There is no evidence of any significant mediastinal, hilar or axillary lymphadenopathy. The mediastin al soft tissues appear normal. There is no evidence of pleural or pericardial effusion. The lungs are clear. No pulmonary nodules or infiltrates are noted. The liver, spleen, pancreas, adrenals and kidneys are within normal limits. Cholecystectomy clips are present. No evidence of aortic aneurysm. No lymphadenopathy. No bowel obstruction or bowel wall thickening. There is no evidence to suggest acute appendicitis. Urinary bladder is unremarkable. No pelvic mass. No ascites. Impression: No significant abnormalities seen. Reviewed, dictated and finalized at [facility]. Impression: No significant abnormalities seen.
--- OUTSIDE RECORDS SUMMARY | 2024-12-27 12:58 | XMS_ITS | Data Portability ---
Author Organization [facility] Address [address] [place] [address] Assessment Encounter Date Assessment Date Assessment LastModified [...] Not available Not available Not available Lab albumi n/julio grajeda , mass ratio, urine 2023 024 [facility], [address] [place], [address], 08/06/2024 09:31:14 BMP, serum or plasma 2023 0[facility] [address] [place], [address], 04/09/2024 16:07:59 CBC 2022 024 [facility], [address] [place], [address], 12/25/2023 09:35:37 BMP, serum or plasma 2022 024 [facility], [address] [place], [address], 03/25/2024 14:36:19 HbA1c (hemog lobin A1c), blood 2022 024 [facility]), [address] [place], [address], 03/03/2024 23:57:06 lipid panel, serum 2022 024 [facility]), [address] [place], [address], 03/04/2024 15:11:26 hemogl obin + hemato crit, blood 2022 023 [facility]), [address] [place], [address], 02/28/2023 15:28:45 Referral nephro logist referr al - Elevat ed creati nine 2023 024 OSMANI Araiza MD (Nephrology, [address], [address], [place], [address], 05/01/2024 15:40:16 gastro entero logist referr al - Chroni c anemia 2022 023 OSMANI Fernandes MD, [address], [address], [place], [address], 10/22/2023 21:26:13 endocr inolog y, diabet es & metabo lism specia list referr al - Osteop enia with previo us fractu res and DM 2022 023 [place], [address], [place], [address], 07/25/2024 11:43:55 gastro entero logist referr al - Iron defici ency anemia , Hb 836, Hct 28.3 023 2022 023 cbradshhelen Fernandes MD, [address], [address], [place], [address], 04/05/2024 13:46:12 Procedures None record ed. Surgeries None record ed. Imaging CT, chest + abdome n + pelvis , w/o contra st - Weight loss 2024 025 [facility], [address], [place], [address], 12/12/2024 11:18:27 MAMMO, screen ing, digita l, bilate ral 2023 024 [facility] (Mammography) , [address], [place], [address], 12/11/2024 11:55:21 US, kidney - Elevat ed creati nine 2023 024 [facility]), [address] [place], [address], 04/08/2024 14:38:57 MAMMO, screen ing, bilate ral 2022 023 [facility]), [address] [place], [address], 08/21/2023 14:53:00 DEXA 2022 023 [facility]), [address] [place], [address], 07/24/2023 13:50:59 Medication Orders citalo pram 10 mg tablet 2023 024 [id number], [address], [place], [address], 03/29/2024 20:09:07 ferrou s sulfat e 325 mg (65 mg iron) tablet 2022 023 mon[id number], [address], [place], [address], 09/04/2023 12:23:46 Advair Diskus 250 mcg-50 mcg/do se powder for inhala tion 2022 023 [id number], [address], [place], [address], 12/11/2024 12:20:09 albute rol sulfat e HFA 90 mcg/ac tuatio n aeroso l inhale r 2022 023 [id number], [address], [place], [address], 12/11/2024 12:19:56 Patient TargetsNo targets recorded. Patient Instructions Encounter Date Encounter Id Patient Instructions Last Modified By Organization Details Last Modified Time 02/28/2023 [id number] learning about breast cancer screening oajao Not available 02/28/2023 10:39:18 type 2 diabetes: care instructions oajao Not available 02/28/2023 11:22:55 GI Labs Ophthalmology as previously referred DEXA [facility] in April, Follow up in 6 months and PRN oajao Not available 02/28/2023 11:23:46 A hard copy of h er 01/26/2023 lab results were discussed oajao Not available 02/28/2023 11:25:51 09/04/2023 [id number] influenza (flu) vaccine: care instructions oajao Not available 09/04/2023 13:17:00 FeSo4 BID GI Endocrinology Labs in December, Follow up in 5 months and PRN oajao Not available 09/04/2023 12:25:09 03/25/2024 [id number] Most recent lab results from [facility]/Carotid US (Scheduled) Labs US Citalopram Nephrology Follow up in 4 months and PRN oajao Not available 03/25/2024 15:51:21 07/16/2024 [id number] influenza (flu) vaccine: care instructions oajao Not available 07/16/2024 12:41:12 Labs MMG in August, Follow up in 5 months and PRN oajao Not available 07/16/2024 12:41:37 12/11/[id number] MMG as previously ordered Follow up in 6 weeks moncho Not available 12/11/2024 12:40:37 Reason for Referral 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 Referral for Chronic anemia Iron deficiency anemia, Hb 836, Hct 28.3 01/26/2023 Iron deficiency anemia, Hb 836, Hct 28.3 01/26/2023 Referring Physician: Adam Soni, Internal Medicine, Encounter Date: 02/28/2023 Endocrinology, Diabetes & Me tabolism Specialist Referral for Type 2 diabetes mellitus without complication Osteopenia, DM Osteopenia with previous fractures and DM Referring Physician: Adam Soni, Internal Medicine, Encounter Date: 09/04/2023 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 Referral for Chronic anemia Chronic anemia Chronic anemia Referring Physician: Adam Soni Internal Medicine, Encounter Date: 09/04/2023 Psychiatric Registered Nurse Referral for Se rum creatinine above reference range Elevated creatinine Elevated creatinine Referring Physician: Adam Soni Internal Medicine, Encounter Date: 03/25/2024 Results Created Date Observation Date Name Description Value Unit Range Abnormal Flag Note LastModifiedBy Organization Detail LastModifiedTime 10/27/1910/28/2023 MICRO SCOPI C EXAMI NATIO N WBC >30 /hpf 0-5 abnormal Not Available [facility] ([facility]) [address] [place], [address], 11/01/2023 06:19:23 10/27/1910/28/2023 MICRO SCOPI C EXAMI NATIO N RBC NONE SEEN /hpf 0-2 Not Available [facility] ([facility]) [address] [place], [address], 11/01/2023 06:19:23 10/27/1910/28/2023 MICRO SCOPI C EXAMI NATIO N epithelial cells (non renal) 0-10 /hpf 0-10 Not Available [facility]) [address] [place], [address], 11/01/2023 06:19:23 10/27/19 24 10/28/2023 MICRO SCOPI C EXAMI NATIO N casts NONE SEEN /lpf nonese en Not Available [facility] ([facility]) [address] [facility], [place], [address], 11/01/2023 06:19:23 10/27/19 24 10/28/2023 MICRO SCOPI C EXAMI NATIO N bacteria MANY nonese en/few abnormal Not Available [facility] ([facility]) [address] [facility], [place], [address], 11/01/2023 06:19:23 10/27/19 24 10/28/2023 UA WITH CULTU RE REFLE X specific gravity 1.019 1.005- 1.030 Not Available [facility] ([facility]) [address] [facility], [place], [address], 11/01/2023 06:19:23 10/27/19 24 10/28/2023 UA WITH CULTU RE REFLE X pH 5.5 5.0-7. 5 Not Available [facility] ([facility]) [address] [facility], [place], [address], 11/01/2023 06:19:23 10/27/19 24 10/28/2023 UA WITH CULTU RE REFLE X urine-color YELLOW yellow Not Available [facility]) [address] [facility], [place], [address], 11/01/2023 06:19:23 10/27/19 24 10/28/2023 UA WITH CULTU RE REFLE X appearance CLOUDY clear abnormal Not Available [facility] ([facility]) [address] [facility], [place], [address], 11/01/2023 06:19:23 10/27/19 24 10/28/2023 UA WITH CULTU RE REFLE X WBC esterase 3+ negati ve abnormal Not Available [facility] ([facility]) [address] [facility], [place], [address], 11/01/2023 06:19:23 10/27/19 24 10/28/2023 UA WITH CULTU RE REFLE X protein 1+ negati ve/tra ce abnormal Not Available [facility] ([facility]) [address] [facility], [place], [address], 11/01/2023 06:19:23 10/27/19 24 10/28/2023 UA WITH CULTU RE REFLE X glucose NEGATI VE negati ve Not Available [facility] ([facility]) [address] [facility], [place], [address], 11/01/2023 06:19:23 10/27/19 24 10/28/2023 UA WITH CULTU RE REFLE X ketones NEGATI VE negati ve Not Available [facility] ([facility]) [address] [facility], [place], [address], 11/01/2023 06:19:23 10/27/19 24 10/28/2023 UA WITH CULTU RE REFLE X occult blood TRACE negati ve abnormal Not Available [facility] ([facility]) [address] [facility], [place], [address], 11/01/2023 06:19:23 10/27/19 24 10/28/2023 UA WITH CULTU RE REFLE X bilirubin NEGATI VE negati ve Not Available [facility] ([facility]) [address] [facility], [place], [address], 11/01/2023 06:19:23 10/27/19 24 10/28/2023 UA WITH CULTU RE REFLE X urobilinogen ,semi-qn 0.2 mg/dL 0.2-1. 0 Not Available [facility] ([facility]) [address] [place], [address], 11/01/2023 06:19:23 10/27/19 24 10/28/2023 UA WITH CULTU RE REFLE X nitrite, urine NEGATI VE negati ve Not Available [facility] ([facility]) [address] [place], [address], 11/01/2023 06:19:23 10/27/19 24 10/28/2023 UA WITH CULTU RE REFLE X microscopic examination SEE BELOW: Micro scopi c was indic ated and was perfo rmed. Not Available [facility] ([facility]) [address] [place], [address], 11/01/2023 06:19:23 10/27/19 24 10/28/2023 UA WITH CULTU RE REFLE X urinalysis reflex COMMEN T This speci men has refle xed to a Urine Cultu re. Not Available [facility] ([facility]) [address] [facility], [place], [address], 11/01/2023 06:19:23 10/27/19 24 11/01/2023 URINE CULTU RE, ROUTI NE urine culture, routine FINAL REPORT abnormal Not Available [facility] ([facility]) [address] [place], [address], 11/01/2023 06:19:24 10/27/19 24 11/01/2023 URINE CULTU [...] Prote us mirab ilis. Not Available [facility] ([facility]) [address] [facility] [place], [address], 11/01/2023 06:19:24 10/27/19 24 11/01/2023 URINE CULTU [...] thopr im/Pritchett lfa S Not Available [facility] ([facility]) [address] [facility], [place], [address], 11/01/2023 06:19:24 07/24/20 23 07/24/2023 DEXA No observ ation record ed. [facility] ([facility]) [address] [place], [address], 09/04/2023 12:01:04 08/21/20 23 08/21/2023 MAMMO , scree kelly, bilat eral No observ ation record ed. [facility] [address] [place], [address], 09/04/2023 12:01:03 04/08/20 24 04/08/2024 , vannessa y No observ ation record ed. [facility] [address] [place], [address], 07/16/2024 12:25:52 04/09/20 24 04/09/2024 US, duple x, carot id arter y No observ ation record ed. [facility] [address], [place], [address], 07/16/2024 12:25:52 04/09/20 24 04/09/2024 trans -thor acic echoc ardio gram (TTE) (PROC ) No observ ation record ed. [facility] [address], [place], [address], 07/16/2024 12:25:52 04/24/20 24 04/24/2024 MRI, brain + brain stem, w/o contr ast No observ ation record ed. [facility] [address], [place], [address], 07/16/2024 12:25:52 Result Notes None recorded. Problems Name Problem SNOMED Code Status Onset Date Resolution Date Notes Provider Name and Address Organization Details Recorded Time Multinod ular goiter 283543163 Active 2017 Not Available [facility] 3 09:58:59 Multiple sclerosi s 21862198 Completed 201806/07/2019 Removal Reason: The neurolog ist disagree s Adam Soni MD Attn: Accounting ,[address] [facility], [place], [address] , [facility] 9 11:45:02 Pure hypercho lesterol emia 998834539 Active Not Available [facility] 3 09:58:59 Abnormal liver function 05120253 Active Not Available [facility] 3 09:59:00 Diabetes mellitus 47792625 Completed 10/23/2018 Adam Soni MD Attn: Accounting ,[address] [facility], [place], [address] , [facility] 9 17:45:54 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 94544362 Active 2018 Not Available [facility] 3 09:59:00 Gastroes ophageal reflux disease 899575699 Active 2018 Not Available [facility] 3 09:58:59 Adenomat ous polyp of colon 289042334 Active 2019 Not Available [facility] 3 09:59:00 Thyroid nodule 967624558 Active 2019 Not Available [facility] 3 09:58:59 Osteopen ia 203984889 Active 2021 Not Available [facility] 3 09:58:59 Spinal stenosis of lumbar region 44308687 Active 2021 Not Available [facility] 3 09:58:59 History of anemia vitamin B12 deficien t 553804675 Active 2021 Not Available [facility] 3 09:58:59 Chronic anemia 422778217 Active 2021 Not Available [facility] 3 09:58:59 SARS-CoV -2 mRNA vaccine declined 1909046655 Active 2022 Not Available [facility] 3 09:58:59 Fracture of surgical neck of humerus 984744434 Active Adam Soni MD Attn: Accounting ,[address] [place], [address] , [place] [facility] 4 12:22:40 Anti-nuc lear factor detected 554455614 Active 2023 Adam Soni MD Attn: Accounting ,[address] [place], [address] , [place] [facility] 4 12:24:14 Generali zed anxiety disorder 85051717 Active Not Available [facility] 3 09:58:59 Acute upper respirat ory infectio n 32879324 Active Not Available [facility] 3 09:59:00 Impacted cerumen 45099566 Active Not Available [facility] 3 09:58:59 Candidia sis of vagina 75173486 Active Not Available [facility] 3 09:59:00 Disorder of urinary tract 07736782 Active Not Available [facility] 3 09:59:00 Urinary bladder pain 08251284 Active Not Available [facility] 3 09:58:59 Type 2 diabetes mellitus without complica tion 158065424 Active Not Available [facility] 3 09:58:59 Asthma 273924040 Active Not Available [facility] 3 09:58:59 Uncontro lled type 2 diabetes mellitus 211131264 Active Not Available [facility] 3 09:59:00 Non-alco holic fatty liver 051468328 Active Not Available [facility] 3 09:58:59 Low back pain 201151464 Active Not Available [facility] 3 09:58:59 Dizzines s 479408791 Active Not Available [facility] 3 09:58:59 Hiatal hernia 76704162 Active Not Available [facility] 3 09:59:00 Anemia 696253223 Active Not Available [facility] 3 09:58:59 Depressi ve disorder 69446920 Active Not Available [facility] 3 09:58:59 Low blood pressure 18684950 Active Not Available [facility] 3 09:59:00 Hyperlip idemia 02230160 Active Not Available [facility] 3 09:59:00 Chronic cerebral ischemia 074581012 Active 2016 Not Available [facility] 3 09:58:59 Notes:Some problems listed i n Document: #[id number] could not be added to this patient's chart. Please review this document and add these problems to the patient's chart manually as needed. Problem Notes None recorded. Procedures Surgical History Date Name Laterality Status Provider Name and Address Organization Details Recorded Time 2023 Diabetic Foot Exam completed Adam Soni MD Attn: Fany galdamez,[address] [place], [address], [facility] 4 19:09:01 2023 esophagogastroduodenoscopy completed Molly Wilkins MD Attn: Fany galdamez,[address] [facility], [place], [address], [facility] 4 09:21:24 2023 colonoscopy completed Adam Soni MD Attn: Dorismckenzie galdamez,[address], [place], [address], [place] [facility] 4 09:22:43 2014 colonoscopy completed Adam Soni MD Attn: Fany rudolph,[address], [place], [address], [place] [facility] 0 09:41:25 1984 Total hysterectomy completed Adam Soni MD Attn: Fany galdamez,[address], [place], [address], [place] [facility] 7 10:14:36 Arthroscopic Surgery completed Josiane Wiggins [place] [facility] 4 14:52:01 Appendectomy completed December [place] [facility] 4 14:52:01 Cholecystectomy completed December [place]al[place], [place] [facility] 4 14:52:01 Hysterectomy completed December [place]al[place], [place] [facility] 4 14:52:01 Imaging Results Imaging Date Name Status LastModified by Organization Details LastModified Time 07/24/2023 DEXA completed [facility] ([facility]) [address] [place], [address], 09/04/2023 12:01:04 08/21/2023 MAMMO, screening, bilateral completed [facility] [address] [place], [address], 09/04/2023 12:01:03 04/08/2024 US, kidney completed [facility] [address] [place], [address], 07/16/2024 12:25:52 04/09/2024 US, duplex, carotid artery completed [facility] [address], [place], [address], 07/16/2024 12:25:52 04/09/2024 trans-thoracic echocardiogram (TTE) (PROC) completed [facility] [address], [place], [address], 07/16/2024 12:25:52 04/24/2024 MRI, brain + brain stem, w/o contrast completed [facility] [address], [place], [address], 07/16/2024 12:25:52 Procedure Notes None recorded. Medical Equipment None Reported. Allergies Allergen ID Allergen Name Allergen Category Reaction Reaction Severity Criticality Documentation Date Start Date Code Code System Note Provider Name and Address Organization Details Recorded Time 54340 Substance with sulfonami de structure and antibacte rial mechanism of action (substanc e) medicatio n Not available Not available Not available 09/04/2014 39222 8003 SNOMED Other react ions and sever ities : 'Adve rse react ion to subst ance' . Not Available Not Available Not Available 37372 Vioxx medicatio n hives mild Not available 09/04/2014 75030 9 RxNorm Not Available Not Available Not Available 91391 Jardiance medicatio n other mild Not available 04/07/2017 56103 59 RxNorm Thrus h Not Available Not [...] MOUTH EVERY 12 HOURS FOR 10 DAYS 12/11 completed Not Available Not Available Not Available [...] 4 HOURS NEEDED FOR 30 DAYS active PRN Not Available Not Available No t Available [...] bromide 21 mcg (0.03 %) nasal spray [place] 2 sprays twice a day by intranas al route. 08/20 completed Not Available Not Available Not Available loratadin e 10 mg tablet Take 1 tablet every day by oral route as directed for 30 days. 08/21 completed Not Available Not Available Not Available amoxicill in 875 mg-potass ium clavulana te 125 mg tablet TAKE 1 TABLET BY MOUTH TWICE A DAY UNTIL FINISHED 12/11 completed Not Available Not Available Not Available [...] Not Available Not Available Not Avai lable OneTouch Delica Lancets 33 gauge active Not [...] BY MOUTH TWICE A DAY DIRECTED active PRN Not Available Not Available No t Available FreeStyle Megan 2 Sensor kit USE DIRECTED . CHANGE SENSOR EVERY 14 DAYS active Not Available Not Available No t Available AMEC 2 [place] USE DIRECTED . active Not Available Not Available No t Available Vitals Date Recorded Body height Body mass index (BMI) Body weight Oxygen saturation Oxygen saturation in Arterial blood by Pulse oximetry Heart rate Respiratory rate Systolic blood pressure Diastolic blood pressure Provider Name and Address Organization Details Last Updated DateTime 3 152.4 cm 23.7 kg/m2 79277.1 1 g 97 % 97 % 68 /min 16 /min 130 mm[Hg] 70 mm[Hg] Una Bocanegra [place] [facility] 3 10:03:19 Date Recorded Body height Body mass index (BMI) Body weight Heart rate Oxygen saturation Oxygen saturation in Arterial blood by Pulse oximetry Systolic blood pressure Diastolic blood pressure Provider Name and Address Organization Details Last Updated DateTime 3 152.4 cm 24 kg/m2 05915.8 6 g 80 /min 99 % 99 % 140 mm[Hg] 76 mm[Hg] Una Bocanegra MA [facility] 3 11:28:25 Date Recorded Body height Body mass index (BMI) Body weight Heart rate Oxygen saturation Oxygen saturation in Arterial blood by Pulse oximetry Body temperature Systolic blood pressure Diastolic blood pressure Provider Name and Address Organization Details Last Updated DateTime 4 152.4 cm 23.4 kg/m2 06715.0 1 g 76 /min 99 % 99 % 97.7 [degF] 124 mm[Hg] 70 mm[Hg] Una Bocanegar [place] [facility] 4 15:17:19 Date Recorded Body height Body mass index (BMI) Body weight Heart rate Oxygen saturation Oxygen saturation in Arterial blood by Pulse oximetry Respiratory rate Systolic blood pressure Diastolic blood pressure Provider Name and Address Organization Details Last Updated DateTime 4 152.4 cm 22.5 kg/m2 02811.5 6 g 70 /min 97 % 97 % 14 /min 146 mm[Hg] 70 mm[Hg] Una Bocanegra MA [facility] 4 11:49:45 Date Recorded Body height Body mass index (BMI) Body weight Oxygen saturation Oxygen saturation in Arterial blood by Pulse oximetry Heart rate Systolic blood pressure Diastolic blood pressure Provider Name and Address Organization Details Last Updated DateTime 5 152.4 cm 21.5 kg/m2 00957.2 4 g 95 % 95 % 66 /min 130 mm[Hg] 64 mm[Hg] Una Bocanegra [place] [facility] 5 11:58:12 Social History Question Answer Notes LastModified by Organizat ion Details LastModified Time Tobacco Smoking Status Never Smoker December CHANDLER Wiggins [place], [place] 09/04/2014 14:52:00 Do You Have An Advance [...] Atrial Fibrillation N High Blood Pressure N Kidney or Bladder Problems N Thyroid Problems N GI Problems Y Depression N COPD N Blood Clots N Skin Problems N Anemia N Heart Attack ([place]) N Anxiety Disorder Y Diabetes Y Muscle, [...] virus, quadrivalent, preservative 4 completed Not Available [facility] 08/25/2023 09:59:00 Influenza, split virus, quadrivalent, preservative 0 completed Not Available [facility] 08/25/2023 09:59:00 Influenza, split virus, quadrivalent, preservative 0 completed Not Available [facility] 08/25/2023 09:59:00 COVID-19, mRNA, LNP-S, PF, 30 mcg/0.3 mL dose 1 completed Not Available [facility] 08/25/2023 09:59:01 COVID-19, mRNA, LNP-S, PF, 30 mcg/0.3 mL dose 0 completed Not Available [facility] 08/25/2023 09:59:01 Pneumococcal conjugate PCV 13 0 completed Not Available [facility] 08/25/2023 09:59:01 COVID-19, mRNA, LNP-S, PF, 30 mcg/0.3 mL dose 1 completed Not Available [facility] 08/25/2023 09:59:01 COVID-19, mRNA, LNP-S, PF, 100 mcg/0.5mL dose or 50 mcg/0.25mL dose 1 completed Not Available [facility] 08/25/2023 09:59:01 COVID-19, mRNA, LNP-S, PF, 30 mcg/0.3 mL dose 1 completed Not Available [facility] 08/25/2023 09:59:01 Tdap 5 completed Not Available [facility] 08/25/2023 09:59:01 Influenza, high-dose, trivalent, PF 5 completed Not Available [facility] 08/25/2023 09:59:01 Tdap 5 completed Not Available [facility] 08/25/2023 09:59:01 influenza, intradermal, quadrivalent, preservative free 6 completed Not Available [facility] 08/25/2023 09:59:00 Influenza, high-dose, quadrivalent, PF 2 completed Adam Soni MD Attn: Accounting,[address] [place], [address], [place] [facility] 07/19/2022 08:15:18 pneumococcal polysaccharide PPV23 3 completed Adam Soni MD Attn: Accounting,[address] [place], [address], [place] [facility] 02/28/2023 11:16:05 Influenza, high-dose, quadrivalent, PF 3 completed Adam Soni MD Attn: Accounting,[address] [place], [address], [place] [facility] 09/04/2023 13:45:04 pneumococcal polysaccharide PPV23 4 completed Not Available [facility] 10/05/2019 02:33:01 Influenza, high-dose, trivalent, PF 4 completed Adam Soni MD Attn: Accounting,[address] [place], [address], [place] [facility] 07/16/2024 13:27:32 Influenza, split virus, quadrivalent, preservative 7 completed Not Available [facility] 08/25/2023 09:59:00 Past Encounters Encounter ID Performer Location Encounter Start Date Encounter Closed Date Diagnosis/Indication Diagnosis SNOMED-CT Code Diagnosis ICD10 Code Diagnosis Note [id number] Kathryn (Adult Med) [address] [place] [phone] 09/04/2014 14:21:29 09/04/2014 15:43:48 Asthma [id number] Pneumovax today, she received the Influenza vaccine this season. MMG was ordered by her gynecologi [facility] ed type 2 diabetes mellitus [id number] Eye exam was done in February of 2014, labs are due Non-alcoho lic fatty liver [id number] Weight loss was discussed Low back pain 656065578 Following up at [facility] for her back pain where she receives injections , she was offered surgery in the past but she refused Dizziness [id number] [facility] Supervisor zackary dizziness, no loc, mild frontal and [...] occurs about once a month. Hiatal hernia 51394830 Anemia 117073916 Stopped FeSO4 about a month ago [id number] December CHANDLER Wiggins (Adult Med) [address] [place] [phone] 0 10/23/2014 15:45:33 10/23/2014 16:27:10 Pure hypercholesterolemia 456571033 She was off Lipitor when the labs were done, hopefully there should be improvemen t when this is repeated Abnormal l iver function 43276917 Most likely from her fatty liver. Diabetes mellitus 74354117 Labs in three months [id number] MD Kathryn Jackson (Adult Med) [address] [place] [address] [phone] 0 01/22/2015 15:50:19 01/22/2015 16:36:19 Uncontrolled type 2 diabetes mellitus 908464467 Uncontroll ed on Metformin 1000 mg po bid and Januvia 100mg po daily. Her diet is better and she gets steroid injections in her back every 4- 6months. Her FBS is high. I think she can restart Amaryl 1mg po daily [id number] Aleyda Ozuna Kathryn (Adult Med) [address] [place] [address] 05/21/2015 16:19:19 05/21/2015 17:24:20 Uncontrolled type 2 diabetes mellitus 648038611 Uncontroll ed on Metformin 1000 mg po [...] a few weeks Generalize d anxiety disorder 22454982 On Citalopram 5mg of Citalopram and intermitte nt Clonazepam . She is overwhelme d with her 's illness, her finances and her responsibi lities at home and at work. Although as I discussed with her, I think she may have unrealisti c expectatio ns. She should follow up with her counselor, Chito Waggoner. Acute uppe r respiratory infection 45603686 Allergy vs URI, I do not see a need for antibiotic s unless her throat culture comes back positive. Her rapid strep was negative She cannot tolerate Pseudophed rine, she can try Atrovent nasal spray Impacted cerumen 17282105 Screening mammography 38439731 She has an order sheet from Dr. Maynard, her last Pap smear was in July 2014 [id number] MD Kathryn Jackson (Adult Med) [address] [place] [address] 08/20/2015 16:21:38 08/20/2015 17:36:36 Anemia 282916034 D64.9 Chronic, she has had EGD and a colonoscop y in the recent past, I wonder if a capsule study is in order. Previously on iron. Urinary bladder pain 158 75201 R39.89 She describes intermitte nt bladder pressure, she does not really have frequency of urination or dysuria. She also feels that this may be from her back, as she neds epidurals. She has just completed a course of Ciprofloxa john for a recent UTI with chills and a positive UA. Type 2 evie betes mellitus without complication 351392479 E11.9 Not badly controlled with an HBA1C of 7, she may benefit from Aspirin 81mg po daily for [facility] protection . We however have to be cautious in view of her anemia. [id number] MD Kathryn Jackson (Adult Med) [address] [place] [phone] 01/21/2016 15:57:30 01/21/2016 17:11:57 Depressive disorder 00747897 F32.9 F41.0 There are new issues with her son and her , she needs therapy and I will highly recommend that she remains on 10 mg of Lexapro and PRN Klonopin. Uncontroll ed type 2 diabetes mellitus 914505752 E11.65 Uncontroll ed on Metformin 1000 mg po bid, Januvia 100mg po daily, Amaryl 1mg PRN. She really should take her Amaryl daily. Low blood pressure 79911 003 I95.9 Transient hypotensio n after her last epidural injection at [facility]. Anemia 798362170 D64.9 Chronic, she has had EGD and a colonoscop y in the recent past, I wonder if a capsule study is in order. [id number] MD Kathryn Jackson (Adult Med) [address] [place] [phone] 04/28/2016 16:42:23 04/28/2016 17:41:54 Uncontrolled type 2 diabetes mellitus 550023057 E11.65 Uncontroll ed (HBA1C increased from 7 to 8) on Metformin 1000 mg po daily (She cannot tolerate the second dose due to loose stools), Januvia 100mg po daily and Amaryl 1mg. I will increase her Amaryl to 2mg po daily, side effects were discussed. She unfortunat ada still drinks 2 cans of Coke a day. Hyperlipidemia 76044220 E78.5 Generalize d anxiety disorder 91585427 F41.1 She has chosen to discontinu e her intermitte nt Clonazepam . Medication monitoring 39 7302974 Z51.81 [id number] MD Kathryn Jackson (Adult Med) [address] [place] [address] 09/01/2016 16:15:10 09/01/2016 17:12:04 Uncontrolled type 2 diabetes mellitus 559821077 E11.65 Uncontroll ed (HBA1C has increased from [...] experience d around lunch time. Impacted cerumen 5543545 6 H61.21 Diabetes mellitus 169704 09 E11.9 Anxiety 86141854 F41.9 She really should try and avoid using the Clonazepam , exercise and other methods to reduce her anxiety were discussed. She however has multiple family/wor k issues at this time. Anemia 026048693 D64.9 Chronic, she has had EGD and a colonoscop y in the recent past, I still wonder if a capsule study is in order. [id number] MD Kathryn Jackson (Adult Med) [address] [place] [phone] 01/05/2017 16:24:03 01/05/2017 17:19:14 Uncontrolled type 2 diabetes mellitus 038923462 E11.65 Uncontroll edStop Glimepirid e due to hypoglycem ic eventsCont inue Januvia and MetforminS tart Jardiance, SE were discussedC all with log book readingsBM P in ~ 2 weeks Dizziness 916744943 R42 Chronic intermitte nt dizziness with an occipital headache, no loc but with spells. Previous imaging of the brain revealed a polyp, she was previously seen by a Dr. Barnes (ENT). 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 Intermitte nt palpitations 716189327 R00.2 [id number] MD Kathryn Jackson (Adult Med) [address] [place] [address]67[address] 0 02/16/2017 16:26:05 02/16/2017 17:58:51 Asthma 640179646 J45.909 Bronchitis 63316702 J40 Cough 28388094 R05 I suspect that her CRYSTAL- may be playing a role, she appears unconvince d but I have suggested a switch to an ARB Uncontroll ed type 2 diabetes mellitus 547472142 E11.65 Uncontroll edIncrease Glimepirid e to 3mg Disorder o f lipid metabolism 651614523 E78.9 Gastroesop hageal reflux disease 656026307 K21.9 Lacunar infarction 61733 8000 G46.7 Discussed, I do not see a role for an MRA [id number] Adam Soni MD [facility] (Adult Med) [address] [place] [address] 04/07/2017 09:25:32 04/07/2017 16:28:26 Iron deficiency anemia 34238248 D50.9 Unexplaine d, she has had a colonoscop y and was started on oral iron, she needs an EGD +/- capsule study. Uncontroll ed type 2 diabetes mellitus 999374946 E11.65 Uncontroll ed on Metformin and Glimepirid e 3mg, she also has been having symptomati c episodes of hypoglycem ia. She will need another agent, I have recommende d Victoza and I will recommend that she cuts her Amaryl down to 2mg. Chronic ce rebral ischemia 471978194 I67.82 Memory impairment 491651 006 R41.3 [id number] Adam Soni MD [facility] (Adult Med) [address] [place] [address] [phone] 0 05/19/2017 09:25:38 05/19/2017 10:14:27 Thyroid nodule 046882854 E04.1 She had a CTA of the neck, I have asked for a copy of the report. Although this and her CTA of the brain were both normal, there was an incidental thyroid nodule noted. Anemia 661128350 D64.9 Chronic, she has had a EGD and a colonoscop y in the recent past, I still think a capsule study is in order. She may need to see a hematologi st although she is not keen. Uncontroll ed type 2 diabetes mellitus 893187680 E11.65 Uncontroll ed on Metformin and Glimepirid e 3mg AM, she would like to add Amaryl 1mg HS, I have no objections although I would have preferred an injectable at this point. [id number] MD Kathryn Jackson (Adult Med) [address] [place] [address]40[address] 0 08/21/2017 09:37:32 08/21/2017 10:32:04 Multinodular goiter 506737492 E04.2 Repeat US needed in 6-12 months Anemia 475891114 D64.9 Chronic, she has had a EGD and a colonoscop y in the recent past, I still think a capsule study is in order. She did not go back to GI and she should reconsider seeing the hematologi st as her SPEP was abnormal. Essential hypertension 35724158 I10 Disorder o f lipid metabolism 214905542 E78.9 Decrease Lipitor as she feels that it causes MSK pain and she holds it every now and then. Type 2 evie betes mellitus without complication 911013256 E11.9 I still drink the soda, but not as much No more sodaEye exam completed 08/18/2017 Asthma 165326611 J45.90 9 [id number] MD Kathryn Jackson (Adult Med) [address] [place] [address] 78582[address]232 0 12/20/2017 09:22:33 12/20/2017 10:09:09 Uncontrolled type 2 diabetes mellitus 464392219 E11.65 Discussed with Mrs. Soto Unexplaine d weight loss 407944478 R63.4 Generalize d anxiety disorder 35602183 F41.1 RF ARASH Navarrete last RF 10/06/2016 Multiple sclerosis 71898 007 G35 [id number] MD Kathryn Jackson (Adult Med) [address] [place] [address] 58760[address]093 0 05/31/2018 12:46:51 05/31/2018 13:48:41 Liver function tests outside reference range 719796361 R94.5 Meds? Hypercalcemia 91973268 E 83.52 Uncontroll ed type 2 diabetes mellitus 664878452 E11.65 Urinary tr act infectious disease 36340194 N39.0 For PRN use Candidiasis of mouth 797 35554 B37.0 PRN use Generalize d anxiety disorder 92009223 F41.1 RF Klonopin, [place] last RF 12/23/2017 [id number] MD Kathryn Jackson (Adult Med) [address] [place] [address] 23500[address]387 0 06/07/2019 10:18:58 06/07/2019 11:36:12 Degeneration of cervical intervertebral disc 88530566 M50.30 Screening for malignant neoplasm of breast 128620484 Z12.31 Asthma 533382319 J45.90 9 Degenerati ve joint disease of ankle AND/OR foot 17057607 M19.079 Chronic ce rebral ischemia 767070041 I67.82 Gastroesop hageal reflux disease 035774947 K21.9 Medication monitoring 39 9842553 Z51.81 Type 2 evie betes mellitus without complication 162674850 E11.9 [id number] MD Kathryn Jackson (Adult Med) [address] [place] [address] 12884-341 0 03/18/2020 09:27:17 03/23/2020 15:25:49 Adenomatous polyp of colon 445167597 D12.6 09/09/2015 Q 5 years Thyroid nodule 760868113 E04.1 She had a CTA of the neck and a CT of the chest that both confirmed thyroid nodules.Th e US done 07/2017 confirms a MNG.Repeat US 02/13/2020 now suggests a moderately suspicious nodule, FNA vs repeat the US in 1 year. She will be seeing her endocrinol ogist on 03/19/2020. Administra tion of pneumococcal vaccine 77137164 Z23 Screening for malignant neoplasm of breast 737398339 Z12.31 Asthma 331840534 J45.90 9 Active or passive immunization 051222687 Z23 [id number] MD Kathryn Jackson (Adult Med) [address] [place] [address]13[address] 0 08/20/2020 08:48:32 08/21/2020 08:28:22 Thyroid nodule 104385210 E04.1 She had a CTA of the [...] is still not recommende d. Immunization due 5810811 08 Z28.3 Pneumovax is due Uncontroll ed type 2 diabetes mellitus 564939802 E11.65 Recurrent urinary tract infection 010393192 N39.0 [id number] MD Kathryn Jackson (Adult Med) [address] [place] [address] 72792-315 0 12/21/2020 09:24:56 12/22/2020 10:48:42 Type 2 diabetes mellitus without complication 674856378 E11.9 Neuropathy 035330859 G62 .9 Neurontin was discussed, she declined [id number] MD Kathryn Jackson (Adult Med) [address] [place] [address] 31281-606 0 06/22/2021 09:25:00 06/23/2021 12:32:55 Screening mammography of bilateral breasts 5247963215 59835 Z12.31 Feeling stressed 0138118 06 Z73.3 Renewal of prescription 133971298 Z76.0 Needs infl uenza immunization 155245642 Z28.3 [id number] MD Kathryn Jackson (Adult Med) [address] [place] [address] 79434-986 0 01/19/2022 13:46:16 01/20/2022 07:04:04 Stricture of esophagus 73435381 K22.2 Screening for malignant neoplasm of colon 822707291 Z12.11 Osteopenia 252537683 M85 .80 Chronic low back pain 27 2113902 M54.50 Cervical radiculopathy 79189538 M54.12 Inactive tuberculosis 11 483318 Z22.7 CXR negativeAs ymptomatic She has declined treatmentP t education on latent TB Screening for malignant neoplasm of breast 162832081 Z12.31 Chronic anemia 054507205 D64.9 Chronic, she has had a EGD and a colonoscop y in the recent past.GI [id number] MD Kathryn Jackson (Adult Med) [address] [place] [address] [phone] 0 05/24/2022 15:09:28 05/25/2022 11:18:27 Chronic anemia 399208698 D64.9 Chronic, she has had an EGD in ? and a colonoscop y 08/2015 .GI as referredPr eviously referred to the hematologi on 09/10/2017 Dizziness 821819980 R42 Worsening of her chronic intermitte nt [...] brain History of anemia vitamin B12 deficient 068531696 Z86.2 [id number] [facility] [address] [place] [address] [phone] 0 07/18/2022 15:31:47 07/19/2022 09:23:49 Administration of influenza vaccine 99987943 Z23 Dizziness 846861483 R42 Worsening of her chronic intermitte nt [...] disease.Re peat carotid US Immunization advised 310 526916 Z71.9 Mammography abnormal 168 843971 R92.8 New 5 mm nodule RUO on the MMG done on 07/01/2022 , the repeat US suggests a hematoma. A repeat US has been recommende d and ordered. Type 2 evie betes mellitus without complication 214888210 E11.9 Chronic anemia 467802323 D64.9 Chronic, she has had an EGD in ? and a colonoscop y 08/2015 .GI as referred on 2Pr eviously referred to the hematologi on 09/10/2017 AddendumLa bs Medication monitoring 39 8848529 Z51.81 [id number] MD Kathryn Jackson (Adult Med) [address] [place] [address] 23600[address]585 0 11/28/2022 10:23:49 11/29/2022 15:46:22 Persistent cough 001232294 R05.3 Body mass index 20-24 - normal 318333908 Z68.24 Type 2 evie betes mellitus without complication 519558611 E11.9 Medication monitoring 39 0768408 Z51.81 Postmenopausal state 764 86697 Z78.0 Immunization advised 310 401703 Z71.9 [id number] MD Kathryn Jackson (Adult Med) [address] [place] [address] 95024-008 0 02/28/2023 09:54:31 03/01/2023 16:16:56 Administration of pneumococcal vaccine 98304471 Z23 Chronic anemia 224254304 D64.9 Labs 01/26/2023 Hb 8.6, Hct 28.3, Ferritin 8Labs 12/02/2022; CBC , CMP (GLU 121)GI as previously referred on 01/19/2022h e is on Eliquis for her chronic AFIB OV 07/18/2022 Chronic, she has had an EGD in ? and a colonoscop y 08/2015 .GI as referred on 01/19/2022r eviously referred to the hematologi st on 09/10/2017 AddendumLa bs Asthma 246921576 J45.90 9 Body mass index 20-24 - normal 621915416 Z68.24 Caregiver role strain 12 2455655 Z73.3 SARS-CoV-2 mRNA vaccine declined 1173812181 Z28.21 Screening for malignant neoplasm of breast 701673645 Z12.31 Postmenopausal state 764 27119 Z78.0 Type 2 evie betes mellitus without complication 509848339 E11.9 HBA1C 7% History of atrial fibrillation 247934979 Z86.79 [id number] MD Kathryn Jackson (Adult Med) [address] [place] [address] 66689-685 0 09/04/2023 11:21:20 09/04/2023 12:36:19 Administration of influenza vaccine 77058020 Z23 Chronic anemia 358901020 D64.9 GI (Scheduled )She has declined iron [...] on 09/10/2017 AddendumLa bs Type 2 evie mynores mellitus without complication 669410436 E11.9 HBA1C 6.6% (05/26/2023) , previously 7% Osteopenia 239402464 M85 .80 Discussed Medication monitoring 39 8974334 Z51.81 [id number] Adam Soni MD [facility] (Adult Med) [address] [place] [address] [phone] 0 03/25/2024 14:33:46 03/26/2024 12:43:23 Anxiety 09870914 F41.9 She has failed Lexapro in the pastStart Citalopram , side effects were discussed in detail.I would not recommend a sedative in light of her elevated BNP. Serum crea tinine above reference range 396520409 R79.89 Chronic anemia 724580218 D64.9 Labs 03/15/2024 Hb 10, Hct 31StableS/ [...] to the hematologi st on 09/10/2017 AddendumLa [id number] MD Kathryn Jackson (Adult Med) [address] [place] [address] 76190-720 0 07/16/2024 11:35:26 07/17/2024 11:02:23 Anti-nuclear factor detected 770294365 R76.8 No She declines further testing or a referral Diabetes mellitus 229239 09 E11.9 Screening mammography 24 643782 Z12.31 Administra tion of influenza vaccine 66697338 Z23 [id number] MD Kathryn Jackson (Adult Med) [address] [place] [address] 67950-126 0 12/11/2024 11:47:12 12/12/2024 11:18:26 Body mass index 20-24 - normal 575823612 Z68.24 Mixed anxi ety and depressive disorder 232354086 F41.8 She was offered Buspirone and she declined, she mentioned Hydroxyzin e but was non committal. I have given her patient education materials and she will let me know what she decides Unexplaine d weight loss 315906785 R63.4 She has lost another 5 lbs since her last visit.EGD and Colonoscop y 11/01/2023M MG 08/21/2023 The 2024 MMG has been orderedShe needs imaging of the chest abdomen and pelvis to rule out other causes of her weight loss Caregiver role strain 12 2641262 Z73.3 Health Concerns Section Related Observation LastModified by Organization Detai ls LastModified Time None Recorded Concern Status LastModified by Organization Details LastModified Time None Recorded Advance Directives Directive N: Payers Encounter Date Sequence Insurance Name Policy Number Policy Lopez Covered Member ID Lopez Member ID Guarantor Name 02/28/2023 1 [facility] (MEDICARE REPLACEMENT/A DVANTAGE - HMO) [id number] Suyapa Soto [id number] Suyapa Soto 09/04/2023 1 [facility] (MEDICARE REPLACEMENT/A DVANTAGE - HMO) [id number] Suyapa Soto [id number] Suyapa Soto 03/25/2024 1 [facility] (MEDICARE REPLACEMENT/A DVANTAGE - HMO) [id number] Suyapa Soto [id number] Suyapa Soto 07/16/2024 1 [facility] (MEDICARE REPLACEMENT/A DVANTAGE - HMO) [id number] Suyapa Soto [id number] Suyapa Soto 12/11/2024 1 [facility] (MEDICARE REPLACEMENT/A DVANTAGE - HMO) [id number] Suyapa Soto [id number] Suyapa Soto Notes Date Note Type Note Provider Name and Address Organization Details Recorded Time 3 text/html Diabetes F/UReported bypatient.Labs:last A1C result: [...] interim, she has followed up with the otorhinolaryngologist, neurologist and licensed final expense agents. Adam Soni MD Attn: Accounting,[address] [place], [address], [place] [facility] 02/28/2023 11:26:06 3 text/html Diabetes [...] cancel it Do you know of another licensed final expense agents since Dr Flores left? Ms Soto is coping, but she has her hand full as she has to take care for her and her son. Adam Soni MD Attn: [facility],[address] [place], [address], [facility] 09/04/2023 13:48:06 4 text/html Anxiety/DepressionReporte d bypatient.Quality:symptom [...] , taking care of the household Ms Soto returns, she is overwhelmed and anxious, mostly due to her role providing care for her . She had tried Lexapro in the past and did not like it, a family member had recommended Celexa. She would also like a mild sedative. The [facility] nurse discussed Prevnar 20 with her and she was seen by her bullet swaging machine adjuster today who apparently felt that her elevated Creatinine of 1.20 on 03/15/2024 may explain some of her pro-BNP elevation. Since her last visit, she has also followed up with cardiology, hematology and GI and she has had an EGD and colonoscopy. Adam Soni MD Attn: Accounting,[address] [place], [address], [place] [facility] 03/25/2024 19:15:26 4 text/html Diabetes F/UReported bypatient.Labs:last [...] I had some autoimmune disease Ms Brittany returns, she has been following up with her otorhinolaryngologist, supervisor education and bullet swaging machine adjuster. She had a positive ROXANNA of 1:160, Nuclear pattern ordered by her supervisor education. She remembers a concern about MS or an autoimmune process about 10 years ago after a LP done by her neurologist, Dr Gould. At that time she was seen by her seen by the Rheumatology team at [facility] and she was not felt to have an autoimmune disease. Adam Soni MD Attn: Accounting, [place], [address], [facility] 07/16/2024 13:32:36 5 text/html Diabetes F/UReported bypatient.Labs:last A1C result: 7.1% Context:normal range of home blood sugars (in the low 100s); seeing eye doctor regularly; checking feet regularly; taking aspirin daily; not missing doses of medications; no side effects from medications Associated Symptoms:no weight gain; no dizziness; no sweats; no headaches; no confusion; no increased thirst; no increased appetite; no increased urination; no blurred vision; no numbness of feet; no calluses on feet;weight loss (5 lbs) I just don't eat. Just very stressed, I just don't feel like eating In the interim, she was seen by the bullet swaging machine adjuster and supervisor education, she is having some dental work done soon. She is providing care for her and appears to be overwhelmed. She admits to being anxious and depressed and in the past had used low dose Escitalopram, Citalopram and and PRN Clonazepam. She felt that the Escitalopram had caused dizziness and, or drowsiness. Adam Soin MD Attn: Accounting, [place], [address], [facility] 12/11/2024 14:08:05 OBGyn Episode No OBEpisode recorded.
--- OUTSIDE RECORDS SUMMARY | 2024-12-27 12:58 | XMS_ITS ---
Author Organization [facility] Address [address] [place] [address] Care Team Providers Care Care Services Manager Name Role Phone Araiza Navneet Unavailable [phone] SOCIAL HISTORY Sex Assigned At : Social History Observation Description Sex Assigned At Female PROBLEMS Problem Type ICD Code Onset Dates Problem Status W/U Status Risk SNOMED Code Notes Problem Anemia, unspecified (D64.9) Active confirmed Anemia (904861173) Encounters Encounter Location Date Provider Diagnosis [place] [facility] [address] [facility] [address] [place] [address] 11/27/2024 Navneet Araiza Chronic kidney disease, stage 3 unspecified N18.30 ; Essential hypertension I10 ; Type 2 diabetes mellitus with hyperglycemia E11.65 ; Gastro-esophageal reflux disease with esophagitis, without bleeding K21.00 ; Vitamin D deficiency, unspecified E55.9 and Anemia, unspecified D64.9 ASSESSMENTS Encounter Date Diagnosis Assessment Notes Treatment [...] E55.9) 11/27/2024 Anemia, unspecified (ICD-10 - D64.9) PLAN OF TREATMENT Next Appt Details Provider Name:Navneet Araiza , 03/05/2025 02:00:00 PM, [address] [facility], [facility] [address], [place], [address], Progress Notes * Berto SOTO:1955 ([age] yo F)Acc No.[id number]:11/27/2024 Progress Notes Patient: Suyapa SOTO Provider: MD SCUOT, Zaira.Juanita.Haley.P, F.A.S.N. :1955 Age:69 Y Sex:Female Date:11/27/2024 Address:[address] [place] [address] Subjective: * Chief Complaints: * * Medical History: Objective: Assessment: * Assessment: 1. Chronic kidney disease, stage 3 unspecified - N18.30 (Primary) 2. Essential hypertension - I10 3. Type 2 diabetes mellitus with hyperglycemia - E11.65 4. Gastro-esophageal reflux disease with esophagitis, without bleeding - K21.00 5. Vitamin D deficiency, unspecified - E55.9 6. Anemia, unspecified - D64.9 Plan: * Treatment: * Billing Information: * Visit Code: 14929 Office Visit, Est Pt., Level 4. * Procedure Codes: * Sign off status: Pending * Provider: MD SCOUT, Zaira.Juanita.Haley.P, F.A.S.N. Date: 11/27/2024
--- OUTSIDE RECORDS SUMMARY | 2024-12-27 12:58 | XMS_ITS ---
Author Organization [facility] Address [address] [place] [address] Care Team Providers Care Digital Music Instructor Name Role Phone Navneet Araiza Unavailable [phone] MEDICATIONS Medication SIG (Take, Route, Frequency, Duration) Notes Start Date End Date Status Cefuroxime Axetil 500 MG 1 tablet Orally every 12 hrs for 5 day(s) 08/02/2024 08/07/2024 Active SOCIAL HISTORY Sex Assigned At : Social History Observation Description Sex Assigned At Female Encounters Encounter Location Date Provider Diagnosis [facility] [address] [facility] [address] [place] [address] 08/02/2024 Navneet Araiza PLAN OF TREATMENT Medication Medication Name Sig Start Date Stop Date Notes Cefuroxime Axetil 500 MG 1 tablet Orally every 12 hrs for 5 day(s) 08/02/2024 08/07/2024 Next Appt Details Provider Name:Navneet Araiza , 03/05/2025 02:00:00 PM, [address] [facility], [place], [address], Progress Notes * Suyapa SOTODOB:1955 ([age] yo F)Acc No.[id number]:08/02/2024 Patient: Suyapa SOTO :1955 Age:69 Y Sex:Female Address:[address] [place] [address] * Refills Start Cefuroxime Axetil Tablet, 500 MG, Orally, 10, 1 tablet, every 12 hrs, 5 day(s) * * Date:
--- OUTSIDE RECORDS SUMMARY | 2024-12-27 12:58 | XMS_ITS | Clinical Summary ---
Author Organization [facility] Address [address] [place] [address] Care Team Providers Care Slabber Light Name Role Phone Adam Soni MD Primary Care Provider Source Comments [facility],non-owned Affiliates and Associated Physician Practices is amultiple site organization consisting of ambulatory clinics and hospital sitesin [place], [place], [place] and [place]. This disclosure is being madepursuant to the Care Everywhere program and may not contain all information available regarding this patient. Last updated 18.[facility] Allergies Active Allergy Reactions Criticality Noted Date [...] and evening meal 05/22/2022 Active HYDROcodone-acetamino phen ([place]) 5-325 MG tablet Take 1 (one) tablet by mouth every 6 hours as needed for Pain 09/05/2023 Active vitamin D, ergocalciferol, (Drisdol) 1.25 MG (30612 UT) capsule Take 1 (one) capsule by [...] Office Visit [facility] [address] [place] [address], [place] [address] Damien Villalta MD [address] [place] [address] [place] [address] Health Maintenance Due Date Last Done Comments [...] 2024 07/08/2021, 06/24/2021, 10/04/2020, Additional history exists DEPRESSION SCREENING 09/18/2024 DIABETES - URINE PROTEIN SCREENING 09/18/2024 MEDICARE AWV CALENDAR YEAR 2024 INFLUENZA VACCINE (Season Ended) 2025 09/04/2023, 07/18/2022, 07/18/2022, Additional history exists DTAP/TDAP/TD VACCINES (3 - Td or Tdap) [...] complete this topic MENINGOCOCCAL (Group B) VACCINE SHARED DECISION-MAKING Aged Out No longer eligible based on patient's age to complete this topic MENINGOCOCCAL GROUPS A/C/Y/W VACCINE Aged Out No longer eligible based on patient's age to complete this topic Care Teams Slabber Light Relationship Specialty [place] [address] [place] [phone] PCP - General Internal Medicine 04/12/23
--- OUTSIDE RECORDS SUMMARY | 2024-12-27 12:58 | XMS_ITS | Encounter Summary ---
Author Organization [facility] Address [address] [place] [address] Care Team Providers Care Clinical Trial Associate Name Role Phone Adam Soni MD Primary Care Provider [phone] Encounter Details Date Type Department Care Team (Late st Contact Info) Description 08/01/2000 Outpatient Historical [place] [address] [facility] [address] [place] [address] Sensorineural hearing loss, bilateral (Primary Dx) Social History Tobacco Use Types Packs/Day Years Used Date Smoking Tobacco: Never Assessed Comments Unknown Sex and Gender Information Value Date Recorded Sex Assigned at Not on file Legal Sex 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 SHIP[employer]ITH Gender Identity Not on file Sexual Orientation Not on file documented as of this encounter Plan of Treatment Upcoming Encounters Date Type Department Care Team (Late st Contact Info) Description 05/14/2025 11:00 AM CDT Office Visit [facility] - [place] [address] [facility] [address] [place] [address] Jordi Elizondo MD [address] [facility] [address] [place] [address] documented as of this encounter Visit Diagnoses Diagnosis Sensorineural hearing loss, bilateral- Primary documented in this encounter Care Teams Clinical Trial Associate Relationship Specialty [place] [address] [place] [phone] PCP - General Internal Medicine 09/25/23 documented as of this encounter
--- OUTSIDE RECORDS SUMMARY | 2024-12-27 12:59 | XMS_ITS | Patient Health Record ---
Author Organization [facility] Address [address] [place] [address] Care Team Providers Care Special Service Officer Name Role Phone Navneet Araiza Unavailable [phone] REASON FOR REFERRAL No Information MEDICATIONS Medication SIG (Take, Route, Frequency, Duration) Notes Start Date End Date Status Losartan Potassium 50 MG 1 tablet Orally Once a day for 90 05/22/2024 Active Vitamin D (Ergocalciferol) 86111 UNIT 1 capsule Orally once a week [...] Problem Anemia, unspecified (D64.9) Active confirmed Anemia (689942849) Problem Type 2 diabetes mellitus with hyperglycemia (E11.65) Active confirmed Hyperglycemia d ue to type 2 diabetes mellitus (736562237919619) Problem Vitamin D deficiency, unspecified (E55.9) Active confirmed Vitamin D deficiency (26026777) Problem Essential hypertension (I10) Active confirmed Essential hypertension (15027632) Problem Gastro-esophagea l reflux disease with esophagitis, without bleeding (K21.00) Active confirmed Gastroesophagea l reflux disease with esophagitis (disorder) (705638442) Problem Chronic kidney disease, stage 3 unspecified (N18.30) Active confirmed Chronic kidney disease stage 3 (disorder) (851960054) Encounters Encounter Location Date Provider Diagnosis [facility] [address] [facility] [address] [place] [address] 04/26/2024 Navneet Araiza Chronic kidney disease, stage 3 unspecified N18.30 ; Essential hypertension I10 ; Type 2 diabetes mellitus with hyperglycemia E11.65 and Gastro-esophageal reflux disease with esophagitis, without bleeding K21.00 [facility] [address] [place] [address] 05/22/2024 Navneet Araiza Chronic kidney disease, stage 3 unspecified N18.30 ; Essential hypertension I10 ; Type 2 diabetes mellitus with hyperglycemia E11.65 and Gastro-esophageal reflux disease with esophagitis, without bleeding K21.00 [facility] [address] [place] [address] 07/31/2024 Navneet Araiza Chronic kidney disease, stage 3 unspecified N18.30 ; Essential hypertension I10 ; Type 2 diabetes mellitus with hyperglycemia E11.65 and Gastro-esophageal reflux disease with esophagitis, without bleeding K21.00 [facility] [address] [place] [address] 10/09/2024 Navneet Araiza Chronic kidney disease, stage 3 unspecified N18.30 ; Type 2 diabetes mellitus with hyperglycemia E11.65 ; Vitamin D deficiency, unspecified E55.9 ; Glycosuria R81 and Proteinuria, unspecified R80.9 [facility] [address] [place] [address] 11/27/2024 Navneet Araiza Chronic kidney disease, stage 3 unspecified N18.30 ; Essential hypertension I10 ; Type 2 diabetes mellitus with hyperglycemia E11.65 ; Gastro-esophageal reflux disease with esophagitis, without bleeding K21.00 ; Vitamin D deficiency, unspecified E55.9 and Anemia, unspecified D64.9 [facility] [address] [place] [address] 08/01/2024 Navneet Araiza [facility] [address] [place] [address] 08/02/2024 Navneet Araiza [facility] [address] [place] [address] 05/22/2024 Navneet Araiza [facility] [address] [place] [address] 08/01/2024 Navneet Araiza ASSESSMENTS Encounter Date Diagnosis [...] stage 3 unspecified (ICD-10 - N18.30) 11/27/2024 Chronic kidney disease, stage 3 unspecified (ICD-10 - N18.30) 11/27/2024 Essential hypertension (ICD-10 - I10) 10/09/2024 Vitamin D deficiency, unspecified (ICD-10 - [...] - K21.00) 10/09/2024 Glycosuria (ICD-10 - R81) 11/27/2024 Type 2 diabetes mellitus with hyperglycemia (ICD-10 - E11.65) 11/27/2024 Gastro-esophageal reflux disease with esophagitis, without bleeding (ICD-10 - K21.00) 07/31/2024 Gastro-esophageal reflux disease with esophagitis, without bleeding (ICD-10 - K21.00) 10/09/2024 Proteinuria, unspecified (ICD-10 - R80.9) 11/27/2024 Vitamin D deficiency, unspecified (ICD-10 - E55.9) 11/27/2024 Anemia, unspecified (ICD-10 - D64.9) PLAN OF TREATMENT Next Appt Details Provider Name:Navneet Araiza , 03/05/2025 02:00:00 PM, [address], [place], [address],
--- OUTSIDE RECORDS SUMMARY | 2024-12-27 12:59 | XMS_ITS | CONTINUITY OF CARE DOCUMENT ---
Author Name fanny escobedo Address Unknown Organization [facility] Address [address] [facility] [address] [place] [address] Phone [phone] Care Team Providers Care Hog Pusher Name Role Phone Jose G MONSALVE, Gilles Unavailable [phone] ADY AGUILAR MD Unavailable [phone] ADY AGUILAR MD Unavailable [phone] PROBLEMS Condition Status Date Provider Notes CKD [...] implantable loop recorder--LILLIANA reached, explanted active Scooby Veloz SVT active Cabrera Moise Syncope active Ko [...] In-person encounter Office Visit Gilles Araiza MD [facility] - In-person encounter Office Visit Gilles Araiza MD [facility] Atrial fib paroxysmal - on eliquis - In-person encounter Office Visit Gilles Araiza MD [facility] AnemiaCarotid arterial disease--carotids <50% bilat, 03/2024 - In-person encounter Office Visit Gilles Araiza MD [facility] - In-person encounter Office Visit Parth Gallagher MD [facility] - In-person encounter Office Visit Parth Gallagher MD [facility] Presence of implantable loop recorder--LILLIANA reached, explanted - In-person encounter Office Visit Gilles Araiza MD [facility] Presence of implantable loop recorder--LILLIANA reached, explantedFatigue - In-person encounter Office Visit Gilles Araiza MD [facility] - In-person encounter Office Visit Gilles Araiza MD [facility] - In-person encounter Office Visit Gilles Araiza MD [facility] - In-person encounter Office Visit Gilles Araiza MD [facility] - In-person encounter Office Visit Gilles Araiza MD [facility] Syncope - In-person encounter Office Visit Parth Gallagher MD [facility] SVT - In-person encounter Office Visit Gilles Araiza MD [facility] - In-person encounter Office Visit Gilles Araiza MD [facility] Atrial fibrillation - In-person encounter Office Visit Gilles Arazia MD [facility] Family History Coronary Heart Disease male < 55:Family History of CVA or Stroke: - In-person encounter Office Visit Parth Gallagher MD [facility] - In-person encounter Office Visit Parth Gallagher MD [facility] - In-person encounter Office Visit Parth Gallagher MD [facility] Presence of implantable loop recorder--LILLIANA reached, explanted - In-person encounter Office Visit Parth Gallagher MD [facility] - In-person encounter Office Visit Gilles Araiza MD [facility] TIA - In-person encounter Office Visit Gilles Araiza MD [facility] PalpitationsDiabetes mellitusHTN essential--echo ef nl, mod [...] Araiza MD pulse rate 75 /min Raquel Marion blood pressure, cuff size regular Ta yair Marion blood pressure, diastolic 84 mm[Hg] Ta pradeepha Marion blood pressure, systolic 120 mm[Hg] Tab magdi Marion oxygen saturation, oximetry 99 % Raquel Marion weight E&M 118.8 [lb_av] Raquel Marion height E&M 60 [in_i] Raquel Marion respiratory rate E&M 12 /min Raquel Marion Body Mass Index (Ratio) 24.02 kg/m2 Carmine Araiza MD blood pressure, cuff size regular Adrien [facility] blood pressure, diastolic 89 mm[Hg] Adrien [facility] blood pressure, systolic 153 mm[Hg] [facility], [facility]xim[facility] 100 % [facility] respiratory rate E&M 16 /min Sandra Weems [facility] pulse rate 77 /min [facility] weight E&M 123 [lb_av] [facility] height E&M 60 [in_i] [facility] Body Mass Index (Ratio) 23.75 kg/m2 Carmine Araiza MD blood pressure, diastolic 85 mm[Hg] [facility] blood pressure, systolic 151 mm[Hg] [facility] oxygen saturation, oximetry 100 % [facility] pulse rate 72 /min [facility] weight E&M 121.6 [lb_av] [facility] blood pressure, cuff size regular [facility] height E&M 60 [in_i] Reena Fay Body Mass Index (Ratio) 24.61 kg/m2 Carmine Araiza MD blood pressure, diastolic 107 mm[Hg] Julissa Krueger blood pressure, systolic 170 mm[Hg] Denise Beckogsay blood pressure, diastolic 107 mm[Hg] [facility] blood pressure, systolic 170 mm[Hg] Boris smith [facility] oxygen saturation, oximetry 100 % Kristyn [facility] pulse rate 80 /min [facility] weight E&M 126 [lb_av] Kristyn [facility] respiratory rate E&M 16 /min Ortiz aviles [facility] blood pressure, cuff size large [facility] height E&M 60 [in_i] Kristyn [facility] Body Mass Index (Ratio) 24.80 kg/m2 Carmine Araiza MD blood pressure, diastolic 76 mm[Hg] Ke rri Leightonuenenfeld blood pressure, systolic 141 mm[Hg] Ker ri Reubennenfmichele blood pressure, cuff size regular Ke rri Leightonuenenfchi [facility] [place] oxygen saturation, oximetry 99 % Areli Batool respiratory rate E&M 14 /min Areli G lanceenenfchi [facility] [place] pulse rate 71 /min Areli Leo [facility] weight E&M 127 [lb_av] Areli Leo [facility] height E&M 60 [in_i] Areli Leightonuenenfe [facility] blood pressure, diastolic, supine 70 mm[H g] Gilles Araiza MD Body Mass Index (Ratio) 25.00 kg/m2 Carmine Araiza MD blood pressure, systolic, supine E&M [...] mijares Manuel oxygen saturation, oximetry 97 % [facility] respiratory rate E&M 16 /min [facility] O'Manuel pulse rate 71 /min [facility] weight E&M 128 [lb_av] [facility] height E&M 60 [in_i] [facility] Body Mass Index (Ratio) 25.00 kg/m2 [...] Araiza MD respiratory rate E&M 16 /min [facility] blood pressure, diastolic 82 mm[Hg] [facility], systolic 157 mm[Hg] Jayce mijares Womack pulse rate 63 /min [facility] oxygen saturation, oximetry 94 % [facility] weight E&M 129 [lb_av] [facility] height E&M 60 [in_i] [facility] Body Mass Index (Ratio) 24.92 kg/m2 Cosme Bang blood pressure, diastolic 69 mm[Hg] Stephane Olvera blood pressure, systolic 146 mm[Hg] Elizabeth Loweenson oxygen saturation, oximetry 96 % Surya Olvera respiratory rate E&M 18 /min Aj Olvera pulse rate 81 /min Surya katz weight E&M 127.6 [lb_av] Surya ryanon height [...] Shi blood pressure, systolic 138 mm[Hg] Ratna aLmbam oxygen saturation, oximetry 98 % Pierre Shi respiratory rate E&M 16 /min Pierre Shi pulse rate 97 /min Sparks Shi weight E&M 125 [lb_av] Sparks Shi height E&M 60 [in_i] Pierre Shi [...] Scooby Veloz smoking status Never smoker Scooby Velzo social history E&M S moking History: Chrystal paz has never smoked. Mihaela [facility] smoking status Never smoker Mihaela [facility] social history reviewed E&M revi ewed - no changes required [facility] E&M S moking History: Chrystal paz has never smoked. [facility] smoking status Never smoker [facility] social history reviewed E&M revi ewed - no changes required [facility] social history E&M Smoking Histo ry: [...] grandchildren Gilles Shi smoking status Never smoker Sparks Laverne weems alcohol use no Aura Emmett smoking status Never smoker Aura Christine FAMILY HISTORY Family Member Condition Father [place] male <55 Mother Family History of CV A or Stroke: Father Family History Coron ann Heart Disease male < 55: INSURANCE PROVIDERS Payer name Policy type / Coverage type [place] [employer] party ID AARP [facility] ADVANTAGE PLAN 2 (HMO-POS) Medicare [id number] ADVANCE DIRECTIVES Name Date DISCUSSED - NO DECISION MADE TREATMENT PLAN Date Name Performer [id number],C, H er updated medication list for this problem includes: Amaryl 2 Mg Tablet (Glimepiride) ..... Sliding scale per sugars Losartan 25 Mg Tablet (Losartan) ..... Take 1 once a day Januvia 100 Mg Tablet (Sitagliptin) ..... Take 1 tablet once a day Parth Gallagher MD [id number],C, Parth sue MD [id number],C, Parth sue MD [id number],SScooby i [id number],SScooby i [id number],SScooby i [id number],BScooby i [id number],S, Scooby Ahmedza i [id number],S, Scooby Ahmedza i [id number],S, Scooby Ahmedza i [id number],S, Scooby Ahmedza i [id number],S, Scooby Ahmedza i [id number],S, Scooby Ahmedza i [id number],S, Scooby Ahmedza i [id number],S, Scooby Ahmedza i [id number],S, Scooby Ahmedza i [id number],S, Scooby medza i [id number],S, Scooby medza i [id number],S, Scooby Ahmedza i [id number],S, Scooby Ahmedza i [id number],S, Scooby Ahmedza i [id number],B, Scooby Ahmedza i [id number],S, Scooby Ahmedza i [id number],S, Scooby Ahmedza i [id number],S, Scooby Ahmedza i [id number],S, Eleanor Allen [id number],S, Eleanor Allen [id number],S, Eleanor Allen [id number],S, Eleanor Allen [id number],S, Gilles Araiza MD [id number],B, Gilles Araiza MD [id number],B, Gilles Araiza MD [id number],B, Gilles Araiza MD [id number],B, Gilles Araiza MD [id number],B, Gilles Araiza MD Cardiology:This visi t has [...] (03/05/2024) Orders: R PM (remote patient monitoring) (02098) Gilles Araiza MD Cardiology: H er updated [...] (03/05/2024) Orders: R PM (remote patient monitoring) (04467) [facility] H er updated medication list for this problem includes: Flecainide 50 Mg Tablet (Flecainide) ..... Take 1 tablet by mouth twice a day Metoprolol Succinate 25 Mg Tablet Extended Release 24 Hr (Metoprolol succinate) ..... Take 1 tablet by mouth every day [facility]: H er updated medication list for this problem includes: Metoprolol Succinate 25 Mg Tablet Extended Release 24 Hr (Metoprolol succinate) ..... Take 1 tablet by mouth every day Losartan 25 Mg Tablet (Losartan) ..... Take 1 once a day [facility]: H er updated medication list for this problem includes: Flecainide 50 Mg Tablet (Flecainide) ..... Take 1 tablet by mouth twice a day Metoprolol Succinate 25 Mg Tablet Extended Release 24 Hr (Metoprolol succinate) ..... Take 1 tablet by mouth every day [facility]: T he following medications were removed [...] 1 once a day Scooby [facility]zai [facility]: O rders: P ROBNP, N TERMINAL ([id number]) C arotid Duplex Bilateral (CPT-12117) [facility]: O rders: C omplete Echo (14153) P ROBNP, N TERMINAL (51416) [facility]: H er updated medication list for this problem includes: Amaryl 2 Mg Tablet (Glimepiride) ..... Sliding scale per sugars Losartan 25 Mg Tablet (Losartan) ..... Take 1 once a day Januvia 100 Mg Tablet (Sitagliptin) ..... Take 1 tablet once a day Orders: P ROBNP, N TERMINAL (63891) Scooby medzai Cardiology: O rders: P ROBNP, N TERMINAL (78806) [facility]: O rders: C omplete Echo (37060) P ROBNP, N TERMINAL (88051) [facility]: O rders: C omplete Echo (23722) P ROBNP, N TERMINAL (71130) [facility] Ahmedzai Cardiology [facility]zai Cardiology Scooby [...] Take 1 tablet by mouth every day [facility] Elect[facility]iology Fo llow up:s/p ILR 06/2019. H er updated medication list for this problem includes: Aspirin Adult Low Dose 81 Mg Oral Tablet Delayed Release (Aspirin) ..... Take 1 tab once daily [facility] Electrophysiology Fo llow up:per PCP H [...] hcl) ..... Take one tablet twice daily [facility] Fo llow up: B P [...] potassium) ..... Take one pill a day [facility] Electrophysiology Fo llow up: H er updated [...] rior BP: 136/80 (08/02/2019) Juliano Merritt Electrophysiology [facility] Electrophysiology: H er updated medication list for [...] ILR I recommend antiarrhythmic medication treatment and manager intermediate anticoagulation. Tom Bess Electrophysiology:Hx of. Lulú Bess [...] Hookup Gilles Araiza MD co mpleted SNOMED-CT: [id number] Physical Exam, Performed: Pulse Exam of Foot Gilles Araiza MD completed EKG Gilels Araiza MD completed SNOMED-CT: [id number] Current Medications Documented Gilles Araiza MD completed
--- OUTSIDE RECORDS SUMMARY | 2024-12-27 12:59 | XMS_ITS | Clinical Summary ---
Author Organization [facility] Address [address] [facility] [place] [address] Care Team Providers Care Fertilizer Applicator Name Role Phone Adam Soni MD Primary Care Provider [phone] Allergies Active Allergy Reactions Criticality Noted Date [...] Encounters Date Type Department Care Team Description 12/04/2024 External Device Data STL ABSTRACTION Provider, Abstract 11/23/2024 External Device Data ST[facility] ABSTRACTION Provider, Abstract 11/22/2024 External Device Data ST[facility] ABSTRACTION Provider, Abstract 11/20/2024 External Device Data ST[facility] ABSTRACTION Provider, Abstract 11/13/2024 11:00 AM MANAGER FLIGHT Office Visit [facility] Oncology and Hematology [facility] [address] [place] [address] Jordi Elizondo MD Chronic anemia (Primary Dx) 11/12/2024 Orders Only [facility] Oncology and Hematology [facility] [address] [place] [address] Jordi Elizondo MD 11/12/2024 Abstract [facility] Oncology and Hematology [facility] [address] [place] [address] Jordi Elizondo MD 11/05/2024 External Device Data [...] file Legal Sex 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 MANAGER FLIGHT Gender Identity Not on file Sexual Orientation Not on file Last Filed Vital Signs Vital Sign Reading Time Taken Comments Blood Pressure 130/65 11/13/2024 10:45 AM MANAGER FLIGHT Pulse 65 11/13/2024 10:45 AM MANAGER FLIGHT Temperature 35.9 C (96.7 F) 11/13/2024 10:45 AM MANAGER FLIGHT Respiratory Rate 15 11/13/2024 10:4 5 AM MANAGER FLIGHT Oxygen Saturation 90% 11/13/2024 10: 45 AM MANAGER FLIGHT Inhaled Oxygen Concentration - - Weight 51.2 kg (112 lb 12.8 oz) 025 10:45 AM MANAGER FLIGHT Height 152.4 cm (5') 09/25/2023 1:26 PM MANAGER FLIGHT Body Mass Index 22.03 09/25/2023 1:26 PM MANAGER FLIGHT Plan of Treatment Upcoming Encounters Date Type Department Care Team (Late st Contact Info) Description 05/14/2025 11:00 AM CDT Office Visit [facility] Oncology and Hematology [facility] [address] [facility] [address] [place] [address] Jordi Elizondo MD [address] [facility] [address] [place] [address] Health Maintenance Due Date Last [...] 07/18/2022, 07/07/2020, Additional history exists COVID-19 Vaccine (2023-2 5 season) 2024 07/08/2021, 06/24/2021, 10/04/2020, Additional history exists [place] ([place] Preventative Visit/Annual Wellness Visit 09/18/2024 DTAP/TDAP/TD VACCINES (3 - T d or Tdap) 06/17/2025 06/17/2015, 09/18/2004 COLORECTAL SCREENING 10/31/2033 10/31/2023, 09/08/20 15 Colorectal Cancer Screening 10/31/2033 PNEUMOCOCCAL VACCINE 50+ YEARS Completed 0 02/28/2023, 03/18/2020, 09/04/2014 Procedures Procedure Name Priority Date/Time Associated Diagnosis Comments BASIC METABOLIC PANEL Routine 11/08/2024 4:17 PM MANAGER FLIGHT from Last 3 Months Results * BASIC METABOLIC PANEL (11/08/2024 4:17 PM MANAGER FLIGHT) Blood us Jordi Elizondo MD CHEMISTRY ORDERABLES Final Resu lt from Last 3 Months Insurance Care Teams Fertilizer Applicator Relationship Specialty Start Date End Date Adam Soni MD [address] [place] [id number] PCP - General Internal Medicine 09/25/23
--- OUTSIDE RECORDS SUMMARY | 2024-12-27 12:59 | XMS_ITS ---
Author Organization [facility] Address [address] [place] [address] Care Team Providers Care Relay Dispatcher Name Role Phone Navneet Araiza Unavailable [phone] MEDICATIONS Medication SIG (Take, Route, Frequency, Duration) Notes Start Date End Date Status Losartan Potassium 50 MG 1 tablet Orally Once a day for 90 05/22/2024 Active Vitamin D (Ergocalciferol) 61901 UNIT 1 capsule Orally once a week [...] unspecified (E55.9) Active confirmed Vitamin D deficiency (31176821) Encounters Encounter Location Date Provider Diagnosis [place] [facility] [address] [facility] [address] [place] [address] 10/09/2024 Navneet Araiza Chronic kidney disease, stage [...] TREATMENT Next Appt Details Provider Name:Navneet Araiza 03/05/2025 02:00:00 PM, [address] [facility], [facility] [address], [place], [address], Progress Notes * Suyapa SOTODOB:1955 ([age] yo F)Acc No.[id number]:10/09/2024 Progress Notes Patient: Suyapa SOTO Provider: MD SCOUT, Zaira.Juanita.C.P, F.A.S.N. :1955 Age:69 Y Sex:Female Date:10/09/2024 Address:[address] [place] [address] Subjective: * Chief Complaints: * * Medical History: * Medications: Taking Losartan Potassium 50 MG Tablet 1 tablet Orally Once a day , Taking Vitamin D (Ergocalciferol) 18575 UNIT Capsule 1 capsule Orally once a [...] Treatment: * Billing Information: * Visit Code: 63396 Office Visit, Est Pt., Level 4. * Procedure Codes: * Sign off status: Pending * Provider: MD SCOUT, Zaira.Juanita.C.P, F.A.S.N. Date: 10/09/2024
== END 2024-12-27 12:53 | disposition home or self-care (01) ==
PROVIDERS: PCP Internal Medicine Infectious Disease; Visit Provider Internal Medicine Infectious Disease
DX: R63.4 Abnormal weight loss (principal)
CPT/HCPCS: 71250; 74176

== ENCOUNTER 2025-02-25 10:40 | Outpatient (CLI) | payer MEDICARE, SELFPAY ==
[2025-02-25 11:02] LABS: Basophils Absolute Auto 0.1 K/mm3 (0.0-0.1); Basophils Percent Auto 1.1 % (0.2-1.2); Eosinophils Absolute Auto 0.1 K/mm3 (0-0.3); Eosinophils Percent Auto 0.8 % (0-4.4); Hematocrit 32.2 % (37.0-47.0); Immature Granulocyte Absolute 0.05 K/mm3 (0.00-0.031); Immature Granulocyte Percent A 0.6 % (0-0.5); Lymphocytes Absolute Auto 1.36 K/mm3 (0.9-3.2); Lymphocytes Percent Auto 16.3 % (18.3-44.2); Mean Corpuscular HGB Conc 31.1 g/dl (32-36); Mean Corpuscular Hemoglobin 28.8 pg (26-34); Mean Corpuscular Volume 92.8 fl (80-100); Mean Platelet Volume 9.9 fl (7.4-10.4); Monocytes Absolute Auto 0.6 K/mm3 (0.1-0.6); Monocytes Percent Auto 6.8 % (2.6-8.5); Neutrophils Absolute Auto 6.2 K/mm3 (1.3-6.7); Neutrophils Percent Auto 74.4 % (45.5-73.1); Platelet Count Result 295 k/mm3 (150-375); Red Blood Count 3.47 M/mm3 (4.2-5.4); Red Cell Distribution Width 12.6 % (11.5-14.5); White Blood Count 8.3 K/mm3 (4.5-10.0)
--- OUTSIDE RECORDS SUMMARY | 2025-02-25 11:52 | XMS_ITS | Encounter Summary ---
Author Organization [facility] Address [address] [place] [address] Care Team Providers Care Surveyor Chain Helper Name Role Phone Adam Soni MD Primary Care Provider [phone] Encounter Details Date Type Department Care Team (Late st Contact Info) Description 08/01/2000 Outpatient Historical [place] [address] [facility] [address] [place] [address] Sensorineural hearing loss, bilateral (Primary Dx) Social History Tobacco Use Types Packs/Day Years Used Date Smoking Tobacco: Never Assessed Comments Unknown Sex and Gender Information Value Date Recorded Sex Assigned at Not on file Legal Sex 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 PICKLING DRUM OPERATOR Gender Identity Not on file Sexual Orientation Not on file documented as of this encounter Plan of Treatment Upcoming Encounters Date Type Department Care Team (Late st Contact Info) Description 05/14/2025 11:00 AM CDT Office Visit [facility] Oncology and Hematology - [place] [address] [facility] [address] [place] [address] Jordi Elizondo MD [address] [facility] [address] [place] [address] documented as of this encounter Visit Diagnoses Diagnosis Sensorineural hearing loss, bilateral- Primary documented in this encounter Care Teams Surveyor Chain Helper Relationship Specialty [place] [address] [place] [address] PCP - General Internal Medicine 09/25/23 documented as of this encounter
--- OUTSIDE RECORDS SUMMARY | 2025-02-25 11:53 | XMS_ITS | Patient Health Record ---
Author Organization [facility] Address [address] [facility] [address] [place] [address] Care Team Providers Care Manager Medical Device Name Role Phone Navneet Araiza Unavailable [phone] Reason For Referral No Information Medications Medication SIG (Take, Route, Frequency, Duration) Notes Start Date End Date Status Losartan Potassium 50 MG 1 tablet Orally Once a day for 90 05/22/2024 Active Social History Sex Assigned At : Social History Observation Description Sex Assigned At Female Problems Problem Type SNOMED Code ICD Code Onset Dates Problem Status W/U Status Risk Notes Problem Anemia (274931987) Anemia, unspecified (D64.9) Active confirmed Problem Hyperglycemia due to type 2 diabetes mellitus (042076411155703) Type 2 diabetes mellitus with hyperglycemia (E11.65) Active confirmed Problem Vitamin D deficiency (70228545) Vitamin D deficiency, unspecified (E55.9) Active confirmed Problem Essential hypertension (21563754) Essential hypertension (I10) Active confirmed Problem Gastroesophageal reflux disease with esophagitis (disorder) (432987907) Gastro-esophagea l reflux disease with esophagitis, without bleeding (K21.00) Active confirmed Problem Chronic kidney disease stage 3 (disorder) (047860191) Chronic kidney disease, stage 3 unspecified (N18.30) Active confirmed Encounters Encounter Location Date Provider Diagnosis [place] [facility] [address] [address] 04/26/2024 Navneet Araiza Chronic kidney disease, stage 3 unspecified N18.30 ; Essential hypertension I10 ; Type 2 diabetes mellitus with hyperglycemia E11.65 and Gastro-esophageal reflux disease with esophagitis, without bleeding K21.00 [place] [facility] [address] [address] 05/22/2024 Navneet Araiza Chronic kidney disease, stage 3 unspecified N18.30 ; Essential hypertension I10 ; Type 2 diabetes mellitus with hyperglycemia E11.65 and Gastro-esophageal reflux disease with esophagitis, without bleeding K21.00 [place] [facility] [address] [place] [address] 07/31/2024 Navneet Araiza Chronic kidney disease, stage 3 unspecified N18.30 ; Essential hypertension I10 ; Type 2 diabetes mellitus with hyperglycemia E11.65 and Gastro-esophageal reflux disease with esophagitis, without bleeding K21.00 [place] [facility] [address] [place] [address] 10/09/2024 Navneet Araiza Chronic kidney disease, stage 3 unspecified N18.30 ; Type 2 diabetes mellitus with hyperglycemia E11.65 ; Vitamin D deficiency, unspecified E55.9 ; Glycosuria R81 and Proteinuria, unspecified R80.9 [place] [facility] [address] [place] [address] 11/27/2024 Navneet Araiza Chronic kidney disease, stage 3 unspecified N18.30 ; Essential hypertension I10 ; Type 2 diabetes mellitus with hyperglycemia E11.65 ; Gastro-esophageal reflux disease with esophagitis, without bleeding K21.00 ; Vitamin D deficiency, unspecified E55.9 and Anemia, unspecified D64.9 [place] [facility] [address] [place] [address] 08/01/2024 Navneet Araiza [place] [facility] [address] [place] [address] 08/02/2024 Navneet Araiza [facility] [address] [place] [address] 05/22/2024 Navneet Araiza [place] [facility] [address] [place] [address] 08/01/2024 Navneet Araiza Assessments Encounter Date Diagnosis (ICD Code) Assessment [...] Araiza , 03/05/2025 02:00:00 PM, [address], [facility] [address], [place], [address],
--- OUTSIDE RECORDS SUMMARY | 2025-02-25 11:53 | XMS_ITS ---
Author Organization [facility] Address [address] [place] [address] Care Team Providers Care Water Safety Teacher Name Role Phone Michael Araizajit Unavailable [phone] Medications Medication SIG (Take, Route, Frequency, Duration) Notes Start Date End Date Status Calcitriol 0.25 MCG 1 capsule Orally Onc e a day for 90 day(s) 05/22/2024 02/16/2025 Active Losartan Potassium 50 MG 1 tablet Orally Once a day for 90 05/22/2024 Active Vitamin D (Ergocalciferol) 61806 UNIT 1 capsule Orally once a week for 90 days 05/22/2024 02/16/2025 Active Social History Sex Assigned At : Social History Observation Description Sex Assigned At Female Encounters Encounter Location Date Provider Diagnosis [place] [facility] [address] [facility] [address] [place] [address] 07/31/2024 Navneet Araiza Chronic kidney disease, stage [...] Name:Navneet Araiza , 03/05/2025 02:00:00 PM, 20[address] [facility], [facility] [address], [place], [address], Progress Notes * Berto SOTO:1955 ([age] yo F)Acc No.[id number]:07/31/2024 Progress Notes Patient: Suyapa RICE Provider: Renetta HERCULES MD, AnnP, F.A.S.N. :1955 A ge:69 Y S ex:Female Date:07/31/2024 Address:[address] [place] [address] Subjective: * Chief Complaints: * * Medical History: * Medications: T aking Losartan Potassium 50 MG Tablet 1 tablet Orally Once a day , Taking Vitamin D (Ergocalciferol) 90481 UNIT Capsule 1 capsule Orally once a [...] Treatment: * Billing Information: * Visit Code: 38767 Office Visit, Est Pt., Level 4. * Procedure Codes: * Electronic signature of Emilie Araiza MD on 02/25/2025 at 11:52 AM CDT Sign off status: Pending * Provider: Renetta HERCULES MD, AnnP, F.A.S.N. Date: 09/30/2023 Generated for Printing/Faxing/eTransmitting on: 0 02/25/2025 11:52 AM CDT
--- OUTSIDE RECORDS SUMMARY | 2025-02-25 11:53 | XMS_ITS ---
Author Organization [facility] Address [address] [place] [address] Care Team Providers Care Canvassing Manager Name Role Phone Navneet Araiza Unavailable [phone] Medications Medication SIG (Take, Route, Frequency, Duration) Notes Start Date End Date Status Losartan Potassium 50 MG 1 tablet Orally Once a day for 90 05/22/2024 Active Vitamin D (Ergocalciferol) 04275 UNIT 1 capsule Orally once a week for 90 days 05/22/2024 02/16/2025 Active Calcitriol 0.25 MCG 1 capsule Orally Onc e a day for 90 day(s) 05/22/2024 02/16/2025 Active Social History Sex Assigned At : Social History Observation Description Sex Assigned At Female Problems Problem Type SNOMED Code ICD Code Onset Dates Problem Status W/U Status Risk Notes Problem Vitamin D deficiency, unspecified (E55.9) Active confirmed Encounters Encounter Location Date Provider Diagnosis [place] [facility] [address] [facility] [address] [place] [address] 10/09/2024 Navneet Araiza Chronic kidney disease, stage [...] Name:Navneet Araiza , 03/05/2025 02:00:00 PM, [address] [facility], [facility] [address], [place], [address], Progress Notes * Suyapa SOTODOB:1955 ([age] yo F)Acc No.[id number]:10/09/2024 Progress Notes Patient: Suyapa RICE Provider: Renetta HERCULES MD, Zaira.Juanita.Haley.P, F.A.S.N. :1955 A ge:69 Y S ex:Female Date:10/09/2024 Address:[address] [place] [address] Subjective: * Chief Complaints: * * Medical History: * Medications: T aking Losartan Potassium 50 MG Tablet 1 tablet Orally Once a day , Taking Vitamin D (Ergocalciferol) 85812 UNIT Capsule 1 capsule Orally once a [...] Treatment: * Billing Information: * Visit Code: 24587 Office Visit, Est Pt., Level 4. * Procedure Codes: * Electronic signature of Emilie Araiza MD on 02/25/2025 at 11:53 AM CDT Sign off status: Pending * Provider: Renetta HERCULES MD, Zaira.Juanita.Haley.P, F.A.S.N. Date: 0 10/09/2024 Generated for Printing/Faxing/eTransmitting on: 0 02/25/2025 11:53 AM CDT
--- OUTSIDE RECORDS SUMMARY | 2025-02-25 11:53 | XMS_ITS | Data Portability ---
Author Organization [facility] Address [address] [place] [address] Assessment Encounter Date Assessment Date Assessment LastModified by Organization Details LastModified Time 03/25/2024 03/25/2024 She is not due for Prevnar 20 until 5 years after her last Pneumovax 23, which was administered on 02/28/2023 oajao Not available 03/25/2024 19:15:00 Plan of Treatment Reminders Order Date Submit Date Provider Last Modified By Organization Details Last Modified Time Details Appointments ANY 15 2024 11:00A M Adam Soni MD Not available Not available Not available Lab albumin/c reatinine , mass ratio, urine 2023 024 [facility], [address] [place], [address], 08/06/2024 09:31:14 BMP, serum or plasma 2023 024 [facility], [address] [place], [address], 04/09/2024 16:07:59 Referral endocrino logy, diabetes & metabolis m specialis t referral 2024 025 [place], [address], [place], [address], 02/12/2025 14:40:29 diabetic ophthalmo logy referral 2024 025 DILAN [facility], [address], [place], [address], 02/12/2025 13:50:29 nephrolog ist referral - Elevated creatinin e 2023 024 OSMANI Araiza MD (Nephrology, [address], [address], [place], [address], 05/01/2024 15:40:16 Procedures None recorded. Surgeries None recorded. Imaging CT, chest + abdomen + pelvis, w/o contrast - Weight loss 2024 025 [facility], [address], [place], [address], 12/29/2024 21:07:53 MAMMO, screening , digital, bilateral 2023 024 [facility] (Mammography) , [address], [place], [address], 02/11/2025 14:25:04 US, kidney - Elevated creatinin e 2023 024 [facility] (One Call Scheduling), [address], [place], [address], 04/08/2024 14:38:57 Medication Orders citalopra m 10 mg tablet 2023 024 [facility] #[id number], [address], [place], [address], 03/29/2024 20:09:07 Patient TargetsNo targets recorded. Patient Instructions Encounter Date Encounter Id Patient Instructions Last Modified By Organization Details Last Modified Time 03/25/2024 [id number] Most recent lab results from TTE/Carotid US (Scheduled) Labs US Citalopram Nephrology Follow up in 4 months and PRN oajao Not available 03/25/2024 15:51:21 07/16/2024 [id number] influenza (flu) vaccine: care instructions oajao Not available 07/16/2024 12:41:12 Labs MMG in August, Follow up in 5 months and PRN oajao Not available 07/16/2024 12:41:37 12/11/[id number] MMG as previously ordered Follow up in 6 weeks oajao Not available 12/11/2024 12:40:37 01/16/2025 [id number] advance care planning: care instructions oajao Not available 01/16/2025 14:15:07 preventing falls : care instructions oajao Not available 01/16/2025 14:15:07 Medicare [facility] Preventive Checklist oajao Not available 01/16/2025 14:15:07 eating healthy foods: care instructions oajao Not available 01/16/2025 14:15:07 AD8 Dementia Screening Interview oajao Not available 01/16/2025 14:15:07 Ophthalmology oajao Not available 14:38:05 02/12/2025 [id number] type 2 diabetes: care instructions oajao Not available 02/12/2025 12:25:06 MMG (March or April) Ophthalmology Endocrinology Labs (Scheduled) Follow up in 5 months and PRN oajao Not available 02/12/2025 12:27:47 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 Se rum creatinine above reference range Elevated creatinine Elevated creatinine Referring Physician: Adam Soni Internal Medicine, Encounter Date: 03/25/2024 Endocrinology, Diabetes & Me tabolism Specialist Referral for Uncontrolled type 2 diabetes mellitus DM, Referring Physician: Adam Soni Internal Medicine, Encounter Date: 02/12/2025 Diabetic Ophthalmology Refer ral for Uncontrolled type 2 diabetes mellitus HBA1C 7.1% Referring Physician: Adam Soni Internal Medicine, Encounter Date: 02/12/2025 Results Created Date Observation Date Name Description Value Unit Range Abnormal Flag Note LastModifiedBy Organization Detail LastModifiedTime 04/08/20 24 04/08/2024 , Dayana foss ation record ed. [facility] [address] [place], [address], 07/16/2024 12:25:52 04/09/20 24 04/09/2024 US, duple x, carot id arter y No observ ation record ed. [facility] [address], [place], [address], 07/16/2024 12:25:52 04/09/20 24 04/09/2024 trans -thor acic echoc ardio gram (TTE) (PROC ) No observ ation record ed. [facility] [address], [place], [address], 07/16/2024 12:25:52 04/24/20 24 04/24/2024 MRI, brain + brain stem, w/o contr ast No observ ation record ed. [address], [place], [address], 07/16/2024 12:25:52 12/30/19 25 12/27/2024 CT, chest + abdom en + pelvi s, w/o contr ast No observ ation record ed. [address], [place], [address], 01/16/2025 14:15:19 Result Notes None recorded. Problems Name Problem SNOMED Code Status Onset Date Resolution Date Notes Provider Name and Address Organization Details Recorded Time Multinod rosinaar goiter 483619477 Active 2017 Not Available [facility] 3 09:58:59 Multiple sclerosi s 41229752 Completed 201806/07/2019 Removal Reason: The neurolog ist disagree s Adam Soni MD Attn: Accounting ,[address] [facility], [place], [address] , [facility] 9 11:45:02 Pure hypercho lesterol emia 833013946 Active Not Available [facility] 3 09:58:59 Abnormal liver function 52836798 Active Not Available [facility] 3 09:59:00 Diabetes mellitus 18439862 Completed 10/23/2018 Adam Soni MD Attn: Accounting ,[address] [facility], [place], [address] , [place] [facility] 9 17:45:54 Osteoart hritis of ankle and/or foot 14532616 Active 2018 Not Available [facility] 3 09:59:00 Gastroes ophageal reflux disease 152055541 Active 2018 Not Available [facility] 3 09:58:59 Adenomat ous polyp of colon 783522099 Active 2019 Not Available [facility] 3 09:59:00 Thyroid nodule 086666878 Active 2019 Not Available [facility] 3 09:58:59 Osteopen ia 325101291 Active 2021 Not Available [facility] 3 09:58:59 Spinal stenosis of lumbar region 52948579 Active 2021 Not Available [facility] 3 09:58:59 History of anemia vitamin B12 deficien t 948691580 Active 2021 Not Available [facility] 3 09:58:59 Chronic anemia 429718957 Active 2021 Not Available [facility] 3 09:58:59 SARS-CoV -2 mRNA vaccine declined 5385679433 Active 2022 Not Available [facility] 3 09:58:59 Fracture of surgical neck of humerus 024397850 Active Adam Soni MD Attn: Accounting ,[address] [facility], [place], [address] , [place] [facility] 4 12:22:40 Anti-nuc lear factor detected 237372481 Active 2023 Adam Soni MD Attn: Accounting ,[address] [facility], [place], [address] , [place] [facility] 4 12:24:14 Generali zed anxiety disorder 27315708 Active Not Available [facility] 3 09:58:59 Acute upper respirat ory infectio n 78444651 Active Not Available [facility] 3 09:59:00 Impacted cerumen 51480787 Active Not Available [facility] 3 09:58:59 Candidia sis of vagina 78710223 Active Not Available [facility] 3 09:59:00 Disorder of urinary tract 25223591 Active Not Available [facility] 3 09:59:00 Urinary bladder pain 04680162 Active Not Available [facility] 3 09:58:59 Type 2 diabetes mellitus without complica tion 348585451 Active Not Available [facility] 3 09:58:59 Asthma 605387859 Active Not Available [facility] 3 09:58:59 Uncontro lled type 2 diabetes mellitus 688607951 Active Not Available [facility] 3 09:59:00 Non-alco holic fatty liver 193079108 Active Not Available [facility] 3 09:58:59 Low back pain 918228979 Active Not Available [facility] 3 09:58:59 Dizzines s 570771106 Active Not Available [facility] 3 09:58:59 Hiatal hernia 85280923 Active Not Available [facility] 3 09:59:00 Anemia 147332415 Active Not Available [facility] 3 09:58:59 Depressi ve disorder 02486588 Active Not Available [facility] 3 09:58:59 Low blood pressure 72612438 Active Not Available [facility] 3 09:59:00 Hyperlip idemia 45988848 Active Not Available [facility] 3 09:59:00 Chronic cerebral ischemia 574647873 Active 2016 Not Available [facility] 3 09:58:59 Notes:Some problems listed i n Document: #[id number] could not be added to this patient's chart. Please review this document and add these problems to the patient's chart manually as needed. Problem Notes None recorded. Procedures Surgical History Date Name Laterality Status Provider Name and Address Organization Details Recorded Time 2023 Diabetic Foot Exam completed Adam Soni MD Attn: Fany galdamez,[address] [place], [address], [facility] 4 19:09:01 2023 esophagogastroduodenoscopy completed Molly Wilkins MD Attn: Fany galdamez,[address] [place], [address], [place] [facility] 4 09:21:24 2023 colonoscopy completed Adam Soni MD Attn: Fany galdamez,[address] [place], [address], [place] [facility] 4 09:22:43 2014 colonoscopy completed Adam Soni MD Attn: Fany rudolph,[address] [place], [address], [place] [facility] 0 09:41:25 1984 Total hysterectomy completed Adam Soni MD Attn: Fany rudolph,[address] [place], [address], [place] [facility] 7 10:14:36 Arthroscopic Surgery completed Apr [facility] [place] [facility] 4 14:52:01 Appendectomy completed [place] [facility] 4 14:52:01 Cholecystectomy completed [place] [facility] 4 14:52:01 Hysterectomy completed [place] [facility] 4 14:52:01 Imaging Results None recorded. Procedure Notes None recorded. Medical Equipment None Reported. Allergies Allergen ID Allergen Name Allergen Category Reaction Reaction Severity Criticality Documentation Date Start Date Code Code System Note Provider Name and Address Organization Details Recorded Time 22943 Substance with sulfonami de structure and antibacte rial mechanism of action (substanc e) medicatio n Not available Not available Not available 09/04/2014 46496 8000 SNOMED Other react ions and sever ities : 'Adve rse react ion to subst ance' . Adam Soni MD Attn: Fany rudolph,[address] [place], [address], [place] [facility] 4 12:22:22 85683 Vioxx medicatio n hives mild Not available 09/04/2014 74137 9 RxNorm December CHANDLER Wiggins null, [place] - [place] 4 14:52:01 71675 Jardiance medicatio n other mild Not available 04/07/2017 52748 59 RxNorm Thrus h Adam Soni MD Attn: Fany galdamez,[address] [facility], [place], [address], [facility] - [facility] 5 12:17:57 Medications Name Sig Start Date Stop Date [...] completed Not Available Not Available Not Available buspirone 5 mg tablet TAKE 1 TABLET BY MOUTH TWICE A DAY NEEDED active PRN Not Available Not Available No t Available nystatin 100,000 unit/mL oral suspensio n [...] le 150 mg tablet TAKE 1 TABLET ONCE 02/12 completed Not Available Not Available Not Available [...] inophen 325 mg tablet TAKE 1 TABLET EVERY 4 TO 6 HOURS NEEDED FOR PAIN active Not Available Not Available No t Available fluconazo le 200 mg tablet 08/20 [...] ethasone 1 %-0.05 % topical cream APPLY TWICE A DAY NEEDED active Not Available Not [...] completed Not Available Not Available Not Available estradiol 0.01% (0.1 mg/gram) vaginal cream APPLY 1 GRAM EXTERNAL LY TO VULVA 2 TIMES PER WEEK active Not Available Not Available No t Available albuterol sulfate HFA 90 mcg/actua tion aerosol inhaler INHALE 2 PUFFS BY MOUTH INTO THE LUNGS EVERY 4 HOURS NEEDED FOR 30 DAYS active PRN Not Available Not Available No t Available metformin ER 500 mg tablet,ex tended release 24 hr TAKE 2 TABLETS BY MOUTH TWICE A DAY DIRECTED FOR DIABETES active Not Available Not Available No t Available calcitrio l 0.25 mcg capsule TAKE 1 CAPSULE BY MOUTH EVERY DAY FOR 90 DAYS active Not Available Not Available No t Available ipratropi um bromide 21 mcg (0.03 %) nasal spray [place] 2 sprays twice a day by intranas al route. 08/20 completed Not Available Not Available Not Available loratadin e 10 mg tablet Take 1 tablet every day by oral route as directed for 30 days. 08/21 completed Not Available Not Available Not Available amoxicill in 875 mg-potass ium clavulana te 125 mg tablet TAKE 1 TABLET BY MOUTH TWICE A DAY UNTIL FINISHED 01/16 completed Not Available Not Available Not Available [...] Available No t Available FreeStyle Megan 2 [place] USE DIRECTED . active Not Available Not Available No t Available Vitals Date Recorded Body height Body mass index (BMI) Body weight Oxygen saturation Oxygen saturation in Arterial blood by Pulse oximetry Heart rate Systolic blood pressure Diastolic blood pressure Provider Name and Address Organization Details Last Updated DateTime 5 152.4 cm 21.5 kg/m2 34552.2 4 g 95 % 95 % 66 /min 130 mm[Hg] 64 mm[Hg] Una Bocaengra [place] [facility] 5 11:58:12 Date Recorded Body height Body mass index (BMI) Body weight Heart rate Body temperature Oxygen saturation Oxygen saturation in Arterial blood by Pulse oximetry Systolic blood pressure Diastolic blood pressure Provider Name and Address Organization Details Last Updated DateTime 5 152.4 cm 21.4 kg/m2 01422.0 8 g 58 /min 97.5 [degF] 98 % 98 % 120 mm[Hg] 70 mm[Hg] Tracy Gaspar [place] [facility] 5 14:11:09 Date Recorded Body height Body mass index (BMI) Body weight Heart rate Oxygen saturation Oxygen saturation in Arterial blood by Pulse oximetry Respiratory rate Body temperature Systolic blood pressure Diastolic blood pressure Provider Name and Address Organization Details Last Updated DateTime 5 152.4 cm 21.9 kg/m2 49998.3 5 g 60 /min 100 % 100 % 12 /min 97.5 [degF] 120 mm[Hg] 66 mm[Hg] Una Bocanegra [place] [facility] 5 11:58:07 Date Recorded Body height Body mass index (BMI) Body weight Heart rate Oxygen saturation Oxygen saturation in Arterial blood by Pulse oximetry Body temperature Systolic blood pressure Diastolic blood pressure Provider Name and Address Organization Details Last Updated DateTime 4 152.4 cm 23.4 kg/m2 08477.0 1 g 76 /min 99 % 99 % 97.7 [degF] 124 mm[Hg] 70 mm[Hg] Una Bocanegra [place] [facility] 4 15:17:19 Date Recorded Body height Body mass index (BMI) Body weight Heart rate Oxygen saturation Oxygen saturation in Arterial blood by Pulse oximetry Respiratory rate Systolic blood pressure Diastolic blood pressure Provider Name and Address Organization Details Last Updated DateTime 4 152.4 cm 22.5 kg/m2 08670.5 6 g 70 /min 97 % 97 % 14 /min 146 mm[Hg] 70 mm[Hg] Una Bocanegra [place] [facility] 4 11:49:45 Social History Question Answer Notes LastModified by Organizat ion Details LastModified Time Tobacco Smoking Status Never Smoker December CHANDLER Wiggins [facility] 09/04/2014 14:52:00 Do You Have An Advance Directive? No Information not available 01/22/2015 What Is Your Level Of Caffeine Consumption? Heavy Information not available 01/22/2015 How Much Tobacco Do You Chew? None Information not available 01/22/2015 What Type Of Diet Are You Following? DIABETIC Information not available 01/22/2015 Education 4 Year College Information not available 01/22/2015 Are There Any [...] Date Of Your Most Recent Tobacco Screening? 02/12/2025 Information not available 02/12/2025 How Many Children Do You Have? 2 Information not available 01/22/2015 Performs Monthly Self-breast Exam? Yes Information not available 01/22/2015 Seat Belts Used Routinely Yes Information not available 01/22/2015 Are You Sexually Active? Yes Information not available 01/22/2015 Smoke Alarm In Home Yes Information not available 01/22/2015 Are You Passively Exposed To Smoke? No Information not available 01/22/2015 How Much Tobacco Do You Smoke? No Information not available 01/22/2015 General Stress Level Medium Information not available 01/22/2015 Do You Use Sunscreen Routinely? No Information not available 01/22/2015 On What Date Was Tobacco Cessation Counseling Provided? 01/16/2025 [email or web address] Information not available 01/16/2025 How Many Years Have You Smoked Tobacco? 0 Information not available 01/05/2017 Sex: Unknown Functional Status Question Answer Note LastModified by Organizat ion Details LastModified Time What is your level of alcohol consumption? Occasional Information not available 01/22/2015 Do you or have you ever used smokeless tobacco? Never used smokeless tobacco Information not available 08/20/2020 Are you currently employed? Yes Information not available 01/22/2015 Are you able to care for yourself? 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 Never used electronic cigarettes Information not available 08/20/2020 What is your exercise level? None Information [...] Skin Problems N Anemia N Heart Attack ([place]) N Anxiety Disorder Y Diabetes Y Muscle, [...] virus, quadrivalent, preservative 4 completed Not Available [facility] 08/25/2023 09:59:00 Influenza, split virus, quadrivalent, preservative 0 completed Not Available [facility] 08/25/2023 09:59:00 Influenza, split virus, quadrivalent, preservative 0 completed Not Available [facility] 08/25/2023 09:59:00 COVID-19, mRNA, LNP-S, PF, 30 mcg/0.3 mL dose 1 completed Not Available [facility] 08/25/2023 09:59:01 COVID-19, mRNA, LNP-S, PF, 30 mcg/0.3 mL dose 0 completed Not Available [facility] 08/25/2023 09:59:01 Pneumococcal conjugate PCV 13 0 completed Not Available [facility] 08/25/2023 09:59:01 COVID-19, mRNA, LNP-S, PF, 30 mcg/0.3 mL dose 1 completed Not Available [facility] 08/25/2023 09:59:01 COVID-19, mRNA, LNP-S, PF, 100 mcg/0.5mL dose or 50 mcg/0.25mL dose 1 completed Not Available [facility] 08/25/2023 09:59:01 COVID-19, mRNA, LNP-S, PF, 30 mcg/0.3 mL dose 1 completed Not Available [facility] 08/25/2023 09:59:01 Tdap 5 completed Not Available [facility] 08/25/2023 09:59:01 Influenza, high-dose, trivalent, PF 5 completed Not Available [facility] 08/25/2023 09:59:01 Tdap 5 completed Not Available [facility] 08/25/2023 09:59:01 influenza, intradermal, quadrivalent, preservative free 6 completed Not Available [facility] 08/25/2023 09:59:00 Influenza, high-dose, quadrivalent, PF 2 completed Adam Soni MD Attn: Accounting,[address] [facility], [place], [address], [place] [facility] 07/19/2022 08:15:18 pneumococcal polysaccharide PPV23 3 completed Adam Soni MD Attn: Accounting,[address] [place], [address], [place] [facility] 02/28/2023 11:16:05 Influenza, high-dose, quadrivalent, PF 3 completed Adam Soni MD Attn: Accounting,[address] [facility], [place], [address], [place] [facility] 09/04/2023 13:45:04 pneumococcal polysaccharide PPV23 4 completed Not Available [facility] 10/05/2019 02:33:01 Influenza, high-dose, trivalent, PF 4 completed Adam Soni MD Attn: Accounting,[address] [facility], [place], [address], [place] [facility] 07/16/2024 13:27:32 Influenza, split virus, quadrivalent, preservative 7 completed Not Available [facility] 08/25/2023 09:59:00 Past Encounters Encounter ID Performer Location Encounter Start Date Encounter Closed Date Diagnosis/Indication Diagnosis SNOMED-CT Code Diagnosis ICD10 Code Diagnosis Note [id number] Adam Soni MD [facility] (Adult Med) [address] [place] [phone] 09/04/2014 14:21:29 09/04/2014 15:43:48 Asthma [id number] Pneumovax today, she received the Influenza vaccine this season. 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 Hiatal hernia 66233926 Anemia 451101556 Stopped FeSO4 about a month ago [id number] MD Kathryn Jackson (Adult Med) [address] [place] [phone] 10/23/2014 15:45:33 10/23/2014 16:27:10 Pure hypercholesterolemia 390217250 She was off Lipitor when the labs were done, hopefully there should be improvemen t when this is repeated Abnormal l iver function 14845638 Most likely from her fatty liver. Diabetes mellitus 76067862 Labs in three months [id number] MD Kathryn Jackson (Adult Med) [address] [place] [address] 01/22/2015 15:50:19 01/22/2015 16:36:19 Uncontrolled type 2 diabetes mellitus 362354059 Uncontroll ed on Metformin 1000 mg po bid and Januvia 100mg po daily. Her diet is better and she gets steroid injections in her back every 4- 6months. Her FBS is high. I think she can restart Amaryl 1mg po daily [id number] MD Kathryn Jcakson (Adult Med) [address] [place] [phone] 05/21/2015 16:19:19 05/21/2015 17:24:20 Uncontrolled type 2 diabetes mellitus 917791399 Uncontroll ed on Metformin 1000 mg po [...] a few weeks Generalize d anxiety disorder 88079700 On Citalopram 5mg of Citalopram and intermitte nt Clonazepam . She is overwhelme d with her 's illness, her finances and her responsibi lities at home and at work. Although as I discussed with her, I think she may have unrealisti c expectatio ns. She should follow up with her counselor, Chito Waggoner. Acute uppe r respiratory infection 33805511 Allergy vs URI, I do not see a need for antibiotic s unless her throat culture comes back positive. Her rapid strep was negative She cannot tolerate Pseudophed rine, she can try Atrovent nasal spray Impacted cerumen 77477401 Screening mammography 59479517 She has an order sheet from Dr. Maynard, her last Pap smear was in July 2014 [id number] Adam Soni MD [facility] (Adult Med) [address] [place] [phone] 08/20/2015 16:21:38 08/20/2015 17:36:36 Anemia 493883332 D64.9 Chronic, she has had EGD and a colonoscop y in the recent past, I wonder if a capsule study is in order. Previously on iron. Urinary bladder pain 158 63131 R39.89 She describes intermitte nt bladder pressure, she does not really have frequency of urination or dysuria. She also feels that this may be from her back, as she neds epidurals. She has just completed a course of Ciprofloxa john for a recent UTI with chills and a positive UA. Type 2 evie betes mellitus without complication 188021114 E11.9 Not badly controlled with an HBA1C of 7, she may benefit from Aspirin 81mg po daily for [facility] protection . We however have to be cautious in view of her anemia. [id number] MD Kathryn Jackson (Adult Med) [address] [place] [phone] 01/21/2016 15:57:30 01/21/2016 17:11:57 Depressive disorder 43708374 F32.9 F41.0 There are new issues with her son and her , she needs therapy and I will highly recommend that she remains on 10 mg of Lexapro and PRN Klonopin. Uncontroll ed type 2 diabetes mellitus 511876082 E11.65 Uncontroll ed on Metformin 1000 mg po bid, Januvia 100mg po daily, Amaryl 1mg PRN. She really should take her Amaryl daily. Low blood pressure 74032 003 I95.9 Transient hypotensio n after her last epidural injection at [facility]. Anemia 101108071 D64.9 Chronic, she has had EGD and a colonoscop y in the recent past, I wonder if a capsule study is in order. [id number] MD Kathryn Jackson (Adult Med) [address] [place] [address] [id number] 0 04/28/2016 16:42:23 04/28/2016 17:41:54 Uncontrolled type 2 diabetes mellitus [id number] E11.65 Uncontroll ed (HBA1C increased from 7 to 8) on Metformin 1000 mg po daily (She cannot tolerate the second dose due to loose stools), Januvia 100mg po daily and Amaryl 1mg. I will increase her Amaryl to 2mg po daily, side effects were discussed. She unfortunat ada still drinks 2 cans of Coke a day. Hyperlipidemia 36869819 E78.5 Generalize d anxiety disorder 72955446 F41.1 She has chosen to discontinu e her intermitte nt Clonazepam . Medication monitoring 39 8261538 Z51.81 [id number] MD Kathryn Jackson (Adult Med) [address] [place] [address] [phone] 0 09/01/2016 16:15:10 09/01/2016 17:12:04 Uncontrolled type 2 diabetes mellitus 150253318 E11.65 Uncontroll ed (HBA1C has increased from 7 to 8) on Metformin 1000 mg po daily, Januvia 100mg po daily and Amaryl 2mg. To avoid polypharma cy, our options are to try extended release Metformin. If this does not result in a desirable Hba1c, we should look into Pioglitazo ne/Victoza and taking her off the CRUM due to the danger of hypoglycem ia which she has experience d around lunch time. Janet ledesma 0245578 6 H61.21 Diabetes mellitus 618052 09 E11.9 Anxiety 74155198 F41.9 She really should try and avoid using the Clonazepam , exercise and other methods to reduce her anxiety were discussed. She however has multiple family/wor k issues at this time. Anemia 993097228 D64.9 Chronic, she has had EGD and a colonoscop y in the recent past, I still wonder if a capsule study is in order. [id number] MD Kathryn Jackson (Adult Med) [address] [place] [address] [phone] 0 01/05/2017 16:24:03 01/05/2017 17:19:14 Uncontrolled type 2 diabetes mellitus 109801479 E11.65 Uncontroll edStop Glimepirid e due to hypoglycem ic eventsCont inue Januvia and MetforminS tart Jardiance, SE were discussedC all with log book readingsBM P in ~ 2 weeks Dizziness 776351992 R42 Chronic intermitte nt dizziness with an occipital headache, no loc but with spells. Previous imaging of the brain revealed a polyp, she was previously seen by a Dr. Barnes (ENT). 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 Intermitte nt palpitations 301483803 R00.2 [id number] MD Kathryn Jackson (Adult Med) [address] [place] [address] [phone] 0 02/16/2017 16:26:05 02/16/2017 17:58:51 Asthma 957322026 J45.909 Bronchitis 92421409 J40 Cough 62062396 R05 I suspect that her CRYSTAL- may be playing a role, she appears unconvince d but I have suggested a switch to an ARB Uncontroll ed type 2 diabetes mellitus 724586264 E11.65 Uncontroll edIncrease Glimepirid e to 3mg Disorder o f lipid metabolism 353951124 E78.9 Gastroesop hageal reflux disease 604196480 K21.9 Lacunar infarction 14328 8000 G46.7 Discussed, I do not see a role for an MRA [id number] MD Kathryn Jackson (Adult Med) [address] [place] [address] [phone] 0 04/07/2017 09:25:32 04/07/2017 16:28:26 Iron deficiency anemia 14119810 D50.9 Unexplaine d, she has had a colonoscop y and was started on oral iron, she needs an EGD +/- capsule study. Uncontroll ed type 2 diabetes mellitus 019314087 E11.65 Uncontroll ed on Metformin and Glimepirid e 3mg, she also has been having symptomati c episodes of hypoglycem ia. She will need another agent, I have recommende d Victoza and I will recommend that she cuts her Amaryl down to 2mg. Chronic ce rebral ischemia 494412956 I67.82 Memory impairment 306422 006 R41.3 [id number] MD Kathryn Jackson (Adult Med) [address] [place] [address] [phone] 05/19/2017 09:25:38 05/19/2017 10:14:27 Thyroid nodule 897469499 E04.1 She had a CTA of the neck, I have asked for a copy of the report. Although this and her CTA of the brain were both normal, there was an incidental thyroid nodule noted. Anemia 054363446 D64.9 Chronic, she has had a EGD and a colonoscop y in the recent past, I still think a capsule study is in order. She may need to see a hematologi st although she is not keen. Uncontroll ed type 2 diabetes mellitus 594775216 E11.65 Uncontroll ed on Metformin and Glimepirid e 3mg AM, she would like to add Amaryl 1mg HS, I have no objections although I would have preferred an injectable at this point. [id number] MD Kathryn Jackson (Adult Med) [address] [place] [address] [phone] 08/21/2017 09:37:32 08/21/2017 10:32:04 Multinodular goiter 614942091 E04.2 Repeat US needed in 6-12 months Anemia 871788024 D64.9 Chronic, she has had a EGD and a colonoscop y in the recent past, I still think a capsule study is in order. She did not go back to GI and she should reconsider seeing the hematologi st as her SPEP was abnormal. Essential hypertension 83034505 I10 Disorder o f lipid metabolism 390155776 E78.9 Decrease Lipitor as she feels that it causes MSK pain and she holds it every now and then. Type 2 evie blackwood mellitus without complication 194326545 E11.9 I still drink the soda, but not as muchNo more sodaEye exam completed 08/18/2017 Asthma 399337941 J45.90 [id number] MD Kathryn Jackson (Adult Med) [address] [place] [address] [id number] 0 12/20/2017 09:22:33 12/20/2017 10:09:09 Uncontrolled type 2 diabetes mellitus 794011485 E11.65 Discussed with Mrs. Soto Unexplaine d weight loss 884930888 R63.4 Generalize d anxiety disorder 44736694 F41.1 RF [place] 10/06/2016 Multiple sclerosis 87855 007 G35 [id number] MD Kathryn Jackson (Adult Med) [address] [place] [address] [phone] 0 05/31/2018 12:46:51 05/31/2018 13:48:41 Liver function tests outside reference range 162030361 R94.5 Meds? Hypercalcemia 47428331 E 83.52 Uncontroll ed type 2 diabetes mellitus 947379211 E11.65 Urinary tr act infectious disease 74207831 N39.0 For PRN use Candidiasis of mouth 797 60976 B37.0 PRN use Generalize d anxiety disorder 43849749 F41.1 RF MARTINE NavarretePMP last RF 12/23/2017 [id number] MD Kathryn Jackson (Adult Med) [address] [place] [address] [phone] 0 06/07/2019 10:18:58 06/07/2019 11:36:12 Degeneration of cervical intervertebral disc 20190778 M50.30 Screening for malignant neoplasm of breast 144113262 Z12.31 Asthma 819241357 J45.90 9 Osteoarthr itis of ankle and/or foot 47846649 M19.079 Chronic ce rebral ischemia 641627037 I67.82 Gastroesop hageal reflux disease 235698194 K21.9 Medication monitoring 39 1475886 Z51.81 Type 2 evie betes mellitus without complication 692449821 E11.9 [id number] MD Kathryn Jackson (Adult Med) [address] [place] [address] [phone] 03/18/2020 09:27:17 03/23/2020 15:25:49 Adenomatous polyp of colon 436730219 D12.6 09/09/2015 Q 5 years Thyroid nodule 729074381 E04.1 She had a CTA of the neck and a CT of the chest that both confirmed thyroid nodules.Th e US done 07/2017 confirms a MNG.Repeat US 02/13/2020 now suggests a moderately suspicious nodule, FNA vs repeat the US in 1 year. She will be seeing her endocrinol ogist on 03/19/2020. Administra tion of pneumococcal vaccine 52248734 Z23 Screening for malignant neoplasm of breast 824478135 Z12.31 Asthma 685724049 J45.90 9 Active or passive immunization 221750771 Z23 [id number] MD Kathryn Jackson (Adult Med) [address] [place] [address] [phone] 0 08/20/2020 08:48:32 08/21/2020 08:28:22 Thyroid nodule 169904003 E04.1 She had a CTA of the [...] is still not recommende d. Immunization due 7016805 08 Z28.3 Pneumovax is due Uncontroll ed type 2 diabetes mellitus 641769425 E11.65 Recurrent urinary tract infection 776756698 N39.0 [id number] MD Kathryn Jackson (Adult Med) [address] [place] [address] [phone] 0 12/21/2020 09:24:56 12/22/2020 10:48:42 Type 2 diabetes mellitus without complication 872920409 E11.9 Neuropathy 011442341 G62 .9 Neurontin was discussed, she declined [id number] MD Kathryn Jackson (Adult Med) [address] [place] [address] [phone] 0 06/22/2021 09:25:00 06/23/2021 12:32:55 Screening mammography of bilateral breasts 5897596157 34327 Z12.31 Feeling stressed 7152229 06 Z73.3 Renewal of prescription 276225589 Z76.0 Needs infl uenza immunization 608652010 Z28.3 [id number] MD Kathryn Jackson (Adult Med) [address] [place] [address] 02588-591 0 01/19/2022 13:46:16 01/20/2022 07:04:04 Stricture of esophagus 04400709 K22.2 Screening for malignant neoplasm of colon 847925417 Z12.11 Osteopenia 203794499 M85 .80 Chronic low back pain 27 3149211 M54.50 Cervical radiculopathy 75402292 M54.12 Inactive tuberculosis 11 053095 Z22.7 CXR negativeAs ymptomatic She has declined treatmentP t education on latent TB Screening for malignant neoplasm of breast 630067829 Z12.31 Chronic anemia 615812072 D64.9 Chronic, she has had a EGD and a colonoscop y in the recent past.GI [id number] MD Kathryn Jackson (Adult Med) [address] [place] [address] [phone] 0 05/24/2022 15:09:28 05/25/2022 11:18:27 Chronic anemia 082754164 D64.9 Chronic, she has had an EGD in ? and a colonoscop y 08/2015 .GI as referredPr eviously referred to the hematologi st on 09/10/2017 Dizziness 910522407 R42 Worsening of her chronic intermitte nt [...] brain History of anemia vitamin B12 deficient 901213257 Z86.2 [id number] MD Kathryn Jackson (Adult Med) [address] [place] [address] 28299-654 0 07/18/2022 15:31:47 07/19/2022 09:23:49 Administration of influenza vaccine 61851646 Z23 Dizziness 579823760 R42 Worsening of her chronic intermitte nt [...] disease.Re peat carotid US Immunization advised 310 980988 Z71.9 Mammography abnormal 168 723013 R92.8 New 5 mm nodule RUO on the MMG done on 07/01/2022 , the repeat US suggests a hematoma. A repeat US has been recommende d and ordered. Type 2 evie betes mellitus without complication 095948982 E11.9 Chronic anemia 749310637 D64.9 Chronic, she has had an EGD in ? and a colonoscop y 08/2015 .GI as referred on 01/19/2022r eviously referred to the hematologi st on 09/10/2017 AddendumLa bs Medication monitoring 39 0718285 Z51.81 [id number] Adam Soni MD [facility] (Adult Med) [address] [place] [address] [phone] 0 11/28/2022 10:23:49 11/29/2022 15:46:22 Persistent cough 538949550 R05.3 Body mass index 20-24 - normal 564067069 Z68.24 Type 2 evie betes mellitus without complication 100609287 E11.9 Medication monitoring 39 6588387 Z51.81 Postmenopausal state 764 93575 Z78.0 Immunization advised 310 195086 Z71.9 [id number] Adam Soni MD [facility] (Adult Med) [address] [place] [address] [phone] 0 02/28/2023 09:54:31 03/01/2023 16:16:56 Administration of pneumococcal vaccine 79117643 Z23 Chronic anemia 917131026 D64.9 Labs 01/26/2023 Hb 8.6, Hct 28.3, Ferritin 8Labs 12/02/2022; CBC 10, CMP (GLU 121)GI as previously referred on 01/19/2022 finesse is on Eliquis for her chronic AFIB OV 07/18/2022 Chronic, she has had an EGD in ? and a colonoscop y 08/2015 .GI as referred on 01/19/2022r eviously referred to the hematologi st on 09/10/2017 AddendumLa bs Asthma 706971973 J45.90 9 Body mass index 20-24 - normal 806547115 Z68.24 Caregiver role strain 12 5901894 Z73.3 SARS-CoV-2 mRNA vaccine declined 3338790002 Z28.21 Screening for malignant neoplasm of breast 440865239 Z12.31 Postmenopausal state 764 37028 Z78.0 Type 2 evie betes mellitus without complication 759911767 E11.9 HBA1C 7% History of atrial fibrillation 659381882 Z86.79 [id number] Adam Soni MD [facility] (Adult Med) [address] [place] [address] [phone] 0 09/04/2023 11:21:20 09/04/2023 12:36:19 Administration of influenza vaccine 69577294 Z23 Chronic anemia 279177566 D64.9 GI (Scheduled )She has declined iron infusionsI ncrease Iron to BIDLabs 06/18/2023 Hb 8, Hct 26Labs 05/26/2023 Hb 8, HCT 26 OV 02/28/2023L abs 01/26/2023 Hb 8.6, Hct 28.3, Ferritin 8Labs 12/02/2022; CBC 10/33, CMP (GLU 121)GI as previously referred on 01/19/2022h finesse is on Eliquis for her chronic AFIB OV 07/18/2022 Chronic, she has had an EGD in ? and a colonoscop y 08/2015 .GI as referred on 01/19/2022r eviously referred to the hematologi st on 09/10/2017 AddendumShante george Type 2 evie blackwood mellitus without complication 202213794 E11.9 HBA1C 6.6% (05/26/2023) , previously 7% Osteopenia 764943395 M85 .80 Discussed Medication monitoring 39 5294725 Z51.81 [id number] MD Kathryn Jackson (Adult Med) [address] [place] [address] 79921-873 0 03/25/2024 14:33:46 03/26/2024 12:43:23 Anxiety 58429136 F41.9 She has failed Lexapro in the pastStart Citalopram , side effects were discussed in detail.I would not recommend a sedative in light of her elevated BNP. Serum crea tinine above reference range 595436656 R79.89 Chronic anemia 973842282 D64.9 Labs 03/15/2024 Hb 10, Hct 31StableS/ [...] to the hematologi st on 09/10/2017 AddendumLa ariel [id number] MD Kathryn Jackson (Adult Med) [address] [place] [address] [phone] 0 07/16/2024 11:35:26 07/17/2024 11:02:23 Anti-nuclear factor detected 332781781 R76.8 No She declines further testing or a referral Diabetes mellitus 014686 09 E11.9 Screening mammography 24 910959 Z12.31 Administra tion of influenza vaccine 94113515 Z23 [id number] MD Kathryn Jackson (Adult Med) [address] [place] [address] [phone] 0 12/11/2024 11:47:12 12/12/2024 11:18:26 Body mass index 20-24 - normal 232811653 Z68.24 Mixed anxi ety and depressive disorder 688755970 F41.8 She was offered Buspirone and she declined, she mentioned Hydroxyzin e but was non committal. I have given her patient education materials and she will let me know what she decides Unexplaine d weight loss 397268504 R63.4 She has lost another 5 lbs since her last visit.EGD and Colonoscop y 11/01/2023M MG 08/21/2023 The 2024 MMG has been orderede needs imaging of the chest abdomen and pelvis to rule out other causes of her weight loss Caregiver role strain 12 4570745 Z73.3 [id number] MD Kathryn Jackson (Adult Med) [address] [place] [address] [phone] 0 01/16/2025 14:01:34 01/20/2025 17:02:59 General examination of patient 309038391 Z00.00 Health Risk Assessment collected and reviewed [id number] MD Kathryn Jackson (Adult Med) [address] [place] [address] [phone] 0 02/12/2025 11:45:39 02/13/2025 09:09:30 Unexplained weight loss 529615066 R63.4 +3 lbs OV 12/11/2024S he has lost another 5 lbs since her last visit.EGD and Colonoscop y 11/01/2023M MG 08/21/2023 The 2024 MMG has been orderede needs imaging of the chest abdomen and pelvis to rule out other causes of her weight loss Uncontroll ed type 2 diabetes mellitus 824518597 E11.65 I suspect that the endocrinol ogist will discontinu e the glimepirid e, her hemoglobin A1c is now 7.1% Health Concerns Section Related Observation LastModified by Organization Detai ls LastModified Time None Recorded Concern Status LastModified by Organization Details LastModified Time None Recorded Advance Directives Directive N: Payers Encounter Date Sequence Insurance Name Policy Number Policy Lopez Covered Member ID Lopez Member ID Guarantor Name 03/25/2024 1 [facility] (MEDICARE REPLACEMENT/A DVANTAGE - HMO) [id number] Suyapa Diak [id number] Suyapa Diak 07/16/2024 1 [facility] (MEDICARE REPLACEMENT/A DVANTAGE - HMO) [id number] Suyapa Diak [id number] Suyapa Diak 12/11/2024 1 [facility] (MEDICARE REPLACEMENT/A DVANTAGE - HMO) [id number] Suyapa Diak [id number] Suyapa Diak 01/16/2025 1 [facility] (MEDICARE REPLACEMENT/A DVANTAGE - HMO) [id number] Suyapa Diak [id number] Suyapa Diak 02/12/2025 1 [facility] (MEDICARE REPLACEMENT/A DVANTAGE - HMO) [id number] Suyapa Diak [id number] Suyapa Diak Notes Date Note Type Note Provider Name and Address Organization Details Recorded Time 4 text/html Anxiety/DepressionReporte d bypatient.Quality:symptom s worse [...] no numbness of feet; no calluses on feetAultman Orr[facility] Hospitalcare Annual Wellness VisitReported bypatient.Diet and Nutrition:healthy diet; [...] home He felt that it could be renalIf I could go ...Celexa, to keep my mood upTaking care of the , taking care of the household Ms Brittany alexander, she is overwhelmed and anxious, mostly due to her role providing care for her . She had tried Lexapro in the past and did not like it, a family member had recommended Celexa. She would also like a mild sedative. The [facility] nurse discussed Prevnar 20 with her and she was seen by her organisational psychologist today who apparently felt that her elevated Creatinine of 1.20 on 03/15/2024 may explain some of her pro-BNP elevation. Since her last visit, she has also followed up with cardiology, hematology and GI and she has had an EGD and colonoscopy. Adam Soni MD Attn: Accounting, [place], [address], [facility] 03/25/2024 19:15:26 4 text/html Diabetes F/UReported bypatient.Labs:last A1C result: 6.5% Context:taking aspirin daily; not missing doses of medications; no side effects from medications Associated Symptoms:no weight gain; no dizziness; no sweats; no headaches; no confusion; no increased thirst; no increased appetite; no increased urination; no blurred vision; no numbness of feet; no calluses on feet;weight loss (4 lbs) Just a check upNaseer thought I had some autoimmune disease Ms Brittany alexander, she has been following up with her animal assistant, diagnostics sales developer and organisational psychologist. She had a positive ROXANNA of 1:160, Nuclear pattern ordered by her diagnostics sales developer. She remembers a concern about MS or an autoimmune process about 10 years ago after a LP done by her neurologist, Dr Gould. At that time she was seen by her seen by the Rheumatology team at [facility] and she was not felt to have an autoimmune disease. Adam Soni MD Attn: Accounting, [place], [address], [facility] 07/16/2024 13:32:36 5 text/html Diabetes F/UReported bypatient.Labs:last [...] the interim, she was seen by the organisational psychologist and diagnostics sales developer, she is having some dental work done soon. She is providing care for her and appears to be overwhelmed. She admits to being anxious and depressed and in the past had used low dose Escitalopram, Citalopram and and PRN Clonazepam. She felt that the Escitalopram had caused dizziness and, or drowsiness. Adam Soni MD Attn: Accounting,[address] [place], [address], [facility] 12/11/2024 14:08:05 5 text/html MAW 2Reported bypatient.Diet and Nutrition:healthy diet; discussed vitamin and supplement use Fracture Risk:no sudden unexplained fractures;history of fractures;previous musculoskeletal injuries Concentration and Memory:no decreased concentrating ability; no memory lapses or loss; does not forget words Speech/Motor difficulties:no speech difficulties; no difficulty expressing formulated concepts; no difficulty with fine manipulative tasks; no difficulty writing/copying; no slowed reaction time; does not knock things over when trying to pick them up Hearing:no loss of hearing Vision:worse with distance;worse both distance and near Activities of Daily Living:able to bathe with [...] Assessment:no frequent falls while walking; no fall in the past year; no fall since last visit;dizziness/vertigo Home Safety:no unsafe janusz hazzards; no unsafe stairs; working smoke/CO detectors; good lighting in the home WellnessNot eating right, nerves and the teeth Ms Soto is doing relatively well, her BP was elevated on her most recent cardiology visit and Buspirone was added, she however is afraid to take it. She is not eating well, due to her dental issues and her nerves. Adam Soni MD Attn: Accounting, [place], [address], [facility] 01/16/2025 14:45:03 5 text/html Diabetes F/UReported bypatient.Review finger sticks:fastin; post dinner: 320 Labs:last A1C result: 7.1% Context:normal range of home blood sugars (in the low 100s); seeing eye doctor regularly; checking feet regularly; taking aspirin daily; not missing doses of medications; no side effects from medications Associated Symptoms:no weight loss; no dizziness; no sweats; no headaches; no confusion; no increased thirst; no increased appetite; no increased urination; no blurred vision; no numbness of feet; no calluses on feet;weight gain (3 lbs) I needed a updated referral for that Dr Copelandeck up Ms Soto is doing well, she continues to take the Glimepiride PRN from previous hvac service tech Dr. Flores and she needs an updated referral to the hvac service tech Dr. Mayberry. Adam Soni MD Attn: Accounting, [place], [address], [facility] 02/12/2025 12:40:52 OBGyn Episode No OBEpisode recorded.
--- OUTSIDE RECORDS SUMMARY | 2025-02-25 11:53 | XMS_ITS | Clinical Summary ---
Author Organization [facility] Address [address] [facility] [place] [address] Care Team Providers Care Whiskey Regauger Name Role Phone Adam Soni MD Primary Care Provider Source Comments [facility],non-owned Affiliates and Associated Physician Practices is amultiple site organization consisting of ambulatory clinics and hospital sitesin [place], [place], [place] and [place]. This disclosure is being madepursuant to the Care Everywhere program and may not contain all informatio navailable regarding this patient. Last updated 18.[facility] [employer] Allergies Active Allergy Reactions Criticality Noted Date Comments Empagliflozin Other Low 05/10/2023 Rofecoxib Rash High 01/24/2017 hives Other reaction(s): hives hives Other reaction(s): hives Sulfa Drugs Swelling High 04/13/2023 Other reaction(s): respiratory distress Sulfacetamide Swelling High 01/24/2017 Sulfa allergy Medications * Be aware that medications may not be up to date on this document. Alwaysverify current medications with the patient. Eliquis 5 MG tablet Take 1 (one) tablet by mouth 2 times daily 3 Active flecainide (Tambocor) 50 MG tablet Take 1 (one) tablet by mouth 2 times daily 3 Active folic acid (Folvite) 1 MG tablet Take 1 (one) tablet by mouth once daily 2 Active Januvia 100 MG tablet Take 1 (one) tablet by mouth every morning 3 Active losartan (Cozaar) 25 MG tablet Take 1 (one) tablet by mouth once daily 3 Active metFORMIN ER 24hr (Glucophage XR) 500 MG tablet Take 1 (one) tablet by mouth 2 times daily with morning and evening meal 3 Active metoprolol succinate XL 24hr (Toprol XL) 25 MG tablet Take 1 (one) tablet by mouth once daily 3 Active omeprazole (PriLOSEC) 20 MG capsule Take 1 (one) capsule by mouth once daily 3 Active meclizine (Antivert) 25 MG tablet Take 1 (one) tablet by mouth 3 times daily as needed Active albuterol HFA (Proventil; Ventolin; Proair) 108 (90 Base) MCG/ACT inhaler Inhale 2 (two) puffs by mouth every 4 hours as needed for Shortness of Breath, Wheezing or Cough 3 Active atorvastatin (Lipitor) 20 MG tablet Take 1 (one) tablet by mouth once daily 3 Active clotrimazole-be tamethasone (Lotrisone) 1-0.05 % cream Apply to affected area 2 times daily 3 Active Wixela Inhub 250-50 MCG/ACT inhaler Inhale 1 (one) puff by mouth 2 times daily 3 Active ferrous sulfate 325 (65 FE) MG tablet Take 1 (one) tablet by mouth once daily as directed. 3 Active glimepiride (Amaryl) 1 MG tablet Take 1 (one) tablet by mouth 2 times daily with morning and evening meal 2 Active HYDROcodone-alphonso taminophen (Hedrick) 5-325 MG tablet Take 1 (one) tablet by mouth every 6 hours as needed for Pain 3 Active vitamin D, ergocalciferol, (Drisdol) 1.25 MG (82926 UT) capsule Take 1 (one) capsule by mouth every 7 days 4 Active Active Problems Problem Noted Date Diagnosed [...] 05/24/2023 Impacted cerumen 05/10/2023 05/10/2023 05/24/2023 Immunizations Immunization Administration Dates Next Due Covid Moderna primary [...] at Not on file Legal Sex Female 10:35 AM CDT Gender Identity Not on file Sexual Orientation [...] Description 04/09/2025 10:30 AM CDT Office Visit [facility] [address] [place] [address], [place] [address] Damien Villalta MD [address] [place] [address] [place] [address] Health Maintenance Due Date Last Done Comments [...] on patient's age to complete this topic Insurance [facility] MANAGED MEDICARE ADV SELF PAY NO INSURANCE Member Subscriber Plan / Payer (Ef fective for All Dates) Name:Suyapa Soto Member ID:Not on file Relation to Subscriber:Not on file Name:SUYAPA SOTO Subscriber ID:Not on file Address: [address] [place] [address] Payer ID:Not on file Group ID:Not on file Type:Self Pay Address: [facility] MANAGED MEDICARE ADV SELF PAY NO INSURANCE Member Subscriber Plan / Payer (Ef fective for All Dates) Name:Suyapa Soto Member ID:Not on file Relation to Subscriber:Not on file Name:SUYAPA SOTO Subscriber ID:Not on file Address: [address] [place] [address] Payer ID:Not on file Group ID:Not on file Type:Self Pay Address: [facility] MEDICARE ADV SELF PAY NO INSURANCE Member Subscriber Plan / Payer (Ef fective for All Dates) Name:Suyapa Soto Member ID:Not on file Relation to Subscriber:Not on file Name:SUYAPA SOTO Subscriber ID:Not on file Address: [address] [place] [address] Payer ID:Not on file Group ID:Not on file Type:Self Pay Address: [place] [employer] MANAGED MEDICARE ADV SELF PAY NO INSURANCE Member Subscriber Plan / Payer (Ef fective for All Dates) Name:Suyapa Soto Member ID:Not on file Relation to Subscriber:Not on file Name:SUYAPA SOTO Subscriber ID:Not on file Address: [address] [place] [address] Payer ID:Not on file Group ID:Not on file Type:Self Pay Address: [facility] MANAGED MEDICARE ADV SELF PAY NO INSURANCE Member Subscriber Plan / Payer (Ef fective for All Dates) Name:Suyapa Soto Member ID:Not on file Relation to Subscriber:Not on file Name:SUYAPA SOTO Subscriber ID:Not on file Address: [address] [place] [address] Payer ID:Not on file Group ID:Not on file Type:Self Pay Address: [facility] MANAGED MEDICARE ADV Care Teams Whiskey Regauger Relationship Specialty Start Date End Date Adam Soni MD [address] [place], [place] [id number] PCP - General Internal Medicine 04/12/23
--- OUTSIDE RECORDS SUMMARY | 2025-02-25 11:53 | XMS_ITS ---
Author Organization [facility] Address [address] [place] [address] Care Team Providers Care Wastewater Treatment Supervisor Name Role Phone Jose G Navneet Unavailable [phone] Social History Sex Assigned At : Social History Observation Description Sex Assigned At Female Problems Problem Type SNOMED Code ICD Code Onset Dates Problem Status W/U Status Risk Notes Problem Anemia, unspecified (D64.9) Active confirmed Encounters Encounter Location Date Provider Diagnosis [place] [facility] [address] [facility] [address] [place] [address] 11/27/2024 Navneet Araiza Chronic kidney disease, stage [...] Name:Navneet Araiza , 03/05/2025 02:00:00 PM, [address] [facility], [facility], [place], [address], Progress Notes * Suyapa SOTODOB:1955 ([age] yo F)Acc No.[id number]:11/27/2024 Progress Notes Patient: Suyapa RICE Provider: Renetta HERCULES MD, F.Juanita.C.P, F.A.S.N. :1955 A ge:69 Y S ex:Female Date:11/27/2024 Address:[address] [place] [address] Subjective: * Chief Complaints: * * Medical [...] Treatment: * Billing Information: * Visit Code: 29107 Office Visit, Est Pt., Level 4. * Procedure Codes: * Electronic signature of Emilie Araiza MD on 02/25/2025 at 11:53 AM CDT Sign off status: Pending * Provider: Renetta HERCULES MD, F.Juanita.C.P, F.A.S.N. Date: 0 11/27/2024 Generated for Printing/Faxing/eTransmitting on: 0 02/25/2025 11:53 AM CDT
--- OUTSIDE RECORDS SUMMARY | 2025-02-25 11:54 | XMS_ITS | Clinical Summary ---
Author Organization [facility] Address [address] [facility] [place] [address] Care Team Providers Care Public Health Nutritionist Name Role Phone Adam Soni MD Primary Care Provider [phone] Allergies Active Allergy Reactions Criticality Noted Date [...] Chewable Take 500 mg by mouth. Active amoxicillin-cla vulanate (AUGMENTIN) 875-125 mg tablet Take 1 Tablet by mouth 2 times daily. 11/04/2024 Active calcitRIOL (ROCALTROL) 0.25 mcg capsule Take 0.25 mcg by mouth daily. 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 Gender Identity Not on file Sexual Orientation Not on file Last Filed Vital Signs Vital Sign Reading Time Taken Comments Blood Pressure 130/65 11/13/2024 10:45 AM STRAW HAT MACHINE OPERATOR Pulse 65 11/13/2024 10:45 AM STRAW HAT MACHINE OPERATOR Temperature 35.9 C (96.7 F) 11/13/2024 10:45 AM STRAW HAT MACHINE OPERATOR Respiratory Rate 15 11/13/2024 10:4 5 AM STRAW HAT MACHINE OPERATOR Oxygen Saturation 90% 11/13/2024 10: 45 AM STRAW HAT MACHINE OPERATOR Inhaled Oxygen Concentration - - Weight 51.2 kg (112 lb 12.8 oz) 025 10:45 AM STRAW HAT MACHINE OPERATOR Height 152.4 cm (5') 09/25/2023 1:26 PM STRAW HAT MACHINE OPERATOR Body Mass Index 22.03 09/25/2023 1:26 PM STRAW HAT MACHINE OPERATOR Plan of Treatment Upcoming Encounters Date Type Department Care Team (Late st Contact Info) Description 05/14/2025 11:00 AM CDT Office Visit [facility] Oncology and Hematology - [place] [address] Estephania Escalante [address] [place] [phone] Jordi Elizondo MD [address] [facility] [address] [place] [address] Health Maintenance Due Date Last [...] 2024 07/08/2021, 06/24/2021, 10/04/2020, Additional history exists DTAP/TDAP/TD VACCINES (3 - T d or Tdap) 06/17/2025 06/17/2015, 09/18/2004 COLORECTAL SCREENING 10/31/2033 10/31/2023, 09/08/20 15 Colorectal Cancer Screening 10/31/2033 PNEUMOCOCCAL VACCINE 50+ YEARS Completed 0 02/28/2023, 03/18/2020, 09/04/2014 Insurance Care Teams Public Health Nutritionist Relationship Specialty Start Date End Date Adam Soni MD [address] [place] [address] PCP - General Internal Medicine 09/25/23
[2025-02-25 12:06] LABS: Alanine Aminotransferase 10 U/L (6-35); Albumin Level 4.1 g/dL (3.5-5.1); Alkaline Phosphatase 103 U/L (38-126); Anion Gap 11 mmol/L (4-12); Aspartate Amino Transferase 25 U/L (14-36); Bilirubin,Total 0.8 mg/dL (0.2-1.3); Blood Urea Nitrogen 17 mg/dL (7-17); Calcium 9.3 mg/dL (8.4-10.2); Carbon Dioxide 24 mmol/L (22-30); Chloride 104 mmol/L (98-107); Estimated Glomerular Filt Rate 44; Glucose 129 mg/dL (65-110); Potassium 4.6 mmol/L (3.4-5.0); Sodium 139 mmol/L (137-145); Total Protein 7.2 g/dL (6.3-8.2); Uric Acid 5.8 mg/dL (2.5-7.5)
[2025-02-25 12:09] LABS: Creatinine Urine 99.9 mg/dL
[2025-02-25 12:10] LABS: Add Urine Microscopic? YES; Appearance Urine Cloudy (Clear); Bacteria Urine 3+ /hpf; Bilirubin Urine Negative (Negative); Blood Urine Negative (Negative); Color Urine Yellow (Yellow); Glucose Urine UA 3+ mg/dL (Negative); Ketones Urine Negative (Negative); Leukocyte Esterase Ur 2+ LEU/UL (Negative); Nitrate Urine Negative (Negative); Non Pathogenic Casts 0-2; Protein Urine Negative (Negative); RBC Urine 0-2 /hpf (0-2); Specific Grav Ur 1.019 (1.001-1.035); Squamous Epithelial Cell Urine Occasional /hpf (Few); Urobilinogen Urine 0.2 mg/dL (<2.0); WBC Urine >100 /hpf (0-3)
[2025-02-25 12:13] LABS: Vitamin D 25 Hydroxy 66.7 ng/mL
[2025-02-25 12:15] LABS: MALB Creatinine Ratio 30.4 mg/g (0-30); Microalbumin Urine Random 30.4 mg/L (0-16.7)
[2025-02-25 12:37] LABS: Thyroid Stimulating Hormone 0.406 uIU/mL (0.465-4.680)
[2025-02-25 13:00] LABS: Parathyroid Intact 19.1 pg/mL (14.5-75.2)
== END 2025-02-25 10:41 | disposition home or self-care (01) ==
PROVIDERS: PCP Internal Medicine Infectious Disease; Visit Provider Specialist
DX: I12.9 Hypertensive chronic kidney disease with stage 1 through stage 4 chronic kidney disease, or unspecified chronic kidney disease (principal); N18.30 Chronic kidney disease, stage 3 unspecified; E55.9 Vitamin D deficiency, unspecified; N39.0 Urinary tract infection, site not specified; R73.09 Other abnormal glucose; E21.3 Hyperparathyroidism, unspecified; R94.6 Abnormal results of thyroid function studies
CPT/HCPCS: 36415; 80053; 81001; 82043; 82306; 83970; 84443; 84550; 85025; 87086

== ENCOUNTER 2025-05-09 12:57 | Outpatient (CLI) | payer MEDICARE, SELFPAY ==
--- OUTSIDE RECORDS SUMMARY | 2024-11-27 09:00 | XMS_ITS ---
Author Organization [facility] Office Address [address] [place] [address] Care Team Providers Care Operator Control Room Name Role Phone AraizaMichaelNavneet Unavailable [phone] Social History Sex Assigned At : Social History Observation Description Sex Assigned At Female Problems Problem Type SNOMED Code ICD Code Onset Dates Problem Status W/U Status Risk Notes Problem Anemia, unspecified (D64.9) Active confirmed Encounters Encounter Location Date Provider Diagnosis [place] [facility] [address] [facility] [address] [place] [address] 11/27/2024 Navneet Araiza Chronic kidney disease, stage [...] Name:Navneet Araiza , 05/28/2025 02:15:00 PM, [address] [facility], [facility] [address], [place], [address], Progress Notes * Suyapa SOTODOB:1955 ([age] yo F)Acc No.[id number]:11/27/2024 Progress Notes Patient: Suyapa RICE Provider: Renetta HERCULES MD, F.Juanita.C.P, F.A.S.N. :1955 A ge:69 Y S ex:Female Date:11/27/2024 Address:[address] [place] [address] Subjective: * Chief Complaints: * * Medical [...] Treatment: * Billing Information: * Visit Code: 38900 Office Visit, Est Pt., Level 4. * Procedure Codes: * Electronic signature of Emilie Araiza MD on 05/09/2025 at 01:01 PM CDT Sign off status: Pending * Provider: Renetta HERCULES MD, F.Juanita.C.P, F.A.S.N. Date: 0 11/27/2024 Generated for Printing/Faxing/eTransmitting on: 0 05/09/2025 01:01 PM CDT
--- OUTSIDE RECORDS SUMMARY | 2025-03-05 09:00 | XMS_ITS ---
Author Organization [facility] Address [address] [place] [address] Care Team Providers Care Principal Accounts Clerk Name Role Phone Navneet Araiza Unavailable [phone] Social History Sex Assigned At : Social History Observation Description Sex Assigned At Female Problems Problem Type SNOMED Code ICD Code Onset Dates Problem Status W/U Status Risk Notes Problem Chronic kidney disease stage 3A (disorder) (866917022) Chronic kidney disease, stage 3a (N18.31) Active confirmed Encounters Encounter Location Date Provider Diagnosis [place] [facility] [address] [facility] 15 [place] [address] 03/05/2025 Navneet Araiza Chronic kidney disease, stage [...] Name:Navneet Araiza , 05/28/2025 02:15:00 PM, [address] [facility], [facility] [address], [place], [address], Progress Notes * Suyapa SOTODOB:1955 ([age] yo F)Acc No.[id number]:03/05/2025 Progress Notes Patient: Suyapa RICE Provider: Renetta HERCULES MD, Zaira.Juanita.Haley.P, F.A.S.N. :1955 A ge:69 Y S ex:Female Date:03/05/2025 Address:[address] [place] [address], [place], [place] Subjective: * Chief Complaints: * * Medical [...] Treatment: * Billing Information: * Visit Code: 35386 Office Visit, Est Pt., Level 4. * Procedure Codes: * Electronic signature of Emilie Araiza MD on 05/09/2025 at 01:02 PM CDT Sign off status: Pending * Provider: Renetta HERCULES MD, Zaira.Juanita.C.P, F.A.S.N. Date: 0 03/05/2025 Generated for Printing/Faxing/eTransmitting on: 05/09/2025 01:02 PM CDT
--- OUTSIDE RECORDS SUMMARY | 2025-04-30 12:15 | XMS_ITS ---
Author Organization [facility] Address [address] [facility] [address] [facility] [address] [place] [address] Care Team Providers Care Veterinary Microbiologist Name Role Phone Michael Araizajit Unavailable [phone] Social History Sex Assigned At : Social History Observation Description Sex Assigned At Female Encounters Encounter Location Date Provider Diagnosis [place] [facility] [address] [facility] 15 [place] [address] 04/30/2025 Navneet Araiza Chronic kidney disease, stage [...] Jose G , 05/28/2025 02:15:00 PM, 2043 [facility], [facility] 15, [place], [address], Progress Notes * Suyapa SOTODOB:1955 (6 0 yo F)Acc No.[id number]:04/30/2025 Patient: Steve GUERINCarmelcy Provider: Renetta HERCULES MD, F.A.C.P, F.A.S.N. :1955 A ge:69 Y S ex:Female Date:04/30/2025 Address:[address] [place], [place] [id number] Subjective: * Chief Complaints: Objective: Assessment: * [...] Plan: * Billing Information: * Visit Code: 92162 Office Visit, Est Pt., Level 5. * Procedure Codes: * Electronic signature of Emilie Araiza MD on 05/09/2025 at 01:02 PM CDT Sign off status: Pending * Provider: Renetta HERCULES MD, F.A.C.P, F.A.S.N. Date: 0 04/30/2025 Generated for Printing/Faxing/eTransmitting on: 05/09/2025 01:02 PM CDT
--- NOTE | ~2025-05-09 | MM_ITS ---
EXAMINATION: MM screening [facility] BI w hardy HISTORY: Screening mammogram TECHNIQUE: Craniocaudal and mediolateral oblique 3-D tomosynthesis images were obtained and synthetic 2-D images were generated. CAD analysis was submitted and interpreted. COMPARISON: No prior mammogram is available for comparison at this institution. BREAST PARENCHYMAL COMPOSITION:Not Dense. There are scattered areas of fibroglandular density. FINDINGS: No suspicious mass, calcification, or architectural distortion are identified in either breast to suggest malignancy. There has been no suspicious interval change. IMPRESSION: No mammographic evidence of malignancy. Recommend routine screening mammography in one year. BI-RADS Category 1: Negative Reviewed, dictated and finalized at location .
--- NOTE | ~2025-05-09 | DEXA_ITS ---
Bone Density Report Name: JAMAR BARAJAS Age: 69 Sex: Female Ethnicity: White Date of : 1955 Indication: postmenopausal; screening for osteoporosis; parental hip fracture; height loss; asthma or emphysema; hysterectomy; Referring Provider: SUMAYA, CLAIRE Study: Bone densitometry was performed. Exam Date: May 09, 2025 Accession number: [id number] Bone Density: Region BMD T-score Z-score Classification AP Spine(L1-L4) 0.891 -1.4 0.7 Osteopenia Femoral Neck (Left) 0.603 -2.2 -0.4 Osteopenia Total Hip (Left) 0.830 -0.9 0.6 Normal Femoral Neck (Right) 0.597 -2.3 -0.4 Osteopenia Total Hip (Right) 0.778 -1.3 0.2 Osteopenia Total Hip Mean 0.804 -1.1 0.4 Osteopenia World Health Organization criteria for BMD impression classify patients as: Normal (T-score at or above -1.0), Osteopenia (T-score between -1.0 and -2.5), or Osteoporosis (T-score at or below -2.5). 10-year Fracture Risk(1): Major Osteoporotic Fracture 20% Hip Fracture 7.0% Reported Risk Factors: [place] (), Neck BMD=0.597, BMI=22.0, parental fracture (1) FRAX(R) Version 3.08. Fracture probability calculated for an untreated patient. Fracture probability may be lower if the patient has received treatment. Clinical Information Provided by Patient: Parent has had a hip fracture Has used the following medications: Vitamin D Has the following medical conditions: Asthma or Emphysema, Hysterectomy Patient maximum height was 60 No regular weight bearing exercise Drinks caffeinated beverages Onset of menses at age 11 Number of children 2 Impression: The patient has low bone mass, based on the Right Femoral Neck T-score. The patient has an estimated ten-year risk of hip fracture of 7% and an estimated ten-year risk of major fracture of 20%, based on the WHO FRAX algorithm. The patient has risk factors, including: parental hip fracture. Discussion: BONE DENSITY IS LOW AT ONE OR MORE SKELETAL SITES. THE PATIENT'S BMD AND CLINICAL RISK FACTORS CONTRIBUTE TO THIS PATIENT'S HIGH RISK OF FRACTURE. This patient's lowest T-score is low at one or more skeletal sites. It meets the World Health Organization's (WHO) criteria for ?low bone mass? (T-score between -1.0 and -2.5). The patient's 10-year risk of hip fracture and 10 year risk of a major osteoporotic fracture as calculated by FRAX exceeds the threshold where pharmacological therapy is recommended by the National Osteoporosis Foundation (NOF). However, all treatment decisions require clinical judgment and consideration of individual patient factors, including patient preferences, comorbidities, previous drug use, risk factors not captured in the FRAX model (e.g., frailty, falls, vitamin D deficiency, increased bone turnover, interval significant decline in bone density) and possible under or overestimation of fracture risk by FRAX. The patient should follow a healthful lifestyle (good nutrition with adequate calcium and vitamin D, and appropriate weight-bearing exercise). Follow-Up: Consider a repeat BMD and Vertebral Fracture Assessment (VFA) exam in 2 years or sooner if medically necessary, to reassess this patient's status. Reported by: ADILIA on 05/09/2025 2:01:00 PM. Reviewed, dictated and finalized at location A.
--- OUTSIDE RECORDS SUMMARY | 2025-05-09 13:01 | XMS_ITS | Encounter Summary ---
Author Organization [facility] Address 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 Gender Identity Not on file Sexual Orientation Not on file documented as of this encounter Plan of Treatment Upcoming Encounters Date Type Department Care Team (Late st Contact Info) Description 05/14/2025 11:00 AM CDT Office Visit [facility] Oncology and Hematology - [place] [address] [facility] 200 [place] [address] Jordi Elizondo MD [address] [facility] [address] [place] [address] documented as of this encounter Visit Diagnoses Diagnosis Sensorineural hearing loss, bilateral- Primary documented in this encounter Care Teams Layboy Tender Relationship Specialty [place] [address] [place] [address] PCP - General Internal Medicine 09/25/23 documented as of this encounter
--- OUTSIDE RECORDS SUMMARY | 2025-05-09 13:02 | XMS_ITS | Patient Health Record ---
Author Organization [facility] Address [address] [facility] [address] [place] [address] Care Team Providers Care Sole Assessor Name Role Phone Navneet Araiza Unavailable [phone] Reason For Referral No Information Medications Medication SIG (Take, Route, Frequency, Duration) Notes Start Date End Date Status Vitamin D (Ergocalciferol) 1.25 MG (55097 UT) TAKE 1 CAPSULE BY MOUTH ONCE A WEEK FOR 90 DAYS; Duration: 90 Active Losartan Potassium 50 MG 1 tablet Orally Once a day; Duration: 90 05/22/2024 Active Social History Sex Assigned At : Social History Observation Description Sex Assigned At Female Problems Problem Type SNOMED Code ICD Code Onset Dates Problem Status W/U Status Risk Notes Problem Anemia (831592288) Anemia, unspecified (D64.9) Active confirmed Problem Hyperglycemia due to type 2 diabetes mellitus (049734035244710) Type 2 diabetes mellitus with hyperglycemia (E11.65) Active confirmed Problem Vitamin D deficiency (93999160) Vitamin D deficiency, unspecified (E55.9) Active confirmed Problem Essential hypertension (31264159) Essential hypertension (I10) Active confirmed Problem Gastroesophageal reflux disease with esophagitis (disorder) (010229711) Gastro-esophagea l reflux disease with esophagitis, without bleeding (K21.00) Active confirmed Problem Chronic kidney disease stage 3A (disorder) (591020549) Chronic kidney disease, stage 3a (N18.31) Active confirmed Encounters Encounter Location Date Provider Diagnosis [place] [facility] [address] [facility] [address] [place] [address] 05/22/2024 Navneet Araiza Chronic kidney disease, stage 3 unspecified N18.30 ; Essential hypertension I10 ; Type 2 diabetes mellitus with hyperglycemia E11.65 and Gastro-esophageal reflux disease with esophagitis, without bleeding K21.00 [place] [facility] [address] [facility] [address] [place] [address] 07/31/2024 Navneet Araiza Chronic kidney disease, stage 3 unspecified N18.30 ; Essential hypertension I10 ; Type 2 diabetes mellitus with hyperglycemia E11.65 and Gastro-esophageal reflux disease with esophagitis, without bleeding K21.00 [place] [facility] [address] [place] [address] 10/09/2024 Navneet Singh Chronic kidney disease, stage 3 unspecified N18.30 ; Type 2 diabetes mellitus with hyperglycemia E11.65 ; Vitamin D deficiency, unspecified E55.9 ; Glycosuria R81 and Proteinuria, unspecified R80.9 [place] [facility] [address] [place] [address] 11/27/2024 Navneet Singh Chronic kidney disease, stage 3 unspecified N18.30 ; Essential hypertension I10 ; Type 2 diabetes mellitus with hyperglycemia E11.65 ; Gastro-esophageal reflux disease with esophagitis, without bleeding K21.00 ; Vitamin D deficiency, unspecified E55.9 and Anemia, unspecified D64.9 [place] [facility] [address] [place] [address] 03/05/2025 Navneet Singh Chronic kidney disease, stage 3a N18.31 ; Essential hypertension I10 ; Type 2 diabetes mellitus with hyperglycemia E11.65 ; Gastro-esophageal reflux disease with esophagitis, without bleeding K21.00 ; Vitamin D deficiency, unspecified E55.9 ; Anemia, unspecified D64.9 ; Proteinuria, unspecified R80.9 and Glycosuria R81 [place] [facility] [address] [place] [address] 04/30/2025 Navneet Singh Chronic kidney disease, stage 3a N18.31 ; Essential hypertension I10 ; Type 2 diabetes mellitus with hyperglycemia E11.65 ; Gastro-esophageal reflux disease with esophagitis, without bleeding K21.00 ; Vitamin D deficiency, unspecified E55.9 and Anemia, unspecified D64.9 [place] [facility] [address] [place] [address] 08/01/2024 Navneet [facility] [address] [place] [address] 08/02/2024 Navneet Araiza [place] [facility] [address] [place] [address] 04/30/2025 Navneet Araiza [facility] [place] [facility] [address] [place] [address] 05/22/2024 Navneet Araiza [place] [facility] [address] [facility] [address] [place] [address] 08/01/2024 Navneet Araiza Assessments Encounter Date Diagnosis (ICD Code) Assessment Notes Treatment Notes Treatment Clinical Notes Section Notes 05/22/2024 Essential hypertension (ICD-10 - I10) 05/22/2024 Chronic kidney disease, stage 3 unspecified (ICD-10 - N18.30) 07/31/2024 Chronic kidney disease, stage 3 unspecified (ICD-10 - N18.30) 10/09/2024 Type 2 diabetes mellitus with hyperglycemia (ICD-10 - E11.65) 10/09/2024 Chronic kidney disease, stage 3 unspecified (ICD-10 - N18.30) 11/27/2024 Chronic kidney disease, stage 3 unspecified (ICD-10 - N18.30) 03/05/2025 Essential hypertension (ICD-10 - I10) 03/05/2025 Chronic kidney disease, stage 3a (ICD-10 - N18.31) 04/30/2025 Chronic kidney disease, stage 3a (ICD-10 - N18.31) 04/30/2025 Essential hypertension (ICD-10 - I10) 03/05/2025 Type 2 diabetes mellitus with hyperglycemia (ICD-10 - E11.65) 11/27/2024 Essential hypertension (ICD-10 - I10) 10/09/2024 Vitamin D deficiency, unspecified (ICD-10 - E55.9) 07/31/2024 Essential hypertension (ICD-10 - I10) 05/22/2024 Type 2 diabetes mellitus with hyperglycemia (ICD-10 - E11.65) 07/31/2024 Type 2 diabetes mellitus with hyperglycemia (ICD-10 - E11.65) 05/22/2024 Gastro-esophageal reflux disease with esophagitis, without bleeding (ICD-10 - K21.00) 10/09/2024 Glycosuria (ICD-10 - R81) 11/27/2024 Type 2 diabetes mellitus with hyperglycemia (ICD-10 - E11.65) 03/05/2025 Gastro-esophageal reflux disease with esophagitis, without bleeding (ICD-10 - K21.00) 04/30/2025 Type 2 diabetes mellitus with hyperglycemia (ICD-10 - E11.65) 04/30/2025 Gastro-esophageal reflux disease with esophagitis, without bleeding (ICD-10 - K21.00) 03/05/2025 Vitamin D deficiency, unspecified (ICD-10 - E55.9) 11/27/2024 Gastro-esophageal reflux disease with esophagitis, without bleeding (ICD-10 - K21.00) 07/31/2024 Gastro-esophageal reflux disease with esophagitis, without bleeding (ICD-10 - K21.00) 10/09/2024 Proteinuria, unspecified (ICD-10 - R80.9) 03/05/2025 Anemia, unspecified (ICD-10 - D64.9) 11/27/2024 Vitamin D deficiency, unspecified (ICD-10 - E55.9) 04/30/2025 Vitamin D deficiency, unspecified (ICD-10 - E55.9) 11/27/2024 Anemia, unspecified (ICD-10 - D64.9) 03/05/2025 Proteinuria, unspecified (ICD-10 - R80.9) 04/30/2025 Anemia, unspecified (ICD-10 - D64.9) 03/05/2025 Glycosuria (ICD-10 - R81) Plan Of Treatment Next Appt Details Provider Name:Navneet Araiza , 05/28/2025 02:15:00 PM, [address], [facility] [address], [place], [address],
--- OUTSIDE RECORDS SUMMARY | 2025-05-09 13:02 | XMS_ITS | Clinical Summary ---
Author Organization [facility] Address [address] [facility] [place] [address] Care Team Providers Care Grade Teacher Name Role Phone Adam Soni MD Primary Care Provider Source Comments [facility],non-owned Affiliates and Associated Physician Practices is amultiple site organization consisting of ambulatory clinics and hospital sitesin [place], [place], [place] and [place]. This disclosure is being madepursuant to the Care Everywhere program and may not contain all informatio navailable regarding this patient. Last updated 18.[facility] Neuromedical Allergies Active Allergy Reactions Criticality Noted Date Comments Empagliflozin Other Low 05/10/2023 Rofecoxib Rash High 01/24/2017 hives Other reaction(s): hives hives Other reaction(s): hives Sulfa Drugs Swelling,Unknown High 04/13/2023 Other reaction(s): respiratory distress Substance with sulfonamide structure and antibacterial mechanism of action (substance) Sulfacetamide Swelling High 01/24/2017 Sulfa allergy Medications [...] tablet by mouth every morning 3 Active metFORMIN ER 24hr (Glucophage XR) [...] with morning and evening meal 2 Active vitamin D, ergocalciferol, (Drisdol) 1.25 MG (66733 UT) capsule Take 1 (one) capsule by mouth every 7 days 4 Active empagliflozin (Jardiance) 25 MG tablet Take 1 (one) tablet by mouth once daily 4 Active Ascorbic Acid 500 MG Take 500 mg by mouth once daily Active calcitriol (Rocaltrol) 0.25 MCG capsule Take 1 (one) capsule by mouth once daily Active estradiol (Estrace) 0.1 MG/GM vaginal cream Apply 1 g to affected area Two times a week Active losartan (Cozaar) 50 MG tablet Take 1 (one) tablet by mouth once daily 5 Active losartan (Cozaar) 25 MG tablet Take 1 (one) tablet by mouth once daily 3 05/07/20 Discontinu ed(List Clean-Up) amoxicillin-cla vulanate (Augmentin) 875-125 MG tablet Take 1 (one) tablet by mouth 2 times daily 5 05/02/20 Discontinu ed(List Clean-Up) busPIRone (Buspar) 5 MG tablet Take 1 (one) tablet by mouth 2 times daily as needed 05/07/20 Discontinu ed(List Clean-Up) citalopram (CeleXA) 10 MG tablet Take 1 (one) tablet by mouth once daily 05/07/20 Discontinu ed(List Clean-Up) HYDROcodone-alphonso taminophen (Windsor) 5-325 MG tablet Take 1 (one) tablet by mouth every 4 hours as needed for Pain 05/07/20 Discontinu ed(List Clean-Up) fluconazole (Diflucan) 150 MG tablet Take 1 (one) tablet by mouth once 5 05/07/20 Discontinu ed(List Clean-Up) fluconazole (Diflucan) 100 MG tablet Take 1 (one) tablet by mouth once daily 5 05/07/20 Discontinu ed(List Clean-Up) ciprofloxacin (Cipro) 500 MG tablet Take 1 (one) tablet by mouth every 12 hours FOR 10 DAYS 4 05/07/20 Discontinu ed(List Clean-Up) ciprofloxacin (Cipro) 250 MG tablet Take 1 (one) tablet by mouth 2 times daily 4 05/07/20 Discontinu ed(List Clean-Up) Active Problems Problem Noted Date Diagnosed Date Stage 3a chronic kidney disease 05/02/2025 Fracture of surgical neck of humerus 05/02/2025 Nonalcoholic fatty liver 05/02/2025 Antinuclear antibody (ROXANNA) positive 07/16/2024 Encounter for screening for cardiovascular disor ders [...] 023 05/24/2023 Impacted cerumen 05/10/2023 05/10/2023 05/24/2023 Encounters Date Type Department Care Team Description 05/07/2025 10:40 AM CDT Office Visit [facility] - Orthopedics [address] [place] [address], [facility] [place] [address] Damien Villalta MD Closed fracture of proximal end of right humerus with routine healing, unspecified fracture morphology, subsequent encounter (Primary Dx) 05/07/2025 Travel from Last 3 Months Immunizations Immunization Administration Dates Next Due Covid Moderna primary monova lent 12+ yr 0.5mL 10/04/2020 Covid Pfizer primary monoval ent 12+ yr 0.3mL Purple cap 07/08/2021,06/24/2021,09/24/2020 FLU VACCINE QUAD IIV4 PF ID 06/21/2016 FLU VACCINE QUAD IIV4 SPLIT 0.25 ML IM 07/07/2020,09/18/2019,06/19/2017,2013 INFLUENZA VACCINE 09/04/2023,,07/18/2022,2021,07/18/2022 INFLUENZA VACCINE, HIGH-DOSE , QUADR. (FLUZONE HIGH-DOSE QUADRIVALENT; 65Y+), 0.7 ML (HD-IIV4) 07/16/2024,07/19/2015 PNEUMOCOCCAL PPSV23 02/28/2023,09/04/2014 Pneumococcal Pcv13 Conj 03/18/2020 [...] 04/12/2023 10:31 AM CDT Plan of Treatment Health Maintenance Due Date Last Done Comments [...] MEDICARE AWV CALENDAR YEAR 2024 INFLUENZA VACCINE (#1) 2025 , 09/04/2023, 09/04/2023, Additional history exists DTAP/TDAP/TD VACCINES (3 - [...] patient's age to complete this topic Insurance [facility] MANAGED MEDICARE ADV SELF PAY NO INSURANCE Member Subscriber Plan / Payer (Ef fective for All Dates) Name:Suyapa Soto Member ID:Not on file Relation to Subscriber:Not on file Name:SUYAPA SOTO Subscriber ID:Not on file Address: [address] [place] [address] Payer ID:Not on file Group ID:Not on file Type:Self Pay Address: [facility] MANAGED MEDICARE ADV SELF PAY NO INSURANCE Member Subscriber Plan / Payer (Ef fective for All Dates) Name:Suyapa Soto Member ID:Not on file Relation to Subscriber:Not on file Name:SUYAPA SOTO Subscriber ID:Not on file Address: [address] [place] [address] Payer ID:Not on file Group ID:Not on file Type:Self Pay Address: [facility] MEDICARE ADV SELF PAY NO INSURANCE Member Subscriber Plan / Payer (Ef fective for All Dates) Name:Suyapa Soto Member ID:Not on file Relation to Subscriber:Not on file Name:SUYAPA SOTO Subscriber ID:Not on file Address: [address] [place] [address] Payer ID:Not on file Group ID:Not on file Type:Self Pay Address: [place] [place] [employer] MANAGED MEDICARE ADV SELF PAY NO INSURANCE Member Subscriber Plan / Payer (Ef fective for All Dates) Name:Suyapa Soto Member ID:Not on file Relation to Subscriber:Not on file Name:SUYAPA SOTO Subscriber ID:Not on file Address: [address] [place] [address] Payer ID:Not on file Group ID:Not on file Type:Self Pay Address: [facility] MANAGED MEDICARE ADV SELF PAY NO INSURANCE Member Subscriber Plan / Payer (Ef fective for All Dates) Name:Suyapa Soto Member ID:Not on file Relation to Subscriber:Not on file Name:SUYAPA SOTO Subscriber ID:Not on file Address: [address] [place] [address] Payer ID:Not on file Group ID:Not on file Type:Self Pay Address: [facility] MANAGED MEDICARE ADV Care Teams Grade Teacher Relationship Specialty Start Date End Date Adam Soni MD [address] [place], [place] [phone] PCP - General Internal Medicine 04/12/23
--- OUTSIDE RECORDS SUMMARY | 2025-05-09 13:02 | XMS_ITS | Encounter Summary ---
Author Organization [facility] Address [address] [place] [address] Care Team Providers Care Entry Table Operator Name Role Phone Adam Soni MD Primary Care Provider [phone] Encounter Details Date Type Department Care Team ([facility] Contact Info) Description 05/07/[address] [facility] Oncology and Hematology [address] [place] [address] Jordi Elizondo MD [facility] [address] [place] [phone] Social History Tobacco Use Types Packs/Day Years Used Date Smoking Tobacco: Never Smokeless Tobacco: Never Alcohol Use Standard Drinks/Week Comments Never 0 (1 standard drink = 0.6 oz pur e alcohol) Comments Unknown Sex and Gender Information Value Date Recorded Sex Assigned at Not on file Legal Sex 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 BROKER ASSOCIATE Gender Identity Not on file Sexual Orientation Not on file documented as of this encounter Plan of Treatment Upcoming Encounters Date Type Department Care Team (Late Contact Info) Description 05/14/2025 11:00 AM CDT Office Visit [facility] Oncology and Hematology - [place] [address] [place] [address] Jordi Elizondo MD [facility] [address] [place] [phone] documented as of this encounter Procedures Procedure Name Priority Date/Time Associated Diagnosis Comments IRON, TIBC, AND PERCENT SATURATION Routine 05/06/2025 9:54 AM CDT documented in this encounter Results * IRON, TIBC, AND PERCENT SATURATION (05/06/2025 9:54 AM CDT) Blood Jordi Elizondo MD CHEMISTRY ORDERABLES Final Resu lt documented in this encounter Visit Diagnoses Not on filedocumented in this encounter Care Teams Entry Table Operator Relationship Specialty [place] [address] [place] [phone] PCP - General Internal Medicine 09/25/23 documented as of this encounter
--- OUTSIDE RECORDS SUMMARY | 2025-05-09 13:02 | XMS_ITS | Clinical Summary ---
Author Organization [facility] Address [address] [facility] [place] [address] Care Team Providers Care Instrument Man Name Role Phone Adam Soni MD Primary Care Provider [phone] Allergies Active Allergy Reactions Criticality Noted Date [...] Chewable Take 500 mg by mouth. Active amoxicillin-clav ulanate (AUGMENTIN) 875-125 mg tablet Take 1 Tablet by mouth 2 times daily. 11/04/2024 Active Active Problems No known active problems Encounters Date Type Department Care Team Description 05/08/[address] [facility] Oncology and Hematology - [address] [place] [address] Jordi Elizondo MD 05/07/[address] [facility] Oncology and Hematology - [address] [place] [address] Jordi Elizondo MD 04/02/2025 External Device Data ST[facility] ABSTRACTION Provider, Abstract 04/02/2025 External Device Data ST[facility] ABSTRACTION Provider, Abstract 04/02/2025 External Device Data ST[facility] ABSTRACTION Provider, Abstract 04/01/2025 External Device Data STL ABSTRACTION Provider, Abstract 03/11/2025 External Device Data STL ABSTRACTION Provider, Abstract 03/05/2025 External Device Data STL ABSTRACTION Provider, Abstract 03/04/2025 External Device Data STL ABSTRACTION Provider, Abstract [...] on file Legal Sex 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 ACQUISITION PROFESSIONAL Gender Identity Not on file Sexual Orientation Not on file Last Filed Vital Signs Vital Sign Reading Time Taken Comments Blood Pressure 130/65 11/13/2024 10:45 AM ACQUISITION PROFESSIONAL Pulse 65 11/13/2024 10:45 AM ACQUISITION PROFESSIONAL Temperature 35.9 C (96.7 F) 11/13/2024 10:45 AM ACQUISITION PROFESSIONAL Respiratory Rate 15 11/13/2024 10:4 5 AM ACQUISITION PROFESSIONAL Oxygen Saturation 90% 11/13/2024 10: 45 AM ACQUISITION PROFESSIONAL Inhaled Oxygen Concentration - - Weight 51.2 kg (112 lb 12.8 oz) 025 10:45 AM ACQUISITION PROFESSIONAL Height 152.4 cm (5') 09/25/2023 1:26 PM ACQUISITION PROFESSIONAL Body Mass Index 22.03 09/25/2023 1:26 PM ACQUISITION PROFESSIONAL Plan of Treatment Upcoming Encounters Date Type Department Care Team (Late st Contact Info) Description 05/14/2025 11:00 AM CDT Office Visit [facility] Oncology and Hematology - [place] [address] [facility] [address] [place] [address] Jordi Elizondo MD [address] [facility] [address] [place] [address] Health Maintenance Due Date Last [...] years 1-dose series) 2014 OSTEOPOROSIS SCREENING 2019 COVID-19 Vaccine (2023-2 5 season) 2024 07/08/2021, 06/24/2021, 10/04/2020, Additional history exists INFLUENZA VACCINE (#1) 2025 3, 07/18/2022, 07/07/2020, Additional history exists DTAP/TDAP/TD VACCINES (3 - T d or Tdap) 06/17/2025 06/17/2015, 09/18/2004 COLORECTAL SCREENING 10/31/2033 10/31/2023, 09/08/20 15 Colorectal Cancer Screening 10/31/2033 PNEUMOCOCCAL VACCINE 50+ YEARS Completed 0 02/28/2023, 03/18/2020, 09/04/2014 Procedures Procedure Name Priority Date/Time Associated Diagnosis Comments IRON, TIBC, AND PERCENT SATURATION Routine 05/06/2025 9:54 AM CDT BASIC METABOLIC PANEL Routine 05/06/2025 9:53 AM CDT from Last 3 Months Results * IRON, TIBC, AND PERCENT SATURATION (05/06/2025 9:54 AM CDT) Blood Jordi Elizondo MD CHEMISTRY ORDERABLES Final Resu lt * BASIC METABOLIC PANEL (05/06/2025 9:53 AM CDT) Blood us Jordi Elizondo MD CHEMISTRY ORDERABLES Final Resu lt from Last 3 Months Insurance Care Teams Instrument Man Relationship Specialty [place] [address] [place] [phone] PCP - General Internal Medicine 09/25/23
--- OUTSIDE RECORDS SUMMARY | 2025-05-09 13:02 | XMS_ITS | Encounter Summary ---
Author Organization [facility] Address [address] [place] [address] Care Team Providers Care Food Cooking Machine Operator Name Role Phone Adam Soni MD Primary Care Provider [phone] Encounter Details Date Type Department Care Team (Late Contact Info) Description 05/08/2025 Orders Only [facility] Oncology and Hematology [address] [place] [address] Jordi Elizondo MD [facility] [employer] [address] [place] [phone] Social History Tobacco Use Types Packs/Day Years Used Date Smoking Tobacco: Never Smokeless Tobacco: Never Alcohol Use Standard Drinks/Week Comments Never 0 (1 standard drink = 0.6 oz pur e alcohol) Comments Unknown Sex and Gender Information Value Date Recorded Sex Assigned at Not on file 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 Sex 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 Gender Identity Not on file Sexual Orientation Not on file documented as of this encounter Plan of Treatment Upcoming Encounters Date Type Department Care Team (Late Contact Info) Description 05/14/2025 11:00 AM CDT Office Visit [facility] Oncology and Hematology [facility] [address] [place] [address] Jordi Elizondo MD [facility] [employer] [address] [place] [phone] documented as of this encounter Procedures Procedure Name Priority Date/Time Associated Diagnosis Comments BASIC METABOLIC PANEL Routine 05/06/2025 9:53 AM CDT documented in this encounter Results * BASIC METABOLIC PANEL (05/06/2025 9:53 AM CDT) Blood Jordi Elizondo MD CHEMISTRY ORDERABLES Final Resu lt documented in this encounter Visit Diagnoses Not on filedocumented in this encounter Care Teams Food Cooking Machine Operator Relationship Specialty [place] [address] [place] [phone] PCP - General Internal Medicine 09/25/23 documented as of this encounter
== END 2025-05-09 12:58 | disposition home or self-care (01) ==
LOC: ANHFOHIMG 13:00
PROVIDERS: PCP Internal Medicine Infectious Disease; Visit Provider Nurse Practitioner
DX: Z12.31 Encounter for screening mammogram for malignant neoplasm of breast (principal); Z78.0 Asymptomatic menopausal state; M85.88 Other specified disorders of bone density and structure, other site; M85.852 Other specified disorders of bone density and structure, left thigh; M85.851 Other specified disorders of bone density and structure, right thigh
CPT/HCPCS: 77063; 77067; 77080

== ENCOUNTER 2025-05-22 10:50 | Outpatient (CLI) | payer MEDICARE, SELFPAY ==
--- OUTSIDE RECORDS SUMMARY | 2024-02-28 06:00 | XMS_ITS | Continuity of Care Document ---
Author Organization [facility] Address [address] [place] [address] Phone Care Team Providers Care Bicycle Ii Assembler Name Role Phone Harsh ADAM Lucrecia Unavailable Unavailable Allergies, Adverse Reactions, Alerts Substance Reaction Status Criticality BEE STING KIT Active No Information Medications Medication Instructions Dosage Effective Dates (start - stop) Status Comments Colestipol HCl Oral Tablet 1 GM TAKE ONE TABLET BY MOUTH TWICE DAILY SWALLOWING WHOLE WITH ANY LIQUID. DO NOT CRUSH, CHEW AND/OR DIVIDE - Active Nexium 24HR 20 mg capsule,delayed release take 1 capsule by oral route every day at least 1 hour before a meal swallowing whole. Do not crush or chew granules. 20 MG - Active pioglitazone 30 mg tablet take 1 tablet by oral route every day 30 MG - Active lisinopril 10 mg tablet take 1 tablet by oral route every day 10 MG - Active trospium 20 mg tablet take 1 tablet by o ral route 2 times every day on an empty stomach 20 MG - Active metoprolol tartrate 25 mg tablet take 1 tablet by oral route 2 times every day 25 MG - Active aspirin 81 mg tablet,delayed release take 1 tablet by oral route every day 81 MG - Active Procedures Procedure Date OFFICE [id number] [facility] 130 MM HG DIAST BP < 80 MM HG OFFICE [id number] BODY MASS INDEX [facility] SYST BP >= 140 MM HG6 IT DIAST BP >= 90 MM HG OFFICE [id number] OFFICE [id number]-[id number] BODY MASS INDEX DOCD SYST BP >= 140 MM HG6 IT DIAST BP 80-89 MM HG OFFICE [id number] BODY MASS INDEX DOCD SYST BP LT 130 MM HG DIAST BP < 80 MM HG OFFICE [id number] BODY MASS INDEX DOCD SYST BP >= 140 MM HG6 IT DIAST BP 80-89 MM HG COLONOSCOPY AND BIOPSY TISSUE EXAM BY PATHOLOGIST OFFICE [id number] BODY MASS INDEX DOCD SYST BP GE 130 - 139MM HG DIAST BP < 80 MM HG Advance Directives Directive Yes / No Effective Date File Name No Information Encounters Encounter Description Practice Location Reason(s) For Visit Diagnoses Date Provider Providers Copied on Encounter OFFICE [id number], [address], [place], [place], [id number] , tel: [phone] [facility] Follow Up of Collagenous Colitis (chief complaint)Fol low Up of GERD (chief complaint) Collagenous colitisGastroesoph ageal reflux disease without esophagitis Harsh Barajascy. [address] [place] [address], [address], [id number] , [place]. tel: [phone] Referring Provider: Manju Moran, [address] [address], [place], [address]. tel:[phone] OFFICE [facility], [address], [place], [place], [id number] , tel: [phone] [facility] Collagenous Colitis (chief complaint) Collagenous colitisGastroesoph ageal reflux disease, unspecified whether esophagitis present 3 Harsh Singer. [address] [place] [address], [address], [id number] , . tel: [phone] Referring Provider: Manju Moran, [address] [place] [address], [facility]. tel:[phone] [facility], [id number] [place] [address], [id number] , tel: [phone] [facility] No Information 3 Harsh Lucrecia. [address] [place] [address], [address], [id number] , . tel: [phone] OFFICE [facility], [address], [place], [place], [id number] , tel: [phone] [facility] Collagenous colitis. (chief complaint) Collagenous colitisDiarrhea, unspecifiedGastroe sophageal reflux disease, unspecified whether esophagitis present 3 Harsh Lucrecia. [address] [place] [address], [id number] , . tel: [phone] Referring Provider: Manju Moran, [address] [place] [address], [facility]. tel:[phone] OFFICE [facility], [address] [place] [address], [id number] , tel: [phone] [facility] GERD. (chief complaint)Col itis. (chief complaint) Collagenous colitisGastroesoph ageal reflux disease, unspecified whether esophagitis present 2 Tulio Beryl. [address] [place] [address], [address], [id number] , . tel: [phone] Referring Provider: Manju Moran, [address] [place] [address], [facility]. tel:[phone] OFFICE [facility]LCI[facility], [address] [place] [address], [id number] , tel: [phone] [facility] Colitis (chief complaint) Collagenous colitisGastroesoph ageal reflux disease, unspecified whether esophagitis present 1 Tulio Cordoba. [address] [place] [address], [id number] , . tel: [phone] Referring Provider: Manju Moran, [address] [place] [address], [facility]. tel:[phone] [facility], [id number] [place] [address], [id number] , tel: [phone] [facility] Colitis (chief complaint)JAI D (chief complaint) Collagenous colitisGastroesoph ageal reflux disease, unspecified whether esophagitis present 1 Tulio Cordoba. [address] [place] [address], [id number] , . tel: [phone] Referring Provider: Manju Moran, [address] [place] [address], [facility]. tel:[phone] [employer], [id number] [place] [address], [id number] , tel: [phone] [facility] No Information 1 Nick Sajidul. [address] [place] [address], [id number] , . tel: [phone] Referring Provider: Manju Moran, [address] [place] [address], [facility]. tel:[phone] [employer], [id number] [place] [address], [id number] , tel: [phone] [facility] No Information 1 Nick Sajidul. [address] [place] [address], [id number] , . tel: [phone] Referring Provider: Manju Moran, [address] [place] [address], [facility]. tel:[phone] [facility], [id number] [place] [address], [id number] , tel: [phone] [facility] Incontinence (chief complaint)Alma rrhea (chief complaint) Change in bowel habitDiarrhea, unspecifiedHeartbu rnFatty (change of) liver, not elsewhere classified Nick Hayden [address] [facility], [facility] [address], [place], [place], [id number] , [place]. tel: [phone] Referring Provider: Manju Moran, [address] [facility] [address], [place], [address]. tel:[phone] Family History Family Member Type Diagnosis Age At Onset Problem Family history of Cardiovasc ular disease Payers Payer name Insurance type Covered democrat ID Anabella gill(s) [facility] ACCESS BL [id number] Social History Type Description Quantity Date Captured Comments Alcohol Use Details 1 drink weekly Caffeine Use Details coffee 2 cups per day Tobacco Use Status Ex-smoker Smoking Status Former smoker Non-Smoking Tobacco Use Details : No Details Available : No Details Available Sex Female Sexual Orientation Straight or heterosexual Gender Identity Female Vital Signs Date / Time: Height Weight BMI Pulse Rate Blood Pressure Temperature Respiratory Rate Body Surface Area Head Circumference Head Circ. Percentile Wt./Rupert. Percentile BMI percentile Pulse Ox Inhaled Ox 11:08 AM 62.00 in 71.668 kg (158.00 lbs) 28.9 0 kg/m eter (2) 76 /min 117/79 mm[Hg] 98 % Chief Complaint And Reason For Visit From encounter dated '02/28/2024 11:00'. Follow Up of Collagenous Colitis (chief complaint) Follow Up of GERD (chief complaint) Reason For Referral Reason For Referral No Information Plan Of Treatment Date Type Action Status Referral Ordered: COLONOSCOPY, FLEXIBLE, DIAGNOSTIC W/ COLLECTION OF SPECIMEN ordered History Of Present Illness Encounter Date Complaint History Of Prese nt Illness Follow Up of Collagenous Colitis Follow Up of GERD Comments: She is on Colestipol as needed, using 1-2 times per week. Having soft stools with some formed daily. Has loose stools with cabbage and Israeli food. Is aware which foods aggravate her bowels. No abdominal pain, no blood in her stool. Last colonoscopy in 05/2021. Comments: She ta kes Nexium 20mg every day. No acid reflux, dysphagia and breakthrough acid reflux. No weight loss. Collagenous Colitis Collagenous Colitis. Pt is here for a follow up visit. She is taking Colestipol 1gm daily and has 1 formed BM per day. If she takes Colestipol twice a day, she is constipated. No cramping, bloating. No blood in her stool. Can eat salads and apples now, as she is introducing new foods. Drinks lots of water. Last colonoscopy in 05/2021. GERD-Takes Nexium 20mg in the am. Alternates name brand and generic. No breakthrough or alarm symptoms. No dysphagia or epigastric pain. Collagenous colitis. Collagenous Colitis. Stopped Mesalamine on February 20 due to left eye blurred vision on the advice of her garde manager. Her eye is much better off Mesalamine. Regular loose liquid BMs with cramping daily. Has 2-3 BMs per day. Can usually control with diet. While she was on Mesalamine she had no change in the quality of her stool. Last colonoscopy in 05/2021 was diagnostic for collagenous colitis. Had labs at PCP, low in vitamin B 12-now on supplement. Hx of cardiac stents in 2015. GERD-Pt states that since she was switched to Nexium from prevacid she is having improved HB control. No dysphagia, epigastric pain or reflux. She is avoiding specific trigger foods and doesn't eat late at night. GERD. Pt her for follo w up. She is using Nexium daily. She states this is keeping her HB controlled. She alternates from name brand to generic. No n/v. She has a good appetite. Certain foods will trigger break through HB. Colitis. Pt here for foll ow up. Pt states that she is doing well on the mesalamine. She is having approx 1 Bm daily. She states that coffee can impact her stools. She states no blood in her stool. She has no abd pain, no n/v, f/c, change in appetite, no wt loss. 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 Pt states overall she is doing okay. She does have fatigue and still has not gotten her sense of smell and taste back since having COVID 08/2020. When she eats foods like Israeli and spicy foods then she does pay for the next day. She is still taking mesalamine 2 tabs daily. She is also using Nexium daily. If she eats fresh fruits and salads then she does have loose stools. She does have caffeine in the AM and this keeps her regular. No blood in stool. She has no abd pain unless she doesn't eat right. 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 She was dx with collagenous colitis on 05/2021 colonoscopy. She is currently on mesalamine 1.2 2 tabs daily. She is now having more energy. She feels like her stools are back to her normal. She may go a day or 2 with no BM but fruit usually helps keep regular. No blood in stool, no abd pain. No n/v, f/c, HB, or change in appetite. She was recently dx with type 2 diabetes and she is working on this with her PCP. GERD (comments) She was previous ly taking prevacid and her PCP told her to start using TUMS only instead. She mentioned this to Dr. Romero and her scope and he advised she start using Nexium. since starting Nexium her stools are again improved. She states her HB is well controlled on the Nexium. She does follow GERD guidelines as well. Incontinence Diarrhea Onset: 2 months ago. Severity level is: moderate. Stool frequency: 2 to 4 times a day. The patient describes it as loose, brown, green, yellow and occ dark stools. It occurs daily. The problem is worse. Context: new medications. Symptom is aggravated by milk/dairy products and Prilosec then metformin. Relieving factors include bland diet and imodium. Associated symptoms include abdominal pain, bloating, cramping (abdominal), flatulence and weight loss. Pertinent negatives include anorexia, blood in stool, change in appetite, decreased urine output, distention (abdominal), fecal incontinence, fever, joint pain, nausea, rash, tenesmus and vomiting. Additional information: no family history of colon cancer, no family history of Crohns/Colitis and Lactose free diet some help. Functional Status Date Functional Assessmen t No Information Instructions Date Instruction Additional Infor no Well managed on Nexi um 20mg daily. No dysphagia, epigastric pain or breakthrough reflux.Continue Nexium daily.Follow low acid diet and practice lifestyle modifications. Related to Gastroesophageal reflux disease without esophagitis Reports daily formed stools. Uses Colestipol if she has sausage or Israeli foods. Uses 1-2 times per week. No abdominal pain or blood in stool. Last colonoscopy in 05/2021. No complaints or concerns.Continue Colestipol as needed.She will call with any new or alarming symptoms.Follow up in 1 year or sooner if needed. Related to Collagenous colitis Disease prevention Well managed on Nexi um 20mg. She alternates between name brand and generic. No breakthrough symptoms. No dysphagia or abdominal pain.Continue Nexium 20mg daily.Follow antiacid diet and practice lifestyle modifications. Related to Gastroesophageal reflux disease, unspecified whether esophagitis present Better controlled on Colestipol 1 tab in the am. Tried 2 per day and was constipated. Now can add in more fruits and vegetables. Having 1 soft formed stool per day. No blood in stool. Last colonoscopy in 05/25/21 showed CC.Continue Colestipol 1 tab daily.She will call with any new or alarming symptoms.Follow up in 6 months. Related to Collagenous colitis Disease prevention Doing well on Prevac id. Recently switched from Nexium as this was not working for her. No breakthrough or alarm symptoms. Related to Gastroesophageal reflux disease, unspecified whether esophagitis present Has been taking 2 LI oscar with no improvement in her symptoms, still having loose stools with mild cramping. Saw her eye Dr for blurry vision was told to stop this med. Discussed other tx options.Will start Colestipol 1gm BID. Told to call in 2-3 weeks if no improvement in her loose stools.Could trial Pepto Bismol 3 TID or AZA.Next colonoscopy in 05/2026. Related to Collagenous colitis as above. Related to Diarr hea, unspecified Disease process Pt here for follow u p. Pt was Dx'ed with collagenous colitis on her colonoscopy 05/25/21. Overall the exam showed a normal colon. She is taking mesalamine 1.2g 2 tabs daily and doing well. Her diet does contribute to bowel changes. She states no alarm s/s.Pt to continue on mesalamine 1.2g 2 tabs daily.Repeat colonoscopy in 5 years or 2025.Follow up 1 year.Pt is being seen by cardiology and they are also watching labs as well as PCP. Related to Collagenous colitis Pt states that since she was switched to Nexium from prevacid she is having improved HB control. She is avoid specific trigger foods and doesn't eat late at night.Follow up 1 year or sooner if needed. Related to Gastroesophageal reflux disease, unspecified whether esophagitis present Disease process Pt here for follow u p. Pt was Dx'ed with collagenous colitis on her colonoscopy 05/25/21. Overall the exam showed a normal colon. She is taking mesalamine 1.2g 2 tabs daily and doing well. Her diet does contribute to bowel changes. She states no alarm s/s.Pt to continue on mesalamine 1.2g 2 tabs daily.Repeat colonoscopy in 5 years or 2025.Follow up 6 months.Labs in 3 months - CBC and CMP. Related to Collagenous colitis Pt states that since she was switched to Nexium from prevacid she is having improved stools as well as improved HB control. She is avoid specific trigger foods and doesn't eat late at night.Follow up 6 months or sooner if needed. Related to Gastroesophageal reflux disease, unspecified whether esophagitis present Disease process Pt states that since she was switched to Nexium from prevacid she is having improved stools as well as improved HB control. She is avoid specific trigger foods and doesn't eat late at night.Follow up 3 months or sooner if needed. Related to Gastroesophageal reflux disease, unspecified whether esophagitis present Pt here for follow u p. Pt was dx with collagenous colitis on her colonoscopy 05/25/21. Overall the exam showed a normal colon. She is taking mesalamine 1.2g 2 tabs daily and doing well. She is able to have a normal for her stool daily to every 2-3 days and she states increasing her fruit helps her to have a BM. No alarm s/s.Pt to continue on mesalamine 1.2g 2 tabs daily.Repeat colonoscopy in 5 years or 2025.Follow up 3 months.Labs in 3 months- CBC and CMP. Related to Collagenous colitis Disease process Disease process Assessments Type Assessment Date assessment Collagenous colitis assessment Gastroesophageal reflux disease without esophagitis Mental Status Date Cognitive Assessment Orientation - Leonard ed to time, place, person, situation. Patient Care Teams Name Effective Dates (start - stop) Status Members No Information
--- OUTSIDE RECORDS SUMMARY | 2024-07-31 09:00 | XMS_ITS ---
Author Organization [facility] Office Address [address] [place] [address] Care Team Providers Care Catalyst Supervisor Name Role Phone Michael Araizajit Unavailable [phone] Medications Medication SIG (Take, Route, Frequency, Duration) Notes Start Date End Date Status Calcitriol 0.25 MCG 1 capsule Orally Onc e a day; Duration: 90 day(s) 05/22/2024 02/16/2025 Active Losartan Potassium 50 MG 1 tablet Orally Once a day; Duration: 90 05/22/2024 Active Vitamin D (Ergocalciferol) 26851 UNIT 1 capsule Orally once a week; Duration: 90 days 05/22/2024 02/16/2025 Active Social History Sex Assigned At : Social History Observation Description Sex Assigned At Female Encounters Encounter Location Date Provider Diagnosis [facility] [address] [facility] [address] [place] [address] 07/31/2024 Navneet Araiza Chronic kidney disease, stage 3 unspecified N18.30 ; Essential hypertension I10 ; Type 2 diabetes mellitus with hyperglycemia E11.65 and Gastro-esophageal reflux disease with esophagitis, without bleeding K21.00 Assessments Encounter Date Diagnosis (ICD Code) Assessment Notes Treatment Notes Treatment Clinical Notes Section Notes 07/31/2024 Chronic kidney disease, stage 3 unspecified (ICD-10 - N18.30) 07/31/2024 Essential hypertension (ICD-10 - I10) 07/31/2024 Type 2 diabetes mellitus with hyperglycemia (ICD-10 - E11.65) 07/31/2024 Gastro-esophageal reflux disease with esophagitis, without bleeding (ICD-10 - K21.00) Plan Of Treatment Next Appt Details Provider Name:Navneet Araiza , 05/28/2025 02:15:00 PM, [address] [facility], [address], [place], [address], Progress Notes * Berto SOTO:1955 ([age] yo F)Acc No.[id number]:07/31/2024 Progress Notes Patient: Suyapa RICE Provider: Renetta HERCLUES MD, Zaira.Juanita.Haley.P, F.A.S.N. :1955 A ge:69 Y S ex:Female Date:07/31/2024 Address:[address] [place] [address] Subjective: * Chief Complaints: * * Medical History: * Medications: T aking Losartan Potassium 50 MG Tablet 1 tablet Orally Once a day , Taking Vitamin D (Ergocalciferol) 45572 UNIT Capsule 1 capsule Orally once a week , stop date 02/16/2025, Taking Calcitriol 0.25 MCG Capsule 1 capsule Orally Once a day , stop date 02/16/2025 Objective: * Vitals: Assessment: * Assessment: 1. C hronic kidney disease, stage 3 unspecified - N18.30 (Primary) 2 . E ssential hypertension - I10 3 . T ype 2 diabetes mellitus with hyperglycemia - E11.65 4 . G taco-esophageal reflux disease with esophagitis, without bleeding - K21.00 Plan: * Treatment: * Billing Information: * Visit Code: 93976 Office Visit, Est Pt., Level 4. * Procedure Codes: * Electronic signature of Emilie Araiza MD on 05/22/2025 at 11:26 AM CDT Sign off status: Pending * Provider: Renetta HERCULES MD, F.Juanita.C.P, F.A.S.N. Date: 09/30/2023 Generated for Printing/Faxing/eTransmitting on: 0 05/22/2025 11:26 AM CDT
--- OUTSIDE RECORDS SUMMARY | 2024-10-09 09:00 | XMS_ITS ---
Author Organization [facility] Address [address] [address] [place] [address] Care Team Providers Care Chip Washer Name Role Phone Jose G Navneet Unavailable [phone] Medications Medication SIG (Take, Route, Frequency, Duration) Notes Start Date End Date Status Losartan Potassium 50 MG 1 tablet Orally Once a day; Duration: 90 05/22/2024 Active Vitamin D (Ergocalciferol) 04505 UNIT 1 capsule Orally once a week; Duration: 90 days 05/22/2024 02/16/2025 Active Calcitriol 0.25 MCG 1 capsule Orally Onc e a day; Duration: 90 day(s) 05/22/2024 02/16/2025 Active Social History Sex Assigned At : Social History Observation Description Sex Assigned At Female Problems Problem Type SNOMED Code ICD Code Onset Dates Problem Status W/U Status Risk Notes Problem Vitamin D deficiency (20745216) Vitamin D deficiency, unspecified (E55.9) Active confirmed Encounters Encounter Location Date Provider Diagnosis [facility] [address] [facility] [address] [place] [address] 10/09/2024 Navneet Araiza Chronic kidney disease, stage 3 unspecified N18.30 ; Type 2 diabetes mellitus with hyperglycemia E11.65 ; Vitamin D deficiency, unspecified E55.9 ; Glycosuria R81 and Proteinuria, unspecified R80.9 Assessments Encounter Date Diagnosis (ICD Code) Assessment Notes Treatment Notes Treatment Clinical Notes Section Notes 10/09/2024 Chronic kidney disease, stage 3 unspecified (ICD-10 - N18.30) 10/09/2024 Type 2 diabetes mellitus with hyperglycemia (ICD-10 - E11.65) 10/09/2024 Vitamin D deficiency, unspecified (ICD-10 - E55.9) 10/09/2024 Glycosuria (ICD-10 - R81) 10/09/2024 Proteinuria, unspecified (ICD-10 - R80.9) Plan Of Treatment Next Appt Details Provider Name:Navneet Jose G , 05/28/2025 02:15:00 PM, [address] [facility], [facility] [address], [place], [address], Progress Notes * Suyapa SOTODOB:1955 ([age] yo F)Acc No.[id number]:10/09/2024 Progress Notes Patient: Suyapa RICE Provider: Renetta HERCULES MD, F.Juanita.C.P, F.A.S.N. :1955 A ge:69 Y S ex:Female Date:10/09/2024 Address:[address] [place] [address] Subjective: * Chief Complaints: * * Medical History: * Medications: T aking Losartan Potassium 50 MG Tablet 1 tablet Orally Once a day , Taking Vitamin D (Ergocalciferol) 34261 UNIT Capsule 1 capsule Orally once a week , stop date 02/16/2025, Taking Calcitriol 0.25 MCG Capsule 1 capsule Orally Once a day , stop date 02/16/2025 Objective: * Vitals: Assessment: * Assessment: 1. C hronic kidney disease, stage 3 unspecified - N18.30 (Primary) 2 . T ype 2 diabetes mellitus with hyperglycemia - E11.65 3 . V itamin D deficiency, unspecified - E55.9 4 . G lycosuria - R81 5 . P roteinuria, unspecified - R80.9 Plan: * Treatment: * Billing Information: * Visit Code: 23661 Office Visit, Est Pt., Level 4. * Procedure Codes: * Electronic signature of Emilie Araiza MD on 05/22/2025 at 11:27 AM CDT Sign off status: Pending * Provider: Renetta HERCULES MD, F.Juanita.C.P, F.A.S.N. Date: 0 10/09/2024 Generated for Printing/Faxing/eTransmitting on: 0 05/22/2025 11:27 AM CDT
--- OUTSIDE RECORDS SUMMARY | 2024-11-27 09:00 | XMS_ITS ---
Author Organization [facility] Office Address [address] [place] [address] Care Team Providers Care Slate Roofer Helper Name Role Phone Navneet Araiza Unavailable [phone] Social History Sex Assigned At : Social History Observation Description Sex Assigned At Female Problems Problem Type SNOMED Code ICD Code Onset Dates Problem Status W/U Status Risk Notes Problem Anemia (986967626) Anemia, unspecified (D64.9) Active confirmed Encounters Encounter Location Date Provider Diagnosis [place] [facility] [address] [facility] [address] [place] [address] 11/27/2024 Navneet Araiza Chronic kidney disease, stage 3 unspecified N18.30 ; Essential hypertension I10 ; Type 2 diabetes mellitus with hyperglycemia E11.65 ; Gastro-esophageal reflux disease with esophagitis, without bleeding K21.00 ; Vitamin D deficiency, unspecified E55.9 and Anemia, unspecified D64.9 Assessments Encounter Date Diagnosis (ICD Code) Assessment Notes Treatment Notes Treatment Clinical Notes Section Notes 11/27/2024 Chronic kidney disease, stage 3 unspecified (ICD-10 - N18.30) 11/27/2024 Essential hypertension (ICD-10 - I10) 11/27/2024 Type 2 diabetes mellitus with hyperglycemia (ICD-10 - E11.65) 11/27/2024 Gastro-esophageal reflux disease with esophagitis, without bleeding (ICD-10 - K21.00) 11/27/2024 Vitamin D deficiency, unspecified (ICD-10 - E55.9) 11/27/2024 Anemia, unspecified (ICD-10 - D64.9) Plan Of Treatment Next Appt Details Provider Name:Navneet Jose G , 05/28/2025 02:15:00 PM, [address] [facility], [address], [place], [address], Progress Notes * Dillan SOTOB:1955 ([age] yo F)Acc No.[id number]:11/27/2024 Progress Notes Patient: Suyapa RICE Provider: Renetta HERCULES MD, Zaira.Juanita.Haley.P, F.A.S.N. :1955 A ge:69 Y S ex:Female Date:11/27/2024 Address:[address] [place] [address] Subjective: * Chief Complaints: * * Medical History: Objective: * Vitals: Assessment: * Assessment: 1. C hronic kidney disease, stage 3 unspecified - N18.30 (Primary) 2 . E ssential hypertension - I10 3 . T ype 2 diabetes mellitus with hyperglycemia - E11.65 4 . G taco-esophageal reflux disease with esophagitis, without bleeding - K21.00 5 . V itamin D deficiency, unspecified - E55.9 6 . A nemia, unspecified - D64.9 Plan: * Treatment: * Billing Information: * Visit Code: 46681 Office Visit, Est Pt., Level 4. * Procedure Codes: * Electronic signature of Emilie Araiza MD on 05/22/2025 at 11:26 AM CDT Sign off status: Pending * Provider: Renetta HERCULES MD, Zaira.Juanita.Haley.P, F.A.S.N. Date: 0 11/27/2024 Generated for Printing/Faxing/eTransmitting on: 0 05/22/2025 11:26 AM CDT
--- OUTSIDE RECORDS SUMMARY | 2025-03-05 09:00 | XMS_ITS ---
Author Organization [facility] Address [address] [place] [address] Care Team Providers Care Cement Car Dumper Name Role Phone Navneet Araiza Unavailable [phone] Social History Sex Assigned At : Social History Observation Description Sex Assigned At Female Problems Problem Type SNOMED Code ICD Code Onset Dates Problem Status W/U Status Risk Notes Problem Chronic kidney disease stage 3A (disorder) (684720321) Chronic kidney disease, stage 3a (N18.31) Active confirmed Encounters Encounter Location Date Provider Diagnosis [place] [facility] [address] [facility] [address] [place] [address] 03/05/2025 Navneet Araiza Chronic kidney disease, stage 3a N18.31 ; Essential hypertension I10 ; Type 2 diabetes mellitus with hyperglycemia E11.65 ; Gastro-esophageal reflux disease with esophagitis, without bleeding K21.00 ; Vitamin D deficiency, unspecified E55.9 ; Anemia, unspecified D64.9 ; Proteinuria, unspecified R80.9 and Glycosuria R81 Assessments Encounter Date Diagnosis (ICD Code) Assessment Notes Treatment Notes Treatment Clinical Notes Section Notes 03/05/2025 Chronic kidney disease, stage 3a (ICD-10 - N18.31) 03/05/2025 Essential hypertension (ICD-10 - I10) 03/05/2025 Type 2 diabetes mellitus with hyperglycemia (ICD-10 - E11.65) 03/05/2025 Gastro-esophageal reflux disease with esophagitis, without bleeding (ICD-10 - K21.00) 03/05/2025 Vitamin D deficiency, unspecified (ICD-10 - E55.9) 03/05/2025 Anemia, unspecified (ICD-10 - D64.9) 03/05/2025 Proteinuria, unspecified (ICD-10 - R80.9) 03/05/2025 Glycosuria (ICD-10 - R81) Plan Of Treatment Next Appt Details Provider Name:Navneet Araiza , 05/28/2025 02:15:00 PM, [address] [facility], [facility] [address], [place], [address], Progress Notes * Suyapa SOTODOB:1955 ([age] yo F)Acc No.[id number]:03/05/2025 Progress Notes Patient: Suyapa RICE Provider: Renetta HERCULES MD, Zaira.Juanita.Haley.P, F.A.S.N. :1955 A ge:69 Y S ex:Female Date:03/05/2025 Address:[address] [place] [address], [place], [place] Subjective: * Chief Complaints: * * Medical History: Objective: * Vitals: Assessment: * Assessment: 1. C hronic kidney disease, stage 3a - N18.31 (Primary) 2 . E ssential hypertension - I10 3 . T ype 2 diabetes mellitus with hyperglycemia - E11.65 ? 4 . G taco-esophageal reflux disease with esophagitis, without bleeding - K21.00 & #160; 5 . V itamin D deficiency, unspecified - E55.9 6 . A nemia, unspecified - D64.9 7 . P roteinuria, unspecified - R80.9 8 . G lycosuria - R81 Plan: * Treatment: * Billing Information: * Visit Code: 10344 Office Visit, Est Pt., Level 4. * Procedure Codes: * Electronic signature of Emilie Araiza MD on 05/22/2025 at 11:27 AM CDT Sign off status: Pending * Provider: Renetta HERCULES MD, Zaira.Juanita.C.P, F.A.S.N. Date: 0 03/05/2025 Generated for Printing/Faxing/eTransmitting on: 0 05/22/2025 11:27 AM CDT
--- OUTSIDE RECORDS SUMMARY | 2025-04-30 12:15 | XMS_ITS ---
Author Organization [facility] Address [address] [facility] [address] [facility] [address] [place] [address] Care Team Providers Care Clinical Trials Manager Name Role Phone Navneet Araiza Unavailable [phone] Social History Sex Assigned At : Social History Observation Description Sex Assigned At Female Encounters Encounter Location Date Provider Diagnosis [place] [facility] [address] [facility] 15 [place] [address] 04/30/2025 Navneet Araiza Chronic kidney disease, stage 3a N18.31 ; Essential hypertension I10 ; Type 2 diabetes mellitus with hyperglycemia E11.65 ; Gastro-esophageal reflux disease with esophagitis, without bleeding K21.00 ; Vitamin D deficiency, unspecified E55.9 and Anemia, unspecified D64.9 Assessments Encounter Date Diagnosis (ICD Code) Assessment Notes Treatment Notes Treatment Clinical Notes Section Notes 04/30/2025 Chronic kidney disease, stage 3a (ICD-10 - N18.31) 04/30/2025 Essential hypertension (ICD-10 - I10) 04/30/2025 Type 2 diabetes mellitus with hyperglycemia (ICD-10 - E11.65) 04/30/2025 Gastro-esophageal reflux disease with esophagitis, without bleeding (ICD-10 - K21.00) 04/30/2025 Vitamin D deficiency, unspecified (ICD-10 - E55.9) 04/30/2025 Anemia, unspecified (ICD-10 - D64.9) Plan Of Treatment Next Appt Details Provider Name:Navneet Jose G , 05/28/2025 02:15:00 PM, [address] [facility], [facility] [address], [place], [address], Progress Notes * Suyapa SOTODOB:1955 ([age] yo F)Acc No.[id number]:04/30/2025 Patient: Steve GUERINCarmelcy Provider: Renetta HERCULES MD, F.A.C.P, F.A.S.N. :1955 A ge:69 Y S ex:Female Date:04/30/2025 Address:[address] [place], [place] [id number] Subjective: * Chief Complaints: Objective: Assessment: * Assessment: 1. C hronic kidney [...] A nemia, unspecified - D64.9 Plan: * Billing Information: * Visit Code: 12040 Office Visit, Est Pt., Level 5. * Procedure Codes: * Electronic signature of Emilie Araiza MD on 05/22/2025 at 11:26 AM CDT Sign off status: Pending * Provider: Renetta HERCULES MD, F.A.C.P, F.A.S.N. Date: 0 04/30/2025 Generated for Printing/Faxing/eTransmitting on: 0 05/22/2025 11:26 AM CDT
--- OUTSIDE RECORDS SUMMARY | 2025-05-22 11:26 | XMS_ITS | Clinical Summary ---
Author Organization [facility] Address [address] [place] [place] [address] Care Team Providers Care Director Patient Name Role Phone Adam Soni MD Primary Care Provider Source Comments [facility],non-owned Affiliates and Associated Physician Practices is amultiple site organization consisting of ambulatory clinics and hospital sitesin [place], [place], [place] and [place]. This disclosure is being madepursuant to the Care Everywhere program and may not contain all informatio navailable regarding this patient. Last updated 18.[facility] Allergies Active Allergy Reactions Criticality Noted Date [...] Active vitamin D, ergocalciferol, (Drisdol) 1.25 MG (00551 UT) capsule Take 1 (one) capsule by [...] daily 05/07/20 Discontinu ed(List Clean-Up) HYDROcodone-alphonso taminophen (Tenstrike) 5-325 MG tablet Take 1 (one) tablet [...] Office Visit [facility] - Orthopedics [address] [place] [address], [facility] Level [address] Damien Villalta MD Closed fracture of proximal [...] EXAM WITH MONOFILAMENT 05/10/2023 DIABETES-HGB A1C 05/10/2023 DEPRESSION SCREENING 09/18/2024 DIABETES - URINE PROTEIN SCREENING 09/18/2024 MEDICARE AWV CALENDAR YEAR 2024 COVID-19 VACCINE ( - 2024- season) 2025 07/08/2021, 06/24/2021, 10/04/2020, Additional history exists INFLUENZA VACCINE (#1) 2025 , 09/04/2023, 09/04/2023, [...] patient's age to complete this topic Insurance [facility] [place] [address] SELF PAY NO INSURANCE Member Subscriber Plan / Payer (Ef fective for All Dates) Name:Suyapa Soto Member ID:Not on file Relation to Subscriber:Not on file Name:SUYAPA SOTO Subscriber ID:Not on file Address: [address] [place] [address] Payer ID:Not on file Group ID:Not on file Type:Self Pay Address: [facility] MANAGED MEDICARE ADV SELF PAY NO INSURANCE Member Subscriber Plan / Payer (Ef fective for All Dates) Name:Suyapa Soto Member ID:Not on file Relation to Subscriber:Not on file Name:SUYAPA SOTO Subscriber ID:Not on file Address: [address] [place] [address] Payer ID:Not on file Group ID:Not on file Type:Self Pay Address: [facility] MEDICARE ADV SELF PAY NO INSURANCE Member Subscriber Plan / Payer (Ef fective for All Dates) Name:Suyapa Soto Member ID:Not on file Relation to Subscriber:Not on file Name:SUYAPA SOTO Subscriber ID:Not on file Address: [address] [place] [address] Payer ID:Not on file Group ID:Not on file Type:Self Pay Address: [place] [employer] MANAGED MEDICARE ADV SELF PAY NO INSURANCE Member Subscriber Plan / Payer (Ef fective for All Dates) Name:Suyapa Soto Member ID:Not on file Relation to Subscriber:Not on file Name:SUYAPA SOTO Subscriber ID:Not on file Address: [address] [place] [address] Payer ID:Not on file Group ID:Not on file Type:Self Pay Address: [facility] [place] [address] SELF PAY NO INSURANCE Member Subscriber Plan / Payer (Ef fective for All Dates) Name:Suyapa Soto Member ID:Not on file Relation to Subscriber:Not on file Name:SUYAPA SOTO Subscriber ID:Not on file Address: [address] [place] [address] Payer ID:Not on file Group ID:Not on file Type:Self Pay Address: [facility] [place] [address] Care Teams Director Patient Relationship Specialty Start Date End Date Adam Soni MD [address] [place], [place] [phone] PCP - General Internal Medicine 04/12/23
--- OUTSIDE RECORDS SUMMARY | 2025-05-22 11:26 | XMS_ITS | Encounter Summary ---
Author Organization [facility] Address [address] [place] [address] Care Team Providers Care Medical Imaging Director Name Role Phone Adam Soni MD Primary Care Provider [phone] Encounter Details Date Type Department Care Team (Late st Contact Info) Description 08/01/2000 Outpatient Historical [place] [address] [facility] [address] [place] [address] Sensorineural hearing loss, bilateral (Primary Dx) Social History Tobacco Use Types Packs/Day Years Used Date Smoking Tobacco: Never Assessed Comments Unknown Sex and Gender Information Value Date Recorded Sex Assigned at Not on file Legal Sex 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 TELECOMMUNICATIONS CONSULTANT Gender Identity Not on file Sexual Orientation Not on file documented as of this encounter Plan of Treatment Upcoming Encounters Date Type Department Care Team (Late st Contact Info) Description 11/05/2025 11:30 AM TELECOMMUNICATIONS CONSULTANT Office Visit [facility] Oncology and Hematology - [place] [address] [facility] [address] [place] [address] Jordi Elizondo MD [address] [facility] [address] [place] [address] documented as of this encounter Visit Diagnoses Diagnosis Sensorineural hearing loss, bilateral- Primary documented in this encounter Care Teams Medical Imaging Director Relationship Specialty Start Date End Date Adam Soni MD [address] [place] [phone] PCP - General Internal Medicine 09/25/23 documented as of this encounter
--- OUTSIDE RECORDS SUMMARY | 2025-05-22 11:27 | XMS_ITS | Patient Health Record ---
Author Organization [facility] Address [address] [facility] [address] [place] [address] Care Team Providers Care Shop Tailor Apprentice Name Role Phone Navneet Araiza Unavailable [phone] Reason For Referral No Information Medications Medication SIG (Take, Route, Frequency, Duration) Notes Start Date End Date Status Vitamin D (Ergocalciferol) 1.25 MG (92463 UT) TAKE 1 CAPSULE BY MOUTH ONCE A WEEK FOR 90 DAYS; Duration: 90 Active Losartan Potassium 50 MG 1 tablet Orally Once a day; Duration: 90 05/22/2024 Active Social History Sex Assigned At : Social History Observation Description Sex Assigned At Female Problems Problem Type SNOMED Code ICD Code Onset Dates Problem Status W/U Status Risk Notes Problem Anemia (883888450) Anemia, unspecified (D64.9) Active confirmed Problem Hyperglycemia due to type 2 diabetes mellitus (494608500276877) Type 2 diabetes mellitus with hyperglycemia (E11.65) Active confirmed Problem Vitamin D deficiency (47648361) Vitamin D deficiency, unspecified (E55.9) Active confirmed Problem Essential hypertension (29099418) Essential hypertension (I10) Active confirmed Problem Gastroesophageal reflux disease with esophagitis (disorder) (219486500) Gastro-esophagea l reflux disease with esophagitis, without bleeding (K21.00) Active confirmed Problem Chronic kidney disease stage 3A (disorder) (064471428) Chronic kidney disease, stage 3a (N18.31) Active confirmed Encounters Encounter Location Date Provider Diagnosis [place] [facility] [address] [facility] [address] [place] [address] 05/22/2024 Navneet Araiza Chronic kidney disease, stage 3 unspecified N18.30 ; Essential hypertension I10 ; Type 2 diabetes mellitus with hyperglycemia E11.65 and Gastro-esophageal reflux disease with esophagitis, without bleeding K21.00 [place] [facility] [address] [facility] [address] [place] [address] 07/31/2024 Navneet Araiza Chronic kidney disease, stage 3 unspecified N18.30 ; Essential hypertension I10 ; Type 2 diabetes mellitus with hyperglycemia E11.65 and Gastro-esophageal reflux disease with esophagitis, without bleeding K21.00 [place] [facility] [address] [place] [address] 10/09/2024 Navneet Singh Chronic kidney disease, stage 3 unspecified N18.30 ; Type 2 diabetes mellitus with hyperglycemia E11.65 ; Vitamin D deficiency, unspecified E55.9 ; Glycosuria R81 and Proteinuria, unspecified R80.9 [place] [facility] [address] [place] [address] 11/27/2024 Navneet Singh Chronic kidney disease, stage 3 unspecified N18.30 ; Essential hypertension I10 ; Type 2 diabetes mellitus with hyperglycemia E11.65 ; Gastro-esophageal reflux disease with esophagitis, without bleeding K21.00 ; Vitamin D deficiency, unspecified E55.9 and Anemia, unspecified D64.9 [place] [facility] [address] [place] [address] 03/05/2025 Navneet Singh Chronic kidney disease, stage 3a N18.31 ; Essential hypertension I10 ; Type 2 diabetes mellitus with hyperglycemia E11.65 ; Gastro-esophageal reflux disease with esophagitis, without bleeding K21.00 ; Vitamin D deficiency, unspecified E55.9 ; Anemia, unspecified D64.9 ; Proteinuria, unspecified R80.9 and Glycosuria R81 [place] [facility] [address] [place] [address] 04/30/2025 Navneet Singh Chronic kidney disease, stage 3a N18.31 ; Essential hypertension I10 ; Type 2 diabetes mellitus with hyperglycemia E11.65 ; Gastro-esophageal reflux disease with esophagitis, without bleeding K21.00 ; Vitamin D deficiency, unspecified E55.9 and Anemia, unspecified D64.9 [place] [facility] [address] [place] [address] 08/01/2024 Navneet [facility] [address] [place] [address] 08/02/2024 Navneet Araiza [place] [facility] [address] [place] [address] 04/30/2025 Navneet Araiza [facility] [address] [place] [address] 05/22/2024 Navneet Araiza [place] [facility] [address] [facility] [address] [place] [address] 08/01/2024 Navneet Araiza Assessments Encounter Date Diagnosis [...] , 05/28/2025 02:15:00 PM, [address], [facility] [address], [place], [address],
--- OUTSIDE RECORDS SUMMARY | 2025-05-22 11:27 | XMS_ITS | Clinical Summary ---
Author Organization [facility] Hannah Reidsola Address [address] [place] [address] Care Team Providers Care Supervising Editor News Reel Name Role Phone Adam Soni MD Primary Care Provider [phone] Allergies Active Allergy Reactions Criticality Noted Date Comments Empagliflozin Other (See Comments) Low 05/10/2023 Hives Rofecoxib Rash High 01/24/2017 hives Other reaction(s): [...] Encounters Date Type Department Care Team Description 05/14/2025 11:00 AM CDT Office Visit [facility] Oncology and Hematology - [place] [address] [place] [address] Jordi Elizondo MD Chronic anemia (Primary Dx) 05/08/2025 Orders Only [facility] Oncology and Hematology - [place] [address] [place] [address] Jordi Elizondo MD 05/07/2025 Orders Only [facility] Oncology and Hematology - [place] [address] [place] [address] Jordi Elizondo MD 04/02/2025 External Device Data [...] on file Legal Sex 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 CRIMINAL JUSTICE INSTRUCTOR Gender Identity Not on file Sexual Orientation Not on file Last Filed Vital Signs Vital Sign Reading Time Taken Comments Blood Pressure 145/61 05/14/2025 11:29 AM CDT Pulse 67 05/14/2025 11:24 AM CDT Temperature 35.8 C (96.5 F) 05/14/2025 11:24 AM CDT Respiratory Rate 15 11/13/2024 10:4 5 AM CRIMINAL JUSTICE INSTRUCTOR Oxygen Saturation 100% 05/14/2025 11: 24 AM CDT Inhaled Oxygen Concentration - - Weight 48.9 kg (107 lb 12.8 oz) 025 11:24 AM CDT Height 152.4 cm (5') 09/25/2023 1:26 PM CRIMINAL JUSTICE INSTRUCTOR Body Mass Index 21.05 09/25/2023 1:26 PM CRIMINAL JUSTICE INSTRUCTOR Plan of Treatment Upcoming Encounters Date Type Department Care Team (Late st Contact Info) Description 11/05/2025 11:30 AM CRIMINAL JUSTICE INSTRUCTOR Office Visit [facility] Oncology and Hematology - [place] [address] [facility] [address] [place] [address] Jordi Elizondo MD [address] [facility] [address] [place] [address] Health Maintenance Due Date Last [...] 2014 OSTEOPOROSIS SCREENING 2019 INFLUENZA VACCINE (#1) 2025 , 07/16/2024, 09/04/2023, Additional history exists COVID-19 Vaccine (6 - 2024-2 6 season) 2025 07/08/2021, 06/24/2021, 10/04/2020, Additional history exists DTAP/TDAP/TD VACCINES (3 - T d or Tdap) 06/17/2025 06/17/2015, 09/18/2004 COLORECTAL SCREENING 11/01/2033 11/01/2023, 10/31/2023, 09/09/2015, Additional history exists Colorectal Cancer Screening 11/01/2033 PNEUMOCOCCAL VACCINE 50+ YEARS Completed 0 02/28/2023, 03/18/2020, 09/04/2014 Procedures Procedure Name Priority Date/Time Associated Diagnosis Comments IRON, TIBC, AND PERCENT SATURATION Routine 05/06/2025 9:54 AM CDT BASIC METABOLIC PANEL Routine 05/06/2025 9:53 AM CDT from Last 3 Months Results * IRON, TIBC, AND PERCENT SATURATION (05/06/2025 9:54 AM CDT) Blood us Jordi Elizondo MD CHEMISTRY ORDERABLES Final Resu lt * BASIC METABOLIC PANEL (05/06/2025 9:53 AM CDT) Blood us Jordi Elizondo MD CHEMISTRY ORDERABLES Final Resu lt from Last 3 Months Insurance [facility] Address: [facility] [address] [place] [address] Care Teams Supervising Editor News Reel Relationship Specialty Start Date End Date Adam Soni MD [address] [place] [phone] PCP - General Internal Medicine 09/25/23
[2025-05-22 12:25] LABS: Add Urine Microscopic? YES; Appearance Urine Turbid (Clear); Glucose Urine UA Negative (Negative); Leukocyte Esterase Ur 3+ LEU/UL (Negative); Nitrate Urine Positive (Negative); Non Pathogenic Casts 0-2; Specific Grav Ur 1.015 (1.001-1.035)
[2025-05-22 12:27] LABS: Alanine Aminotransferase 11 U/L (6-35); Albumin Level 4.4 g/dL (3.5-5.1); Alkaline Phosphatase 92 U/L (38-126); Anion Gap 10 mmol/L (4-12); Aspartate Amino Transferase 26 U/L (14-36); Bilirubin,Total 1.7 mg/dL (0.2-1.3); Blood Urea Nitrogen 17 mg/dL (7-17); Calcium 9.7 mg/dL (8.4-10.2); Carbon Dioxide 25 mmol/L (22-30); Chloride 100 mmol/L (98-107); Estimated Glomerular Filt Rate 41; Glucose 104 mg/dL (65-110); Potassium 4.9 mmol/L (3.4-5.0); Sodium 135 mmol/L (137-145); Total Protein 7.5 g/dL (6.3-8.2); Uric Acid 6.5 mg/dL (2.5-7.5)
[2025-05-22 12:34] LABS: MALB Creatinine Ratio 73.3 mg/g (0-30)
[2025-05-22 12:35] LABS: Total Protein Urine Random 16 mg/dL
[2025-05-22 12:36] LABS: Hemoglobin A1C 6.8 % (<5.7)
[2025-05-22 12:37] LABS: Parathyroid Intact 32.2 pg/mL (14.5-75.2)
[2025-05-22 14:14] LABS: Hematocrit 35.3 % (37.0-47.0); Hemoglobin 10.9 g/dL (12.0-15.0); Immature Granulocyte Percent A 0.4 % (0-0.5); Lymphocytes Absolute Auto 1.65 K/mm3 (0.9-3.2); Mean Corpuscular HGB Conc 30.9 g/dl (32-36); Mean Corpuscular Hemoglobin 28.7 pg (26-34); Mean Corpuscular Volume 92.9 fl (80-100); Nucleated Red Blood Cells Absolute Auto 0.000 K/mm3 (0.0-0.012); Nucleated Red Blood Cells Perc 0.0 % (0.0-0.2); Platelet Count Result 311 k/mm3 (150-375); Red Blood Count 3.80 M/mm3 (4.2-5.4); White Blood Count 8.6 K/mm3 (4.5-10.0)
[2025-05-23 10:09] LABS: Chloride, Urine 96 mmol/L (Not Estab.)
[2025-05-23 22:07] LABS: Osmolality, Urine 424 mOsmol/kg (.)
== END 2025-05-22 10:51 | disposition home or self-care (01) ==
PROVIDERS: PCP Internal Medicine Infectious Disease; Visit Provider Specialist
DX: E11.22 Type 2 diabetes mellitus with diabetic chronic kidney disease (principal); D63.1 Anemia in chronic kidney disease; N18.30 Chronic kidney disease, stage 3 unspecified; Z79.4 Long term (current) use of insulin; E78.5 Hyperlipidemia, unspecified; E21.3 Hyperparathyroidism, unspecified; E55.9 Vitamin D deficiency, unspecified; R82.90 Unspecified abnormal findings in urine
CPT/HCPCS: 36415; 80053; 81001; 81050; 82043; 82306; 82436; 82570; 83036; 83935; 83970; 84133; 84156; 84300; 84550; 85025; 87086; 87186

== ENCOUNTER 2025-06-18 09:44 | Outpatient (CLI) | payer MEDICARE, SELFPAY ==
--- OUTSIDE RECORDS SUMMARY | 2024-10-09 09:00 | XMS_ITS ---
Author Organization [facility] Address [address] [address] [place] [address] Care Team Providers Care Machine Joint Cutter Name Role Phone Jose G Navneet Unavailable [phone] Medications Medication SIG (Take, Route, Frequency, Duration) Notes Start Date End Date Status Losartan Potassium 50 MG 1 tablet Orally Once a day; Duration: 90 05/22/2024 Active Vitamin D (Ergocalciferol) 56101 UNIT 1 capsule Orally once a week; Duration: 90 days 05/22/2024 02/16/2025 Active Calcitriol 0.25 MCG 1 capsule Orally Onc e a day; Duration: 90 day(s) 05/22/2024 02/16/2025 Active Social History Sex Assigned At : Social History Observation Description Sex Assigned At Female Problems Problem Type SNOMED Code ICD Code Onset Dates Problem Status W/U Status Risk Notes Problem Vitamin D deficiency (58455217) Vitamin D deficiency, unspecified (E55.9) Active confirmed Encounters Encounter Location Date Provider Diagnosis [facility] [address] [place] [address] 10/09/2024 Navneet Araiza Chronic kidney disease, stage [...] Appt Details Provider Name:Navneet Jose G , 06/25/2025 02:00:00 PM, [address] [facility], [facility] [address], [place], [address], Progress Notes * Suyapa SOTODOB:1955 (6 0 yo F)Acc No.[id number]:10/09/2024 Progress Notes Patient: Suyapa RICE Provider: Renetta HERCULES MD, F.Juanita.C.P, F.A.S.N. :1955 A ge:69 Y S ex:Female Date:10/09/2024 Address:[address] [place] [address] Subjective: * Chief Complaints: * * Medical History: * Medications: T aking Losartan Potassium 50 MG Tablet 1 tablet Orally Once a day , Taking Vitamin D (Ergocalciferol) 05313 UNIT Capsule 1 capsule Orally once a [...] Treatment: * Billing Information: * Visit Code: 62358 Office Visit, Est Pt., Level 4. * Procedure Codes: * Electronic signature of Emilie Araiza MD on 06/18/2025 at 10:19 AM CDT Sign off status: Pending * Provider: Renetta HERCULES MD, F.Juanita.C.P, F.A.S.N. Date: 0 10/09/2024 Generated for Printing/Faxing/eTransmitting on: 1 10:19 AM CDT
--- OUTSIDE RECORDS SUMMARY | 2024-11-27 09:00 | XMS_ITS ---
Author Organization [facility] Office Address [address] [place] [address] Care Team Providers Care Property Portfolio Officer Name Role Phone Danica Araizat Unavailable [phone] Social History Sex Assigned At : Social History Observation Description Sex Assigned At Female Problems Problem Type SNOMED Code ICD Code Onset Dates Problem Status W/U Status Risk Notes Problem Anemia (852931238) Anemia, unspecified (D64.9) Active confirmed Encounters Encounter Location Date Provider Diagnosis [place] [facility] [address] [facility] [address] [place] [address] 11/27/2024 Navneet Araiza Chronic kidney disease, stage [...] Jose G , 06/25/2025 02:00:00 PM, [address] [facility], [facility] [address], [place], [address], Progress Notes * Dillan SOTOB:1955 ([age] yo F)Acc No.[id number]:11/27/2024 Progress Notes Patient: Suyapa RICE Provider: Renetta HERCULES MD, Zaira.Juanita.Haley.P, F.A.S.N. :1955 A ge:69 Y S ex:Female Date:11/27/2024 Address:[address] [place] [address] Subjective: * Chief Complaints: * * Medical [...] Treatment: * Billing Information: * Visit Code: 97326 Office Visit, Est Pt., Level 4. * Procedure Codes: * Electronic signature of Emilie Araiza MD on 06/18/2025 at 10:19 AM CDT Sign off status: Pending * Provider: Renetta HERCULES MD, Zaira.Juanita.Haley.P, F.A.S.N. Date: 0 11/27/2024 Generated for Printing/Faxing/eTransmitting on: 1 10:19 AM CDT
--- OUTSIDE RECORDS SUMMARY | 2025-03-05 09:00 | XMS_ITS ---
Author Organization [facility] Address [address] [place] [address] Care Team Providers Care Patrol Community Service Officer Name Role Phone Navneet Araiza Unavailable [phone] Social History Sex Assigned At : Social History Observation Description Sex Assigned At Female Problems Problem Type SNOMED Code ICD Code Onset Dates Problem Status W/U Status Risk Notes Problem Chronic kidney disease stage 3A (disorder) (214029260) Chronic kidney disease, stage 3a (N18.31) Active confirmed Encounters Encounter Location Date Provider Diagnosis [place] Office [address] [facility] 15 [place] [address] 03/05/2025 Navneet Araiza Chronic kidney disease, stage [...] Next Appt Details Provider Name:Navneet Araiza , 06/25/2025 02:00:00 PM, [address] [facility], [facility] [address], [place], [address], Progress Notes * Suyapa SOTODOB:1955 (6 0 yo F)Acc No.[id number]:03/05/2025 Progress Notes Patient: Suyapa RICE Provider: Renetta HERCULES MD, Zaira.Juanita.Haley.P, F.A.S.N. :1955 A ge:69 Y S ex:Female Date:03/05/2025 Address:[address] [place] [address], [place], [place] Subjective: * Chief Complaints: * * Medical [...] Treatment: * Billing Information: * Visit Code: 12787 Office Visit, Est Pt., Level 4. * Procedure Codes: * Electronic signature of Emilie Araiza MD on 06/18/2025 at 10:20 AM CDT Sign off status: Pending * Provider: Renetta HERCULES MD, Zaira.Juanita.C.P, F.A.S.N. Date: 0 03/05/2025 Generated for Printing/Faxing/eTransmitting on: 1 10:20 AM CDT
--- OUTSIDE RECORDS SUMMARY | 2025-04-30 12:15 | XMS_ITS ---
Author Organization [facility] Address [address] [facility] [address] [facility] [address] [place] [address] Care Team Providers Care Boarding House Manager Name Role Phone Navneet Araiza Unavailable [phone] Social History Sex Assigned At : Social History Observation Description Sex Assigned At Female Encounters Encounter Location Date Provider Diagnosis [place] [facility] [address] [facility] 15 [place] [address] 04/30/2025 Navneet Araiza Chronic kidney disease, stage [...] Jose G , 06/25/2025 02:00:00 PM, [address] [facility], [facility] [address], [place], [address], Progress Notes * Suyapa SOTODOB:1955 ([age] yo F)Acc No.[id number]:04/30/2025 Patient: Steve GUERINSuyapa Provider: Renetta HERCULES MD, F.A.C.P, F.A.S.N. :1955 A ge:69 Y S ex:Female Date:04/30/2025 Address:[address] [place], [place] [id number] Subjective: * Chief Complaints: Objective: Assessment: * [...] Plan: * Billing Information: * Visit Code: 11934 Office Visit, Est Pt., Level 5. * Procedure Codes: * Electronic signature of Emilie Araiza MD on 06/18/2025 at 10:19 AM CDT Sign off status: Pending * Provider: Renetta HERCULES MD, F.A.C.P, F.A.S.N. Date: 0 04/30/2025 Generated for Printing/Faxing/eTransmitting on: 1 10:19 AM CDT
--- OUTSIDE RECORDS SUMMARY | 2025-05-28 10:15 | XMS_ITS ---
Author Organization [facility] Address [address] [facility] [address] [facility] [address] [place] [address] Care Team Providers Care Reverberatory Furnace Operator Name Role Phone Jose G Navneet Unavailable [phone] Social History Sex Assigned At : Social History Observation Description Sex Assigned At Female Problems Problem Type SNOMED Code ICD Code Onset Dates Problem Status W/U Status Risk Notes Problem Glycosuria (46528053) Glycosuria (R81) Active confirmed Encounters Encounter Location Date Provider Diagnosis [facility] [address] [place] [address] 05/28/2025 Navneet Araiza Chronic kidney disea se, stage 3a N18.31 ; Essential hypertension I10 ; Type 2 diabetes mellitus with hyperglycemia E11.65 ; Gastro-esophageal reflux disease with esophagitis, without bleeding K21.00 ; Vitamin D deficiency, unspecified E55.9 ; Anemia, unspecified D64.9 and Glycosuria R81 Assessments Encounter Date Diagnosis (ICD Code) Assessment Notes Treatment Notes Treatment Clinical Notes Section Notes 05/28/2025 Chronic kidney disease, stage 3a (ICD-10 - N18.31) 05/28/2025 Essential hypertension (ICD-10 - I10) 05/28/2025 Type 2 diabetes mellitus with hyperglycemia (ICD-10 - E11.65) 05/28/2025 Gastro-esophageal reflux disease with esophagitis, without bleeding (ICD-10 - K21.00) 05/28/2025 Vitamin D deficiency, unspecified (ICD-10 - E55.9) 05/28/2025 Anemia, unspecified (ICD-10 - D64.9) 05/28/2025 Glycosuria (ICD-10 - R81) Plan Of Treatment Next Appt Details Provider Name:Navneet Araiza , 06/25/2025 02:00:00 PM, [address] [facility], [facility] [address], [place], [address], Progress Notes * Berto SOTO:1955 ([age] yo F)Acc No.[id number]:05/28/2025 Patient: Suyapa RICE Provider: Renetta HERCULES MD, Zaira.Juanita.C.P, F.A.S.N. :1955 A ge:69 Y S ex:Female Date:05/28/2025 Address:[address] [place] [address] Subjective: * Chief Complaints: Objective: Assessment: * [...] A nemia, unspecified - D64.9 7 . G lycosuria - R81 Plan: * Billing Information: * Visit Code: 00898 Office Visit, Est Pt., Level 5. * Procedure Codes: * Electronic signature of Emilie Araiza MD on 06/18/2025 at 10:19 AM CDT Sign off status: Pending * Provider: Renetta HERCULES MD, F.Juanita.C.P, F.A.S.N. Date: 0 05/28/2025 Generated for Printing/Faxing/eTransmitting on: 1 10:19 AM CDT
[2025-06-18 10:17] LABS: Hematocrit 32.7 % (37.0-47.0); Hemoglobin 9.8 g/dL (12.0-15.0); Immature Granulocyte Percent A 0.5 % (0-0.5); Lymphocytes Absolute Auto 1.24 K/mm3 (0.9-3.2); Mean Corpuscular HGB Conc 30.0 g/dl (32-36); Mean Corpuscular Hemoglobin 28.7 pg (26-34); Mean Corpuscular Volume 95.9 fl (80-100); Nucleated Red Blood Cells Absolute Auto 0.000 K/mm3 (0.0-0.012); Nucleated Red Blood Cells Perc 0.0 % (0.0-0.2); Platelet Count Result 233 k/mm3 (150-375); Red Blood Count 3.41 M/mm3 (4.2-5.4); White Blood Count 6.1 K/mm3 (4.5-10.0)
--- OUTSIDE RECORDS SUMMARY | 2025-06-18 10:19 | XMS_ITS | Clinical Summary ---
Author Organization [facility] Address [address] [place] [address] Care Team Providers Care Oil Well Services Supervisor Name Role Phone Adam Soni MD Primary Care Provider Source Comments [facility],non-owned Affiliates and Associated Physician Practices is amultiple site organization consisting of ambulatory clinics and hospital sitesin [place], [place], [place] and [place]. This disclosure is being madepursuant to the Care Everywhere program and may not contain all informatio navailable regarding this patient. Last updated 18.[facility] Allergies Active Allergy Reactions Criticality Noted Date [...] Active vitamin D, ergocalciferol, (Drisdol) 1.25 MG (29337 UT) capsule Take 1 (one) capsule by [...] 1 (one) tablet by mouth once daily Active Active Problems Problem Noted Date Diagnosed [...] 05/10/20232022 Type 2 diabetes mellitus without complication Overview (06/18/2025): IMO 06/18/2025 Uncontrolled type 2 diabetes mellitus 05/10/2023 05/10/2023 [...] Description 05/07/2025 10:40 AM CDT Office Visit [facility] - Orthopedics [address] [place] [address], [facility] [place] [address] Damien Villalta MD Closed fracture of proximal [...] AWV CALENDAR YEAR 2024 COVID-19 VACCINE ( season) 2025 07/08/2021, 06/24/2021, 10/04/2020, Additional history [...] patient's age to complete this topic Insurance [facility] MANAGED MEDICARE ADV SELF PAY NO INSURANCE Member Subscriber Plan / Payer (Ef fective for All Dates) Name:Suyapa Soto Member ID:Not on file Relation to Subscriber:Not on file Name:SUYAPA SOTO Subscriber ID:Not on file Address: [address] [place] [address] Payer ID:Not on file Group ID:Not on file Type:Self Pay Address: [facility] MANAGED MEDICARE ADV Member Subscriber Plan / Payer (Ef fective 2024-Present) Name:Suyapa Soto Relation to Subscriber:Self Name:Suyapa Soto Payer ID:[id number] (NAIC) Type:Medicare-Managed Care Address: [address] SELF PAY NO INSURANCE Member Subscriber Plan / Payer (Ef fective for All Dates) Name:Suyapa Soto Member ID:Not on file Relation to Subscriber:Not on file Name:SUYAPA SOTO Subscriber ID:Not on file Address: [address] [place] [address] Payer ID:Not on file Group ID:Not on file Type:Self Pay Address: [place] [employer] MANAGED MEDICARE ADV SELF PAY NO INSURANCE Member Subscriber Plan / Payer (Ef fective for All Dates) Name:Suyapa Soto Member ID:Not on file Relation to Subscriber:Not on file Name:SUYAPA SOTO Subscriber ID:Not on file Address: [address] [place] [address] Payer ID:Not on file Group ID:Not on file Type:Self Pay Address: [facility] MANAGED MEDICARE ADV Member Subscriber Plan / Payer (Ef fective 2024-) Name:Suyapa Soto Relation to Subscriber:Self Name:Suyapa Soto Payer ID:[id number] (NAIC) Type:Medicare-Managed Care Address: [place] [phone] SELF PAY NO INSURANCE Member Subscriber Plan / Payer (Ef fective for All Dates) Name:Suyapa Soto Member ID:Not on file Relation to Subscriber:Not on file Name:SUYAPA SOTO Subscriber ID:Not on file Address: [address] [place] [address] Payer ID:Not on file Group ID:Not on file Type:Self Pay Address: [place] [employer] [place]NA[place]ED MEDICARE ADV Member Subscriber Plan / Payer (Ef fective 2024-) Name:Suyapa Soto Relation to Subscriber:Self Name:Suyapa Soto Payer ID:[id number] (NAIC) Type:Medicare-Managed Care Address: [place] [phone] SELF PAY NO INSURANCE Member Subscriber Plan / Payer (Ef fective for All Dates) Name:Suyapa Soto Member ID:Not on file Relation to Subscriber:Not on file Name:SUYAPA SOTO Subscriber ID:Not on file Address: [address] [place] [id number] Payer ID:Not on file Group ID:Not on file Type:Self Pay Address: [place] [employer] MANAGED MEDICARE ADV Care Teams Oil Well Services Supervisor Relationship Specialty Start Date End Date Adam Soni MD [address] [place] [phone] PCP - General Internal Medicine 04/12/23
--- OUTSIDE RECORDS SUMMARY | 2025-06-18 10:19 | XMS_ITS | Patient Health Record ---
Author Organization [facility] Address [address] [place] [address] Care Team Providers Care Brick Veneer Maker Name Role Phone Jose G Navneet Unavailable [phone] Reason For Referral No Information Medications Medication SIG (Take, Route, Frequency, Duration) Notes Start Date End Date Status Vitamin D (Ergocalciferol) 1.25 MG (84353 UT) TAKE 1 CAPSULE BY MOUTH ONCE A WEEK FOR 90 DAYS; Duration: 90 Active Losartan Potassium 50 MG 1 tablet Orally Once a day; Duration: 90 05/22/2024 Active Social History Sex Assigned At : Social History Observation Description Sex Assigned At Female Problems Problem Type SNOMED Code ICD Code Onset Dates Problem Status W/U Status Risk Notes Problem Anemia (582058092) Anemia, unspecified (D64.9) Active confirmed Problem Hyperglycemia due to type 2 diabetes mellitus (527916935132103) Type 2 diabetes mellitus with hyperglycemia (E11.65) Active confirmed Problem Vitamin D deficiency (69222837) Vitamin D deficiency, unspecified (E55.9) Active confirmed Problem Glycosuria (32990206) Glycosuria (R81) Active confirmed Problem Essential hypertension (52902308) Essential hypertension (I10) Active confirmed Problem Gastroesophageal reflux disease with esophagitis (disorder) (175283777) Gastro-esophagea l reflux disease with esophagitis, without bleeding (K21.00) Active confirmed Problem Chronic kidney disease stage 3A (disorder) (920287857) Chronic kidney disease, stage 3a (N18.31) Active confirmed Encounters Encounter Location Date Provider Diagnosis [facility] [address] [address] 07/31/2024 Navneet Araiza Chronic kidney disease, stage 3 unspecified N18.30 ; Essential hypertension I10 ; Type 2 diabetes mellitus with hyperglycemia E11.65 and Gastro-esophageal reflux disease with esophagitis, without bleeding K21.00 [facility] [address] [facility] [address] [place] [address] 10/09/2024 Navneet Singh Chronic kidney disease, stage 3 unspecified N18.30 ; Type 2 diabetes mellitus with hyperglycemia E11.65 ; Vitamin D deficiency, unspecified E55.9 ; Glycosuria R81 and Proteinuria, unspecified R80.9 [facility] [address] [address] 11/27/2024 Navneet Araiza Chronic kidney disease, stage 3 unspecified N18.30 ; Essential hypertension I10 ; Type 2 diabetes mellitus with hyperglycemia E11.65 ; Gastro-esophageal reflux disease with esophagitis, without bleeding K21.00 ; Vitamin D deficiency, unspecified E55.9 and Anemia, unspecified D64.9 [facility] [address] [address] 03/05/2025 Navneet Singh Chronic kidney disease, stage 3a N18.31 ; Essential hypertension I10 ; Type 2 diabetes mellitus with hyperglycemia E11.65 ; Gastro-esophageal reflux disease with esophagitis, without bleeding K21.00 ; Vitamin D deficiency, unspecified E55.9 ; Anemia, unspecified D64.9 ; Proteinuria, unspecified R80.9 and Glycosuria R81 [facility] [address] [address] 04/30/2025 Navneet Singh Chronic kidney disease, stage 3a N18.31 ; Essential hypertension I10 ; Type 2 diabetes mellitus with hyperglycemia E11.65 ; Gastro-esophageal reflux disease with esophagitis, without bleeding K21.00 ; Vitamin D deficiency, unspecified E55.9 and Anemia, unspecified D64.9 [facility] [address] [place] [address] 05/28/2025 Navneet Singh Chronic kidney disease, stage 3a N18.31 ; Essential hypertension I10 ; Type 2 diabetes mellitus with hyperglycemia E11.65 ; Gastro-esophageal reflux disease with esophagitis, without bleeding K21.00 ; Vitamin D deficiency, unspecified E55.9 ; Anemia, unspecified D64.9 and Glycosuria R81 [facility] [address] [address] 08/01/2024 Navneet [facility] [address] [address] 08/02/2024 Navneet [facility] [address] [address] [place] [address] 04/30/2025 Navneet Araiza [facility] [address] [facility] [address] [place] [address] 05/28/[address] [place] [address] [place] [address] 05/28/[address] [place] [address] [place] [address] 05/28/2025 Navneet Araiza [facility] [address] [address] 08/01/2024 Navneet Araiza Assessments Encounter Date Diagnosis [...] 05/28/2025 Essential hypertension (ICD-10 - I10) 05/28/2025 Chronic kidney disease, stage 3a (ICD-10 - N18.31) 05/28/2025 Type 2 diabetes mellitus with hyperglycemia (ICD-10 - E11.65) 04/30/2025 Essential hypertension (ICD-10 - I10) 03/05/2025 Type 2 diabetes mellitus with hyperglycemia (ICD-10 - E11.65) 11/27/2024 Essential hypertension (ICD-10 - I10) 10/09/2024 Vitamin D deficiency, unspecified (ICD-10 - E55.9) 07/31/2024 Essential hypertension (ICD-10 - I10) 07/31/2024 Type 2 diabetes mellitus with hyperglycemia (ICD-10 - E11.65) 10/09/2024 Glycosuria (ICD-10 - R81) 11/27/2024 Type 2 diabetes mellitus with hyperglycemia (ICD-10 - E11.65) 03/05/2025 Gastro-esophageal reflux disease with esophagitis, without bleeding (ICD-10 - K21.00) 04/30/2025 Type 2 diabetes mellitus with hyperglycemia (ICD-10 - E11.65) 05/28/2025 Gastro-esophageal reflux disease with esophagitis, without bleeding (ICD-10 - K21.00) 04/30/2025 Gastro-esophageal reflux disease with esophagitis, without bleeding (ICD-10 - K21.00) 05/28/2025 Vitamin D deficiency, unspecified (ICD-10 - E55.9) 03/05/2025 Vitamin D deficiency, unspecified (ICD-10 - E55.9) 11/27/2024 Gastro-esophageal reflux disease with esophagitis, without bleeding (ICD-10 - K21.00) 07/31/2024 Gastro-esophageal reflux disease with esophagitis, without bleeding (ICD-10 - K21.00) 10/09/2024 Proteinuria, unspecified (ICD-10 - R80.9) 03/05/2025 Anemia, unspecified (ICD-10 - D64.9) 11/27/2024 Vitamin D deficiency, unspecified (ICD-10 - E55.9) 05/28/2025 Anemia, unspecified (ICD-10 - D64.9) 04/30/2025 Vitamin D deficiency, unspecified (ICD-10 - E55.9) 05/28/2025 Glycosuria (ICD-10 - R81) 11/27/2024 Anemia, unspecified (ICD-10 - D64.9) 03/05/2025 Proteinuria, unspecified (ICD-10 - R80.9) 04/30/2025 Anemia, unspecified (ICD-10 - D64.9) 03/05/2025 Glycosuria (ICD-10 - R81) Plan Of Treatment Next Appt Details Provider Name:Navneet Araiza , 06/25/2025 02:00:00 PM, [address], [facility] [address], [place], [address],
--- OUTSIDE RECORDS SUMMARY | 2025-06-18 10:19 | XMS_ITS | Encounter Summary ---
Author Organization [facility] Address [address] [place] [address] Care Team Providers Care Cementing Bulk Material Operator Name Role Phone Adam Soni MD Primary Care Provider [phone] Encounter Details Date Type Department Care Team (Late st Contact Info) Description 08/01/2000 Outpatient Historical [place] [address] [facility] [address] [place] [address] Sensorineural hearing loss, bilateral (Primary Dx) Social History Tobacco Use Types Packs/Day Years Used Date Smoking Tobacco: Never Assessed Comments Unknown Sex and Gender Information Value Date Recorded Sex Assigned at Not on file Legal Sex 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 CASTABLES WORKER Gender Identity Not on file Sexual Orientation Not on file documented as of this encounter Plan of Treatment Upcoming Encounters Date Type Department Care Team (Late st Contact Info) Description 11/05/2025 11:30 AM CASTABLES WORKER Office Visit [facility] Oncology and Hematology - [place] [address] [facility] [address] [place] [address] Jordi Elizondo MD [address] [facility] [address] [place] [address] documented as of this encounter Visit Diagnoses Diagnosis Sensorineural hearing loss, bilateral- Primary documented in this encounter Care Teams Cementing Bulk Material Operator Relationship Specialty Start Date End Date Adam Soni MD [address] [place] [phone] PCP - General Internal Medicine 09/25/23 documented as of this encounter
--- OUTSIDE RECORDS SUMMARY | 2025-06-18 10:20 | XMS_ITS | Clinical Summary ---
Author Organization [facility] Hannah Reidsola Address [address] [facility] [place] [address] Care Team Providers Care Cardiology Physician Name Role Phone Adam Soni MD Primary Care Provider [phone] Allergies Active Allergy Reactions Criticality Noted Date [...] Encounters Date Type Department Care Team Description 06/10/2025 External Device Data STL ABSTRACTION Provider, Abstract 06/03/2025 External Device Data [facility] ABSTRACTION Provider, Abstract 05/14/2025 11:00 AM CDT Office Visit [facility] Oncology and Hematology - [place] [address] [place] [address] Jordi Elizondo MD Chronic anemia (Primary Dx) 05/08/2025 Orders Only [facility] Oncology and Hematology - [place] [address] [place] [address] Jordi Elizondo MD 05/07/2025 Orders Only [facility] Oncology and Hematology - [place] [address] [place] [address] Jordi Elizondo MD 04/02/2025 External Device Data [...] on file Legal Sex 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 PAI GOW DEALER Gender Identity Not on file Sexual Orientation Not on file Last Filed Vital Signs Vital Sign Reading Time Taken Comments Blood Pressure 145/61 05/14/2025 11:29 AM CDT Pulse 67 05/14/2025 11:24 AM CDT Temperature 35.8 C (96.5 F) 05/14/2025 11:24 AM CDT Respiratory Rate 15 11/13/2024 10:4 5 AM PAI GOW DEALER Oxygen Saturation 100% 05/14/2025 11: 24 AM CDT Inhaled Oxygen Concentration - - Weight 48.9 kg (107 lb 12.8 oz) 025 11:24 AM CDT Height 152.4 cm (5') 09/25/2023 1:26 PM PAI GOW DEALER Body Mass Index 21.05 09/25/2023 1:26 PM PAI GOW DEALER Plan of Treatment Upcoming Encounters Date Type Department Care Team (Late st Contact Info) Description 11/05/2025 11:30 AM PAI GOW DEALER Office Visit [facility] Oncology and Hematology - [place] [address] [facility] [address] [place] [address] Jordi Elizondo MD [address] [facility] [address] [place] [address] Health Maintenance Due Date Last [...] from Last 3 Months Insurance Care Teams Cardiology Physician Relationship Specialty [place] [address] [place] [phone] PCP - General Internal Medicine 09/25/23
[2025-06-18 16:25] LABS: Add Urine Microscopic? YES; Appearance Urine Clear (Clear); Glucose Urine UA Negative (Negative); Leukocyte Esterase Ur Trace LEU/UL (Negative); Nitrate Urine Negative (Negative); Non Pathogenic Casts 0-2; Specific Grav Ur 1.014 (1.001-1.035)
[2025-06-18 17:03] LABS: MALB Creatinine Ratio 16.4 mg/g (0-30)
[2025-06-18 18:09] LABS: Total Protein Urine Random < 5 mg/dL; Ur Ttl Prot Creatinine Ratio < 0.06 mg/mg (0-0.20)
[2025-06-18 18:45] LABS: Alanine Aminotransferase 12 U/L (6-35); Albumin Level 4.1 g/dL (3.5-5.1); Alkaline Phosphatase 70 U/L (38-126); Anion Gap 11 mmol/L (4-12); Aspartate Amino Transferase 57 U/L (14-36); Bilirubin,Total 0.8 mg/dL (0.2-1.3); Blood Urea Nitrogen 20 mg/dL (7-17); Calcium 9.2 mg/dL (8.4-10.2); Carbon Dioxide 23 mmol/L (22-30); Chloride 102 mmol/L (98-107); Estimated Glomerular Filt Rate 43; Glucose 93 mg/dL (65-110); Potassium 5.4 mmol/L (3.4-5.0); Sodium 136 mmol/L (137-145); Total Protein 7.1 g/dL (6.3-8.2); Uric Acid 5.1 mg/dL (2.5-7.5)
[2025-06-18 18:55] LABS: Parathyroid Intact 30.4 pg/mL (14.5-75.2)
[2025-06-19 11:08] LABS: Chloride, Urine 115 mmol/L (Not Estab.)
[2025-06-23 06:07] LABS: Osmolality, Urine 457 mOsmol/kg (.)
== END 2025-06-18 09:45 | disposition home or self-care (01) ==
PROVIDERS: PCP Internal Medicine Infectious Disease; Visit Provider Specialist
DX: N18.30 Chronic kidney disease, stage 3 unspecified (principal); E21.3 Hyperparathyroidism, unspecified; E55.9 Vitamin D deficiency, unspecified; R82.90 Unspecified abnormal findings in urine
CPT/HCPCS: 36415; 80053; 81001; 82043; 82306; 82436; 82570; 83935; 83970; 84133; 84156; 84300; 84550; 85025

== ENCOUNTER 2025-07-15 12:23 | Outpatient (CLI) | payer MEDICARE, SELFPAY ==
--- NOTE | ~2025-07-15 | MR_ITS ---
EXAMINATION: MR cervical spine wo con DATE: 07/15/2025 13:16 INDICATION: Disease of spinal cord, unspecified. Numbness and tingling in right arm. TECHNIQUE: Magnetic resonance imaging (MRI) of the cervical spine was performed without intravenous contrast. COMPARISON: None FINDINGS: There is 2 mm retrolisthesis of C3 on C4 and C7 on T1. Vertebral body heights are normal. There is mildly decreased disc height at C3-C4, moderately decreased disc height at C5-C6, and mildly decreased disc height at C6-C7. The spinal cord signal intensity is normal. The following disc levels are specifically discussed: C2-C3: The disc does not extend beyond the endplate margin. There is no uncovertebral joint osteoarthritis. There is moderate right and severe left facet joint osteoarthritis. There is no neural foraminal stenosis. There is no central canal stenosis. C3-C4: There is a central extrusion. There is moderate bilateral uncovertebral joint osteoarthritis. There is severe bilateral facet joint osteoarthritis. There is mild right and moderate left neural foraminal stenosis. There is mild central canal stenosis. C4-C5: There is a central extrusion. There is mild bilateral uncovertebral joint osteoarthritis. There is mild bilateral facet joint osteoarthritis. There is no neural foraminal stenosis. There is mild central canal stenosis. C5-C6: The disc is bulging. There is severe bilateral uncovertebral joint osteoarthritis. There is moderate bilateral facet joint osteoarthritis. There is mild bilateral neural foraminal stenosis. There is mild central canal stenosis. C6-C7: The disc is bulging with superimposed right central extrusion. There is moderate bilateral uncovertebral joint osteoarthritis. There is mild bilateral facet joint osteoarthritis. There is mild bilateral neural foraminal stenosis. There is mild central canal stenosis with ventral indentation of the spinal cord. C7-T1: There is a central protrusion. There is mild bilateral uncovertebral joint osteoarthritis. There is severe bilateral facet joint osteoarthritis. There is mild bilateral neural foraminal stenosis. There is no central canal stenosis. IMPRESSION: 1. Moderate cervical spondylosis. Reviewed, dictated and finalized at location E.
--- NOTE | ~2025-07-15 | MR_ITS ---
EXAMINATION: MR thoracic spine wo con DATE: 07/15/2025 13:17 INDICATION: Ataxia, unspecified. TECHNIQUE: Magnetic resonance imaging (MRI) of the thoracic spine was performed without intravenous contrast. COMPARISON: None FINDINGS: Alignment is normal. There is mild chronic anterior wedging of T7 vertebral body. There is mildly decreased disc height at multiple levels. There are hemangiomas in T3 and T11 vertebral bodies. There is multilevel facet joint osteoarthritis, severe at many levels. At T1-T2, there is a central protrusion. AtT4-T5, T8-T9, T9-T10, and T12-L1, the discs are bulging with mild central canal stenosis. There is mild neural foraminal stenosis at multiple levels on either side. The spinal cord signal intensity is normal. The conus medullaris is at L1-L2. IMPRESSION: 1. Mild thoracic spondylosis. Reviewed, dictated and finalized at location E.
== END 2025-07-15 12:24 | disposition home or self-care (01) ==
LOC: MICIMG 12:24
PROVIDERS: PCP Internal Medicine Infectious Disease; Visit Provider Psychiatry & Neurology Neurology
DX: M47.814 Spondylosis without myelopathy or radiculopathy, thoracic region (principal); M47.812 Spondylosis without myelopathy or radiculopathy, cervical region; R27.0 Ataxia, unspecified; R32 Unspecified urinary incontinence
CPT/HCPCS: 72141; 72146

== ENCOUNTER 2025-08-21 13:35 | Outpatient (CLI) | payer MEDICARE, SELFPAY ==
--- NOTE | ~2025-08-21 | US_ITS ---
US thyroid INDICATION: Nontoxic thyroid TECHNIQUE: Real-time sonographic images of the thyroid gland were obtained. COMPARISON: No prior studies for comparison. FINDINGS: The right thyroid lobe measures 3.6 x 1.6 x 1.5 cm. The left thyroid lobe measures 3.3 x 1.6 x 1.6 cm. There is normal echotexture and echogenicity throughout the thyroid gland. There are multiple nodules in the right lobe, most of which are cysts. There is a mixed solid and cystic mass measuring 5 mm which is wider than tall, smoothly marginated without echogenic foci, TR 3. In the left lobe there are multiple cysts. In addition, there is a complex mostly solid hypoechoic mass measuring 1.7 x 1.2 x 1 cm with irregular margins and internal echogenic foci, TR 5. Normal vascular flow is present. IMPRESSION: 1. Dominant left thyroid mass measuring 1.7 cm, TR 5. Ultrasound-guided fine-needle aspiration biopsy recommended. Reviewed, dictated and finalized at location I. SALVAGER
--- NOTE | ~2025-08-21 | US_ITS ---
EXAMINATION: US carotid duplex BI DATE: 08/21/2025 15:25 INDICATION: Dizziness and giddiness TECHNIQUE: Grayscale, color Doppler, and pulsed Doppler images of the cervical carotid arteries were obtained. The degree of vessel stenosis is placed in one of the following categories: normal, <50%, 50-69%, >=70% but less than near- occlusion, near-occlusion, or total occlusion. Note that percent stenosis relative to normal distal artery lumen diameter is indirectly measured from velocity measurements as described by Too, et al. Radiology 2003; 229:340-346. COMPARISON: None. FINDINGS: RIGHT: The right common carotid artery (CCA) peak systolic velocity (PSV) is 83 cm/s. The right internal carotid artery (ICA) PSV is 105 cm/s. The right ICA end- diastolic velocity (EDV) is 23 cm/s. The right ICA/CCA PSV ratio is 1.3. Grayscale and color Doppler images yield an estimate of <50% diameter reduction from plaque in the ICA. The external carotid artery (ECA) PSV is 75 cm/s. There is antegrade flow in the right vertebral artery. LEFT: The left CCA PSV is 75 cm/s. The left ICA PSV is 131 cm/s. The left ICA EDV is 39 cm/s. The left ICA/CCA PSV ratio is 1.7. Grayscale and color Doppler images including secondary color Doppler criteria yield an estimate of <50% diameter reduction from plaque in the ICA. The ECA PSV is 91 cm/s. There is antegrade flow in the left vertebral artery. IMPRESSION: 1. <50% stenosis in the right internal carotid artery. 2. <50% stenosis in the left internal carotid artery. Reviewed, dictated and finalized at location A. 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
== END 2025-08-21 13:36 | disposition home or self-care (01) ==
LOC: ANHIMG 13:43
PROVIDERS: PCP Internal Medicine Infectious Disease; Visit Provider Psychiatry & Neurology Neurology
DX: E04.1 Nontoxic single thyroid nodule (principal); I65.23 Occlusion and stenosis of bilateral carotid arteries
CPT/HCPCS: 76536; 93880